=== PATIENT | male | born 1960 | race Caucasian/White ===

== ENCOUNTER 2022-08-13 12:50 | Outpatient (OUT) | payer BC, OTHER, SELFPAY ==
[2022-08-13 14:44] LABS: Prostate Specific Antigen Dx <0.13 ng/mL (<=4.00)
== END 2022-08-13 12:51 ==
DX: C61 Malignant neoplasm of prostate (principal)
CPT/HCPCS: 36415; 84153

== ENCOUNTER 2022-10-22 11:13 | Outpatient (OUT) | payer BC, OTHER, SELFPAY ==
[2022-10-22 11:38] LABS: Basophils Absolute Auto 0.1 10^3/uL (0.0-0.1); Basophils Percent Auto 1.2 % (0.2-2.0); Eosinophils Absolute Auto 0.4 10^3/uL (0.0-0.7); Eosinophils Percent Auto 4.4 % (0.9-7.0); Hematocrit 53.2 % (42.0-54.0); Hemoglobin 18.9 g/dL (14.0-18.0); Immature Granulocytes Abs Auto 0.04 10^3/uL (0.00-0.03); Immature Granulocytes Pct Auto 0.4 % (0.0-0.5); Lymphocytes Absolute Auto 2.3 10^3/uL (1.2-3.8); Lymphocytes Percent Auto 24.4 % (20.5-60.0); Mean Corpuscular HGB Conc 35.5 g/dL (29.9-35.2); Mean Corpuscular Hemoglobin 35.5 pg (25.9-34.0); Mean Corpuscular Volume 99.8 fL (80.0-94.0); Mean Platelet Volume 10.6 fL (9.5-13.5); Monocytes Percent Auto 10.9 % (1.7-12.0); Neutrophils Absolute Auto 5.5 10^3/uL (1.4-6.5); Neutrophils Percent Auto 58.7 % (43.0-75.0); Platelet Count 202 10^3/uL (150-450); Red Blood Count 5.33 10^6/uL (4.70-6.10); White Blood Count 9.4 10^3/uL (4.0-11.0)
[2022-10-22 11:55] LABS: BUN Creatinine Ratio 9.3; Calcium 9.4 mg/dL (8.5-10.1); Chloride 101 mmol/L (98-107); Estimated GFR (African America >60 (>=60); Estimated GFR (Non-African Ame >60 (>=60); Glucose 107 mg/dL (74-106); Sodium 136 mmol/L (136-145)
== END 2022-10-22 11:14 | disposition home or self-care (01) ==
DX: R94.31 Abnormal electrocardiogram [ECG] [EKG] (principal); I10 Essential (primary) hypertension
CPT/HCPCS: 36415; 80048; 85025

== ENCOUNTER 2022-11-12 10:12 | Outpatient (OUT) | payer BC, SELFPAY ==
[2022-11-12 11:53] LABS: Prostate Specific Antigen Dx 0.14 ng/mL (<=4.00)
== END 2022-11-12 10:13 | disposition home or self-care (01) ==
PROVIDERS: PCP Family Medicine
DX: Z85.46 Personal history of malignant neoplasm of prostate (principal)
CPT/HCPCS: 36415; 84153

== ENCOUNTER 2023-01-07 09:08 | Outpatient (OUT) | payer BC, SELFPAY ==
[2023-01-07 09:36] LABS: Glucose Fasting 121 mg/dL (74-106)
== END 2023-01-07 09:09 | disposition home or self-care (01) ==
LOC: LAB 09:10
PROVIDERS: PCP Family Medicine; Visit Provider Internal Medicine Cardiovascular Disease
DX: R73.9 Hyperglycemia, unspecified (principal); I10 Essential (primary) hypertension
CPT/HCPCS: 36415; 82947

== ENCOUNTER 2023-01-14 10:03 | Outpatient (OUT) | payer BC, SELFPAY ==
[2023-01-14 11:01] LABS: Prostate Specific Antigen Dx 0.33 ng/mL (<=4.00)
== END 2023-01-14 10:04 | disposition home or self-care (01) ==
LOC: LAB 10:03
PROVIDERS: PCP Family Medicine; Visit Provider Family Medicine
DX: R97.21 Rising PSA following treatment for malignant neoplasm of prostate (principal); Z85.46 Personal history of malignant neoplasm of prostate
CPT/HCPCS: 36415; 84153

== ENCOUNTER 2023-02-11 11:02 | Outpatient (OUT) | payer BC, SELFPAY ==
[2023-02-11 12:37] LABS: Anion Gap 10.1; BUN Creatinine Ratio 13.2; Calcium 9.7 mg/dL (8.5-10.1); Carbon Dioxide 33.2 mmol/L (21.0-32.0); Chloride 97 mmol/L (98-107); Estimated GFR (African America >60 (>=60); Estimated GFR (Non-African Ame >60 (>=60); Glucose 91 mg/dL (74-106); Potassium 3.3 mmol/L (3.5-5.1); Sodium 137 mmol/L (136-145)
== END 2023-02-11 11:03 | disposition home or self-care (01) ==
LOC: LAB 11:02
PROVIDERS: PCP Family Medicine; Visit Provider Internal Medicine Cardiovascular Disease
DX: I10 Essential (primary) hypertension (principal)
CPT/HCPCS: 36415; 80048

== ENCOUNTER 2023-11-18 09:37 | Outpatient (OUT) | payer BC, SELFPAY ==
--- OUTSIDE RECORDS SUMMARY | 2023-11-18 09:41 | XMS_ITS | CCD ---
Author Organization [facility] Care Team Providers Care Quality Compliance Coordinator Name Role Phone WU ENRIQUE Primary Care Physician MD Rodrigue Harp Attending Provider MD Wu Enrique Primary Care Provider [phone] Rodrigue Harp Admitting Unavailable Rodrigue Harp Attending Unavailable Wu Enrique Primary Care Unavailable Unavailable Primary Care Provider UnavailWu Waters Unavailable Unavailable Unavailable WU ENRIQUE Primary Care Physician KATIUSKA ., DR HUSAIN Admitting Unavailable HARP ., DR HUSAIN Attending Unavailable ENRIQUE ., DR WU Springer Primary Care Unavailable HARP ., DR HUSAIN Consulting Unavailable B[place], DR LETICIA Carbone Consulting Unavailable ZIEBER, DR ALEJANDRO Iqbal Consulting Unavailable HARP ., DR HUSAIN Admitting Unavailable HARP ., DR HUSAIN Attending Unavailable HARP ., DR HUSAIN Consulting Unavailable ENRIQUE ., DR WU Springer Admitting Unavailable ENRIQUE ., DR WU Springer Attending Unavailable ENRIQUE ., DR WU Springer Consulting Unavailable ENGELER, DR GRACE Iyer Admitting Unavailable ENGELER, DR GRACE Iyer Attending Unavailable ENRIQUE ., DR WU Springer Primary Care Unavailable ENGELEFarida, DR GRACE Iyer Consulting Unavailable ELENITA, DR ALEJANDRO Iqbal Consulting Unavailable HARP ., DR HUSAIN Admitting Unavailable HARP ., DR HUSAIN Attending Unavailable ENRIQUE ., DR WU Springer Primary Care Unavailable HARP ., DR HUSAIN Consulting Unavailable ENRIQUE ., DR WU Springer Primary Care Unavailable HAY ., DR CORNEJO Admitting Unavailable HAY ., DR CORNEJO Attending Unavailable MARKER ., DR VILLALOBOS Consulting Unavailable HARP ., DR HUSAIN Admitting Unavailable HARP ., DR HUSAIN Attending Unavailable ENRIQUE ., DR WU Springer Primary Care Unavailable HARP ., DR HUSAIN Consulting Unavailable FABIOLA MALIK Consulting Unavailable FELDER, DR KALIA Khan Admitting Unavailable FELDER, DR KALIA Khan Attending Unavailable ENRIQUE ., DR WU Springer Primary Care Unavailable KATIUSKA ., DR HUSAIN Consulting Unavailable FELDER, DR KALIA Khan Consulting Unavailable WU ENRIQUE Primary Care Physician [phone] Wu Enrique MD Primary Care Provider FelderVenkat girardan Referring Unavailable Iva, Dr. Wu De La O Primary Care Unavailab le Felder, Motta Attending Unavailable Felder, Motta Attending Unavailable Felder, Motta Referring Unavailable Iva, Dr. Wu De La O Primary Care Unavailab le Felder, Kalia Attending Unavailable Felder, Motta Referring Unavailable Enrique, Dr. Wu De La O Primary Care Unavailab Loc Dumont MD Primary Care Provider Loc Castaneda. Attending Unavailable Loc Castaneda. Attending Unavailable Loc Castaneda MD Primary Care Provider ENGELER, G MORALES Referring Unavailable ROSS, LOC E Primary Care Unavailable ENGELER, G MORALES Referring Unavailable ROSS, LOC E Primary Care Unavailable ENGELER, G MORALES Referring Unavailable ROSS, LOC E Primary Care Unavailable CLARIBEL HAQUE Attending Unavailable ROSS, LOC E Primary Care Unavailable ENGELER, G MORALES Referring Unavailable ROSS, LOC E Primary Care Unavailable ENGELER, G MORALES Referring Unavailable ROSS, LOC E Primary Care Unavailable ENGELER, G MORALES Attending Unavailable ROSS, LOC E Primary Care Unavailable ENGELER, G MORALES Referring Unavailable ROSS, LOC E Primary Care Unavailable ROSS, LOC E Primary Care Unavailable ENGELER, G MORALES Referring Unavailable ENGELER, G MORALES Referring Unavailable ROSS, LOC E Primary Care Unavailable ENGELER, G MORALES Referring Unavailable ROSS, LOC E Primary Care Unavailable ENGELER, G MORALES Attending Unavailable ROSS, LOC E Primary Care Unavailable ENGELER, G MORALES Referring Unavailable ROSS, LOC E Primary Care Unavailable ENGELER, G MORALES Referring Unavailable ROSS, LOC E Primary Care Unavailable ENGELER, G MORALES Attending Unavailable ROSS, LOC E Primary Care Unavailable ENGELER, G MORALES Referring Unavailable ROSS, LOC E Primary Care Unavailable ENGELER, G MORALES Referring Unavailable ROSS, LOC E Primary Care Unavailable ENGELER, G MORALES Referring Unavailable ROSS, LOC E Primary Care Unavailable ENGELER, G MORALES Referring Unavailable ROSS, LOC E Primary Care Unavailable ENGELER, G MORALES Attending Unavailable ROSS, LOC E Primary Care Unavailable ENGELER, G MORALES Referring Unavailable ROSS, LOC E Primary Care Unavailable ENGELER, G MORALES Referring Unavailable ROSS, LOC E Primary Care Unavailable ENGELER, G MORALES Attending Unavailable ROSS, LOC E Primary Care Unavailable ENGELER, G MORALES Referring Unavailable ROSS, LOC E Primary Care Unavailable ENGELER, G MORALES Referring Unavailable ROSS, LOC E Primary Care Unavailable ENGELER, G MORALES Attending Unavailable ROSS, LOC E Primary Care Unavailable ENGELER, G MORALES Attending Unavailable ENGELER, G MORALES Referring Unavailable ROSS, LOC E Primary Care Unavailable ENGELER, G MORALES Attending Unavailable ROSS, LOC E Primary Care Unavailable ENGELER, G MORALES Attending Unavailable ROSS, LOC E Primary Care Unavailable ENGELER, G MORALES Attending Unavailable ENGELER, G MORALES Referring Unavailable ROSS, LOC E Primary Care Unavailable KISHOREPRESTON BERNSTEIN Attending Unavailable ROSS, LOC E Primary Care Unavailable PRESTON NOVAK Attending Unavailable ENGELER, G MORALES Referring Unavailable ROSS, LOC E Primary Care Unavailable ENGELER, G MORALES Referring Unavailable ROSS, LOC E Primary Care Unavailable ENGELER, G MORALES Referring Unavailable ROSS, LOC E Primary Care Unavailable ENGELER, G MORALES Referring Unavailable ROSS, LOC E Primary Care Unavailable CLARIBEL HAQUE Attending Unavailable WU ENRIQUE Primary Care Unavailable CLARIBEL HAQUE Attending Unavailable WU ENRIQUE Primary Care Unavailable TERRYELER, G MORALES Attending Unavailable WU ENRIQUE Primary Care Unavailable ENGELER, G MORALES Referring Unavailable WU ENRIQUE Primary Care Unavailable ENGELER, G MORALES Referring Unavailable ROSS, LOC E Primary Care Unavailable ENGELER, G MORALES Referring Unavailable ROSS, LOC E Primary Care Unavailable ENGELER, G MORALES Referring Unavailable ROSS, LOC E Primary Care Unavailable ENGELER, G MORALES Referring Unavailable ROSS, LOC E Primary Care Unavailable ENGELEFarida, G MORALES Attending Unavailable ROSS, LOC E Primary Care Unavailable ENGELER, G MORALES Referring Unavailable ROSS, LOC E Primary Care Unavailable ENGELER, G MORALES Referring Unavailable ROSS, LOC E Primary Care Unavailable ROSS, LOC E Primary Care Unavailable ENGELER, G MORALES Referring Unavailable ROSS, LOC E Primary Care Unavailable ENGELER, G MORALES Referring Unavailable ROSS, LOC E Primary Care Unavailable ENGELER, G MORALES Referring Unavailable ROSS, LOC E Primary Care Unavailable ROSS, LOC E Primary Care Unavailable ENGELER, G MORALES Referring Unavailable ROSS, LOC E Primary Care Unavailable ROSS, LOC E Primary Care Unavailable ENGELER, G MORALES Attending Unavailable ROSS, LOC E Primary Care Unavailable ENGELER, G MORALES Attending Unavailable ROSS, LOC E Primary Care Unavailable ENGELER, G MORALES Referring Unavailable ROSS, LOC E Primary Care Unavailable KALIA FELDER Attending Unavailable LOC CASTANEDA KATIE Primary Care Unavailable KALIA FELDER Referring Unavailable LOC CASTANEDA KATIE Primary Care Unavailable KALIA FELDER Attending Unavailable KALIA FELDER Referring Unavailable LOC CASTANEDA KATIE Primary Care Unavailable Allergies Allergy Classification Reported Allergen(s) Allergy Type Date of Onset Reaction(s) Facility (7 sources) Angiotensin-converting enzyme inhibitor agent; Translations: [LINDA inhibitors] Drug allergy 04-19-19 Cough (finding) [facility] (20 sources) hydroCHLOROthiazide / Losartan; Translations: [hydrochlorothiazide-l osartan] Drug Allergy 04-19-19 Angioedema (disorder), Swelling [facility] (11 sources) Lisinopril; Translations: [lisinopril] Drug Allergy 01-21-20 Weal (disorder) [facility] (1 source) Unable to Assess Drug allergy (disorder) 03-21-19 [facility] Rep[facility] (20 sources) Angiotensin-converting enzyme inhibitor agent Drug Allergy 04-19-19 Cough, Hives [facility] (5 sources) Angiotensin Converting Enzyme (Linda) Inhibitors; Translations: [LINDA Inhibitors] Allergy to drug (finding) Rash [facility] [facility] DO Work Phone: (1 source) Amino Acids Drug Allergy [facility] Repository (1 source) Losartan Drug Allergy [facility] (1 source) hydroCHLOROthiazide / Losartan; Translations: [LOSARTAN-HYDROCHLOROT HIAZIDE] Drug Allergy 04-19-19 [facility] Repository Medications Current Medications Medication Drug Class(es) Dates Sig (Normalized) Sig (Original) apixaban 2.5 mg oral tablet (2 sources) Factor Xa Inhibitor Start: 06-30-2022 End: 07-30-2022 take 1 tablet by mouth twice daily apixaban (ELIQUIS) 2.5 mg tab(s) Take 1 tablet by mouth twice daily. 60 tablet 0 06/30/2022 07/30/2022 Active Comment on above: Take 1 tablet by logan twice daily. carvedilol 12.5 mg oral tablet (20 sources) alpha-Adrenergic Anali, beta-Adrenergic Anali Start: 05-09-2022 carvedilol (COREG) 12.5 mg tablet q 12 HR. 0 05/09/2022 Active Start: 05-09-2022 take 1 tablet by logan twice daily Carvedilol 12.5 MG Oral Tablet TAKE 1 TABLET TWICE DAILY. Quantity: 180 Refills: 3 Ordered: 09-May-2022 Kalia Felder MD Start : 09-May-2022 Active new start, stop metoprolol Comment on above: q 12 HR. cloNIDine hydrochloride 0.1 mg oral tablet (20 sources) Central alpha-2 Adrenergic Agonist Start: 03-02-2022 cloNIDine HCl (CATAPRES) 0.1 mg tablet Take by mouth. 0 03/02/2022 Active Start: 02-28-2022 take 1 tablet by logan th three times daily cloNIDine HCl (CATAPRES) 0.1 mg tablet Take 0.1 mg by mouth three times daily. 0 03/02/2022 Active Comment on above: Take by mouth. Take 0.1 mg by mouth three times daily. hydrALAZINE hydrochloride 25 mg oral tablet (16 sources) Arteriolar Vasodilator Start: End: take 1 tablet by mouth twice daily hydrALAZINE (APRESOLINE) 25 mg tablet Take 25 mg by mouth two times a day. 0 01/23/2023 01/23/2024 Active Comment on above: Take 25 mg by mouth two times a day. indapamide 2.5 mg oral tablet (16 sources) Thiazide-like Diuretic Start: 023 take 1 tablet by mouth once daily in the morning indapamide (LOZOL) 2.5 mg tablet Take 2.5 mg by mouth every morning. 0 01/23/2023 Active Comment on above: Take 2.5 mg by mouth every morning. tadalafil 5 mg oral tablet (20 sources) Phosphodiesterase 5 Inhibitor Start: 024 End: 025 take 1 tablet by mouth once daily Tadalafil (CIALIS) 5 mg tablet Indications: Erectile dysfunction following radical prostatectomy Take 1 tablet by mouth daily. 90 tablet 3 07/07/2023 07/06/2024 Active Start: 07-07-2022 End: 06-18-2023 take 1 tablet by mouth once daily Tadalafil (CIALIS) 5 mg tablet Take 1 tablet by mouth daily. 90 tablet 3 06/19/2023 Active Start: 06-10-2022 End: 06-10-2022 Tadalafil (CIALIS) 20 mg tab (s) Take 1 tablet by mouth as needed. 1-2 hours before sexual intercourse. 10 tablet 11 06/10/2022 Active Comment on above: Take 1 tablet by logan th as needed. 1-2 hours before sexual intercourse. Take 1 tablet by logan th daily. Completed/Discontinued Medications Medication Drug Class(es) Dates Sig (Normalized) Sig (Original) acetaminophen 500 mg oral tablet (2 sources) Start: 06-30-2022 take 2 tablets by mouth every six hours as needed acetaminophen (TYLENOL EXTRA STRENGTH) 500 mg tablet Take 2 tablets by mouth every 6 hours as needed for pain. 60 tablet 0 06/30/2022 Active Comment on above: Take 2 tablets by mo uth every 6 hours as needed for pain. amLODIPine 10 mg oral tablet (20 sources) Dihydropyridine Calcium Channel Anali Start: 05-09-2022 take 1 tablet by mouth once daily amLODIPine Besylate 10 MG Oral Tablet TAKE 1 TABLET DAILY. Quantity: 90 Refills: 3 Ordered: 09-May-2022 Kalia Felder MD Start : 09-May-2022 Active new mg Start: 04-22-2022 take 1 mg by mouth once daily Norvasc 5 mg Tab mg tab(s), Oral, Daily Start Date: 04/22/22 Status: Ordered Start: 04-22-2022 amLODIPine (NO RVASC) 10 mg tablet Take by mouth q 24 HR. 0 04/22/2022 Active Comment on above: Take by mouth q 24 H R. docusate sodium 100 mg oral capsule (2 sources) Start: 2022 take 1 capsule by mouth twice daily docusate sodium (COLACE) 100 mg capsule Take 1 capsule by mouth twice daily. 20 capsule 0 06/30/2022 Active Comment on above: Take 1 capsule by [facility] twice daily. hydroCHLOROthiazide 12.5 mg oral capsule (20 sources) Thiazide Diuretic Start: 2022 End: 2022 hydroCHLOROthiazide 12.5 mg capsule q 24 HR. 0 05/09/2022 01/26/2023 Discontinued (Discontinued by another Health Care Provider) Start: 05-09-2022 take 1 capsule by [facility] once daily hydroCHLOROthiazide 12.5 MG Oral Capsule TAKE 1 CAPSULE ONCE DAILY. Quantity: 90 Refills: 3 Ordered: 09-May-2022 Kalia Felder MD Start : 09-May-2022 Active Comment on above: q 24 HR. LORazepam 1 mg oral tablet (20 sources) Benzodiazepine Start: 04-20-2022 End: 02-21-2023 LORazepam (ATIVAN) 1 mg tablet Take by mouth q 24 HR. 0 04/20/2022 02/21/2023 Discontinued (Course of therapy completed) Start: 04-20-2022 take 1 tablet by [facility] once daily LORazepam 1 MG Oral Tablet TAKE 1 TABLET DAILY DIRECTED. Quantity: 0 Refills: 0 Ordered: 21-Apr-2022 DO Start : 20-Apr-2022 Active Comment on above: Take by mouth q 24 H R. 24 hr metoprolol succinate 100 mg extended release oral tablet (15 sources) beta-Adrenergic Anali Start: 2 End: 3 metoprolol succinate ER (TOPROL XL) 100 mg Take by mouth. 0 03/02/2022 06/24/2022 Discontinued Comment on above: Take by mouth. oxybutynin chloride 5 mg oral tablet (2 sources) Cholinergic Muscarinic Antagonist Start: take 1 tablet by mouth every eight hours as needed oxybutynin (DITROPAN) 5 mg tablet Take 1 tablet by mouth three times daily as needed. 20 tablet 0 06/30/2022 Active Comment on above: Take 1 tablet by logan th three times daily as needed. Problems Active Problems Problem Classification Problem Date Documented Da te Episodic/Chronic Anxiety disorders (1 source) Other specified anxiety disorders; Translations: [OTHER SPECIFIED ANXIETY DISORDERS] Onset: 04-22-2022 Chronic Cancer of prostate (20 sources) Malignant neoplasm of prostate; Translations: [Malignant tumor of prostate] Onset: 04-13-2022 Chronic Diabetes mellitus without complication (1 source) Hyperglycemia; Translations: [Other abnormal glucose] Episodic Disorders of lipid metabolism (20 sources) Hypercholesterolemi a; Translations: [Pure hypercholesterolemi a, unspecified] Onset: 06-24-2022 03-02-2022 Chronic Essential hypertension (20 sources) Hypertensive disorder; Translations: [Benign essential hypertension] Onset: 04-20-2022 03-02-2022 Chronic Genitourinary symptoms and ill-defined conditions (3 sources) Male urinary stress incontinence; Translations: [Stress incontinence (female) (male)] Onset: 01-26-2023 11-23-2022 Chronic Hyperplasia of prostate (20 sources) Benign prostatic hypertrophy with outflow obstruction; Translations: [Benign prostatic hyperplasia with lower urinary tract symptoms] Onset: 03-02-2022 Chronic Other diseases of kidney and ureters (1 source) Urinary tract obstruction; Translations: [Other obstructive and reflux uropathy] Onset: 03-02-2022 Episodic Other male genital disorders (3 sources) Erectile dysfunction following radical prostatectomy; Translations: [Erectile dysfunction following radical prostatectomy] 11-23-2022 Chronic Other male genital disorders (1 source) Erectile dysfunction following radical prostatectomy; Translations: [Erectile dysfunction following radical prostatectomy] Onset: 01-26-2023 Chronic Other nutritional; endocrine; and metabolic disorders (4 sources) Obesity; Translations: [Obesity, unspecified] Chronic Other nutritional; endocrine; and metabolic disorders (20 sources) Obese class I; Translations: [Obesity, unspecified] Onset: 06-29-2022 06-29-2022 Chronic Other nutritional; endocrine; and metabolic disorders (1 source) Overweight in adulthood with body mass index of 25 or more but less than 30; Translations: [Overweight] Episodic Other nutritional; endocrine; and metabolic disorders (2 sources) Body mass index (BMI) 28.0-28.9, adult; Translations: [Body mass index (BMI) 28.0-28.9, adult] Onset: 10-04-2023 Episodic Residual codes; unclassified (20 sources) Sleep apnea; Translations: [Unspecified sleep apnea] Onset: 06-24-2022 06-24-2022 Chronic Residual codes; unclassified (1 source) Obstructive sleep apnea syndrome; Translations: [Obstructive sleep apnea (adult) (pediatric)] Chronic Residual codes; unclassified (2 sources) Sleep apnea, unspecified; Translations: [Sleep apnea, unspecified] Onset: 01-20-2023 Chronic Substance-related disorders (8 sources) Smoker; Translations: [Tobacco use disorder] Onset: 04-22-2022 Chronic Comment on above: 1/2 ppd; Thyroid disorders (6 sources) Thyroid nodule; Translations: [Nontoxic single thyroid nodule] Onset: 05-26-2022 Chronic Past or Other Problems Problem Classification Problem Date Documented Da te Episodic/Chronic Cancer of prostate (7 sources) History of malignant neoplasm of prostate; Translations: [Personal history of malignant neoplasm of prostate] Onset: 01-26-2023 11-23-2022 Episodic Genitourinary symptoms and ill-defined conditions (20 sources) Nocturia; Translations: [Nocturia] Onset: 03-02-2022 Episodic Other aftercare (1 source) Encounter for follow-up examination after completed treatment for malignant neoplasm; Translations: [Encounter for follow-up surveillance of prostate cancer] Onset: 01-26-2023 Episodic Other screening for suspected conditions (not mental disorders or infectious disease) (20 sources) Raised prostate specific antigen; Translations: [Elevated prostate specific antigen [PSA]] Onset: 02-02-2022 Episodic Results Test Name Value Interpretation Reference Range [facility] CNOV Office Visit (RADTSA ) -- RUPERTO BHATTI ([id number]) 1960 M Date Time Provider Department 09/21/23 1:30 PM Stephanie CASTRO During your visit today, we recorded the following information about you: Temperature Pulse Respiration Blood pressure 97.4 degrees 65/minute 18/minute 154/85 Weight 86.7 kg Alise Acosta RN 09/21/2023 1:22 PM Signed AUA 3 JOSEPH Dodson G Phillip, MD 09/21/2023 1:22 PM Signed Radiation Oncology - Follow Up Note PATIENT NAME: Ruperto Bhatti PATIENT DIAGNOSIS: Prostate adenocarcinoma, initial PSA 25.79, biopsy Dejah score 3 + 3 = 6 (grade group 1), clinical stage T1c,N0M0 s/p TRUS Random biopsy. Patient underwent robotic prostatectomy on 06/29/2022 Pathologic stage pT3aNx, [place] 7 (4+3) with detectable and rising PSA, PSA 01/14/2023 0.33 RADIATION SUMMARY: DATES OF TREATMENT: 04-05-2023 to 05-25-2023 AREA TREATED: Pelvis/Prostate Bed DELIVERED DOSE: Area: Pelvis with daily CBCT Imaging 4600cGy in 23 fractions, 3 VMAT Rapid [place] L[place]pez, 10X Area: Prostate Bed Boost with daily CBCT Imaging 2400cGy in 12 fractions, 2 VMAT Rapid [place], 10X TOTAL: 7000cGy in 35 fractions INTERVAL HISTORY: Doing well. No new problems or concerns. Bladder function stable. Occasional stress related incontinence. Wears a pad but rarely needs this. PSA HISTORY: PSA (ng/mL) Date Value 09/13/2023 0.18 06/15/2023 0.32 03/21/2023 0.54 ALLERGIES Allergen Reactions Linda Inhibitors Cough, Hives Losartan-Hydrochlor* Swelling Tadalafil (CIALIS) 5 mg tablet Take 1 tablet by mouth daily. indapamide (LOZOL) 2.5 mg tablet Take 2.5 mg by mouth every morning. hydrALAZINE (APRESOLINE) 25 mg tablet Take 25 mg by mouth two times a day. Tadalafil (CIALIS) 20 mg tab(s) Take 1 tablet by mouth as needed. 1-2 hours before sexual intercourse. amLODIPine (NORVASC) 10 mg tablet Take by mouth q 24 HR. carvedilol (COREG) 12.5 mg tablet q 12 HR. cloNIDine HCl (CATAPRES) 0.1 mg tablet Take 0.1 mg by mouth three times daily. REVIEW OF SYSTEMS: D/N = 4-6/1-2 Hematuria: none Dysuria: none Incontinence: none Urgency: none Catheter use: none Medications to aid urination: n - Total AUA Score: 3 Bowel movement frequency: 1/day Bowel movement quality: normal Blood per rectum: none Last colonoscopy: na Androgen deprivation: Never. PHYSICAL EXAM: There were no vitals taken for this visit. KPS: 100 General Appearance: Alert and oriented. No acute distress. Rectal exam is deferred. ASSESSMENT/PLAN:Prostate adenocarcinoma, initial PSA 25.79, biopsy Dejah score 3 + 3 = 6 (grade group 1), clinical stage T1c,N0M0 s/p TRUS Random biopsy. Patient underwent robotic prostatectomy on 06/29/2022 Pathologic stage pT3aNx, [place] 7 (4+3) with detectable and rising PSA, PSA 03/21/2023 0.54, status post prostate bed salvage radiation. Doing well. No posttreatment problems. PSA continues to decrease. Plan to recheck in 3 to 4 months. Signed by: Stephanie Castro MD cc: Loc Castaneda [address] [place] [address] No referring provider defined for this encounter. Allergies As of Date: 09/21/2023 Noted Allergy Reaction LINDA INHIBITORS 04/19/2022 3 - Cough 4 - Hives LOSARTAN-HYDROCHLOROTHIAZI DE 04/19/2022 7 - Swelling Date Reviewed: 09/21/2023 Reviewed by: Alise Acosta RN - Fully Assessed Reason for Visit: Prostate Cancer [590] Primary Visit Diagnosis:Malignant neoplasm of prostate (HCC) [C61] Order(s):PROSTATE-SPECIFIC ANTIGEN DIAGNOSTIC [SQPSA] Order #: [id number] FUTURE Prescriptions as of 09/21/2023 - Tadalafil (CIALIS) 5 mg tablet Take 1 tablet by mouth daily. - indapamide (LOZOL) 2.5 mg tablet Take 2.5 mg by mouth every morning. - hydrALAZINE (APRESOLINE) 25 mg tablet Take 25 mg by mouth two times a day. - Tadalafil (CIALIS) 20 mg tab(s) Take 1 tablet by mouth as needed. 1-2 hours before sexual intercourse. - amLODIPine (NORVASC) 10 mg tablet Take by mouth q 24 HR. - carvedilol (COREG) 12.5 mg tablet q 12 HR. - cloNIDine HCl (CATAPRES) 0.1 mg tablet Take 0.1 mg by mouth three times daily. Problem List As Of Date 09/21/2023 Noted Resolved Malignant neoplasm of prostate (HCC) [C61] 06/10/2022 HTN (hypertension) [I10] 06/24/2022 Hypercholesteremia [E78.00] 06/24/2022 Benign prostatic hyperplasia with urinary obstr*03/02/2022 Sleep apnea [G47.30] 06/24/2022 Nocturia [R35.1] 03/02/2022 Obesity, Class I, BMI 30-34.9 [E66.9] 06/29/2022 Visit Notes: >> Alise Acosta RN Faby Sep 21, 2023 1:08 PM Status: Signed AUA 3 Alise Acosta RN Disposition: Return in about 3 months (around 12/22/2023). Follow-up and Disposition History for Encounter Date Provider Department Center 09/21/2023 [id number] CASTRO Anjali Encounter Statu (more content not included)... [facility] (UROGIL[facility] -- RUPERTO BHATTI ([id number]) 1960 M Date Time Provider Department 09/21/23 CLARIBEL HAQUE During your visit today, we recorded the following information about you: Claribel Haque APRN.FOURCHETTE SEWER 09/21/2023 5:23 PM Addendum Returned call and spoke to Ruperto Bhatti's Shona at this time Patient is taking daily Tadalafil (5 mg) with no erectile improvement- inquiring if he could take larger dose. We discussed PRN dosing- he favors to stop daily dosing. Instructed he can take 20 mg of Tadalafil PRN (instructed not to exceed 20 mg in 36 hours). Claribel Haque APRN.FOURCHETTE SEWER Allergies As of Date: 09/21/2023 Noted Allergy Reaction LINDA INHIBITORS 04/19/2022 3 - Cough 4 - Hives LOSARTAN-HYDROCHLOROTHIAZI DE 04/19/2022 7 - Swelling Date Reviewed: 09/21/2023 Reviewed by: Alise Acosta RN - Fully Assessed Reason for Visit: Returning Patient's Call [[id number]] Prescriptions as of 09/21/2023 - Tadalafil (CIALIS) 5 mg tablet Take 1 tablet by mouth daily. - indapamide (LOZOL) 2.5 mg tablet Take 2.5 mg by mouth every morning. - hydrALAZINE (APRESOLINE) 25 mg tablet Take 25 mg by mouth two times a day. - Tadalafil (CIALIS) 20 mg tab(s) Take 1 tablet by mouth as needed. 1-2 hours before sexual intercourse. - amLODIPine (NORVASC) 10 mg tablet Take by mouth q 24 HR. - carvedilol (COREG) 12.5 mg tablet q 12 HR. - cloNIDine HCl (CATAPRES) 0.1 mg tablet Take 0.1 mg by mouth three times daily. Problem List As Of Date 09/21/2023 Noted Resolved Malignant neoplasm of prostate (HCC) [C61] 06/10/2022 HTN (hypertension) [I10] 06/24/2022 Hypercholesteremia [E78.00] 06/24/2022 Benign prostatic hyperplasia with urinary obstr*03/02/2022 Sleep apnea [G47.30] 06/24/2022 Nocturia [R35.1] 03/02/2022 Obesity, Class I, BMI 30-34.9 [E66.9] 06/29/2022 Encounter Status:Closed by CLARIBEL HAQUE on 09/21/23 Normal [facility] PSA SerPl-mCncon 09-13-2023 Prostate specific Ag [Mass/Vol] 0.18 ng/mL Normal <2.60 [facility] Comment on above: Order Comment: Speci men Type: BLOOD SPECIMENOrdering Facility: [facility] Address: [address] [place] [address] Result Comment: Tota l PSA test methodology used is the Electrochemiluminescence Immunoassay by [employer]. Total PSA values by differing methodologies cannot be interchanged. Performed By: #### 2 857-1 ####[facility] [id number] [facility] [id number] [place] [address] [place] Consultation Noteon 07-03-19 24 Consultation Note [id number]#1.00TIFF Jackson Kerr [facility] CNOVon 06-22-2023 CNOV Office Visit (RADTSA ) -- RUPERTO BHATTI ([id number]) 1960 M Date Time Provider Department 06/22/23 2:00 PM Stephanie CASTRO During your visit today, we recorded the following information about you: Temperature Pulse Respiration Blood pressure 97.5 degrees 72/minute 16/minute 138/83 Weight 86.3 kg Stephanie Castro MD 06/29/2023 9:35 AM Signed Radiation Oncology - Follow Up Note PATIENT NAME: Ruperto Bhatti PATIENT DIAGNOSIS: Prostate adenocarcinoma, initial PSA 25.79, biopsy Dejah score 3 + 3 = 6 (grade group 1), clinical stage T1c,N0M0 s/p TRUS Random biopsy. Patient underwent robotic prostatectomy on 06/29/2022 Pathologic stage pT3aNx, Dejah 7 (4+3) with detectable and rising PSA, PSA 01/14/2023 0.33 RADIATION SUMMARY: DATES OF TREATMENT: 04-05-2023 to 05-25-2023 AREA TREATED: Pelvis/Prostate Bed DELIVERED DOSE: Area: Pelvis with daily CBCT Imaging 4600cGy in 23 fractions, 3 VMAT Rapid Arc López, 10X Area: Prostate Bed Boost with daily CBCT Imaging 2400cGy in 12 fractions, 2 VMAT Rapid Arc López, 10X TOTAL: 7000cGy in 35 fractions INTERVAL HISTORY: The patient presents for routine follow-up after completion of radiation in May. Overall doing well no new problems or concerns. PSA HISTORY: PSA (ng/mL) Date Value 06/15/2023 0.32 03/21/2023 0.54 ALLERGIES Allergen Reactions Linda Inhibitors Cough, Hives Losartan-Hydrochlor* Swelling Tadalafil (CIALIS) 5 mg tablet Take 1 tablet by mouth daily. indapamide (LOZOL) 2.5 mg tablet Take 2.5 mg by mouth every morning. hydrALAZINE (APRESOLINE) 25 mg tablet Take 25 mg by mouth two times a day. Tadalafil (CIALIS) 20 mg tab(s) Take 1 tablet by mouth as needed. 1-2 hours before sexual intercourse. amLODIPine (NORVASC) 10 mg tablet Take by mouth q 24 HR. carvedilol (COREG) 12.5 mg tablet q 12 HR. cloNIDine HCl (CATAPRES) 0.1 mg tablet Take 0.1 mg by mouth three times daily. REVIEW OF SYSTEMS: D/N = 4-6/1-2 Hematuria: none Dysuria: none Incontinence: none Urgency: none Catheter use: none Medications to aid urination: n - Total AUA Score: 6 Bowel movement frequency: 1/day Bowel movement quality: normal Blood per rectum: none Last colonoscopy: na Androgen deprivation: Never. PHYSICAL EXAM: BP 138/83 Pulse 72 Temp 36.4 ?C (97.5 ?F) Resp 16 Wt 86.3 kg (190 lb 4.1 oz) SpO2 96% BMI 28.93 kg/m? KPS: 100 General Appearance: Alert and oriented. No acute distress. Rectal exam is deferred. ASSESSMENT/PLAN:Prostate adenocarcinoma, initial PSA 25.79, biopsy [place] score 3 + 3 = 6 (grade group 1), clinical stage T1c,N0M0 s/p TRUS Random biopsy. Patient underwent robotic prostatectomy on 06/29/2022 Pathologic stage pT3aNx, Dejah 7 (4+3) with detectable and rising PSA, PSA 03/21/2023 0.54, status post prostate bed salvage radiation. Doing well. No posttreatment problems. PSA is responding appropriately. Plan to recheck in 3 to 4 months. Signed by: Stephanie Castro MD cc: [address] [place] [address] No referring provider defined for this encounter. Alise Acosta RN 06/29/2023 9:35 AM Signed AUA 6 Alise Acosta RN Allergies As of Date: 06/22/2023 Noted Allergy Reaction LINDA INHIBITORS 04/19/2022 3 - Cough 4 - Hives LOSARTAN-HYDROCHLOROTHIAZI DE 04/19/2022 7 - Swelling Date Reviewed: 06/22/2023 Reviewed by: Alise Acosta RN - Fully Assessed Reason for Visit: Prostate Cancer [590] Primary Visit Diagnosis:Malignant neoplasm of prostate (HCC) [C61] Order(s):PROSTATE-SPECIFIC ANTIGEN DIAGNOSTIC [SQPSA] Order #: [id number] FUTURE Prescriptions as of 06/29/2023 - Tadalafil (CIALIS) 5 mg tablet Take 1 tablet by mouth daily. - indapamide (LOZOL) 2.5 mg tablet Take 2.5 mg by mouth every morning. - hydrALAZINE (APRESOLINE) 25 mg tablet Take 25 mg by mouth two times a day. - Tadalafil (CIALIS) 20 mg tab(s) Take 1 tablet by mouth as needed. 1-2 hours before sexual intercourse. - amLODIPine (NORVASC) 10 mg tablet Take by mouth q 24 HR. - carvedilol (COREG) 12.5 mg tablet q 12 HR. - cloNIDine HCl (CATAPRES) 0.1 mg tablet Take 0.1 mg by mouth three times daily. Problem List As Of Date 06/22/2023 Noted Resolved Malignant neoplasm of prostate (HCC) [C61] 06/10/2022 HTN (hypertension) [I10] 06/24/2022 Hypercholesteremia [E78.00] 06/24/2022 Benign prostatic hyperplasia with urinary obstr*03/02/2022 Sleep apnea [G47.30] 06/24/2022 Nocturia [R35.1] 03/02/2022 Obesity, Class I, BMI 30-34.9 [E66.9] 06/29/2022 Visit Notes: >> Alise Acosta RN [facility] Jun 22, 2023 2:06 PM Status: Signed AUA 6 Alise Acosta RN Disposition: Return in about 3 months (around 09/21/2023). Follow-up and Disposition History for Encounter Date Provider Department Center 06/22/2023 [id number] CASTRO (more content not included)... Normal [facility] PSA SerPl-mCncon 06-15-2023 Prostate specific Ag [Mass/Vol] 0.32 ng/mL Normal <2.60 [facility] Comment on above: Order Comment: Speci men Type: BLOOD SPECIMENOrdering Facility: [facility] Address: [address] [place] [address] Result Comment: Alishaa moris PSA test methodology used is the Electrochemiluminescence Immunoassay by [employer]. Total PSA values by differing methodologies cannot be interchanged. Performed By: #### 2 857-1 ####[facility] [id number] [place] [address] [place] Consultation Noteon 06-06-19 24 Consultation Note [id number]#1.00TIFF Normal [facility] CNOVon 05-22-2023 CNOV Office Visit (RADTSA ) -- RUPERTO BHATTI ([id number]) 1960 M Date Time Provider Department 05/22/23 4:15 PM Stephanie CASTRO During your visit today, we recorded the following information about you: Temperature Pulse Respiration Blood pressure 97.4 degrees 70/minute 16/minute 153/81 Weight 88 kg Stephanie Castro MD 05/30/2023 7:06 AM Signed Radiation Oncology - On Treatment Review (OTR) Note PATIENT NAME: Ruperto Bhatti PATIENT DIAGNOSIS: Prostate adenocarcinoma, initial PSA 25.79, biopsy Dejah score 3 + 3 = 6 (grade group 1), clinical stage T1c,N0M0 s/p TRUS Random biopsy. Patient underwent robotic prostatectomy on 06/29/2022 Pathologic stage pT3aNx, [place] 7 (4+3) with detectable and rising PSA, PSA 01/14/2023 0.33 COURSE: salvage Current dose: 6600 cGy in 33 fx Planned dose: 7000 cGy in 35 fx SUBJECTIVE: Doing well. PHYSICAL EXAM: 05/22/23 1557 BP: 153/81 Pulse: 70 Resp: 16 Temp: 36.3 ?C (97.4 ?F) SpO2: 98% Weight: 88 kg (194 lb 0.1 oz) KPS: 100 General Appearance: Alert and oriented. No acute distress. IMAGING/LAB RESULTS: Hemoglobin (g/dL) Date Value 04/13/2023 16.8 Hematocrit (%) Date Value 04/13/2023 47.7 WBC (k/uL) Date Value 04/13/2023 7.73 Platelet Count (k/uL) Date Value 04/13/2023 182 TOXICITY ASSESSMENT (CTC v4.0): Fatigue:grade 0 - No symptoms Radiation Dermatitis: grade 0 - No symptoms Diarrhea:grade 1 Proctitis: grade 0 - No symptoms Urinary frequency: grade 1 Dysuria: grade 0 - No symptoms Urinary incontinence: grade 0 (No symptoms) Urinary retention: grade 0 - No symptoms Treatment chart checked: Yes Patient treatment site reviewed and verified:Yes Port films reviewed and current:Yes Medications started: None ASSESSMENT/PLAN: Clinically stable. Toxicity within expected parameters. Continue radiation treatment as planned. Completes this week, follow up care discussed. Stephanie Castro MD Allergies As of Date: 05/22/2023 Noted Allergy Reaction LINDA INHIBITORS 04/19/2022 3 - Cough 4 - Hives LOSARTAN-HYDROCHLOROTHIAZI DE 04/19/2022 7 - Swelling Date Reviewed: 05/22/2023 Reviewed by: Rosita Reyna LPN - Fully Assessed Reason for Visit: Radiotherapy On-treatment Visit [1722] Primary Visit Diagnosis:Thyroid nodule [E04.1] Other Visit Diagnosis:Malignant neoplasm of prostate (HCC) [C61] Order(s):PSA/PROSTSPECAG DIAG [SQPSA] Order #: [id number] FUTURE Prescriptions as of 05/30/2023 - indapamide (LOZOL) 2.5 mg tablet Take 2.5 mg by mouth every morning. - hydrALAZINE (APRESOLINE) 25 mg tablet Take 25 mg by mouth two times a day. - Tadalafil (CIALIS) 5 mg tablet Take 1 tablet by mouth daily. - Tadalafil (CIALIS) 20 mg tab(s) Take 1 tablet by mouth as needed. 1-2 hours before sexual intercourse. - amLODIPine (NORVASC) 10 mg tablet Take by mouth q 24 HR. - carvedilol (COREG) 12.5 mg tablet q 12 HR. - cloNIDine HCl (CATAPRES) 0.1 mg tablet Take 0.1 mg by mouth three times daily. Problem List As Of Date 05/22/2023 Noted Resolved Malignant neoplasm of prostate (HCC) [C61] 06/10/2022 HTN (hypertension) [I10] 06/24/2022 Hypercholesteremia [E78.00] 06/24/2022 Benign prostatic hyperplasia with urinary obstr*03/02/2022 Sleep apnea [G47.30] 06/24/2022 Nocturia [R35.1] 03/02/2022 Obesity, Class I, BMI 30-34.9 [E66.9] 06/29/2022 Encounter Status:Closed by Stephanie CASTRO on 05/30/23 [facility] CNOVgenoveva 05-15-2023 CNOV Office Visit (RADTSA ) -- RUPERTO BHATTI ([id number]) 1960 M Date Time Provider Department 3/4/24 4:15 PM Stephanie CASTRO During your visit today, we recorded the following information about you: Temperature Pulse Respiration Blood pressure 98.7 degrees 78/minute 16/minute 173/78 Weight 86 kg Stephanie Castro MD 05/16/2023 9:44 AM Signed Radiation Oncology - On Treatment Review (OTR) Note PATIENT NAME: Ruperto Bhatti PATIENT DIAGNOSIS: Prostate adenocarcinoma, initial PSA 25.79, biopsy Dejah score 3 + 3 = 6 (grade group 1), clinical stage T1c,N0M0 s/p TRUS Random biopsy. Patient underwent robotic prostatectomy on 06/29/2022 Pathologic stage pT3aNx, [place] 7 (4+3) with detectable and rising PSA, PSA 01/14/2023 0.33 COURSE: salvage Current dose: 5600 cGy in 28 fx Planned dose: 7000 cGy in 35 fx SUBJECTIVE: Doing well. PHYSICAL EXAM: 05/15/23 1551 BP: 173/78 Pulse: 78 Resp: 16 Temp: 37.1 ?C (98.7 ?F) SpO2: 98% Weight: 86 kg (189 lb 9.5 oz) KPS: 100 General Appearance: Alert and oriented. No acute distress. IMAGING/LAB RESULTS: Hemoglobin (g/dL) Date Value 04/13/2023 16.8 Hematocrit (%) Date Value 04/13/2023 47.7 WBC (k/uL) Date Value 04/13/2023 7.73 Platelet Count (k/uL) Date Value 04/13/2023 182 TOXICITY ASSESSMENT (CTC v4.0): Fatigue:grade 0 - No symptoms Radiation Dermatitis: grade 0 - No symptoms Diarrhea:grade 1 Proctitis: grade 0 - No symptoms Urinary frequency: grade 1 Dysuria: grade 0 - No symptoms Urinary incontinence: grade 0 (No symptoms) Urinary retention: grade 0 - No symptoms Treatment chart checked: Yes Patient treatment site reviewed and verified:Yes Port films reviewed and current:Yes Medications started: None ASSESSMENT/PLAN: Clinically stable. Toxicity within expected parameters. Continue radiation treatment as planned. Boost planning complete, will start tomorrow. Stephanie Castro MD Allergies As of Date: 05/15/2023 Noted Allergy Reaction LINDA INHIBITORS 04/19/2022 3 - Cough 4 - Hives LOSARTAN-HYDROCHLOROTHIAZI DE 04/19/2022 7 - Swelling Date Reviewed: 05/15/2023 Reviewed by: Rosita Reyna LPN - Fully Assessed Reason for Visit: Radiotherapy On-treatment Visit [1722] Primary Visit Diagnosis:Malignant neoplasm of prostate (HCC) [C61] Prescriptions as of 05/16/2023 - indapamide (LOZOL) 2.5 mg tablet Take 2.5 mg by mouth every morning. - hydrALAZINE (APRESOLINE) 25 mg tablet Take 25 mg by mouth two times a day. - Tadalafil (CIALIS) 5 mg tablet Take 1 tablet by mouth daily. - Tadalafil (CIALIS) 20 mg tab(s) Take 1 tablet by mouth as needed. 1-2 hours before sexual intercourse. - amLODIPine (NORVASC) 10 mg tablet Take by mouth q 24 HR. - carvedilol (COREG) 12.5 mg tablet q 12 HR. - cloNIDine HCl (CATAPRES) 0.1 mg tablet Take 0.1 mg by mouth three times daily. Problem List As Of Date 05/15/2023 Noted Resolved Malignant neoplasm of prostate (HCC) [C61] 06/10/2022 HTN (hypertension) [I10] 06/24/2022 Hypercholesteremia [E78.00] 06/24/2022 Benign prostatic hyperplasia with urinary obstr*03/02/2022 Sleep apnea [G47.30] 06/24/2022 Nocturia [R35.1] 03/02/2022 Obesity, Class I, BMI 30-34.9 [E66.9] 06/29/2022 Encounter Status:Closed by Stephanie CASTRO on 05/16/23 [facility] CNOVgenoveva 05-08-2023 CNOV Office Visit (RADTSA ) -- RUPERTO BHATTI ([id number]) 1960 M Date Time Provider Department 2/26/24 2:45 PM Stephanie CASTRO During your visit today, we recorded the following information about you: Temperature Pulse Respiration Blood pressure 97.2 degrees 72/minute 18/minute 168/83 Weight 86.4 kg Stephanie Castro MD 05/08/2023 3:29 PM Signed Radiation Oncology - On Treatment Review (OTR) Note PATIENT NAME: Ruperto Bhatti PATIENT DIAGNOSIS: Prostate adenocarcinoma, initial PSA 25.79, biopsy Dejah score 3 + 3 = 6 (grade group 1), clinical stage T1c,N0M0 s/p TRUS Random biopsy. Patient underwent robotic prostatectomy on 06/29/2022 Pathologic stage pT3aNx, Dejah 7 (4+3) with detectable and rising PSA, PSA 01/14/2023 0.33 COURSE: salvage Current dose: 4600 cGy in 23 fx Planned dose: 7000 cGy in 35 fx SUBJECTIVE: Doing well. PHYSICAL EXAM: 05/08/23 1505 BP: 168/83 Pulse: 72 Resp: 18 Temp: 36.2 ?C (97.2 ?F) SpO2: 97% Weight: 86.4 kg (190 lb 7.6 oz) KPS: 100 General Appearance: Alert and oriented. No acute distress. IMAGING/LAB RESULTS: Hemoglobin (g/dL) Date Value 04/13/2023 16.8 Hematocrit (%) Date Value 04/13/2023 47.7 WBC (k/uL) Date Value 04/13/2023 7.73 Platelet Count (k/uL) Date Value 04/13/2023 182 TOXICITY ASSESSMENT (CTC v4.0): Fatigue:grade 0 - No symptoms Radiation Dermatitis: grade 0 - No symptoms Diarrhea:grade 1 Proctitis: grade 0 - No symptoms Urinary frequency: grade 1 Dysuria: grade 0 - No symptoms Urinary incontinence: grade 0 (No symptoms) Urinary retention: grade 0 - No symptoms Treatment chart checked: Yes Patient treatment site reviewed and verified:Yes Port films reviewed and current:Yes Medications started: None ASSESSMENT/PLAN: Clinically stable. Toxicity within expected parameters. Continue radiation treatment as planned. Boost planning complete, will start tomorrow. Stephanie Castro MD Allergies As of Date: 05/08/2023 Noted Allergy Reaction LINDA INHIBITORS 04/19/2022 3 - Cough 4 - Hives LOSARTAN-HYDROCHLOROTHIAZI DE 04/19/2022 7 - Swelling Date Reviewed: 05/08/2023 Reviewed by: Alise Acosta, JOSEPH - Fully Assessed Reason for Visit: Radiotherapy On-treatment Visit [1722] Primary Visit Diagnosis:Malignant neoplasm of prostate (HCC) [C61] Prescriptions as of 05/08/2023 - indapamide (LOZOL) 2.5 mg tablet Take 2.5 mg by mouth every morning. - hydrALAZINE (APRESOLINE) 25 mg tablet Take 25 mg by mouth two times a day. - Tadalafil (CIALIS) 5 mg tablet Take 1 tablet by mouth daily. - Tadalafil (CIALIS) 20 mg tab(s) Take 1 tablet by mouth as needed. 1-2 hours before sexual intercourse. - amLODIPine (NORVASC) 10 mg tablet Take by mouth q 24 HR. - carvedilol (COREG) 12.5 mg tablet q 12 HR. - cloNIDine HCl (CATAPRES) 0.1 mg tablet Take 0.1 mg by mouth three times daily. Problem List As Of Date 05/08/2023 Noted Resolved Malignant neoplasm of prostate (HCC) [C61] 06/10/2022 HTN (hypertension) [I10] 06/24/2022 Hypercholesteremia [E78.00] 06/24/2022 Benign prostatic hyperplasia with urinary obstr*03/02/2022 Sleep apnea [G47.30] 06/24/2022 Nocturia [R35.1] 03/02/2022 Obesity, Class I, BMI 30-34.9 [E66.9] 06/29/2022 Encounter Status:Closed by Stephanie CASTRO on 05/08/23 [facility] Ricardo 05-01-2023 CNOV Office Visit (RADTSA ) -- RUPERTO BHATTI ([id number]) 1960 M Date Time Provider Department 05/01/23 4:15 PM Stephanie CASTRO During your visit today, we recorded the following information about you: Temperature Pulse Respiration Blood pressure 98.5 degrees 80/minute 16/minute 160/73 Weight 86 kg Stephanie Castro MD 05/01/2023 4:05 PM Signed Radiation Oncology - On Treatment Review (OTR) Note PATIENT NAME: Ruperto Bhatti PATIENT DIAGNOSIS: Prostate adenocarcinoma, initial PSA 25.79, biopsy [place] score 3 + 3 = 6 (grade group 1), clinical stage T1c,N0M0 s/p TRUS Random biopsy. Patient underwent robotic prostatectomy on 06/29/2022 Pathologic stage pT3aNx, Dejah 7 (4+3) with detectable and rising PSA, PSA 01/14/2023 0.33 COURSE: salvage Current dose: 3600 cGy in 18 fx Planned dose: 7000 cGy in 35 fx SUBJECTIVE: Doing well. PHYSICAL EXAM: 05/01/23 1553 BP: 160/73 Pulse: 80 Resp: 16 Temp: 36.9 ?C (98.5 ?F) SpO2: 99% Weight: 86 kg (189 lb 9.5 oz) KPS: 100 General Appearance: Alert and oriented. No acute distress. IMAGING/LAB RESULTS: Hemoglobin (g/dL) Date Value 04/13/2023 16.8 Hematocrit (%) Date Value 04/13/2023 47.7 WBC (k/uL) Date Value 04/13/2023 7.73 Platelet Count (k/uL) Date Value 04/13/2023 182 TOXICITY ASSESSMENT (CTC v4.0): Fatigue:grade 0 - No symptoms Radiation Dermatitis: grade 0 - No symptoms Diarrhea:grade 1 Proctitis: grade 0 - No symptoms Urinary frequency: grade 1 Dysuria: grade 0 - No symptoms Urinary incontinence: grade 0 (No symptoms) Urinary retention: grade 0 - No symptoms Treatment chart checked: Yes Patient treatment site reviewed and verified:Yes Port films reviewed and current:Yes Medications started: None ASSESSMENT/PLAN: Clinically stable. Toxicity within expected parameters. Continue radiation treatment as planned. Stephanie Castro MD Allergies As of Date: 05/01/2023 Noted Allergy Reaction LINDA INHIBITORS 04/19/2022 3 - Cough 4 - Hives LOSARTAN-HYDROCHLOROTHIAZI DE 04/19/2022 7 - Swelling Date Reviewed: 05/01/2023 Reviewed by: Rosita Reyna LPN - Fully Assessed Reason for Visit: Radiotherapy On-treatment Visit [1722] Primary Visit Diagnosis:Malignant neoplasm of prostate (HCC) [C61] Prescriptions as of 05/01/2023 - indapamide (LOZOL) 2.5 mg tablet Take 2.5 mg by mouth every morning. - hydrALAZINE (APRESOLINE) 25 mg tablet Take 25 mg by mouth two times a day. - Tadalafil (CIALIS) 5 mg tablet Take 1 tablet by mouth daily. - Tadalafil (CIALIS) 20 mg tab(s) Take 1 tablet by mouth as needed. 1-2 hours before sexual intercourse. - amLODIPine (NORVASC) 10 mg tablet Take by mouth q 24 HR. - carvedilol (COREG) 12.5 mg tablet q 12 HR. - cloNIDine HCl (CATAPRES) 0.1 mg tablet Take 0.1 mg by mouth three times daily. Problem List As Of Date 05/01/2023 Noted Resolved Malignant neoplasm of prostate (HCC) [C61] 06/10/2022 HTN (hypertension) [I10] 06/24/2022 Hypercholesteremia [E78.00] 06/24/2022 Benign prostatic hyperplasia with urinary obstr*03/02/2022 Sleep apnea [G47.30] 06/24/2022 Nocturia [R35.1] 03/02/2022 Obesity, Class I, BMI 30-34.9 [E66.9] 06/29/2022 Encounter Status:Closed by Stephanie CASTRO on 05/01/23 [facility] Ricardo 04-24-2023 CNOV Office Visit (RADTSA ) -- RUPERTO BHATTI ([id number]) 1960 M Date Time Provider Department 04/24/23 4:15 PM ENGStephanie CHOI During your visit today, we recorded the following information about you: Temperature Pulse Respiration Blood pressure 97.8 degrees 75/minute 16/minute 143/71 Weight 87.5 kg Stephanie Castro MD 04/24/2023 4:07 PM Signed Radiation Oncology - On Treatment Review (OTR) Note PATIENT NAME: Ruperto Bhatti PATIENT DIAGNOSIS: Prostate adenocarcinoma, initial PSA 25.79, biopsy [place] score 3 + 3 = 6 (grade group 1), clinical stage T1c,N0M0 s/p TRUS Random biopsy. Patient underwent robotic prostatectomy on 06/29/2022 Pathologic stage pT3aNx, Dejah 7 (4+3) with detectable and rising PSA, PSA 01/14/2023 0.33 COURSE: salvage Current dose: 2800 cGy in 14 fx Planned dose: 7000 cGy in 35 fx SUBJECTIVE: Doing well mild stool changes no other issues. PHYSICAL EXAM: 04/24/23 1601 BP: 143/71 Pulse: 75 Resp: 16 Temp: 36.6 ?C (97.8 ?F) SpO2: 99% Weight: 87.5 kg (192 lb 14.4 oz) KPS: 100 General Appearance: Alert and oriented. No acute distress. IMAGING/LAB RESULTS: Hemoglobin (g/dL) Date Value 04/13/2023 16.8 Hematocrit (%) Date Value 04/13/2023 47.7 WBC (k/uL) Date Value 04/13/2023 7.73 Platelet Count (k/uL) Date Value 04/13/2023 182 TOXICITY ASSESSMENT (CTC v4.0): Fatigue:grade 0 - No symptoms Radiation Dermatitis: grade 0 - No symptoms Diarrhea:grade 0 - No symptoms Proctitis: grade 0 - No symptoms Urinary frequency: grade 0 - No symptoms Dysuria: grade 0 - No symptoms Urinary incontinence: grade 0 (No symptoms) Urinary retention: grade 0 - No symptoms Treatment chart checked: Yes Patient treatment site reviewed and verified:Yes Port films reviewed and current:Yes Medications started: None ASSESSMENT/PLAN: Clinically stable. Toxicity within expected parameters. Continue radiation treatment as planned. Stephanie Castro MD Allergies As of Date: 04/24/2023 Noted Allergy Reaction LINDA INHIBITORS 04/19/2022 3 - Cough 4 - Hives LOSARTAN-HYDROCHLOROTHIAZI DE 04/19/2022 7 - Swelling Date Reviewed: 04/24/2023 Reviewed by: Rosita Reyna LPN - Fully Assessed Reason for Visit: Radiotherapy On-treatment Visit [1722] Primary Visit Diagnosis:Malignant neoplasm of prostate (HCC) [C61] Prescriptions as of 04/24/2023 - indapamide (LOZOL) 2.5 mg tablet Take 2.5 mg by mouth every morning. - hydrALAZINE (APRESOLINE) 25 mg tablet Take 25 mg by mouth two times a day. - Tadalafil (CIALIS) 5 mg tablet Take 1 tablet by mouth daily. - Tadalafil (CIALIS) 20 mg tab(s) Take 1 tablet by mouth as needed. 1-2 hours before sexual intercourse. - amLODIPine (NORVASC) 10 mg tablet Take by mouth q 24 HR. - carvedilol (COREG) 12.5 mg tablet q 12 HR. - cloNIDine HCl (CATAPRES) 0.1 mg tablet Take 0.1 mg by mouth three times daily. Problem List As Of Date 04/24/2023 Noted Resolved Malignant neoplasm of prostate (HCC) [C61] 06/10/2022 HTN (hypertension) [I10] 06/24/2022 Hypercholesteremia [E78.00] 06/24/2022 Benign prostatic hyperplasia with urinary obstr*03/02/2022 Sleep apnea [G47.30] 06/24/2022 Nocturia [R35.1] 03/02/2022 Obesity, Class I, BMI 30-34.9 [E66.9] 06/29/2022 Encounter Status:Closed by Stephanie CASTRO on 04/24/23 [facility] CNOVon 04-17-2023 CNOV Office Visit (RADTSA ) -- RUPERTO BHATTI ([id number]) 1960 M Date Time Provider Department 04/17/23 4:15 PM Stephanie CASTRO During your visit today, we recorded the following information about you: Temperature Pulse Respiration Blood pressure 97.4 degrees 76/minute 18/minute 157/85 Weight 86.4 kg Stephanie Castro MD 04/24/2023 3:14 PM Signed Radiation Oncology - On Treatment Review (OTR) Note PATIENT NAME: Ruperto Bhatti PATIENT DIAGNOSIS: Prostate adenocarcinoma, initial PSA 25.79, biopsy Dejah score 3 + 3 = 6 (grade group 1), clinical stage T1c,N0M0 s/p TRUS Random biopsy. Patient underwent robotic prostatectomy on 06/29/2022 Pathologic stage pT3aNx, Dejah 7 (4+3) with detectable and rising PSA, PSA 01/14/2023 0.33 COURSE: salvage Current dose: 1800 cGy in 9 fx Planned dose: 7000 cGy in 35 fx SUBJECTIVE: Doing well PHYSICAL EXAM: 04/17/23 1552 BP: 157/85 Pulse: 76 Resp: 18 Temp: 36.3 ?C (97.4 ?F) SpO2: 97% Weight: 86.4 kg (190 lb 7.6 oz) KPS: 100 General Appearance: Alert and oriented. No acute distress. IMAGING/LAB RESULTS: None TOXICITY ASSESSMENT (CTC v4.0): Fatigue:grade 0 - No symptoms Radiation Dermatitis: grade 0 - No symptoms Diarrhea:grade 0 - No symptoms Proctitis: grade 0 - No symptoms Urinary frequency: grade 0 - No symptoms Dysuria: grade 0 - No symptoms Urinary incontinence: grade 0 (No symptoms) Urinary retention: grade 0 - No symptoms Treatment chart checked: Yes Patient treatment site reviewed and verified:Yes Port films reviewed and current:Yes Medications started: None ASSESSMENT/PLAN: Clinically stable. Toxicity within expected parameters. Continue radiation treatment as planned. Stephanie Castro MD Allergies As of Date: 04/17/2023 Noted Allergy Reaction LINDA INHIBITORS 04/19/2022 3 - Cough 4 - Hives LOSARTAN-HYDROCHLOROTHIAZI DE 04/19/2022 7 - Swelling Date Reviewed: 04/17/2023 Reviewed by: Alise Acosta RN - Fully Assessed Reason for Visit: Radiotherapy On-treatment Visit [1722] Primary Visit Diagnosis:Malignant neoplasm of prostate (HCC) [C61] Prescriptions as of 04/24/2023 - indapamide (LOZOL) 2.5 mg tablet Take 2.5 mg by mouth every morning. - hydrALAZINE (APRESOLINE) 25 mg tablet Take 25 mg by mouth two times a day. - Tadalafil (CIALIS) 5 mg tablet Take 1 tablet by mouth daily. - Tadalafil (CIALIS) 20 mg tab(s) Take 1 tablet by mouth as needed. 1-2 hours before sexual intercourse. - amLODIPine (NORVASC) 10 mg tablet Take by mouth q 24 HR. - carvedilol (COREG) 12.5 mg tablet q 12 HR. - cloNIDine HCl (CATAPRES) 0.1 mg tablet Take 0.1 mg by mouth three times daily. Problem List As Of Date 04/17/2023 Noted Resolved Malignant neoplasm of prostate (HCC) [C61] 06/10/2022 HTN (hypertension) [I10] 06/24/2022 Hypercholesteremia [E78.00] 06/24/2022 Benign prostatic hyperplasia with urinary obstr*03/02/2022 Sleep apnea [G47.30] 06/24/2022 Nocturia [R35.1] 03/02/2022 Obesity, Class I, BMI 30-34.9 [E66.9] 06/29/2022 Encounter Status:Closed by Stephanie CASTRO on 04/24/23 Normal [facility] CBC W Auto Differential pane l (Bld)on 04-13-2023 Basophils (Bld) [#/Vol] 0.08 10*3/uL <0.11 k/uL [facility] Basophils/100 WBC (Bld) 1.0 % [facility] Differential cell count method Nom (Bld) Auto [facility] Eosinophils (Bld) [#/Vol] 0.28 10*3/uL <0.46 k/uL [facility] Eosinophils/100 WBC (Bld) 3.6 % [facility] Erythrocyte distribution width (RBC) [Ratio] 12.8 % 11.5 - 15.0 % [facility] Hematocrit (Bld) [Volume fraction] 47.7 % 39.0 - 51.0 % [facility] Hemoglobin (Bld) [Mass/Vol] 16.8 g/dL 13.0 - 17.0 g/dL [facility] Immature granulocytes (Bld) [#/Vol] 0.06 10*3/uL <0.10 k/uL [facility] Immature granulocytes/100 WBC (Bld) 0.8 % [facility] Lymphocytes (Bld) [#/Vol] 1.29 10*3/uL 1.00 - 4.00 k/uL [facility] Lymphocytes/100 WBC (Bld) 16.7 % [facility] MCH (RBC) [Entitic mass] 35.4 pg High 26.0 - 34.0 pg [facility] MCHC (RBC) [Mass/Vol] 35.2 g/dL 30.5 - 36.0 g/dL [facility] MCV (RBC) [Entitic vol] 100.6 fL High 80.0 - 100.0 fL [facility] Monocytes (Bld) [#/Vol] 0.89 10*3/uL High <0.87 k/uL [facility] Monocytes/100 WBC (Bld) 11.5 % [facility] Neutrophils (Bld) [#/Vol] 5.13 10*3/uL 1.45 - 7.50 k/uL [facility] Neutrophils/100 WBC (Bld) 66.4 % [facility] Nucleated RBC (Bld) [#/Vol] <0.01 k/uL [facility] Nucleated RBC/100 WBC (Bld) [Ratio] 0.0 /100 WBC [facility] Platelet mean volume (Bld) [Entitic vol] 10.5 fL 9.0 - 12.7 fL [facility] Platelets (Bld) [#/Vol] 182 10*3/uL 150 - 400 k/uL [facility] RBC (Bld) [#/Vol] 4.74 10*6/uL 4.20 - 6.0 0 m/uL [facility] WBC (Bld) [#/Vol] 7.73 10*3/uL 3.70 - 11.00 k/uL [facility] Basophils (Bld) [#/Vol] 0.08 10*3/uL Normal <0.11 [facility] Comment on above: Order Comment: Speci men Type: BLOOD SPECIMENOrdering Facility: [facility] Address: [address] [place], [place] [address] Performed By: #### 5 7021-8 ####[facility] LABCLIA [id number] [place] [address] Basophils/100 WBC (Bld) 1.0 % Normal [facility] Comment on above: Order Comment: Speci men Type: BLOOD SPECIMENOrdering Facility: [facility] Address: [address] [place] [address] Performed By: #### 5 7021-8 ####[facility] LABCLIA [id number] [place] [address] Differential cell count method Nom (Bld) Auto Normal [facility] Comment on above: Order Comment: Speci men Type: BLOOD SPECIMENOrdering Facility: [facility] Address: [address] [place] [address] Performed By: #### 5 7021-8 ####[facility] LABCLIA [id number] [place] [address] Eosinophils (Bld) [#/Vol] 0.28 10*3/uL Normal <0.46 [facility] Comment on above: Order Comment: Speci men Type: BLOOD SPECIMENOrdering Facility: [facility] Address: [address] [place] [address] Performed By: #### 5 7021-8 ####[facility] LABCLIA [id number] [place] [address] Eosinophils/100 WBC (Bld) 3.6 % Normal [facility] Comment on above: Order Comment: Speci men Type: BLOOD SPECIMENOrdering Facility: [facility] Address: [address] [place] [address] Performed By: #### 5 7021-8 ####[facility] LABCLIA [id number] [place] [address] Erythrocyte distribution width (RBC) [Ratio] 12.8 % Normal 11.5-15.0 [facility] Comment on above: Order Comment: Speci men Type: BLOOD SPECIMENOrdering Facility: [facility] Address: [address] [place], [place] [address] Performed By: #### 5 7021-8 ####[facility] LABCLIA [id number] [place] [address] Hematocrit (Bld) [Volume fraction] 47.7 % Normal 39.0-51.0 [facility] Comment on above: Order Comment: Speci men Type: BLOOD SPECIMENOrdering Facility: [facility] Address: [address] [place] [address] Performed By: #### 5 7021-8 ####[facility] LABCLIA [id number] [place] [address] Hemoglobin (Bld) [Mass/Vol] 16.8 g/dL Normal 13.0-17.0 [facility] Comment on above: Order Comment: Speci men Type: BLOOD SPECIMENOrdering Facility: [facility] Address: [address] [place] [address] Performed By: #### 5 7021-8 ####[facility] LABCLIA [id number] [place] [address] Immature granulocytes (Bld) [#/Vol] 0.06 10*3/uL Normal <0.10 [facility] Comment on above: Order Comment: Speci men Type: BLOOD SPECIMENOrdering Facility: [facility] Address: [address] [place] [address] Performed By: #### 5 7021-8 ####[facility] LABCLIA [id number] [place] [address] Immature granulocytes/100 WBC (Bld) 0.8 % Normal [facility] Comment on above: Order Comment: Speci men Type: BLOOD SPECIMENOrdering Facility: [facility] Address: [address] [place] [address] Performed By: #### 5 7021-8 ####[facility] LABCLIA [id number] [place] [address] Lymphocytes (Bld) [#/Vol] 1.29 10*3/uL Normal 1.00-4.00 [facility] Comment on above: Order Comment: Speci men Type: BLOOD SPECIMENOrdering Facility: [facility] Address: [address] [place] [address] Performed By: #### 5 7021-8 ####[facility] LABCLIA [id number] [place] [address] Lymphocytes/100 WBC (Bld) 16.7 % Normal [facility] Comment on above: Order Comment: Speci men Type: BLOOD SPECIMENOrdering Facility: [facility] Address: [address] [place] [address] Performed By: #### 5 7021-8 ####[facility] LABCLIA [id number] [place] [address] MCH (RBC) [Entitic mass] 35.4 pg High 26.0-34.0 [facility] Comment on above: Order Comment: Speci men Type: BLOOD SPECIMENOrdering Facility: [facility] Address: [address] [place] [address] Performed By: #### 5 7021-8 ####[facility] LABCLIA [id number] [place] [address] MCHC (RBC) [Mass/Vol] 35.2 g/dL Normal 30.5-36.0 [facility] Comment on above: Order Comment: Speci men Type: BLOOD SPECIMENOrdering Facility: [facility] Address: [address] [place] [address] Performed By: #### 5 7021-8 ####[facility] LABCLIA [id number] [place] [address] MCV (RBC) [Entitic vol] 100.6 fL High 80.0-100.0 [facility] Comment on above: Order Comment: Speci men Type: BLOOD SPECIMENOrdering Facility: [facility] Address: [address] [place] [address] Performed By: #### 5 7021-8 ####[facility] LABCLIA [id number] [place] [address] Monocytes (Bld) [#/Vol] 0.89 10*3/uL High <0.87 [facility] Comment on above: Order Comment: Speci men Type: BLOOD SPECIMENOrdering Facility: [facility] Address: [address] [place] [address] Performed By: #### 5 7021-8 ####[facility] LABCLIA [id number] [place] [address] Monocytes/100 WBC (Bld) 11.5 % Normal [facility] Comment on above: Order Comment: Speci men Type: BLOOD SPECIMENOrdering Facility: [facility] Address: [address] [place] [address] Performed By: #### 5 7021-8 ####[facility] LABCLIA [id number] [place] [address] Neutrophils (Bld) [#/Vol] 5.13 10*3/uL Normal 1.45-7.50 [facility] Comment on above: Order Comment: Speci men Type: BLOOD SPECIMENOrdering Facility: [facility] Address: [address] [place] [address] Performed By: #### 5 7021-8 ####[facility] LABCLIA [id number] [place] [address] Neutrophils/100 WBC (Bld) 66.4 % Normal [facility] Comment on above: Order Comment: Speci men Type: BLOOD SPECIMENOrdering Facility: [facility] Address: [address] [place] [address] Performed By: #### 5 7021-8 ####[facility] LABCLIA [id number] [place] [address] Nucleated RBC (Bld) [#/Vol] 10*3/uL Normal <0.01 [facility] Comment on above: Order Comment: Speci men Type: BLOOD SPECIMENOrdering Facility: [facility] Address: [address] [place] [address] Performed By: #### 5 7021-8 ####[facility] LABCLIA [id number] [place] [address] Nucleated RBC/100 WBC (Bld) [Ratio] 0.0 /100 WBC Normal [facility] Comment on above: Order Comment: Speci men Type: BLOOD SPECIMENOrdering Facility: [facility] Address: [address] [place] [address] Performed By: #### 5 7021-8 ####[facility] LABCLIA [id number] [place] [address] Platelet mean volume (Bld) [Entitic vol] 10.5 fL Normal 9.0-12.7 [facility] Comment on above: Order Comment: Speci men Type: BLOOD SPECIMENOrdering Facility: [facility] Address: [address] [place] [address] Performed By: #### 5 7021-8 ####[facility] LABCLIA [id number] [place] [address] Platelets (Bld) [#/Vol] 182 10*3/uL Normal 150-400 [facility] Comment on above: Order Comment: Speci men Type: BLOOD SPECIMENOrdering Facility: [facility] Address: [address] [place] [address] Performed By: #### 5 7021-8 ####[facility] LABCLIA [id number] [place] [address] RBC (Bld) [#/Vol] 4.74 10*6/uL Normal 4.20-6.00 [facility] Comment on above: Order Comment: Speci men Type: BLOOD SPECIMENOrdering Facility: [facility] Address: [address] [place] [address] Performed By: #### 5 7021-8 ####[facility] LABCLIA [id number] [place] [address] WBC (Bld) [#/Vol] 7.73 10*3/uL Normal 3.70-11.00 [facility] Comment on above: Order Comment: Speci men Type: BLOOD SPECIMENOrdering Facility: [facility] Address: [address] [place] [address] Performed By: #### 5 7021-8 ####[facility] LABCLIA [id number] [place] [address] CNOVon 04-13-2023 CNOV Office Visit (RADTSA ) -- RUPERTO BHATTI ([id number]) 1960 M Date Time Provider Department 04/13/23 4:00 PM LAB/PORT RADT ANJALI RADTSA During your visit today, we recorded the following information about you: Alise Acosta RN 04/13/2023 3:48 PM Signed Ruperto Bhatti presents in office today for: Lab Draw only . Ordering Provider: Morales Castro M.D. Test (s) ordered: CBC Method for obtaining blood: Phlebotomy was performed, accessing right antecubital vein. Needle removed intact. Dressing secured. Patient denies discomfort, dizziness, light-headedness or weakness and left the department without assist. Alise Acosta RN Allergies As of Date: 04/13/2023 Noted Allergy Reaction LINDA INHIBITORS 04/19/2022 3 - Cough 4 - Hives LOSARTAN-HYDROCHLOROTHIAZI DE 04/19/2022 7 - Swelling Date Reviewed: 04/10/2023 Reviewed by: Rosita Reyna LPN - Fully Assessed Reason for Visit: Phlebotomy [1172] Visit Diagnosis:Malignant neoplasm of prostate (HCC) [C61] Order(s):CBC + DIFF [SQCBCDIF] Order #: [id number]. #:[id number] Prescriptions as of 04/13/2023 - indapamide (LOZOL) 2.5 mg tablet Take 2.5 mg by mouth every morning. - hydrALAZINE (APRESOLINE) 25 mg tablet Take 25 mg by mouth two times a day. - Tadalafil (CIALIS) 5 mg tablet Take 1 tablet by mouth daily. - Tadalafil (CIALIS) 20 mg tab(s) Take 1 tablet by mouth as needed. 1-2 hours before sexual intercourse. - amLODIPine (NORVASC) 10 mg tablet Take by mouth q 24 HR. - carvedilol (COREG) 12.5 mg tablet q 12 HR. - cloNIDine HCl (CATAPRES) 0.1 mg tablet Take 0.1 mg by mouth three times daily. Problem List As Of Date 04/13/2023 Noted Resolved Malignant neoplasm of prostate (HCC) [C61] 06/10/2022 HTN (hypertension) [I10] 06/24/2022 Hypercholesteremia [E78.00] 06/24/2022 Benign prostatic hyperplasia with urinary obstr*03/02/2022 Sleep apnea [G47.30] 06/24/2022 Nocturia [R35.1] 03/02/2022 Obesity, Class I, BMI 30-34.9 [E66.9] 06/29/2022 Visit Notes: >> Alise Acosta RN [facility] Apr 13, 2023 3:47 PM Status: Signed Ruperto Bhatti presents in office today for: Lab Draw only . Ordering Provider: Morales Castro M.D. Test (s) ordered: CBC Method for obtaining blood: Phlebotomy was performed, accessing right antecubital vein. Needle removed intact. Dressing secured. Patient denies discomfort, dizziness, light-headedness or weakness and left the department without assist. Alise Acosta RN Encounter Status:Closed by ALISE ACOSTA on 04/13/23 [facility] Office Visit (RADTSA ) -- RUPERTO BHATTI ([id number]) 1960 M Date Time Provider Department 04/10/23 4:15 PM Stephanie CASTRO During your visit today, we recorded the following information about you: Temperature Pulse Respiration Blood pressure 98 degrees 79/minute 16/minute 166/67 Weight 85.6 kg Stephanie Castro MD 04/17/2023 9:04 AM Signed Radiation Oncology - On Treatment Review (OTR) Note PATIENT NAME: Ruperto Bhatti PATIENT DIAGNOSIS: Prostate adenocarcinoma, initial PSA 25.79, biopsy Dejah score 3 + 3 = 6 (grade group 1), clinical stage T1c,N0M0 s/p TRUS Random biopsy. Patient underwent robotic prostatectomy on 06/29/2022 Pathologic stage pT3aNx, Dejah 7 (4+3) with detectable and rising PSA, PSA 01/14/2023 0.33 COURSE: salvage Current dose: 800 cGy in 4 fx Planned dose: 7000 cGy in 35 fx SUBJECTIVE: Doing well PHYSICAL EXAM: 04/10/23 1624 BP: 166/67 Pulse: 79 Resp: 16 Temp: 36.7 ?C (98 ?F) SpO2: 96% Weight: 85.6 kg (188 lb 11.4 oz) KPS: 100 General Appearance: Alert and oriented. No acute distress. IMAGING/LAB RESULTS: None TOXICITY ASSESSMENT (CTC v4.0): Fatigue:grade 0 - No symptoms Radiation Dermatitis: grade 0 - No symptoms Diarrhea:grade 0 - No symptoms Proctitis: grade 0 - No symptoms Urinary frequency: grade 0 - No symptoms Dysuria: grade 0 - No symptoms Urinary incontinence: grade 0 (No symptoms) Urinary retention: grade 0 - No symptoms Treatment chart checked: Yes Patient treatment site reviewed and verified:Yes Port films reviewed and current:Yes Medications started: None ASSESSMENT/PLAN: Clinically stable. Toxicity within expected parameters. Continue radiation treatment as planned. Stephanie Castro MD Allergies As of Date: 04/10/2023 Noted Allergy Reaction LINDA INHIBITORS 04/19/2022 3 - Cough 4 - Hives LOSARTAN-HYDROCHLOROTHIAZI DE 04/19/2022 7 - Swelling Date Reviewed: 04/10/2023 Reviewed by: Rosita Reyna LPN - Fully Assessed Reason for Visit: Radiotherapy On-treatment Visit [1722] Primary Visit Diagnosis:Malignant neoplasm of prostate (HCC) [C61] Prescriptions as of 04/17/2023 - indapamide (LOZOL) 2.5 mg tablet Take 2.5 mg by mouth every morning. - hydrALAZINE (APRESOLINE) 25 mg tablet Take 25 mg by mouth two times a day. - Tadalafil (CIALIS) 5 mg tablet Take 1 tablet by mouth daily. - Tadalafil (CIALIS) 20 mg tab(s) Take 1 tablet by mouth as needed. 1-2 hours before sexual intercourse. - amLODIPine (NORVASC) 10 mg tablet Take by mouth q 24 HR. - carvedilol (COREG) 12.5 mg tablet q 12 HR. - cloNIDine HCl (CATAPRES) 0.1 mg tablet Take 0.1 mg by mouth three times daily. Problem List As Of Date 04/10/2023 Noted Resolved Malignant neoplasm of prostate (HCC) [C61] 06/10/2022 HTN (hypertension) [I10] 06/24/2022 Hypercholesteremia [E78.00] 06/24/2022 Benign prostatic hyperplasia with urinary obstr*03/02/2022 Sleep apnea [G47.30] 06/24/2022 Nocturia [R35.1] 03/02/2022 Obesity, Class I, BMI 30-34.9 [E66.9] 06/29/2022 Encounter Status:Closed by Stephanie CASTRO on 04/17/23 [facility] 04-04-2023 [facility] Telephone (JOE) -- RUPERTO BHATTI ([id number]) 1960 M Date Time Provider Department 04/04/23 Stephanie CASTRO During your visit today, we recorded the following information about you: Rosita Reyna LPN 04/04/2023 2:40 PM Signed CBC order pending your approval. Rosita Reyna RN Allergies As of Date: 04/04/2023 Noted Allergy Reaction LINDA INHIBITORS 04/19/2022 3 - Cough 4 - Hives LOSARTAN-HYDROCHLOROTHIAZI DE 04/19/2022 7 - Swelling Date Reviewed: 03/21/2023 Reviewed by: Rosita Reyna LPN - Fully Assessed Reason for Visit: Orders [681] Primary Visit Diagnosis:Malignant neoplasm of prostate (HCC) [C61] Order(s):CBC + DIFF [SQCBCDIF] Order #: [id number] STANDING Prescriptions as of 04/10/2023 - indapamide (LOZOL) 2.5 mg tablet Take 2.5 mg by mouth every morning. - hydrALAZINE (APRESOLINE) 25 mg tablet Take 25 mg by mouth two times a day. - Tadalafil (CIALIS) 5 mg tablet Take 1 tablet by mouth daily. - Tadalafil (CIALIS) 20 mg tab(s) Take 1 tablet by mouth as needed. 1-2 hours before sexual intercourse. - amLODIPine (NORVASC) 10 mg tablet Take by mouth q 24 HR. - carvedilol (COREG) 12.5 mg tablet q 12 HR. - cloNIDine HCl (CATAPRES) 0.1 mg tablet Take 0.1 mg by mouth three times daily. Problem List As Of Date 04/04/2023 Noted Resolved Malignant neoplasm of prostate (HCC) [C61] 06/10/2022 HTN (hypertension) [I10] 06/24/2022 Hypercholesteremia [E78.00] 06/24/2022 Benign prostatic hyperplasia with urinary obstr*03/02/2022 Sleep apnea [G47.30] 06/24/2022 Nocturia [R35.1] 03/02/2022 Obesity, Class I, BMI 30-34.9 [E66.9] 06/29/2022 Encounter Status:Closed by Stephanie CASTRO on 04/10/23 [facility] CNOVon 03-29-2023 CNOV Office Visit (RADTSA ) -- RUPERTO BHATTI ([id number]) 1960 M Date Time Provider Department 03/29/23 3:00 PM Stephanie CASTRO During your visit today, we recorded the following information about you: Stephanie Castro MD 03/31/2023 8:36 AM Signed Radiation Oncology - Prostate Cancer Follow-up PATIENT NAME: Ruperto Bhatti PATIENT DIAGNOSIS: Prostate adenocarcinoma, initial PSA 25.79, biopsy Dejah score 3 + 3 = 6 (grade group 1), clinical stage T1c,N0M0 s/p TRUS Random biopsy. Patient underwent robotic prostatectomy on 06/29/2022 Pathologic stage pT3aNx, Dejah 7 (4+3) with detectable and rising PSA, PSA 01/14/2023 0.33 HPI: Patient in today for simulation. RADIOLOGY: PSMA PET 03/17/2023: HEAD/NECK: * No PSMA-expressing neoplastic process. CHEST: * No PSMA-expressing neoplastic process. ABDOMENS/PELVIS: * No PSMA-expressing neoplastic process. MUSCULOSKELETAL: * No PSMA-expressing neoplastic process. PSMA PET 05/18/2022 (preop): Head and neck: * No PSMA-expressing lesions suspicious for metastases. * 3.0 x 2.6 cm right thyroid lobe nodule. Recommend correlation with thyroid ultrasound, if not recently performed. Chest: * No PSMA-expressing lesions suspicious for metastases. Abdomen and Pelvis: * Multifocal prostate gland PSMA uptake, most prominently left mid gland, as described. * No evidence of abdominopelvic metastases. Bones and soft tissues: * No PSMA-expressing lesions suspicious for metastases. LABORATORY: PSA history: 03/02/2022 25.79 08/13/2022 <0.13 11/12/2022 0.14 01/14/2023 0.33 PSA (ng/mL) Date Value 03/21/2023 0.54 Radical robotic prostatectomy on 06/29/2022. Pathology as noted below. FINAL DIAGNOSIS A. Prostate, radical prostatectomy: - Prostatic adenocarcinoma, [place] score 7 (4+3), Grade Group 3 with invasion into right bladder neck. - Margins of excision are free of neoplasm. - Cribriform pattern 4 is present. A. Seminal vesicles, right and left, excision: - Negative for neoplasm. SHAY/zahira 07/04/2022 Synoptic Report PROSTATE GLAND: Radical Prostatectomy 8th Edition - Protocol posted: 01/20/2021 PROSTATE GLAND: RESECTION - All Specimens SPECIMEN Procedure Radical prostatectomy Prostate Size Prostate Weight (Grams) 41.4 g Prostate Greatest Dimension (Centimeters) 4.4 cm Additional Prostate Dimension (Centimeters) 4.3 cm 3.8 cm TUMOR Histologic Type Acinar adenocarcinoma Histologic Grade Grade Grade group 3 ([place] Score 4 + 3 = 7) Minor Tertiary Pattern 5 (less than 5%) Not applicable Percentage of Pattern 4 61 - 70% Intraductal Carcinoma (IDC) Not identified Cribriform Glands Present Treatment Effect Not identified TUMOR QUANTITATION Estimated Percentage of Prostate Involved by Tumor 21 - 30% Extraprostatic Extension (EPE) Present, nonfocal Location of Extraprostatic Extension Right bladder neck Urinary Bladder Neck Invasion Present Seminal Vesicle Invasion Not identified Lymphovascular Invasion Not Identified MARGINS Margin Status All margins negative for invasive carcinoma REGIONAL LYMPH NODES Regional Lymph Node Status Not applicable (no regional lymph nodes submitted or found) PATHOLOGIC STAGE CLASSIFICATION (pTNM, AJCC 8th Edition) Reporting of pT, pN, and (when applicable) pM categories is based on information available to the pathologist at the time the report is issued. As per the AJCC (Chapter 1, 8th Ed.) it is the managing physician?s responsibility to establish the final pathologic stage based upon all pertinent information, including but potentially not limited to this pathology report. Primary Tumor (pT) pT3a pN Category pN not assigned (no nodes submitted or found) Comment(s) loan representative block A14 Initial postoperative PSA undetectable, <0.13 ng/mL (08/13/2022). However PSA was noted to be detectable on 11/12/2022, 0.14 ng/mL. Most recent PSA 01/14/2023 showing further increase to a value of 0.33 ng/mL. Patient has been doing very well. He denies any significant incontinence and wears a pad only for just in case. Able to the left without significant stress urinary incontinence. No other issues. Treatment for Prostate Cancer: None Genomic Testing: None The patient reports the following pertinent history: Urinary frequency (D/N): 4-6/0-1 Dysuria: No Incontinence: Rare incontinence does wear a pad just for protection Hematuria: No Bowel Movement Frequency: 1/day Bowel Movement Quality: Normal Blood per Rectum: No Last Colonoscopy: na Erectile function, partial with Tadalafil Androgen Deprivation: none Prior Radiation Therapy, Collagen Vascular Disease, or Inflammatory Bowel Disease: No Currently on Anticoagulation: No History of Hip Replacement: No History of Prior TURP: No (more content not included)... Normal [facility] Consultation Noteon 03-29-19 24 Consultation Note [id number]#[id number] Normal [facility] CNOVon 03-21-2023 CNOV Office Visit (RADTSA ) -- RUPERTO BHATTI ([id number]) 1960 M Date Time Provider Department 03/21/23 3:15 PM Stephanie CASTRO During your visit today, we recorded the following information about you: Temperature Pulse Respiration Blood pressure 97.7 degrees 79/minute 16/minute 138/87 Weight 87.4 kg Stephanie Castro MD 03/27/2023 9:24 AM Signed Radiation Oncology - Prostate Cancer Follow-up/new problem note PATIENT NAME: Ruperto Bhatti PATIENT DIAGNOSIS: Prostate adenocarcinoma, initial PSA 25.79, biopsy Dejah score 3 + 3 = 6 (grade group 1), clinical stage T1c,N0M0 s/p TRUS Random biopsy. Patient underwent robotic prostatectomy on 06/29/2022 Pathologic stage pT3aNx, Hatboro 7 (4+3) with detectable and rising PSA, PSA 01/14/2023 0.33 HPI: Patient in today for follow-up after further workup including PSMA PET. RADIOLOGY: PSMA PET 03/17/2023: HEAD/NECK: * No PSMA-expressing neoplastic process. CHEST: * No PSMA-expressing neoplastic process. ABDOMENS/PELVIS: * No PSMA-expressing neoplastic process. MUSCULOSKELETAL: * No PSMA-expressing neoplastic process. PSMA PET 05/18/2022 (preop): Head and neck: * No PSMA-expressing lesions suspicious for metastases. * 3.0 x 2.6 cm right thyroid lobe nodule. Recommend correlation with thyroid ultrasound, if not recently performed. Chest: * No PSMA-expressing lesions suspicious for metastases. Abdomen and Pelvis: * Multifocal prostate gland PSMA uptake, most prominently left mid gland, as described. * No evidence of abdominopelvic metastases. Bones and soft tissues: * No PSMA-expressing lesions suspicious for metastases. LABORATORY: PSA history: 03/02/2022 25.79 08/13/2022 <0.13 11/12/2022 0.14 01/14/2023 0.33 PSA (ng/mL) Date Value 03/21/2023 0.54 Radical robotic prostatectomy on 06/29/2022. Pathology as noted below. FINAL DIAGNOSIS A. Prostate, radical prostatectomy: - Prostatic adenocarcinoma, Hatboro score 7 (4+3), Grade Group 3 with invasion into right bladder neck. - Margins of excision are free of neoplasm. - Cribriform pattern 4 is present. A. Seminal vesicles, right and left, excision: - Negative for neoplasm. SHAY/zahira 07/04/2022 Synoptic Report PROSTATE GLAND: Radical Prostatectomy 8th Edition - Protocol posted: 01/20/2021 PROSTATE GLAND: RESECTION - All Specimens SPECIMEN Procedure Radical prostatectomy Prostate Size Prostate Weight (Grams) 41.4 g Prostate Greatest Dimension (Centimeters) 4.4 cm Additional Prostate Dimension (Centimeters) 4.3 cm 3.8 cm TUMOR Histologic Type Acinar adenocarcinoma Histologic Grade Grade Grade group 3 (Dejah Score 4 + 3 = 7) Minor Tertiary Pattern 5 (less than 5%) Not applicable Percentage of Pattern 4 61 - 70% Intraductal Carcinoma (IDC) Not identified Cribriform Glands Present Treatment Effect Not identified TUMOR QUANTITATION Estimated Percentage of Prostate Involved by Tumor 21 - 30% Extraprostatic Extension (EPE) Present, nonfocal Location of Extraprostatic Extension Right bladder neck Urinary Bladder Neck Invasion Present Seminal Vesicle Invasion Not identified Lymphovascular Invasion Not Identified MARGINS Margin Status All margins negative for invasive carcinoma REGIONAL LYMPH NODES Regional Lymph Node Status Not applicable (no regional lymph nodes submitted or found) PATHOLOGIC STAGE CLASSIFICATION (pTNM, AJCC 8th Edition) Reporting of pT, pN, and (when applicable) pM categories is based on information available to the pathologist at the time the report is issued. As per the AJCC (Chapter 1, 8th Ed.) it is the managing physician?s responsibility to establish the final pathologic stage based upon all pertinent information, including but potentially not limited to this pathology report. Primary Tumor (pT) pT3a pN Category pN not assigned (no nodes submitted or found) Comment(s) loan representative block A14 Initial postoperative PSA undetectable, <0.13 ng/mL (08/13/2022). However PSA was noted to be detectable on 11/12/2022, 0.14 ng/mL. Most recent PSA 01/14/2023 showing further increase to a value of 0.33 ng/mL. Patient has been doing very well. He denies any significant incontinence and wears a pad only for just in case. Able to the left without significant stress urinary incontinence. No other issues. Treatment for Prostate Cancer: None Genomic Testing: None The patient reports the following pertinent history: Urinary frequency (D/N): 4-6/0-1 Dysuria: No Incontinence: Rare incontinence does wear a pad just for protection Hematuria: No Bowel Movement Frequency: 1/day Bowel Movement Quality: Normal Blood per Rectum: No Last Colonoscopy: na Erectile function, partial with Tadalafil Androgen Deprivation: none Prior Radiation Therapy (more content not included)... Normal [facility] Jose G 03-21-2023 TEETEEN Telephone (FERNANDOA) -- RUPERTO BHATTI ([id number]) 1960 M Date Time Provider Department 03/21/23 Stephanie CASTRO During your visit today, we recorded the following information about you: Rosita Reyna LPN 03/21/2023 4:16 PM Signed Pharmacist: Will you please place Lupron 45mg orders and send to Dr. Castro? Duyen will schedule the appointment when she is here on 03/22/23. Thanks Sabra Allergies As of Date: 03/21/2023 Noted Allergy Reaction LINDA INHIBITORS 04/19/2022 3 - Cough 4 - Hives LOSARTAN-HYDROCHLOROTHIAZI DE 04/19/2022 7 - Swelling Date Reviewed: 03/21/2023 Reviewed by: Rosita Reyna LPN - Fully Assessed Reason for Visit: Orders [681] Prescriptions as of 03/22/2023 - indapamide (LOZOL) 2.5 mg tablet Take 2.5 mg by mouth every morning. - hydrALAZINE (APRESOLINE) 25 mg tablet Take 25 mg by mouth two times a day. - Tadalafil (CIALIS) 5 mg tablet Take 1 tablet by mouth daily. - Tadalafil (CIALIS) 20 mg tab(s) Take 1 tablet by mouth as needed. 1-2 hours before sexual intercourse. - amLODIPine (NORVASC) 10 mg tablet Take by mouth q 24 HR. - carvedilol (COREG) 12.5 mg tablet q 12 HR. - cloNIDine HCl (CATAPRES) 0.1 mg tablet Take 0.1 mg by mouth three times daily. Problem List As Of Date 03/21/2023 Noted Resolved Malignant neoplasm of prostate (HCC) [C61] 06/10/2022 HTN (hypertension) [I10] 06/24/2022 Hypercholesteremia [E78.00] 06/24/2022 Benign prostatic hyperplasia with urinary obstr*03/02/2022 Sleep apnea [G47.30] 06/24/2022 Nocturia [R35.1] 03/02/2022 Obesity, Class I, BMI 30-34.9 [E66.9] 06/29/2022 Encounter Status:Closed by ROSITA REYNA on 03/22/23 Normal [facility] PSA SerPl-mCncon 03-21-2023 Prostate specific Ag [Mass/Vol] 0.54 ng/mL Normal <2.60 [facility] Comment on above: Order Comment: Speci men Type: BLOOD SPECIMENOrdering Facility: [facility] Address: [address] [place] [address] Result Comment: Tota l PSA test methodology used is the Electrochemiluminescence Immunoassay by [employer]. Total PSA values by differing methodologies cannot be interchanged. Performed By: #### 2 857-1 ####[facility] [id number] FRANCHESCAMeghan [place] [address] [place] NM PET/CT PROSTATE WBon NM PET/CT PROSTATE WB * * *Final Report* * * DATE OF EXAM: Mar 17 2023 2:58PM NRN 0093 - NM PET/CT PROSTATE WB / PROCEDURE REASON: Malignant neoplasm of prostate (HCC) * * * * Physician Interpretation * * * * RESULT: EXAM: BODY PSMA PET-CT HISTORY: Prostate cancer. INDICATION: Subsequent treatment strategy. TECHNIQUE: Radiotracer was administered IV followed about 60 minutes later by PET imaging from skull vertex to proximal thighs. Free breathing, low dose CT of the same body region was acquired without IV contrast for attenuation correction and anatomic localization. * CT Dose-Length Product (DLP): 249 mGy*cm * CT Dose Reduction Employed: Yes * Dose: 10.8 mCi * Radiotracer: F-18 PSMA COMPARISON: F-18 PSMA PET/CT of 05/18/2022 CORRELATION: No relevant imaging available RESULTS: REFERENCES: SUVmax reference values: * Background salivary gland activity: 9.4 * Background liver activity: 4.3 French Tutor (topogram) images: No additional findings. Please note the following: * Standardized uptake values (SUV) are normalized to patient body weight and indicate the highest activity concentration (SUVmax) at a given site of pathology but can vary due to multiple variables and are not absolute. * Physiologic uptake is common in salivary glands, lacrimal glands, neural ganglia, liver, spleen, GI tract, and urinary tract. Certain organ systems can have more intense physiologic activity, which could confound or obscure some pathology. * PET-CT is often not sensitive for pulmonary nodules less than 8 mm. * Unenhanced imaging is limited for the evaluation of some pathology and the acquired CT was not designed to produce, and cannot replace, diagnostic CT scan quality. HEAD AND NECK: Head: No abnormal uptake. Neck (spaces): No abnormal uptake. Lymph Nodes: No abnormal uptake. Thyroid: Unchanged large right thyroid lobe. CHEST: Lungs and Airways: No abnormal uptake. Pleura and Pericardium: No abnormal uptake. Mediastinum and Cardiovascular: No abnormal uptake. Lymph Nodes: No abnormal uptake. ABDOMEN AND PELVIS: Hepatobiliary: No abnormal uptake. Spleen: No abnormal uptake. Pancreas: No abnormal uptake. Adrenals: No abnormal uptake. Urinary Tract: No abnormal uptake. GI Tract and Peritoneum: No abnormal uptake. Retroperitoneum and Vasculature: No abnormal uptake. Lymph Nodes: * Abdomen (including common iliac): No abnormal uptake. * Pelvic (below common iliac): No abnormal uptake. Pelvis and Prostate: No abnormal uptake. Prostatectomy Abdominal Wall: No abnormal uptake. MUSCULOSKELETAL: Bones: No abnormal uptake. Soft tissues: No abnormal uptake. IMPRESSION: HEAD/NECK: * No PSMA-expressing neoplastic process. CHEST: * No PSMA-expressing neoplastic process. ABDOMENS/PELVIS: * No PSMA-expressing neoplastic process. MUSCULOSKELETAL: * No PSMA-expressing neoplastic process. Transcribe Date/Time: Mar 17 2023 5:57P Dictated by: JC CERNA MD This examination was interpreted and the report reviewed and electronically signed by: JC CERNA MD on Mar 17 2023 6:01PM EST Thank you for allowing us to participate in the care of your patient. Should there be any questions regarding this interpretation, please call [phone]. If you are unable to reach us at the number above, please feel free to contact [facility]Radiology at [phone]. [id number] Normal [facility] Consultation Noteon 03-01-20 Consultation Note [id number]#1.00TIFF Normal [facility] Jose G 02-28-2023 CNPN Telephone (PETSAN) -- RUPERTO BHATTI ([id number]) 1960 Date Time Provider Department 12/19/23 KANDY CASTELLANOS During your visit today, we recorded the following information about you: Allergies As of Date: 02/28/2023 Noted Allergy Reaction LINDA INHIBITORS 04/19/2022 3 - Cough 4 - Hives LOSARTAN-HYDROCHLOROTHIAZI DE 04/19/2022 7 - Swelling Date Reviewed: 02/21/2023 Reviewed by: Alise Acosta RN - Fully Assessed Reason for Visit: Appointment [186] Prescriptions as of 02/28/2023 - indapamide (LOZOL) 2.5 mg tablet Take 2.5 mg by mouth every morning. - hydrALAZINE (APRESOLINE) 25 mg tablet Take 25 mg by mouth two times a day. - Tadalafil (CIALIS) 5 mg tablet Take 1 tablet by mouth daily. - Tadalafil (CIALIS) 20 mg tab(s) Take 1 tablet by mouth as needed. 1-2 hours before sexual intercourse. - amLODIPine (NORVASC) 10 mg tablet Take by mouth q 24 HR. - carvedilol (COREG) 12.5 mg tablet q 12 HR. - cloNIDine HCl (CATAPRES) 0.1 mg tablet Take 0.1 mg by mouth three times daily. Problem List As Of Date 02/28/2023 Noted Resolved Malignant neoplasm of prostate (HCC) [C61] 06/10/2022 HTN (hypertension) [I10] 06/24/2022 Hypercholesteremia [E78.00] 06/24/2022 Benign prostatic hyperplasia with urinary obstr*03/02/2022 Sleep apnea [G47.30] 06/24/2022 Nocturia [R35.1] 03/02/2022 Obesity, Class I, BMI 30-34.9 [E66.9] 06/29/2022 Encounter Status:Closed by KANDY CASTELLANOS on 02/28/23 [facility] Ricardo 02-21-2023 CNOV Office Visit (RADTSA ) -- RUPERTO BHATTI ([id number]) 1960 M Date Time Provider Department 02/21/23 3:00 PM Stephanie CASTRO During your visit today, we recorded the following information about you: Temperature Pulse Respiration Blood pressure 96.7 degrees 82/minute 18/minute 185/74 Weight 86.6 kg Stephanie Castro MD 02/21/2023 3:54 PM Signed Radiation Oncology - Prostate Cancer Follow-up/new problem note PATIENT NAME: Ruperto Bhatti PATIENT DIAGNOSIS: Prostate adenocarcinoma, initial PSA 25.79, biopsy Hatboro score 3 + 3 = 6 (grade group 1), clinical stage T1c,N0M0 s/p TRUS Random biopsy. Patient underwent robotic prostatectomy on 06/29/2022 Pathologic stage pT3aNx, Dejah 7 (4+3) with detectable and rising PSA, PSA 01/14/2023 0.33 HPI: Patient known to me from previous consultation. He is here after having undergone radical robotic prostatectomy now with a rising PSA. Patient underwent radical robotic prostatectomy on 06/29/2022. Pathology as noted below. FINAL DIAGNOSIS A. Prostate, radical prostatectomy: - Prostatic adenocarcinoma, Hatboro score 7 (4+3), Grade Group 3 with invasion into right bladder neck. - Margins of excision are free of neoplasm. - Cribriform pattern 4 is present. A. Seminal vesicles, right and left, excision: - Negative for neoplasm. SHAY/zahira 07/04/2022 Synoptic Report PROSTATE GLAND: Radical Prostatectomy 8th Edition - Protocol posted: 01/20/2021 PROSTATE GLAND: RESECTION - All Specimens SPECIMEN Procedure Radical prostatectomy Prostate Size Prostate Weight (Grams) 41.4 g Prostate Greatest Dimension (Centimeters) 4.4 cm Additional Prostate Dimension (Centimeters) 4.3 cm 3.8 cm TUMOR Histologic Type Acinar adenocarcinoma Histologic Grade Grade Grade group 3 (Hatboro Score 4 + 3 = 7) Minor Tertiary Pattern 5 (less than 5%) Not applicable Percentage of Pattern 4 61 - 70% Intraductal Carcinoma (IDC) Not identified Cribriform Glands Present Treatment Effect Not identified TUMOR QUANTITATION Estimated Percentage of Prostate Involved by Tumor 21 - 30% Extraprostatic Extension (EPE) Present, nonfocal Location of Extraprostatic Extension Right bladder neck Urinary Bladder Neck Invasion Present Seminal Vesicle Invasion Not identified Lymphovascular Invasion Not Identified MARGINS Margin Status All margins negative for invasive carcinoma REGIONAL LYMPH NODES Regional Lymph Node Status Not applicable (no regional lymph nodes submitted or found) PATHOLOGIC STAGE CLASSIFICATION (pTNM, AJCC 8th Edition) Reporting of pT, pN, and (when applicable) pM categories is based on information available to the pathologist at the time the report is issued. As per the AJCC (Chapter 1, 8th Ed.) it is the managing physician?s responsibility to establish the final pathologic stage based upon all pertinent information, including but potentially not limited to this pathology report. Primary Tumor (pT) pT3a pN Category pN not assigned (no nodes submitted or found) Comment(s) loan representative block A14 Initial postoperative PSA undetectable, <0.13 ng/mL (08/13/2022). However PSA was noted to be detectable on 11/12/2022, 0.14 ng/mL. Most recent PSA 01/14/2023 showing further increase to a value of 0.33 ng/mL. Patient has been doing very well. He denies any significant incontinence and wears a pad only for just in case. Able to the left without significant stress urinary incontinence. No other issues. Treatment for Prostate Cancer: None Genomic Testing: None The patient reports the following pertinent history: Urinary frequency (D/N): 4-6/0-1 Dysuria: No Incontinence: Rare incontinence does wear a pad just for protection Hematuria: No - Total AUA Score: 5 Bowel Movement Frequency: 1/day Bowel Movement Quality: Normal Blood per Rectum: No Last Colonoscopy: na Erectile function, partial with Tadalafil Androgen Deprivation: none Prior Radiation Therapy, Collagen Vascular Disease, or Inflammatory Bowel Disease: No Currently on Anticoagulation: No History of Hip Replacement: No History of Prior TURP: No ALLERGIES Allergen Reactions Linda Inhibitors Cough, Hives Losartan-Hydrochlor* Swelling indapamide (LOZOL) 2.5 mg tablet Take 2.5 mg by mouth every morning. hydrALAZINE (APRESOLINE) 25 mg tablet Take 25 mg by mouth two times a day. Tadalafil (CIALIS) 5 mg tablet Take 1 tablet by mouth daily. Tadalafil (CIALIS) 20 mg tab(s) Take 1 tablet by mouth as needed. 1-2 hours before sexual intercourse. amLODIPine (NORVASC) 10 mg tablet Take by mouth q 24 HR. carvedilol (COREG) 12.5 mg tablet q 12 HR. cloNIDine HCl (CATAPRES) 0.1 mg tablet Take 0.1 mg by mouth three times daily. PAST MEDICAL HISTORY Diagnosis Date HTN (hypertension) PAST SURGIC (more content not included)... Normal [facility] Jose G 02-21-2023 CNPN Telephone (NCCAP) -- RUPERTO BHATTI ([id number]) 1960 M Date Time Provider Department 02/21/23 [facility] During your visit today, we recorded the following information about you: Duyen Brasher 02/21/2023 3:21 PM Signed This form is used for MAIN CAMPUS APPOINTMENTS ONLY. Is this request for a [facility] [place] PET scan appointment? Yes: Explosive Ordnance Technician: Duyen Quiroga Requesting Person Dr Castro: Area Code + Phone/Pager: [phone] Who do we call to schedule this appointment? Other Contact: [facility] please route to toan castellanos [facility] Requesting Staff Dr castro Area Code + Phone/Pager: [phone] PET Orders (A delay in scheduling will result if the orders are not present at time of review): Internal ADDITIONAL ACTION MAY BE REQUIRED IF PATIENTS OON INSURANCE OR SELF PAY COVERAGE HAS NOT BEEN CLEARED FOR REQUESTED APPOINTMENT. Scheduling: JENNIFER: As soon as insurance will allow What account will this PET appointment be linked to? P/F Type of PET: Oncology: Are there additional diagnostic CT scans required to be done at time of PET scan? No Is the request for a PET MR ? No What account will diagnostic testing appointment be linked to? P/F Will the patient need anesthesia? NO Send requests to P COORD REVIEW Alise Moralez 02/22/2023 10:58 AM Signed Authorization number: [id number] Authorization date range: PSMA Primary Insurance: [employer] PPO OOS Diagnosis: Malignant neoplasm of prostate (HCC) [C61] DX Imaging: PET Scan: 05/18/2022 PET Pathology: Patient underwent radical robotic prostatectomy on 06/29/2022. Pathology as noted below. FINAL DIAGNOSIS A. Prostate, radical prostatectomy: - Prostatic adenocarcinoma, Hatboro score 7 (4+3), Grade Group 3 with invasion into right bladder neck. - Margins of excision are free of neoplasm. - Cribriform pattern 4 is present. A. Seminal vesicles, right and left, excision: - Negative for neoplasm. Prostate adenocarcinoma, initial PSA 25.79, biopsy Hatboro score 3 + 3 = 6 (grade group 1), clinical stage T1c,N0M0 s/p TRUS Random biopsy. Patient underwent robotic prostatectomy on 06/29/2022 Pathologic stage pT3aNx, Dejah 7 (4+3) with detectable and rising PSA, PSA 01/14/2023 0.33 Labs: PSA 01/14/2023 PSA 0.33 11/12/2022 PSA 0.14 08/13/2022 PSA 0.13 Clinical Notes Reviewed: 02/22/2023 Rad Onc Date of last: underwent robotic prostatectomy on 06/29/2022 Additional Information: Prostate cancer, recurrence suspected, restaging Radiologist Reviewed: N/A Initial/Subsequent: Subsequent Treatment Strategy: 0093 PET Protocol: PSMA Diagnostic Imaging Requested: No Is this a Pretreatment and/or an initial Pet scan: No - Schedule as requested Comments for Hospital Housekeeper: JENNIFER soon as insurance will allow ROUTE TO SCHEDULERS POOL P PET DEPENDENCY DIRECTOR MC or P NM SPECIAL STUDIES Alise Moralez 02/28/2023 9:15 AM Addendum Auth#::[id number] Date Range: 02-22-23 to 04-22-23 11991/PSMA- piflufolastat (Pylarifshelli) F-18 Stephanie Fuentes MD Aly[facility] Contact Number: Intake: online Case/Ref#:[id number] Notes: 02/22/2023 Submit Clinicals online via Bernardo/Alysha pending review 02/27/2023 Pending review 02/28/2023 Authorized via Bernardo/Alysha ok to send to scheduling Allergies As of Date: 02/21/2023 Noted Allergy Reaction LINDA INHIBITORS 04/19/2022 3 - Cough 4 - Hives LOSARTAN-HYDROCHLOROTHIAZI DE 04/19/2022 7 - Swelling Date Reviewed: 02/21/2023 Reviewed by: Alise Acosta, RN - Fully Assessed Reason for Visit: Nm Pet Request [0308] Prescriptions as of 02/28/2023 - indapamide (LOZOL) 2.5 mg tablet Take 2.5 mg by mouth every morning. - hydrALAZINE (APRESOLINE) 25 mg tablet Take 25 mg by mouth two times a day. - Tadalafil (CIALIS) 5 mg tablet Take 1 tablet by mouth daily. - Tadalafil (CIALIS) 20 mg tab(s) Take 1 tablet by mouth as needed. 1-2 hours before sexual intercourse. - amLODIPine (NORVASC) 10 mg tablet Take by mouth q 24 HR. - carvedilol (COREG) 12.5 mg tablet q 12 HR. - cloNIDine HCl (CATAPRES) 0.1 mg tablet Take 0.1 mg by mouth three times daily. Problem List As Of Date 02/21/2023 Noted Resolved Malignant neoplasm of prostate (HCC) [C61] 06/10/2022 HTN (hypertension) [I10] 06/24/2022 Hypercholesteremia [E78.00] 06/24/2022 Benign prostatic hyperplasia with urinary obstr*03/02/2022 Sleep apnea [G47.30] 06/24/2022 Nocturia [R35.1] 03/02/2022 Obesity, Class I, BMI 30-34.9 [E66.9] 06/29/2022 Encounter Status:Closed by ALISE GALLEGOS on 02/27/23 Normal [facility] Lab Reportson 01-17-2023 Lab Reports [id number]#1.00TIFF Normal [facility] Patient Correspondenceon Patient Correspondence [id number]#[id number] Normal [facility] Ambulatory Visit Summaryon 0 10-31-2022 Ambulatory Visit Summary RUPERTO BHATTI :1960 Visit Date:10/31/2022 Ambulatory Visit Instructions Your Diagnosis Hypercholesteremia Class 1 obesity due to excess calories in adult HTN (hypertension) Smoker in home BMI 30.0-30.9,adult Your Care Team Attending Physician - Loc Castaneda MD Primary Care Physician - WU ENRIQUE MD This Is Your Medications List amlodipine (amLODIPine 10 mg Tab) carvedilol (carvedilol 12.5 mg Tab) clonidine (cloNIDine 0.1 mg tab) hydrochlorothiazide (hydrochlorothiazide 12.5 mg Cap) lorazepam (LORazepam 1 mg Tab) Procedures Performed Transrectal needle biopsy of prostate (03/30/2022). Discharge Vitals Temperature (Oral) 36.6 ?C Heart Rate (Peripheral) 80 Respiratory Rate 14 Blood Pressure 130/78 Height 170 cm Height 67 in Weight 87.9 kg Weight 193.38 lb BMI 30.42 What to do next Scheduled Follow-Up Appointments Monday 5:40 PM EST With: Christ DIETRICH, Loc Pham Where: [facility] Family Medicine Office/Clini c Noteon 10-31-2022 Family Medicine Office/Clinic Note Chief Complaint establish care HPI Staff Ruperto is a 62 year old male presents to establish care Establish Care: History: HTN, hypercholesterolemia, prostate cancer Last provider: Iva Any recent labs: due Health Maintenance UTD: Colonoscopy: none, refused PSA: being followed by urology, he is cancer free covid: UTD Acute: Current issues/complaints: History of Present Illness - Here to establish care. - NO issues - Taking med regularly - Sees Cardiology Review of Systems PHQ Score Initial Depression Screen Score: 0 Physical Exam Vitals & Measurements T: 36.6 ?C(Oral) HR: 80(Peripheral) RR: 14 BP: 130/78 SpO2: 98% HT: 67 in HT: 170 cm WT: 87.9 kg WT: 193.38 lb BMI: 30.42 General: alert, no acute distress ENMT: oral mucosa moist, Cardiovascular: regular rate and rhythm, normal peripheral perfusion Respiratory: Lungs CTA, respirations non labored Extremities: no deformity, no trauma Neurological: oriented x 4, LOC appropriate for age, CN II-XII intact, motor strength equal & normal bilaterally, speech normal Abdomen: Soft, Nontender, Non-distended, + BS Assessment/Plan 1. Hypercholesteremia (E78.00: Pure hypercholesterolemia, unspecified) - Not on cholesterol meds. - Will check labs at next visit 2. HTN (hypertension) (I10: Essential (primary) hypertension) - At goal. - Follow up in 6 months 3. Class 1 obesity due to excess calories in adult (E66.09: Other obesity due to excess calories) - BMI education given. 4. BMI 30.0-30.9,adult (Z68.30: Body mass index [BMI] 30.0-30.9, adult) Follow-up No qualifying data available Problem List/Past Medical History Ongoing BPH with obstruction/lower urinary tract symptoms BPH with urinary obstruction Elevated PSA HTN (hypertension) Hypercholesteremia Prostate cancer Historical No qualifying data Procedure/Surgical History Transrectal needle biopsy of prostate (03/30/2022). Medications amLODIPine 10 mg Tab, Oral, Daily carvedilol 12.5 mg Tab, 12.5 mg= 1 tab(s), Oral, BID cloNIDine 0.1 mg tab, 0.1 mg= 1 tab(s), Oral, TID hydrochlorothiazide 12.5 mg Cap, 12.5 mg= 1 cap(s), Oral, Daily LORazepam 1 mg Tab, Oral, Once a day (at bedtime) Allergies LINDA inhibitors (Cough) Hyzaar (Angioneurotic edema) lisinopril (Hives) Social History Tobacco 10 or more cigarettes (1/2 pack or more)/day in last 30 days Tobacco Use:. Never Smokeless Tobacco Use:. Cigarettes, Yes, 10/31/2022 Family History Family history is unknown Immunizations Vaccine Date Status SARS-CoV-2 (COVID-19) [id number] 01/31/2022 Recorded SARSCoV2 mRNA(yscergouv-cqdb-qlbccf ) vac 07/25/2021 Recorded SARS-CoV-2 (COVID-19) mRNA BNT-162b2 vax 02/14/2021 Recorded SARS-CoV-2 (COVID-19) mRNA BNT-162b2 vax 06/23/2020 Recorded SARS-CoV-2 (COVID-19) mRNA BNT-162b2 vax 06/01/2020 Recorded Normal [facility] Comment on above: Result Comment: Elec tronically Signed By: Loc Castaneda MD\Date and Time Signed: 10/31/22 18:53 EDT Office Visit (Cardiology)on 09-06-2022 Follow-up visit Diagnoses/Problems Assessed Benign essential hypertension (401.1) (I10) Abnormal EKG (794.31) (R94.31) Sleep apnea (780.57) (G47.30) Overweight with body mass index (BMI) of 29 to 29.9 in adult (278.02,V85.25) (E66.3,Z68.29) Current smoker (305.1) (F17.200) 1/2 ppd Orders Abnormal EKG, Benign essential hypertension Basic Metabolic Panel; Status:Active - Retrospective Authorization; Requested for:[id number]; Complete Blood Count; Status:Active - Retrospective Authorization; Requested for:[id number]; Benign essential hypertension Renew: cloNIDine HCl - 0.1 MG Oral Tablet; TAKE 1 TABLET 3 TIMES DAILY Benign essential hypertension, Elevated blood sugar level Glucose, Fasting; Status:Active - Retrospective Authorization; Requested for:06Sep2022; Overweight with body mass index (BMI) of 29 to 29.9 in adult Healthy Weight Tips; Status:Complete - Retrospective Authorization; Done: 06Sep2022 Some eating tips that can help you lose weight.; Status:Complete - Retrospective Authorization; Done: 06Sep2022 SocHx: Current smoker You need to stop smoking. Though it is not easy, more than half of all adult smokers have quit. We encourage you to write down all the reasons you should quit smoking and set a quit date for yourself. Ask us how we can help. You may also call 1-360-XOEB-NOW for free resources and assistance.; Status:Complete - Retrospective Authorization; Done: 06Sep2022 Tobacco Use Screening; Status:Complete; Done: 06Sep2022 Patient Instructions Please bring all medicines, vitamins, and herbal supplements with you when you come to the office. Prescriptions will not be filled unless you are compliant with your follow up appointments or have a follow up appointment scheduled as per instruction of your physician. Refills should be requested at the time of your visit. Follow up in 6 months Same meds. Chief Complaint RUPERTO BHATTI is being seen for a 3 month follow-up of. Patient is in the office with his for follow-up for the problems noted below. He has had no events since he was last seen in the office. His pressure is in the upper normal range on his present medical therapy. He is compliant with diet and exercise and is trying to lose weight. He continues to smoke along with his . I did discuss the issue of tobacco cessation with both the patient and his . He has on his EKG incomplete right bundle branch block which is inconsequential and reassurances were provided to him and his . His lab data from this past spring were reviewed with him. He has elevated blood sugar but this was not a fasting blood test. We will check his fasting blood sugar next time he gets blood work in 6 months. Assessment/recommendations : 1?hypertension that is currently in the upper normal range. We will continue present medical therapy with no changes and continue to monitor. He follows low-salt diet and has been try to stay physically active. 2?prostate cancer status postsurgical resection recently by Dr. Harp, in remission 3?tobacco abuse, he was encouraged to quit smoking, his also smokes and she was also advised to quit smoking 4?sleep apnea untreated. He was educated on the importance of management of sleep apnea and brought his attention that untreated sleep apnea can make hypertension difficult to treat. Surgical History Problems History of Adrenalectomy Denied: History of Complete colonoscopy History of Prostate surgery Current Meds Medication NameInstruction amLODIPine Besylate 10 MG Oral TabletTAKE 1 TABLET DAILY. Carvedilol 12.5 MG Oral TabletTAKE 1 TABLET TWICE DAILY. cloNIDine HCl - 0.1 MG Oral TabletTAKE 1 TABLET 3 TIMES DAILY. hydroCHLOROthiazide 12.5 MG Oral CapsuleTAKE 1 CAPSULE ONCE DAILY. LORazepam 1 MG Oral TabletTAKE 1 TABLET DAILY DIRECTED. Tadalafil 20 MG Oral Tablettake 1 tablet by mouth if needed 1 TO 2 HOURS BEFORE SEXUAL INTERCOURSE Tadalafil 5 MG Oral TabletTAKE 1 TABLET BY MOUTH DAILY Allergies Medication LINDA Inhibitors Allergy; Rash; Recorded By: Mary Ann Day; 05/09/2022 2:46:58 PM lisinopril Adverse Reaction; Cough; Recorded By: Mary Ann Day; 05/09/2022 2:46:58 PM Social History Problems Current smoker (305.1) (F17.200) 1/2 ppd Daily caffeine consumption No illicit drug use Social alcohol use (V49.89) (Z78.9) Review of Systems Constitutional: not feeling tired. Cardiovascular: no intermittent leg claudication and as noted in HPI. Respiratory: no cough and no shortness of breath. Gastrointestinal: no change in bowel habits and no blood in stools. Integumentary: no skin rashes. Neurological: no seizures and no frequent falls. All other systems have been reviewed and are negative for complaint. Vitals Vital Signs Recorded: 06Sep2022 09:00AMRecorded: 06Sep2022 08:47AM [id number], RUE, Sitting [id number], RUE, Sitting Heart Rate74, R Radial Height5 ft 8 in Fwsaty870 lb BMI Azhnrtnfwp90.19 kg/m2 BS (more content not included)... Normal [facility] Tobacco Screening.on 023 Adult depression screening assessment No [facility] [address] DO Work Phone: Fall risk assessment a) No falls within the last year [facility] 250 DO Work Phone: Tobacco use status [facility] a) Yes [facility] 250 DO Work Phone: Tobacco Screening. Yes [facility] 250 DO Work Phone: URINALYSIS, REFLEX MICROSCOP ICon 06-24-2022 Bilirubin Ql (U) Negative Negative [facility] Clarity (Unsp spec) Cloudy Abnormal Clear [facility] Color (U) Light Yellow Yellow [facility] Glucose Test strip (U) [Mass/Vol] Negative Trace, Negative [facility] Hemoglobin Ql (U) Negative Negative, Trace [facility] Ketones Ql (U) Negative Trace, [facility] Leukocyte ester[facility] Test strip Ql (U) Negative Negative, 25 Dat/uL [facility] Nitrite Ql (U) Negative Negative [facility] pH (U) 6.5 [pH] 5.0 - 8.0 [facility] Protein (U) [Mass/Vol] Negative Trace, Negative [facility] Specific gravity (U) [Rel density] 1.020 1.005 - 1.030 [facility] Urobilinogen Ql (U) Negative Negative [facility] URINALYSIS, REFLEX MICROSCOP ICon 06-10-2022 Bilirubin Ql (U) Negative Negative [facility] Clarity (Unsp spec) Clear Clear [facility] Color (U) Light Yellow Yellow [facility] Glucose Test strip (U) [Mass/Vol] Negative Trace, Negative [facility] Hemoglobin Ql (U) Negative Negative, Trace [facility] Ketones Ql (U) Negative Negative, Trace [facility] Leukocyte esterase Test strip Ql (U) Negative Negative, 25 Dat/uL [facility] Nitrite Ql (U) Negative Negative [facility] pH (U) 7.0 [pH] 5.0 - 8.0 [facility] Protein (U) [Mass/Vol] Negative Trace, Negative [facility] Specific gravity (U) [Rel density] 1.011 1.005 - 1.030 [facility] Urobilinogen Ql (U) Negative Negative [facility] US THYROIDon 05-26-2022 US THYROID EXAMINATION: US THYR OID HISTORY: Thyroid nodule COMPARISON: No relevant comparison available. FINDINGS: RIGHT LOBE: Contains a 5.0 x 3.4 x 3.1 cm mixed cystic and solid TR 2 nodule within mid body. Homogeneous echotexture of the thyroid tissue. Lobe size: 6.2 x 3.0 x 4.1 cm LEFT LOBE: Normal size and echotexture. Lobe size: 4.4 x 1.9 x 1.3 cm ISTHMUS: Slightly thickened, but homogeneous echotexture. Thickness: 4 mm IMPRESSION: 1. Large, but benign-appearing nodule within right lobe (TR 2). TI-RADS 2: Benign nodules. Noticeably benign pattern (0% risk of malignancy) Electronically authenticated by: ALEJANDRO KWONG Date: 2022-05-26 16:55 Normal [facility] Office Visit (Cardiology)on 05-24-2022 Follow-up visit Diagnoses/Problems Assessed Benign essential hypertension (401.1) (I10) Patient Instructions Patient to continue current medications keep follow up as scheduled Chief Complaint RUPERTO BHATTI is being seen for hypertension. The patient is in the office for follow-up for hypertension management after recent adjustment of medications. With all the changes I made his pressure is finally under control and patient is extremely pleased with the outcome. Fortunately did not have any side effect of medications. Emphasized the need for tobacco cessation and further weight loss. In consideration for sleep study. Lab data from recent testing were reviewed and his kidney function and potassium are normal. This was shared with the patient Current Meds Medication NameInstruction amLODIPine Besylate 10 MG Oral TabletTAKE 1 TABLET DAILY. Carvedilol 12.5 MG Oral TabletTAKE 1 TABLET TWICE DAILY. cloNIDine HCl - 0.1 MG Oral TabletTAKE 1 TABLET 3 TIMES DAILY. hydroCHLOROthiazide 12.5 MG Oral CapsuleTAKE 1 CAPSULE ONCE DAILY. LORazepam 1 MG Oral TabletTAKE 1 TABLET DAILY DIRECTED. Patient did not bring medication list or bottles. Updated verbally with patient Allergies Medication LINDA Inhibitors Allergy; Rash; Recorded By: Mary Ann Day; 05/09/2022 2:46:58 PM lisinopril Adverse Reaction; Cough; Recorded By: Mary Ann Day; 05/09/2022 2:46:58 PM Vitals Vital Signs Recorded: 24May2022 09:33AMRecorded: 24May2022 09:30AM [id number], LUE, [id number], RUE, Sitting Htygkegaw36, LUE, [id number], RUE, Sitting Heart Rate76, R Radial Height5 ft 8 in Hqqbaw646 lb BMI Bdafiyufyg42.8 kg/m2 BSA Calculated2.03 Signatures Electronically signed by : Kalia Felder MD; May 24 2022 10:12AM EST (Author) [facility] HEAD WO CONon 05-17-2022 CT HEAD WO CON EXAMINATION: CT HEAD WO CON HISTORY: Measurement finding outside reference range abnormal bone scan. Nonspecific foci of uptake within the calvarium within the facial bones and posterior calvarium. COMPARISON: Nuclear medicine bone scan 04/27/2022. TECHNIQUE: CT examination of the head without IV contrast. Dose reduction techniques were achieved by using automated exposure control and/or adjustment of mA and/or kV according to patient size and/or use of iterative reconstruction technique. FINDINGS: The ventricles and basilar cisterns are within normal limits. No acute intra-axial or extra axial hemorrhage. No midline shift, mass effect or edema. The visualized paranasal sinuses are clear. The mastoid air cells are clear. The external and middle ear cavities are unremarkable. Area of bony sclerosis with central lucency involving the left superior orbit axial image 10 measures 9 x 4 mm with narrow zone of transition involving the intramedullary space without cortical destruction or associated soft tissue abnormality or periosteal reaction. Adjacent area of bony sclerosis with central lucency is noted about the left frontal bone just above the orbits just to left the midline axial image 12 measures 4 mm with narrow zone of transition. Findings may account for the abnormality on the bone scan. No lytic or blastic lesions noted involving the remainder of the calvarium. No areas of abnormality to explain the findings on the left side of the posterior calvarium noted on the bone scan. IMPRESSION: No acute hemorrhage. Areas of bony sclerosis involving the left superior orbital bone and left frontal bone as described with narrow zone of transition and nonaggressive appearance likely relates to bone islands as opposed to osteoblastic metastasis. Clinical correlation and follow-up recommended. No corresponding lytic or blastic lesions within the remainder of the calvarium to suggest bony metastasis. Electronically authenticated by: FABIOLA MALIK Date: 2022-05-17 09:53 Normal [facility] PROF CHEM 8 (BAS METB)on Anion gap [Moles/Vol] 13.5 mmol/L Normal [facility] Comment on above: Performed By: #### P SAD #### [facility] [address] [address] [address] Sunshine Johnson Calcium [Mass/Vol] 9.7 mg/dL Normal 8.5-10.1 [facility] Comment on above: Performed By: #### P SAD #### [facility] [address] [address] [address] Sunshine Johnson Chloride [Moles/Vol] 102 mmol/L Normal 98-107 [facility] Comment on above: Performed By: #### P SAD #### [facility] [address] [address] [address] Sunshine Johnson CO2 [Moles/Vol] 27.6 mmol/L Normal 21.0-32.0 [facility] Comment on above: Performed By: #### P SAD #### [facility] [address] [address] [address] Sunshine Johnson Creatinine [Mass/Vol] 0.81 mg/dL Normal 0.70-1.30 [facility] Comment on above: Performed By: #### P SAD #### [facility] [address] [address] [address] Sunshine Johnson EGFR-AF ROMANIAN >60 Normal >=60 [facility] Comment on above: Performed By: #### P SAD #### [facility] [address] [address] [address] Sunshine Johnson EGFR-NON AF ROMANIAN >60 Normal >=60 [facility] Comment on above: Performed By: #### P SAD #### [facility] [address] [address] [address] Sunshine Johnson Glucose [Mass/Vol] 112 mg/dL Critically high 74-106 [facility] Comment on above: Performed By: #### P SAD #### [facility] [address] [address] [address] Sunshine Johnson Potassium [Moles/Vol] 4.1 mmol/L Normal 3.5-5.1 [facility] Comment on above: Performed By: #### P SAD #### [facility] [address] [address] [address] Sunshine Johnson Sodium [Moles/Vol] 139 mmol/L Normal 136-[address] [facility] Comment on above: Performed By: #### P SAD #### [facility] [address] [address] [address] Sunshine Johnson Urea nitrogen [Mass/Vol] 11.0 mg/dL Normal 7.0-18.0 [facility] Comment on above: Performed By: #### P SAD #### [facility] [address] [address] [address] Sunshine Johnson Urea nitrogen/Creatinine [Mass ratio] 13.6 mg/mg Normal [facility] Comment on above: Performed By: #### P SAD #### [facility] [address] [place] [address] Dr. Sunshine Johnson Office Visit (Cardiology)on 05-09-2022 Follow-up visit Diagnoses/Problems Assessed Benign essential hypertension (401.1) (I10) Class 1 obesity with body mass index (BMI) of 30.0 to 30.9 in adult (278.00,V85.30) (E66.9,Z68.30) Current smoker (305.1) (F17.200) 1/2 ppd Abnormal EKG (794.31) (R94.31) Prostate cancer (185) (C61) Sleep apnea (780.57) (G47.30) Orders Abnormal EKG, Benign essential hypertension Echocardiogram; Status:Hold For - Scheduling,Retrospective Authorization; Requested for:[id number]; Benign essential hypertension Start: amLODIPine Besylate 10 MG Oral Tablet (Norvasc); TAKE 1 TABLET DAILY Basic Metabolic Panel; Status:Active - Retrospective Authorization; Requested for:23May2022; Start: Carvedilol 12.5 MG Oral Tablet (Coreg); TAKE 1 TABLET TWICE DAILY IO EKG Electrocardiogram- 12 Lead; Status:Complete; Done: [id number] Start: hydroCHLOROthiazide 12.5 MG Oral Capsule; TAKE 1 CAPSULE ONCE DAILY Class 1 obesity with body mass index (BMI) of 30.0 to 30.9 in adult Healthy Weight Tips; Status:Complete - Retrospective Authorization; Done: [id number] Some eating tips that can help you lose weight.; Status:Complete - Retrospective Authorization; Done: [id number] SocHx: Current smoker You need to stop smoking. Though it is not easy, more than half of all adult smokers have quit. We encourage you to write down all the reasons you should quit smoking and set a quit date for yourself. Ask us how we can help. You may also call 5-950-MBGJNOW for free resources and assistance.; Status:Complete - Retrospective Authorization; Done: [id number] Tobacco Use Screening; Status:Complete; Done: [id number] Unlinked Stop: amLODIPine Besylate 5 MG Oral Tablet Stop: Metoprolol Tartrate 100 MG Oral Tablet Patient Instructions Please bring all medicines, vitamins, and herbal supplements with you when you come to the office. Prescriptions will not be filled unless you are compliant with your follow up appointments or have a follow up appointment scheduled as per instruction of your physician. Refills should be requested at the time of your visit. Norvasc from 5 mg to 10 mg daily Stop Metoprolol Start Coreg Start HCTZ 12.5 mg Blood Pressure Follow Up In 2 weeks. chem 6 Echo Follow up in 3 months The provider reviewed the following test(s) and result(s) with the patient: ECG Chief Complaint RUPERTO BHATTI is being seen for a consultation for hypertension. 62-year-old white male who is being referred to me by Dr. Harp for management of hypertension that is hard to control. The patient was diagnosed recently with prostate cancer which seems to be localized to the prostate. Long-term therapy has not yet been decided in terms of radiation, surgery or other measures. This issue has placed the patient under significant stress and as a result he became significantly hypertensive. His acknowledges history of severe hypertension in the past for which she was taking medication but apparently he did not continue taking the medicine. He is not symptomatic with hypertension but the reading is quite remarkable. He has no headaches or vision problems and no dizziness and no chest pain or dyspnea. He has had no previous cardiac history and no previous cardiac investigations. He has sleep apnea and has not been treated for that. He does have obesity and his job is not physically demanding. He has no alcohol abuse and no tobacco abuse and no family history of early CAD. EKG reveals sinus rhythm with left axis deviation and mild QRS widening. His cardiopulmonary examination and vascular examinations were unremarkable. All other review of system are unremarkable Assessment/recommendations : 1?hypertension that is uncontrolled. The patient was educated about hypertension therapy and was directed to the DASH diet in the meantime since he is allergic to LINDA inhibitors and ARB's for angioedema or options of therapy were discussed with the patient. He will be switched from metoprolol to carvedilol for vasodilating effect and also increase amlodipine up to 10 mg daily. We will add hydrochlorothiazide 12.5 mg daily. We will still have other options to entertain such as hydralazine. He seem to have tolerated clonidine fairly well. An echocardiogram is ordered to assess his cardiac status. Follow-up BP check will be done in few weeks. He was advised to continue to monitor his blood pressure reading at home. 2?prostate cancer being assessed and managed by Dr. Harp 3?tobacco abuse, he was encouraged to quit smoking 4?sleep apnea untreated. He was educated on the importance of management of sleep apnea and brought his attention that untreated sleep apnea can make hypertension difficult to treat. 5?abnormal EKG with left axis deviation and QRS widening. Echocardiogram is scheduled Current Meds Medication NameInstruction amLODIPine Besylate 5 MG Oral TabletTAKE 1 TABLET BY MOUTH EVERY DAY cloNIDine HCl - 0.1 MG Oral TabletTAKE 1 TABLET 3 TIMES DAILY. LORazepam 1 MG Oral TabletTAKE 1 T (more content not included)... Normal [facility] Tobacco Screening.on 023 Adult depression screening assessment No [facility] [place] [address] DO Work Phone: Fall risk assessment c) Not medically indicated [facility] [place] [address] DO Work Phone: Tobacco use status [facility] a) Yes [facility] [employer] [address] DO Work Phone: Tobacco Screening. Yes [facility] 250 DO Work Phone: CT ABD/PELV W CONon 04-27-19 CT ABD/PELV W CON EXAMINATION: CT ABD/ PELV W CON, 04/27/2022 8:49 AM EST HISTORY: Primary malignant neoplasm of prostate COMPARISON: None. TECHNIQUE: CT scan of the abdomen and pelvis was performed with IV contrast. CT dose reduction technique was used, including Automated Exposure Control. FINDINGS: LUNG BASES: No visible pulmonary or pleural disease. LIVER: Diffuse hypoattenuation consistent with hepatic steatosis BILIARY: Wall thickening measuring up to 4 mm with no pericholecystic fluid or cholelithiasis PANCREAS: No lesion, fluid collection, ductal dilatation, or atrophy. SPLEEN: No enlargement or focal lesion. ADRENALS: Likely remote right adrenalectomy. Normal left adrenal KIDNEYS: Left cortical hypodensities too small to characterize BOWEL/MESENTERY: Large amount of stool in the rectum which measures 7 cm transversely. Mild colonic diverticulosis without evidence of acute diverticulitis. AORTA/VASCULAR: No aortic aneurysm. Moderate diffuse atherosclerosis RETROPERITONEUM: No mass or adenopathy. LYMPH NODES: No adenopathy. URINARY BLADDER: No visible focal wall thickening, lesion, or calculus. PELVIC ORGANS: Mildly enlarged heterogeneous prostate with calcifications. The prostate measures 5.6 cm transversely ABDOMINAL WALL: No mass or hernia. BONES: Moderate diffuse degenerative changes. Bilateral L5 pars interarticularis fractures with 7 mm anterolisthesis of L5 in relation to S1 OTHER: Negative. IMPRESSION: No definite evidence of metastatic disease Enlarged heterogeneous prostate gland Bilateral L5 pars interarticularis fractures with 7 mm anterolisthesis of L5 on S1 Electronically authenticated by: LETICIA DIMAS Date: 2022-04-27 11:13 Normal [facility] BONE [place] BODYon 023 IN BONE [facility] BODY EXAMINATION: IN BONE [facility] BODY HISTORY: Primary malignant neoplasm of prostate COMPARISON: No relevant comparison available. TECHNIQUE: After obtaining the patient's consent, 25.5 mCi Technetium 99m MDP was injected intravenously. Images were obtained approximately two hours later. FINDINGS: ABNORMALITIES: Several small foci of radiotracer uptake involving the facial bones and posterior calvarium. OTHER: Scattered focal areas of mild radiotracer uptake consistent with degenerative joint disease changes. IMPRESSION: 1. Nonspecific foci of uptake within the calvarium. Consider CT head without contrast for evaluation of skull. 2. Multiple scattered foci compatible with degenerative joint disease. Electronically authenticated by: ALEJANDRO KWONG Date: 2022-04-27 13:01 Normal [facility] CBC AUTO DIFFon 04-20-2022 BASO # 0.1 103/ul Normal 0.0-0.1 [facility] Comment on above: Performed By: #### P SAD #### [facility] [address] [place] [address] Dr. Sunshine Johnson Basophils/100 WBC (Bld) 1.0 % Normal 0.2-2.0 [facility] Comment on above: Performed By: #### P SAD #### [facility] [address] [place] [address] Dr. Sunshine Johnson EO # 0.2 103/ul Normal 0.0-0.7 [facility] Comment on above: Performed By: #### P SAD #### [facility] [address] [place] [address] Dr. Sunshine Johnson Eosinophils/100 WBC (Bld) 2.2 % Normal 0.9-7.0 [facility] Comment on above: Performed By: #### P SAD #### [facility] [address] [place] [address] Dr. Sunshine Johnson Erythrocyte distribution width (RBC) [Ratio] 11.9 % Normal 11.0-15.0 [facility] Comment on above: Performed By: #### P SAD #### [facility] [address] [address] [address] Sunshine Johnson Hematocrit (Bld) [Volume fraction] 51.0 % Normal 42.0-54.0 [facility] Comment on above: Performed By: #### P SAD #### [facility] [address] [address] [address] Sunshine Johnson Hemoglobin (Bld) [Mass/Vol] 17.7 g/dL Normal 14.0-18.0 [facility] Comment on above: Performed By: #### P SAD #### [facility] [address] [place] [address] Dr. Sunshine Johnson IG # 0.05 10e3/ul Critically high 0.00-0.03 [facility] Comment on above: Performed By: #### P SAD #### [facility] [address] [place] [address] Dr. Sunshine Johnson IG % 0.5 % Normal 0.0-0.5 [facility] Comment on above: Performed By: #### P SAD #### [facility] [address] [place] [address] Dr. Sunshine Johnson LYMPH # 2.5 103/ul Normal 1.2-3.8 [facility] Comment on above: Performed By: #### P SAD #### [facility] [address] [place] [address] Dr. Sunshine Johnson Lymphocytes/100 WBC (Bld) 25.5 % Normal 20.5-60.0 [facility] Comment on above: Performed By: #### P SAD #### [facility] [address] [place] [address] Dr. Sunshine Johnson MANUAL DIFF REQ NO Normal [facility] Comment on above: Performed By: #### P SAD #### [facility] [address] [place] [address] Dr. Sunshine Johnson MCH (RBC) [Entitic mass] 35.5 pg Critically high 25.9-34.0 [facility] Comment on above: Performed By: #### P SAD #### [facility] [address] [place] [address] Dr. Sunshine Johnson MCHC (RBC) [Mass/Vol] 34.7 g/dL Normal 29.9-35.2 [facility] Comment on above: Performed By: #### P SAD #### [facility] [address] [address] [address] Sunshine Johnson MCV (RBC) [Entitic vol] 102.4 fL Critically high 80.0-94.0 [facility] Comment on above: Performed By: #### P SAD #### [facility] [address] [address] [address] Sunshine Johnson MONO # 1.3 103/ul Critically high 0.3-0.8 [facility] Comment on above: Performed By: #### P SAD #### [facility] [address] [place] [address] Dr. Sunshine Johnson Monocytes/100 WBC (Bld) 12.8 % Critically high 1.7-12.0 [facility] Comment on above: Performed By: #### P SAD #### [facility] [address] [place] [address] Dr. Sunshine Johnson NEUT # 5.6 103/ul Normal 1.4-6.5 [facility] Comment on above: Performed By: #### P SAD #### [facility] [address] [place] [address] Dr. Sunshine Johnson Neutrophils/100 WBC (Bld) 58.0 % Normal 43.0-75.0 [facility] Comment on above: Performed By: #### P SAD #### [facility] [address] [place] [address] Dr. Sunshine Johnson Platelet mean volume (Bld) [Entitic vol] 11.3 fL Normal 9.5-13.5 [facility] Comment on above: Performed By: #### P SAD #### [facility] [address] [place] [address] Dr. Sunshine Johnson PLT 155 103/ul Normal 150-450 [facility] Comment on above: Performed By: #### P SAD #### [facility] [address] [place] [address] Dr. Sunshine Johnson RBC 4.98 106/ul Normal 4.70-6.10 [facility] Comment on above: Performed By: #### P SAD #### [facility] [address] [place] [address] Dr. Sunshine Johnson WBC 9.7 103/ul Normal 4.0-11.0 [facility] Comment on above: Performed By: #### P SAD #### [facility] [address] [place] [address] Dr. Sunshine Johnson PROF 14(COMP METB)on 023 Albumin [Mass/Vol] 3.7 g/dL Normal 3.4-5.[address] [facility] Comment on above: Performed By: #### C MP #### [facility] [address] [place] [address] Dr. Sunshine Johnson Albumin/Globulin [Mass ratio] 1.1 {ratio} Normal [facility] Comment on above: Performed By: #### C MP #### [facility] [address] [place] [address] Dr. Sunshine Johnson ALP [Catalytic activity/Vol] 65 U/L Normal 46-116 [facility] Comment on above: Performed By: #### C MP #### [facility] [address] [place] [address] Dr. Sunshine Johnson ALT [Catalytic activity/Vol] 39 U/L Normal 16-63 [facility] Comment on above: Performed By: #### C MP #### [facility] [address] [place] [address] Dr. Sunshine Johnson Anion gap [Moles/Vol] 12.3 mmol/L Normal [facility] Comment on above: Performed By: #### C MP #### [facility] [address] [place] [address] Dr. Sunshine Johnson AST [Catalytic activity/Vol] 23 U/L Normal 15-37 [facility] Comment on above: Performed By: #### C MP #### [facility] [address] [place] [address] Dr. Sunshine Johnson Bilirubin [Mass/Vol] 0.6 mg/dL Normal 0.2-1.0 [facility] Comment on above: Performed By: #### C MP #### [facility] [address] [place] [address] Dr. Sunshine Johnson Calcium [Mass/Vol] 9.0 mg/dL Normal 8.5-10.[address] [facility] Comment on above: Performed By: #### C MP #### [facility] [address] [place] [address] Dr. Sunshine Johnson Chloride [Moles/Vol] 102 mmol/L Normal 98-107 [facility] Comment on above: Performed By: #### C MP #### [facility] [address] [place] [address] Dr. Sunshine Johnson CO2 [Moles/Vol] 27.7 mmol/L Normal 21.0-32.0 [facility] Comment on above: Performed By: #### C MP #### [facility] [address] [place] [address] Dr. Sunshine Johnson Creatinine [Mass/Vol] 0.72 mg/dL Normal 0.70-1.30 [facility] Comment on above: Performed By: #### C MP #### [facility] [address] [place] [address] Dr. Sunshine Johnson EGFR-AF ROMANIAN >60 Normal >=60 [facility] Comment on above: Performed By: #### C MP #### [facility] [address] [place] [address] Dr. Sunshine Johnson EGFR-NON AF ROMANIAN >60 Normal >=60 [facility] Comment on above: Performed By: #### C MP #### [facility] [address] [place] [address] Dr. Sunshine Johnson Globulin (S) [Mass/Vol] 3.4 g/dL Normal [facility] Comment on above: Performed By: #### C MP #### [facility] [address] [place] [address] Dr. Sunshine Johnson Glucose [Mass/Vol] 88 mg/dL Normal 74-106 [facility] Comment on above: Performed By: #### C MP #### [facility] [address] [address] [address] Sunshine Johnson Potassium [Moles/Vol] 4.0 mmol/L Normal 3.5-5.1 [facility] Comment on above: Performed By: #### C MP #### [facility] [address] [address] [address] Sunshine Johnson Protein [Mass/Vol] 7.1 g/dL Normal 6.4-8.2 [facility] Comment on above: Performed By: #### C MP #### [facility] [address] [address] [address] Sunshine Johnson Sodium [Moles/Vol] 138 mmol/L Normal 136-[address] [facility] Comment on above: Performed By: #### C MP #### [facility] [address] [address] [address] Sunshine Johnson Urea nitrogen [Mass/Vol] 9.0 mg/dL Normal 7.0-18.0 [facility] Comment on above: Performed By: #### C MP #### [facility] [address] [address] [address] Sunshine Johnson Urea nitrogen/Creatinine [Mass ratio] 12.5 mg/mg Normal [facility] Comment on above: Performed By: #### C MP #### [facility] [address] [address] [address] Sunshine Johnson MR prostate wo/w conon 03-22 MR prostate wo/w con [facility] [place] [address] MRI Report Signed Patient: Ruperto Bhatti MR#: [id number] 06 : 1960 Acct:[id number] Age/Sex: 62 / M ADM Date: 03/21/22 Loc: MR Room: Type: [facility] Attending Dr: Rodrigue Harp MD Copies to: Rodrigue Harp MD Ordering Provider: Rodrigue Harp MD Date of Service: 03/21/22 MR/MR prostate wo/w con: ELEVATED PSA EXAMINATION: MR prostate wo/w con HISTORY: Elevated PSA COMPARISON: NONE TECHNIQUE: Multiparametric imaging of the prostate gland was performed with IV contrast. FINDINGS: Prostate Dimensions: 5.2 x 3.9 x 4.3 cm Prostate Volume: 46 mL Peripheral Zone: Heterogenous inT2 signal suggestive of prior prostatitis. No suspicious T2 or ADC map abnormality is identified to suggest prostate malignancy. Central/Transitional Zone: BPH changes. Seminal Vesicles: Unremarkable Neurovascular bundles: Unremarkable. Lymphadenopathy: No evidence of lymphadenopathy. Bladder: No focal lesion. Bowel: Diverticulosis Peritoneal Cavity: No free fluid. Bones: No suspicious bony lesion. MR/MR prostate wo/w con IMPRESSION: No MRI evidence of prostate malignancy. BPH changes. Impression dictated by: Laurent Geiger Jr., D.O.03/22/2022 9:47 AM Dictation Location: [place] [address] Transcribed By: [facility] 03/22/22946 Dictated By: Laurent Geiger Jr, DO 03/22/22942 Signed By: 03/22/22946 Normal [facility] Creatinine (Bld) [Mass/Vol]O rdered By: Rodrigue Harp on 03-21-2022 Creatinine [Mass/Vol] 1.0 mg/dL 0.6-1.3 [facility] Comment on above: ER/ESD physician is notified/shown all ISTAT results.Critical values may be confirmed by laboratory testing ifdeemed necessary by ER attending doctor. ISTAT XRay CREon 03-21-2022 Creatinine [Mass/Vol] 1.0 mg/dL Normal 0.6-1.3 [facility] Comment on above: Result Comment: ER/E SD physician is notified/shown all ISTAT results. Critical values may be confirmed by laboratory testing if deemed necessary by ER attending doctor. Performed By: #### I SCRE #### [address] Point of Care testing , ISTAT GFR ( > 60 Normal [facility] Comment on above: Result Comment: GFR estimated reference range: According to KDOQI guidelines, <60 ml/min/1.73m2 is sufficient to diagnose a patient with chronic kidney disease. PERFORMED BY: [address] [place] [address] PATHOLOGIST [employer] CAMERON WEBB M.D. Performed By: #### I SCRE #### [facility] [address] Point of Care testing , ISTAT GFR (Non- Am > 60 Normal [facility] Comment on above: Performed By: #### I SCRE #### [facility] [address] Point of Care testing , No Panel InformationOrdered By: Rodrigue Harp on 03-21-2022 POC Estimated GFR > 60 [facility] Comment on above: GFR estimated refere nce range: According to KDOQI guidelines, <60 ml/min/1.73m2 is sufficient to diagnose a patient with chronic kidney disease. POC Estimated GFR Non- Amer > 60 [facility] CBC AUTO DIFFon 01-31-2022 BASO # 0.1 103/ul Normal 0.0-0.1 [facility] Comment on above: Performed By: #### C BC #### [facility] [address] [place] [address] Dr. Sunshine Johnson Basophils/100 WBC (Bld) 1.0 % Normal 0.2-2.0 [facility] Comment on above: Performed By: #### C BC #### [facility] [address] [place] [address] Dr. Sunshine Johnson EO # 0.2 103/ul Normal 0.0-0.7 [facility] Comment on above: Performed By: #### C BC #### [facility] [address] [address] [address] Sunshine Johnson Eosinophils/100 WBC (Bld) 2.3 % Normal 0.9-7.0 [facility] Comment on above: Performed By: #### C BC #### [facility] [address] [place] [address] Dr. Sunshine Johnson Erythrocyte distribution width (RBC) [Ratio] 12.0 % Normal 11.0-15.0 [facility] Comment on above: Performed By: #### C BC #### [facility] [address] [place] [address] Dr. Sunshine Johnson Hematocrit (Bld) [Volume fraction] 51.1 % Normal 42.0-54.0 [facility] Comment on above: Performed By: #### C BC #### [facility] [address] [place] [address] Dr. Sunshine Johnson Hemoglobin (Bld) [Mass/Vol] 17.7 g/dL Normal 14.0-18.0 [facility] Comment on above: Performed By: #### C BC #### [facility] [address] [place] [address] Dr. Sunshine Johnson IG # 0.04 10e3/ul Critically high 0.00-0.03 [facility] Comment on above: Performed By: #### C BC #### [facility] [address] [place] [address] Dr. Sunshine Johnson IG % 0.4 % Normal 0.0-0.5 [facility] Comment on above: Performed By: #### C BC #### [facility] [address] [place] [address] Dr. Sunshine Johnson LYMPH # 2.6 103/ul Normal 1.2-3.8 [facility] Comment on above: Performed By: #### C BC #### [facility] [address] [place] [address] Dr. Sunshine Johnson Lymphocytes/100 WBC (Bld) 25.5 % Normal 20.5-60.0 [facility] Comment on above: Performed By: #### C BC #### [facility] [address] [place] [address] Dr. Sunshine Johnson MANUAL DIFF REQ NO Normal [facility] Comment on above: Performed By: #### C BC #### [facility] [address] [place] [address] Dr. Sunshine Johnson MCH (RBC) [Entitic mass] 35.8 pg Critically high 25.9-34.0 [facility] Comment on above: Performed By: #### C BC #### [facility] [address] [place] [address] Dr. Sunshine Johnson MCHC (RBC) [Mass/Vol] 34.6 g/dL Normal 29.9-35.2 [facility] Comment on above: Performed By: #### C BC #### [facility] [address] [place] [address] Dr. Sunshine Johnson MCV (RBC) [Entitic vol] 103.4 fL Critically high 80.0-94.0 [facility] Comment on above: Performed By: #### C BC #### [facility] [address] [place] [address] Dr. Sunshine Johnson MONO # 1.1 103/ul Critically high 0.3-0.8 [facility] Comment on above: Performed By: #### C BC #### [facility] [address] [place] [address] Dr. Sunshine Johnson Monocytes/100 WBC (Bld) 11.2 % Normal 1.7-12.0 [facility] Comment on above: Performed By: #### C BC #### [facility] [address] [place] [address] Dr. Sunshine Johnson NEUT # 6.1 103/ul Normal 1.4-6.5 [facility] Comment on above: Performed By: #### C BC #### [facility] [address] [place] [address] Dr. Sunshine Johnson Neutrophils/100 WBC (Bld) 59.6 % Normal 43.0-75.0 [facility] Comment on above: Performed By: #### C BC #### [facility] [address] [place] [address] Dr. Sunshine Johnson Platelet mean volume (Bld) [Entitic vol] 11.0 fL Normal 9.5-13.5 [facility] Comment on above: Performed By: #### C BC #### [facility] [address] [place] [address] Dr. Sunshine Johnson PLT 163 103/ul Normal 150-450 [facility] Comment on above: Performed By: #### C BC #### [facility] [address] [place] [address] Dr. Sunshine Johnson RBC 4.94 106/ul Normal 4.70-6.10 [facility] Comment on above: Performed By: #### C BC #### [facility] [address] [address] [address] Sunshine Johnson WBC 10.2 103/ul Normal 4.0-11.0 [facility] Comment on above: Performed By: #### C BC #### [facility] [address] [address] [address] Sunshine Johnson LIPID PROFILEon 01-31-2022 CHOL-HDL RATIO NORM SEE BELOW Normal [facility] Comment on above: Result Comment: 3.3 - 4.4 LOW RISK 4.4 - 7.1 AVERAGE RISK 7.1 - 11.0 MODERATE RISK >11.0 HIGH RISK Performed By: #### L IPID, CMP #### [facility] [address] [address] [address] Sunshine Johnson Cholesterol [Mass/Vol] 209 mg/dL Critically high <=200 [facility] Comment on above: Performed By: #### L IPID, CMP #### [facility] [address] [address] [address] Sunshine Johnson Cholesterol in HDL [Mass/Vol] 43 mg/dL Normal 40-60 [facility] Comment on above: Performed By: #### L IPID, CMP #### [facility] [address] [address] [address] Sunshine Johnson Cholesterol in LDL [Mass/Vol] 93.8 mg/dL Normal [facility] Comment on above: Performed By: #### L IPID, CMP #### [facility] [address] [address] [address] Sunshine Johnson Cholesterol.total/Ch olesterol in HDL [Mass ratio] 4.9 {ratio} Normal [facility] Comment on above: Performed By: #### L IPID, CMP #### [facility] [address] [address] [address] Sunshine Johnson HDL NORMAL > or = 60 mg/dl - LO W CARDIOVASCULAR RISK <40 mg/dl - HIGH CARDIOVASCULAR RISK Normal [facility] Comment on above: Performed By: #### L IPID, CMP #### [facility] [address] [place] [address] Dr. Sunshine Johnson LDL CALC NORMAL SEE BELOW Normal [facility] Comment on above: Result Comment: <100 mg/dl OPTIMAL 100 - 129 mg/dl NEAR OR ABOVE OPTIMAL 130 - 159 mg/dl BORDERLINE HIGH 160 - 189 mg/dl HIGH >190 mg/dl VERY HIGH Performed By: #### L IPID, CMP #### [facility] [address] [place] [address] Dr. Sunshine Johnson Triglyceride [Mass/Vol] 361 mg/dL Critically high <=150 [facility] Comment on above: Performed By: #### L IPID, CMP #### [facility] [address] [place] [address] Dr. Sunshine Johnson VLDL CALC 72.2 mg/dL Normal [facility] Comment on above: Performed By: #### L IPID, CMP #### [facility] [address] [place] [address] Dr. Sunshine Johnson PROF 14(COMP METB)on 01-31- 022 Albumin [Mass/Vol] 3.8 g/dL Normal 3.4-5.[address] [facility] Comment on above: Performed By: #### L IPID, CMP #### [facility] [address] [place] [address] Dr. Sunshine Johnson Albumin/Globulin [Mass ratio] 1.0 {ratio} Normal [facility] Comment on above: Performed By: #### L IPID, CMP #### [facility] [address] [place] [address] Dr. Sunshine Johnson ALP [Catalytic activity/Vol] 66 U/L Normal 46-116 [facility] Comment on above: Performed By: #### L IPID, CMP #### [facility] [address] [place] [address] Dr. Sunshine Johnson ALT [Catalytic activity/Vol] 34 U/L Normal 16-63 [facility] Comment on above: Performed By: #### L IPID, CMP #### [facility] [address] [place] [address] Dr. Sunshine Johnson Anion gap [Moles/Vol] 10.2 mmol/L Normal [facility] Comment on above: Performed By: #### L IPID, CMP #### [facility] [address] [place] [address] Dr. Sunshine Johnson AST [Catalytic activity/Vol] 15 U/L Normal 15-37 [facility] Comment on above: Performed By: #### L IPID, CMP #### [facility] [address] [place] [address] Dr. Sunshine Johnson Bilirubin [Mass/Vol] 0.5 mg/dL Normal 0.2-1.0 [facility] Comment on above: Performed By: #### L IPID, CMP #### [facility] [address] [place] [address] Dr. Sunshine Johnson Calcium [Mass/Vol] 8.8 mg/dL Normal 8.5-10.[address] [facility] Comment on above: Performed By: #### L IPID, CMP #### [facility] [address] [place] [address] Dr. Sunshine Johnson Chloride [Moles/Vol] 102 mmol/L Normal 98-107 [facility] Comment on above: Performed By: #### L IPID, CMP #### [facility] [address] [place] [address] Dr. Sunshine Johnson CO2 [Moles/Vol] 29.9 mmol/L Normal 21.0-32.0 [facility] Comment on above: Performed By: #### L IPID, CMP #### [facility] [address] [place] [address] Dr. Sunshine Johnson Creatinine [Mass/Vol] 0.81 mg/dL Normal 0.70-1.30 [facility] Comment on above: Performed By: #### L IPID, CMP #### [facility] [address] [place] [address] Dr. Sunshine Johnson EGFR-AF ROMANIAN >60 Normal >=60 [facility] Comment on above: Performed By: #### L IPID, CMP #### [facility] [address] [place] [address] Dr. Sunshine Johnson EGFR-NON AF ROMANIAN >60 Normal >=60 [facility] Comment on above: Performed By: #### L IPID, CMP #### [facility] [address] [place] [address] Dr. Sunshine Johnson Globulin (S) [Mass/Vol] 3.7 g/dL Normal [facility] Comment on above: Performed By: #### L IPID, CMP #### [facility] [address] [place] [address] Dr. Sunshine Johnson Glucose [Mass/Vol] 100 mg/dL Normal 74-106 [facility] Comment on above: Performed By: #### L IPID, CMP #### [facility] [address] [place] [address] Dr. Sunshine Johnson Potassium [Moles/Vol] 4.1 mmol/L Normal 3.5-5.1 [facility] Comment on above: Performed By: #### L IPID, CMP #### [facility] [address] [place] [address] Dr. Sunshine Johnson Protein [Mass/Vol] 7.5 g/dL Normal 6.4-8.2 [facility] Comment on above: Performed By: #### L IPID, CMP #### [facility] [address] [place] [address] Dr. Sunshine Johnson Sodium [Moles/Vol] 138 mmol/L Normal 136-145 [facility] Comment on above: Performed By: #### L IPID, CMP #### [facility] [address] [place] [address] Dr. Sunshine Johnson Urea nitrogen [Mass/Vol] 8.0 mg/dL Normal 7.0-18.0 [facility] Comment on above: Performed By: #### L IPID, CMP #### [facility] [address] [place] [address] Dr. Sunshine Johnson Urea nitrogen/Creatinine [Mass ratio] 9.9 mg/mg Normal [facility] Comment on above: Performed By: #### L IPID, CMP #### [facility] [address] [place] [address] Dr. Sunshine Johnson Vital Signs Date Time Vital Sign Value Performing Clinician Facility 09-21-2023 13:06-0400 Body mass index (BMI) [Ratio] 29.06 kg/m2 KALA Castro MD Work Phone: [facility] 09-21-2023 13:06-0400 Body temperature 97.39 [degF] KALA Castro MD Work Phone: [facility] 09-21-2023 13:06-0400 Body weight 86.7 kg KALA Castro MD Work Phone: [facility] 09-21-2023 13:06-0400 Diastolic blood pressure 85 mm[Hg] KALA Castro MD Work Phone: [facility] 09-21-2023 13:06-0400 Heart rate 65 /min KALA Castro MD Work Phone: [facility] 09-21-2023 13:06-0400 Respiratory rate 18 /min KALA Castro MD Work Phone: [facility] 09-21-2023 13:06-0400 SaO2% (BldA) [Mass fraction] 97 % KALA Castro MD Work Phone: [facility] 09-21-2023 13:06-0400 Systolic blood pressure 154 mm[Hg] KALA Castro MD Work Phone: [facility] 06-22-2023 14:05-0400 Body temperature 97.5 [degF] KALA Castro MD Work Phone: [facility] 06-22-2023 14:05-0400 Body weight 86.3 kg KALA Castro MD Work Phone: [facility] 06-22-2023 14:05-0400 Diastolic blood pressure 83 mm[Hg] KALA Castro MD Work Phone: [facility] 06-22-2023 14:05-0400 Heart rate 72 /min KALA Castro MD Work Phone: [facility] 06-22-2023 14:05-0400 Respiratory rate 16 /min KALA Castro MD Work Phone: [facility] 06-22-2023 14:05-0400 SaO2% (BldA) [Mass fraction] 96 % KALA Castro MD Work Phone: [facility] 06-22-2023 14:05-0400 Systolic blood pressure 138 mm[Hg] KALA Castro MD Work Phone: [facility] 05-22-2023 15:57-0400 Body temperature 97.39 [degF] KALA Castro MD Work Phone: [facility] 05-22-2023 15:57-0400 Body weight 88 kg KALA Castro MD Work Phone: [facility] 05-22-2023 15:57-0400 Diastolic blood pressure 81 mm[Hg] KALA Castro MD Work Phone: [facility] 05-22-2023 15:57-0400 Heart rate 70 /min KALA Castro MD Work Phone: [facility] 05-22-2023 15:57-0400 Respiratory rate 16 /min KALA Castro MD Work Phone: [facility] 05-22-2023 15:57-0400 SaO2% (BldA) [Mass fraction] 98 % KALA Castro MD Work Phone: [facility] 05-22-2023 15:57-0400 Systolic blood pressure 153 mm[Hg] KALA Castro MD Work Phone: [facility] 05-15-2023 15:51-0500 Body temperature 98.71 [degF] KALA Castro MD Work Phone: [facility] 05-15-2023 15:51-0500 Body weight 86 kg KALA Castro MD Work Phone: [facility] 05-15-2023 15:51-0500 Diastolic blood pressure 78 mm[Hg] KALA Castro MD Work Phone: [facility] 05-15-2023 15:51-0500 Heart rate 78 /min KALA Castro MD Work Phone: [facility] 05-15-2023 15:51-0500 Respiratory rate 16 /min KALA Castro MD Work Phone: [facility] 05-15-2023 15:51-0500 SaO2% (BldA) [Mass fraction] 98 % KALA Castro MD Work Phone: [facility] 05-15-2023 15:51-0500 Systolic blood pressure 173 mm[Hg] KALA Castro MD Work Phone: [facility] 05-01-2023 15:53-0500 Body temperature 98.49 [degF] KALA Castro MD Work Phone: [facility] 05-01-2023 15:53-0500 Body weight 86 kg KALA aCstro MD Work Phone: [facility] 05-01-2023 15:53-0500 Diastolic blood pressure 73 mm[Hg] KALA Castro MD Work Phone: [facility] 05-01-2023 15:53-0500 Heart rate 80 /min KALA Castro MD Work Phone: [facility] 05-01-2023 15:53-0500 Respiratory rate 16 /min KALA Castro MD Work Phone: [facility] 05-01-2023 15:53-0500 SaO2% (BldA) [Mass fraction] 99 % KALA Castro MD Work Phone: [facility] 05-01-2023 15:53-0500 Systolic blood pressure 160 mm[Hg] KALA Castro MD Work Phone: [facility] 04-24-2023 16:01-0500 Body temperature 97.81 [degF] KALA Castro MD Work Phone: [facility] 04-24-2023 16:01-0500 Body weight 87.5 kg KALA Castro MD Work Phone: [facility] 04-24-2023 16:01-0500 Diastolic blood pressure 71 mm[Hg] KALA Castro MD Work Phone: [facility] 04-24-2023 16:01-0500 Heart rate 75 /min KALA Castro MD Work Phone: [facility] 04-24-2023 16:01-0500 Respiratory rate 16 /min KALA Castro MD Work Phone: [facility] 04-24-2023 16:01-0500 SaO2% (BldA) [Mass fraction] 99 % KALA Castro MD Work Phone: [facility] 04-24-2023 16:01-0500 Systolic blood pressure 143 mm[Hg] KALA Castro MD Work Phone: [facility] 04-17-2023 15:52-0500 Body temperature 97.39 [degF] KALA Castro MD Work Phone: [facility] 04-17-2023 15:52-0500 Body weight 86.4 kg KAAL Castro MD Work Phone: [facility] 04-17-2023 15:52-0500 Diastolic blood pressure 85 mm[Hg] KALA Castro MD Work Phone: [facility] 04-17-2023 15:52-0500 Heart rate 76 /min KALA Castro MD Work Phone: [facility] 04-17-2023 15:52-0500 Respiratory rate 18 /min AKLA Castro MD Work Phone: [facility] 04-17-2023 15:52-0500 SaO2% (BldA) [Mass fraction] 97 % KALA Castro MD Work Phone: [facility] 04-17-2023 15:52-0500 Systolic blood pressure 157 mm[Hg] KALA Castro MD Work Phone: [facility] 04-10-2023 16:24-0500 Body temperature 98.01 [degF] KALA Castro MD Work Phone: [facility] 04-10-2023 16:24-0500 Body weight 85.6 kg KALA Castro MD Work Phone: [facility] 04-10-2023 16:24-0500 Diastolic blood pressure 67 mm[Hg] KALA Castro MD Work Phone: [facility] 04-10-2023 16:24-0500 Heart rate 79 /min KALA Castro MD Work Phone: [facility] 04-10-2023 16:24-0500 Respiratory rate 16 /min KALA Catsro MD Work Phone: [facility] 04-10-2023 16:24-0500 SaO2% (BldA) [Mass fraction] 96 % KALA Castro MD Work Phone: [facility] 04-10-2023 16:24-0500 Systolic blood pressure 166 mm[Hg] KALA Castro MD Work Phone: [facility] 02-21-2023 14:49-0500 Body temperature 96.69 [degF] KALA Castro MD Work Phone: [facility] 02-21-2023 14:49-0500 Body weight 86.64 kg KALA Castro MD Work Phone: [facility] 02-21-2023 14:49-0500 Diastolic blood pressure 74 mm[Hg] KALA Castro MD Work Phone: [facility] 02-21-2023 14:49-0500 Heart rate 82 /min KALA Castro MD Work Phone: [facility] 02-21-2023 14:49-0500 Respiratory rate 18 /min KALA Castro MD Work Phone: [facility] 02-21-2023 14:49-0500 SaO2% (BldA) [Mass fraction] 99 % NA Cristiana DIETRICH Work Phone: [facility] 02-21-2023 14:49-0500 Systolic blood pressure 185 mm[Hg] KALA Castro MD Work Phone: [facility] 09-06-2022 09:00-0400 Systolic blood pressure 136 mm[Hg] Wu Hoytight Work Phone: [facility]Frunitxglm-Houq [facility] [address] DO Work Phone: 09-06-2022 08:47-0400 Body height 172.72 cm Wu Hoytight Work Phone: FH-Uuzpizsaez-Qxsx [facility] [address] DO Work Phone: 09-06-2022 08:47-0400 Body mass index (BMI) [Ratio] 29.19 kg/m2 Wu Hoy[employer] Work Phone: DP-Atkgvpiqud-Hrxa [facility] [address] DO Work Phone: 09-06-2022 08:47-0400 Body surface area Derived from formula 2.01 m2 Wu Hoy[employer] Work Phone: CJ-Yrbrcjphdl-Vebk [facility] 250 DO Work Phone: 09-06-2022 08:47-0400 Body weight 87.09 kg Wu Hoy[employer] Work Phone: IT-Fsrbrzkwnu-Xsku [facility] 250 DO Work Phone: 09-06-2022 08:47-0400 Diastolic blood pressure 82 mm[Hg] Wu Hoytight Work Phone: IZ-Ocanqhfwmr-Ytey [facility] 250 DO Work Phone: 09-06-2022 08:47-0400 Heart rate 74 /min Wu Enrique Work Phone: JW-Xdctkfkejp-Bwct [facility] 250 DO Work Phone: 09-06-2022 08:47-0400 Systolic blood pressure 140 mm[Hg] Wu Enrique Work Phone: WL-Efnuwwospx-Difj [facility] 250 DO Work Phone: 06-24-2022 12:40-0400 Body height 172.7 cm Pacc 7 Work Phone: [facility] 06-24-2022 12:40-0400 Body temperature 98.1 [degF] Pacc 7 Work Phone: [facility] 06-24-2022 12:40-0400 Body weight 89.81 kg Pacc 7 Work Phone: [facility] 06-24-2022 12:40-0400 Diastolic blood pressure 90 mm[Hg] Pacc 7 Work Phone: [facility] 06-24-2022 12:40-0400 Heart rate 78 /min Pacc 7 Work Phone: [facility] 06-24-2022 12:40-0400 SaO2% (BldA) [Mass fraction] 97 % Pacc 7 Work Phone: [facility] 06-24-2022 12:40-0400 Systolic blood pressure 158 mm[Hg] Pacc 7 Work Phone: [facility] 06-10-2022 08:47-0400 Body height 172.7 cm Rodolfo Walker MD Work Phone: [facility] 06-10-2022 08:47-0400 Body weight 89.36 kg Rodolfo Walker MD Work Phone: [facility] 06-10-2022 08:47-0400 Diastolic blood pressure 96 mm[Hg] Rodolfo Walker MD Work Phone: [facility] 06-10-2022 08:47-0400 Heart rate 75 /min Rodolfo Walker MD Work Phone: [facility] 06-10-2022 08:47-0400 Systolic blood pressure 178 mm[Hg] Rodolfo Walker MD Work Phone: [facility] 06-06-2022 09:18-0400 Blood Pressure Location Rodrigue HARP [facility] 06-06-2022 09:18-0400 Diastolic blood pressure 78 mm[Hg] Rodrigue HARP [facility] 06-06-2022 09:18-0400 Heart rate 72 /min Rodrigue HARP [facility] 06-06-2022 09:18-0400 Respiratory rate 16 /min Rodrigue HARP [facility] 06-06-2022 09:18-0400 Systolic blood pressure 138 mm[Hg] Rodrigue HARP [facility] 05-24-2022 14:21-0400 Body temperature 97 [degF] NA Cristiana DIETRICH Work Phone: [facility] 05-24-2022 14:21-0400 Body weight 88.72 kg NA Cristiana DIETRICH Work Phone: [facility] 05-24-2022 14:21-0400 Diastolic blood pressure 95 mm[Hg] KALA Castro MD Work Phone: [facility] 05-24-2022 14:21-0400 Heart rate 74 /min KALA Castro MD Work Phone: [facility] 05-24-2022 14:21-0400 Respiratory rate 16 /min KALA Castro MD Work Phone: [facility] 05-24-2022 14:21-0400 SaO2% (BldA) [Mass fraction] 99 % KALA Castro MD Work Phone: [facility] 05-24-2022 14:21-0400 Systolic blood pressure 170 mm[Hg] KALA Castro MD Work Phone: [facility] 05-24-2022 09:33-0400 Diastolic blood pressure 88 mm[Hg] Wu Enrique Work Phone: [facility] DO Work Phone: 05-24-2022 09:33-0400 Systolic blood pressure 134 mm[Hg] Wu Enrique Work Phone: [facility] DO Work Phone: 05-24-2022 09:30-0400 Body height 172.72 cm Wu Enrique Work Phone: [facility] DO Work Phone: 05-24-2022 09:30-0400 Body mass index (BMI) [Ratio] 29.8 kg/m2 Wu Enrique Work Phone: [facility] DO Work Phone: 05-24-2022 09:30-0400 Body surface area Derived from formula 2.03 m2 Wu Enrique Work Phone: [facility] DO Work Phone: 05-24-2022 09:30-0400 Body weight 88.91 kg Wu Enrique Work Phone: [facility] DO Work Phone: 05-24-2022 09:30-0400 Diastolic blood pressure 86 mm[Hg] Wu Enrique Work Phone: [facility] DO Work Phone: 05-24-2022 09:30-0400 Heart rate 76 /min Wu Enrique Work Phone: [facility] DO Work Phone: 05-24-2022 09:30-0400 Systolic blood pressure 136 mm[Hg] Wu Enrique Work Phone: [facility] DO Work Phone: 05-13-2022 09:37-0500 Blood Pressure Location Rodrigue HARP [facility] 05-13-2022 09:37-0500 Diastolic blood pressure 76 mm[Hg] Rodrigue HARP [facility] 05-13-2022 09:37-0500 Heart rate 80 /min Rodrigue HARP [facility] 05-13-2022 09:37-0500 Respiratory rate 16 /min Rodrigue HARP [facility] 05-13-2022 09:37-0500 Systolic blood pressure 124 mm[Hg] Rodrigue HARP [facility] 05-09-2022 14:51-0500 Diastolic blood pressure 90 mm[Hg] Wu Enrique Work Phone: [facility] DO Work Phone: 05-09-2022 14:51-0500 Systolic blood pressure 190 mm[Hg] Wu Enrique Work Phone: [facility] DO Work Phone: 05-09-2022 14:50-0500 Body height 172.72 cm Wu Enrique Work Phone: [facility] DO Work Phone: 05-09-2022 14:50-0500 Body mass index (BMI) [Ratio] 30.87 kg/m2 Wu Enrique Work Phone: [facility] DO Work Phone: 05-09-2022 14:50-0500 Body surface area Derived from formula 2.06 m2 Wu Enrique Work Phone: [facility] DO Work Phone: 05-09-2022 14:50-0500 Body weight 92.08 kg Wu Enrique Work Phone: [facility] DO Work Phone: 05-09-2022 14:50-0500 Diastolic blood pressure 98 mm[Hg] Wu Enrique Work Phone: [facility] DO Work Phone: 05-09-2022 14:50-0500 Heart rate 79 /min Wu Enrique Work Phone: [facility] DO Work Phone: 05-09-2022 14:50-0500 Systolic blood pressure 200 mm[Hg] Wu Enrique Work Phone: [facility] DO Work Phone: 04-19-2022 11:13-0500 Body height 174 cm KALA Castro MD Work Phone: [facility] 04-19-2022 11:13-0500 Body temperature 96.69 [degF] KALA Castro MD Work Phone: [facility] 04-19-2022 11:13-0500 Body weight 92.08 kg KALA Castro MD Work Phone: [facility] 04-19-2022 11:13-0500 Diastolic blood pressure 122 mm[Hg] KALA Castro MD Work Phone: [facility] 04-19-2022 11:13-0500 Heart rate 74 /min KALA Castro MD Work Phone: [facility] 04-19-2022 11:13-0500 Respiratory rate 18 /min KALA Castro MD Work Phone: [facility] 04-19-2022 11:13-0500 SaO2% (BldA) [Mass fraction] 99 % KALA Castro MD Work Phone: [facility] 04-19-2022 11:13-0500 Systolic blood pressure 214 mm[Hg] KALA Castro MD Work Phone: [facility] 04-13-2022 14:10-0500 Blood Pressure Location Rodrigue HARP [facility] 04-13-2022 14:10-0500 Diastolic blood pressure 90 mm[Hg] Rodrigue HARP [facility] 04-13-2022 14:10-0500 Heart rate 82 /min Rodrigue HARP [facility] 04-13-2022 14:10-0500 Systolic blood pressure 155 mm[Hg] Rodrigue HARP [facility] 03-02-2022 10:45-0500 Blood Pressure Location Rodrigue HARP [facility] 03-02-2022 10:45-0500 Diastolic blood pressure 82 mm[Hg] Rodrigue HARP [facility] 03-02-2022 10:45-0500 Heart rate 71 /min Rodrigue HARP [facility] 03-02-2022 10:45-0500 Systolic blood pressure 139 mm[Hg] Rodrigue HARP [facility] Encounters Encounter Date Encounter Type Care Provider Facility Start: 10-04-2023 End: 10-04-2023 ambulatory [facility] Ambulatory Start: 09-21-2023 Telephone encounter Claribel fields APRN.CNP Work Phone: Urology Comment on above: Returning Patient's Call Start: 09-21-2023 End: 09-21-2023 Patient encounter procedure Stephanie Castro MD Work Phone: Radiation Oncology Comment on above: Malignant neoplasm o f prostate (HCC) (Primary Dx) Start: 09-21-2023 End: 09-21-2023 ambulatory Stephanie CASTRO Facility:[facility] Start: 09-13-2023 End: 09-13-2023 ambulatory LOC CASTANEDA Facility:[facility] Start: 06-22-2023 End: 06-22-2023 ambulatory Stephanie CASRTO Facility:[facility] Start: 06-22-2023 End: 06-22-2023 Patient encounter procedure Stephanie Castro MD Work Phone: Radiation Oncology Comment on above: Malignant neoplasm o f prostate (HCC) (Primary Dx) Start: 06-18-2023 Refill Claribel aaron APRN.CNP Work Phone: Urology Comment on above: Refill Request Start: 06-15-2023 End: 06-15-2023 ambulatory LOC CASTANEDA Facility:[facility] Start: 05-25-2023 End: 05-25-2023 ambulatory Stephanie CASTRO Facility:[facility] Start: 05-25-2023 Patient encounter procedure Stephanie Castro MD Work Phone: [facility] Start: 05-25-2023 Radiation Oncology Note Stephanie Castro MD Work Phone: Radiation Oncology Comment on above: Completion Note Start: 05-23-2023 End: 05-23-2023 ambulatory Stephanie CASTRO Facility:[facility] Start: 05-22-2023 End: 05-22-2023 Patient encounter procedure Stephanie Castro MD Work Phone: Radiation Oncology Comment on above: Thyroid nodule (Prim gunjan Dx); Malignant neoplasm of prostate (HCC) Start: 05-22-2023 End: 05-22-2023 ambulatory Stephanie CASTRO Facility:[facility] Start: 05-19-2023 End: 05-19-2023 ambulatory Stephanie CASTRO Facility:[facility] Start: 05-18-2023 End: 05-18-2023 ambulatory Stephanie CASTRO Facility:[facility] Start: 05-17-2023 End: 05-17-2023 ambulatory Stephanie STEWARTJIMBO Facility:[facility] Start: 05-16-2023 End: 05-16-2023 ambulatory Stephanie STEWARTJIMBO Facility:[facility] Start: 05-15-2023 End: 05-15-2023 Patient encounter procedure Stephanie Castro MD Work Phone: Radiation Oncology Comment on above: Malignant neoplasm o f prostate (HCC) (Primary Dx) Start: 05-15-2023 End: 05-15-2023 ambulatory Stephanie STEWARTJIMBO Facility:[facility] Start: 05-12-2023 End: 05-12-2023 ambulatory Stephanie MORALES TERRYJIMBO Facility:[facility] Start: 05-11-2023 End: 05-11-2023 ambulatory Stephanie MORALES TERRYJIMBO Facility:[facility] Start: 05-10-2023 End: 05-10-2023 ambulatory Stephanie MORALES CASTRO Facility:[facility] Start: 05-09-2023 End: 05-09-2023 ambulatory Stephanie STEWARTJIMBO Facility:[facility] Start: 05-08-2023 End: 05-08-2023 ambulatory Stephanie MORALES TERRYJIMBO Facility:[facility] Start: 05-05-2023 End: 05-05-2023 ambulatory Stephanie STEWARTJIMBO Facility:[facility] Start: 05-04-2023 End: 05-04-2023 ambulatory Stephanie MORALES TERRYJIMBO Facility:[facility] Start: 05-03-2023 End: 05-03-2023 Telemedicine consultation with patient Claribel Haque APRN.CNP Work Phone: [facility] Start: 05-03-2023 End: 05-03-2023 ambulatory Claribel Haque APRN.CNP Work Phone: Urology Comment on above: History of prostate cancer (Primary Dx); History of radiation therapy; Rising PSA following treatment for malignant neoplasm of prostate; Erectile dysfunction following radical prostatectomy Start: 05-02-2023 End: 05-02-2023 ambulatory Stephanie CASTRO Facility:[facility] Start: 05-01-2023 End: 05-01-2023 Patient encounter procedure Stephanie Castro MD Work Phone: Radiation Oncology Comment on above: Malignant neoplasm o f prostate (HCC) (Primary Dx) Start: 05-01-2023 End: 05-01-2023 ambulatory Stephanie CASTRO Facility:[facility] Start: 04-28-2023 End: 04-28-2023 ambulatory Stephanie CASTRO Facility:[facility] Start: 04-27-2023 End: 04-27-2023 ambulatory LOC CASTANEDA Facility:[facility] Start: 04-26-2023 End: 04-26-2023 ambulatory Stephanie CASTRO Facility:[facility] Start: 04-24-2023 End: 04-24-2023 Patient encounter procedure Stephanie Castro MD Work Phone: Radiation Oncology Comment on above: Malignant neoplasm o f prostate (HCC) (Primary Dx) Start: 04-24-2023 End: 04-24-2023 ambulatory Stephanie CASTRO Facility:[facility] Start: 04-21-2023 End: 04-21-2023 ambulatory Stephanie CASTRO Facility:[facility] Start: 04-20-2023 End: 04-20-2023 ambulatory Stephanie CASTRO Facility:[facility] Start: 04-19-2023 End: 04-19-2023 ambulatory Stephanie CASTRO Facility:[facility] Start: 04-18-2023 End: 04-18-2023 ambulatory Stephanie CASTRO Facility:[facility] Start: 04-17-2023 End: 04-17-2023 Patient encounter procedure Stephanie Castro MD Work Phone: Radiation Oncology Comment on above: Malignant neoplasm o f prostate (HCC) (Primary Dx) Start: 04-17-2023 End: 04-17-2023 ambulatory Stephanie CASTRO Facility:[facility] Start: 04-14-2023 End: 04-14-2023 ambulatory Stephanie CASTRO Facility:[facility] Start: 04-13-2023 End: 04-14-2023 ambulatory LOC CASTANEDA Facility:[facility] Start: 04-13-2023 End: 04-13-2023 Patient encounter procedure Lab/[place] Work Phone: Radiation Oncology Comment on above: Malignant neoplasm o f prostate (HCC) Start: 04-12-2023 End: 04-12-2023 ambulatory Stephanie CASTRO Facility:[facility] Start: 04-11-2023 End: 04-11-2023 ambulatory Stephanie CASTRO Facility:[facility] Start: 04-10-2023 End: 04-10-2023 Patient encounter procedure Stephanie Castro MD Work Phone: Radiation Oncology Comment on above: Malignant neoplasm o f prostate (HCC) (Primary Dx) Start: 04-10-2023 End: 04-10-2023 ambulatory Stephanie CASTRO Facility:[facility] Start: 04-07-2023 End: 04-07-2023 ambulatory Stephanie CASTRO Facility:[facility] Start: 04-06-2023 End: 04-06-2023 ambulatory Stephanie CASTRO Facility:[facility] Start: 04-05-2023 End: 04-05-2023 ambulatory PRESTON NOVAK Facility:[facility] Start: 03-29-2023 End: 03-29-2023 ambulatory Stephanie CASTRO Facility:[facility] Start: 03-21-2023 End: 03-22-2023 ambulatory Stephanie CASTRO Facility:[facility] Start: 03-17-2023 End: 03-17-2023 ambulatory Stephanie CASTRO Facility:[facility] Start: 03-01-2023 End: 03-01-2023 ambulatory [facility] Ambulatory Start: 02-21-2023 End: 02-21-2023 ambulatory Stephanie CASTRO Facility:[facility] Start: 02-21-2023 End: 02-21-2023 Patient encounter procedure Stephanie Castro MD Work Phone: Radiation Oncology Comment on above: Malignant neoplasm o f prostate (HCC) (Primary Dx) Start: 02-21-2023 Telephone encounter Stephanie Castro MD Work Phone: [facility] Comment on above: Nm Pet Request Start: 02-13-2023 End: 02-14-2023 ambulatory Loc Castaneda Facility:[facility] Ernie Start: 01-26-2023 End: 01-26-2023 ambulatory CLARIBEL HAQUE Facility:[facility] Start: 01-26-2023 End: 01-26-2023 Follow-up encounter Claribel Haque JASIEL.FOURCHETTE SEWER Work Phone: Urology Comment on above: Encounter for follow -up surveillance of prostate cancer (Primary Dx); History of prostate cancer; YELENA (stress urinary incontinence), male; Erectile dysfunction following radical prostatectomy Start: 01-26-2023 End: 01-26-2023 Telemedicine consultation with patient Claribel Haque APRN.FOURCHETTE SEWER Work Phone: [facility] Start: 01-23-2023 End: 01-23-2023 ambulatory [facility] Ambulatory Start: 11-23-2022 End: 11-23-2022 ambulatory CLARIBEL HAQUE Facility:[facility] Start: 11-23-2022 End: 11-23-2022 Follow-up encounter Claribel Haque JASIEL.FOURCHETTE SEWER Work Phone: Urology Comment on above: Encounter for follow -up surveillance of prostate cancer (Primary Dx); History of prostate cancer; Rising PSA following treatment for malignant neoplasm of prostate; YELENA (stress urinary incontinence), male; Erectile dysfunction following radical prostatectomy Start: 11-23-2022 End: 11-23-2022 Telemedicine consultation with patient Claribel Haque APRN.FOURCHETTE SEWER Work Phone: [facility] Start: 10-31-2022 End: 11-01-2022 ambulatory Loc Castaneda Facility:[facility] Ernie Start: 09-23-2022 Telephone encounter Glenys Stroud [facility] & Comment on above: Returning Patient's Call Start: 09-06-2022 Office outpatient vi sit 25 minutes Wu Enrique Work Phone: [facility] [place] 250 DO Work Phone: Start: 09-06-2022 ambulatory Kalia Felder Facility : Start: 07-13-2022 Telephone encounter Claribel fields MANAGER TRACK.FOURCHETTE SEWER Work Phone: Urology Comment on above: Returning Patient's Call Start: 07-07-2022 End: 07-07-2022 ambulatory Claribel Haque MANAGER TRACK.FOURCHETTE SEWER Work Phone: Urology Comment on above: Malignant neoplasm o f prostate (HCC) (Primary Dx) Start: 07-07-2022 End: 07-07-2022 Telemedicine consultation with patient Claribel Haque APRN.FOURCHETTE SEWER Work Phone: [facility] Start: 06-24-2022 End: 06-24-2022 Patient encounter procedure Yee Carmen MANAGER TRACK.FOURCHETTE SEWER Work Phone: Urology Comment on above: Pre-op exam (Primary Dx) Start: 06-24-2022 End: 06-24-2022 Preprocedural examination done Yee Morales APRN.FOURCHETTE SEWER Work Phone: Urology Start: 06-24-2022 End: 06-24-2022 [facility] Pac Main 7 Work Phone: Pre Anesthesia Comment on above: Hypercholesteremia ( Primary Dx); Hypertension, unspecified type; Obstructive sleep apnea syndrome; Benign prostatic hyperplasia with urinary obstruction Screening for genito urinary condition (Primary Dx) Start: 06-24-2022 End: 06-24-2022 Admission to [facility] Pacc Main 7 Work Phone: [facility] Start: 06-10-2022 ambulatory Glenys Esparza RN [facility] & Start: 06-10-2022 End: 06-10-2022 Patient encounter procedure Rodolfo Walker MD Work Phone: Urology Comment on above: Malignant neoplasm o f prostate (HCC) Start: 06-08-2022 Orders Only Rodolfo Walker MD Work Phone: Urology Comment on above: RECEIVED PATHOLOGY S LIDES Start: 06-06-2022 End: 06-06-2022 Patient encounter procedure Rodrigue HARP [facility] Start: 05-26-2022 End: 05-27-[address] GRACE CASTRO Facility:[facility] Start: 05-24-2022 End: 05-24-2022 Patient encounter procedure Stephanie Castro MD Work Phone: Radiation Oncology Comment on above: Malignant neoplasm o f prostate (HCC) (Primary Dx); Thyroid nodule Start: 05-24-2022 NURSEVST, Provider: VANDANA LEES MANGLE OPERATOR GARMENTS 1,[id number], Status: Pen, Time: 9:30 AM Wu Enrique Work Phone: [facility] Work Phone: Start: 05-24-2022 Office outpatient vi sit 10 minutes Wu Enrique Work Phone: [facility] [employer] 250 DO Work Phone: Start: 05-24-2022 ambulatory Kalia Felder Facility : Start: 05-16-2022 End: 05-17-[address] RODRIGUE HARP . Facility:[facility] Start: 05-14-2022 End: 05-15-[address] KALIA FELDER Facility:[facility] Start: 05-13-2022 End: 05-13-2022 Patient encounter procedure Rodrigue HARP [facility] Start: 05-12-2022 Patient encounter procedure Ccf Prov ider [facility] Department Start: 05-09-2022 Office outpatient vi sit 25 minutes Wu Enrique Work Phone: [facility] 250 DO Work Phone: Start: 05-09-2022 ambulatory Kalia Felder Facility : Start: 05-09-2022 Telephone encounter Stephanie Castro MD Work Phone: Cancer [facility] Comment on above: Orders Start: 04-27-2022 End: 04-28-[address] RODRIGUE HARP . Facility:[facility] Start: 04-20-2022 End: 04-21-[address] WU ENRIQUE . Facility:[facility] Start: 04-19-2022 Telephone encounter Stephanie Morales Castro MD Work Phone: [facility] Comment on above: Nm Pet Request Start: 04-19-2022 End: 04-19-2022 Patient encounter procedure Stephanie Castro MD Work Phone: Radiation Oncology Comment on above: Malignant neoplasm o f prostate (HCC) (Primary Dx) Start: 04-13-2022 End: 04-13-2022 Patient encounter procedure Rodrigue HARP [facility] [employer] Start: 03-21-2022 End: 03-21-2022 ambulatory Rodrigue Harp Facility:[facility] Start: 03-21-2022 End: 03-21-2022 ambulatory MD Wu Enrique Work Phone: [facility] Work Phone: Start: 03-21-2022 End: 03-21-2022 Patient encounter procedure MD Wu Enrique Work Phone: [facility] [place] Work Phone: Start: 03-02-2022 End: 03-03-[address] RODRIGUE HARP . Facility:[facility] Start: 03-02-2022 End: 03-02-2022 Patient encounter procedure Rodrigue HARP [facility] [employer] Start: 02-02-2022 Encounter for genera l adult medical examination without abnormal findings DR WU ENRIQUE . [facility] Start: 01-31-2022 End: 02-01-[address] WU ENRIQUE . Facility:[facility] Start: 01-31-2022 End: 02-01-2022 Encounter for general adult medical examination without abnormal findings DR WU ENRIQUE . Facility:[facility] Procedures Date Procedure Procedure Detail Performing Clinician Start: 04-13-2023 Blood count complete auto&auto difrntl wbc G Morales Castro MD Work Phone: Start: 03-01-2023 FOLLOW UP IN CARDIOLOGY KALIA FELDER Start: 06-24-2022 Urnls dip stick/tabl et rgnt auto w/o microscopy Bulk Order Provider Start: 06-10-2022 Urnls dip stick/tabl et rgnt auto w/o microscopy Bulk Order Provider Start: 05-14-[address] MIRLANDE HARP . Comment on above: Performed By: #### P SAD #### [facility] [address] [place] [address] Dr. Sunshine Johnson Start: 03-30-2022 Transrectal needle biopsy of prostate Rodrigue KATIUSKA Start: 03-02-[address] MIRLANDE HARP . Comment on above: Performed By: #### P SAD #### [facility] [address] [place] [address] Dr. Sunshine Johnson Start: 01-31-[address] MIRLANDE HARP . Comment on above: Performed By: #### P SAD #### [facility] [address] [place] [address] Dr. Sunshine Johnson Adrenalectomy Wu Enrique Work Phone: History of radiation therapy History of radiation therapy Claribel Haque APRN.FOURCHETTE SEWER Work Phone: Procedure on prostate Wu Enrique Work Phone: NEGATED: Highlighted row has not occurred! Total colonoscopy Wu Enrique Work Phone: Plan of Treatment Date Care Activity Detail Author Start: 09-12-2028 Prostate specific antigen measurement Prostate Cancer Screening Discussion [facility] Start: 06-14-2028 Prostate specific antigen measurement Prostate Cancer Screening Discussion [facility] Start: 03-21-2028 Prostate specific antigen measurement Prostate Cancer Screening Discussion [facility] Start: 05-15-2027 PROSTATE CANCER SCREENING DISCUSSION PROSTATE CANCER SCREENING DISCUSSION [facility] Start: 05-15-2027 Prostate specific antigen measurement Prostate Cancer Screening Discussion [facility] Start: 03-02-2027 PROSTATE CANCER SCREENING DISCUSSION PROSTATE CANCER SCREENING DISCUSSION [facility] Start: 06-30-2025 DIABETES SCREEN DIABETES SCREEN [facility] Start: 06-30-2025 Diabetes Screening Diabetes Screenin g [facility] Start: 06-24-2025 DIABETES SCREEN DIABETES SCREEN [facility] Start: 12-22-2023 End: 03-22-2024 Prostate specific Ag [Mass/volume] in Serum or Plasma PROSTATE-SPECIFIC ANTIGEN DIAGNOSTIC Lab Routine Malignant neoplasm of prostate (HCC) Expected: 12/22/2023 (Approximate), Expires: 03/22/2024 [facility] Work Phone: Comment on above: Expected: 12/22/2023 (Approximate), Expires: 03/22/2024 Start: 12-21-2023 End: 12-21-2023 Patient encounter procedure 12/21/2023 1:15 PM EDT Office Visit Radiation Oncology [address] [place] [address] [place] [address] Stephanie Castro MD [address] [place] [address] [place] [address] Followup Radiation Oncology Comment on above: Followup Start: 12-14-2023 End: 12-14-2023 Patient encounter procedure 12/14/2023 1:15 PM EDT Office Visit [facility] [address] [place] [address] lab followup [facility] Comment on above: lab followup Start: 11-12-2023 Influenza vaccination Influenza Vacc ine (#1) [facility] Start: 09-21-2023 End: 12-21-2023 Prostate specific Ag [Mass/volume] in Serum or Plasma PROSTATE-SPECIFIC ANTIGEN DIAGNOSTIC Lab Routine Malignant neoplasm of prostate (HCC) Expected: 09/21/2023 (Approximate), Expires: 12/21/2023 [facility] Work Phone: Comment on above: Expected: 09/21/2023 (Approximate), Expires: 12/21/2023 Start: 06-12-2023 End: 09-11-2023 Prostate specific Ag [Mass/volume] in Serum or Plasma PSA/PROSTSPECAG DIAG Lab Routine Malignant neoplasm of prostate (HCC) Expected: 06/12/2023, Expires: 09/11/2023 [facility] Work Phone: Comment on above: Expected: 06/12/2023 , Expires: 09/11/2023 Start: 03-13-2023 Behavioral Health Screening Behavioral Health Screening [facility] Start: 03-13-2023 Depression Assessment Depression Ass essment [facility] Start: 02-23-2023 FUV, Provider: Kalia Felder, Status: Pen, Time: 9:10 AM FUV, Provider: Kalia Felder, Status: Pen, Time: 9:10 AM [facility] [place] 250 DO Work Phone: Start: 01-20-2023 End: 03-22-2023 Prostate specific Ag [Mass/volume] in Serum or Plasma PSA/PROSTSPECAG DIAG Lab Routine History of prostate cancer Rising PSA following treatment for malignant neoplasm of prostate Expected: 01/20/2023 (Approximate), Expires: 03/22/2023 [facility] Work Phone: Comment on above: Expected: 01/20/2023 (Approximate), Expires: 03/22/2023 Start: 11-11-[address] [facility] Start: 09-06-2022 FUV, Provider: Kalia Felder, Status: Pen, Time: 8:50 AM FUV, Provider: Kalia Felder, Status: Pen, Time: 8:50 AM -[facility] 250 DO Work Phone: Start: 08-18-2022 End: 10-18-2022 Prostate specific Ag [Mass/volume] in Serum or Plasma PSA/PROSTSPECAG DIAG Lab Routine Malignant neoplasm of prostate (HCC) Expected: 08/18/2022 (Approximate), Expires: 10/18/2022 [facility] Work Phone: Comment on above: Expected: 08/18/2022 (Approximate), Expires: 10/18/2022 Start: 06-28-2022 End: 08-28-2022 aPTT in Platelet poor plasma by Coagulation assay ACTIVATED PTT Lab Routine Malignant neoplasm of prostate (HCC) Expected: 06/28/2022, Expires: 08/28/2022 [facility] Work Phone: Comment on above: Expected: 06/28/2022 , Expires: 08/28/2022 Start: 06-28-2022 End: 08-28-2022 CBC panel - Blood by Automated count CBC Lab Routine Malignant neoplasm of prostate (HCC) Expected: 06/28/2022, Expires: 08/28/2022 [facility] Work Phone: Comment on above: Expected: 06/28/2022 , Expires: 08/28/2022 Start: 06-28-2022 End: 08-28-2022 Comprehensive metabolic 2000 panel - Serum or Plasma COMP METABOLIC PANEL Lab Routine Malignant neoplasm of prostate (HCC) Expected: 06/28/2022, Expires: 08/28/2022 [facility] Work Phone: Comment on above: Expected: 06/28/2022 , Expires: 08/28/2022 Start: 06-28-2022 End: 08-28-2022 PT panel - Platelet poor plasma by Coagulation assay PROTHROMBIN TIME/PT Lab Routine Malignant neoplasm of prostate (HCC) Expected: 06/28/2022, Expires: 08/28/2022 [facility] Work Phone: Comment on above: Expected: 06/28/2022 , Expires: 08/28/2022 Start: 06-21-2022 ECHO, Provider: RHONDA HUNT HHVI ULTRASOUND ,[id number], Status: Pen, Time: 7:45 AM ECHO, Provider: ANJALI HHVI ULTRASOUND ,[id number], Status: Pen, Time: 7:45 AM -[facility]ali 250 DO Work Phone: Start: 06-10-2022 End: 08-10-2022 CONFIRM BLOOD TYPE CONFIRM BLOOD TYPE Blood Bank Routine Malignant neoplasm of prostate (HCC) Expected: 06/10/2022 (Approximate), Expires: 08/10/2022 [facility] Work Phone: Comment on above: Expected: 06/10/2022 (Approximate), Expires: 08/10/2022 Start: 06-10-2022 End: 08-10-2022 TYPE AND SCREEN,30 DAY TYPE AND SCREEN,30 DAY Blood Bank Routine Malignant neoplasm of prostate (HCC) Expected: 06/10/2022 (Approximate), Expires: 08/10/2022 [facility] Work Phone: Comment on above: Expected: 06/10/2022 (Approximate), Expires: 08/10/2022 Start: 05-23-2022 NURSEVST, Provider: VANDANA LEES MANGLE OPERATOR GARMENTS 1,[id number], Status: Pen, Time: 8:30 AM NURSEVST, Provider: VANDANA LEES MANGLE OPERATOR GARMENTS 1,[id number], Status: Pen, Time: 8:30 AM [facility] 250 DO Work Phone: Start: 03-21-2022 MR Prostate WO and W contrast IV [facility] Start: 03-21-2022 MR prostate wo/w con MR prostate wo/ w con [facility] Start: 2022 RSV Vaccine (1 - 1-d ose 60+ series) RSV Vaccine (1 - 1-dose 60+ series) [facility] Start: 03-13-2022 DEPRESSION ASSESSMENT DEPRESSION ASS ESSMENT [facility] Start: 11-11-2021 Influenza vaccination INFLUENZA (#1) [facility] Start: 2012 SHINGRIX VACCINE (1 of 2) SHINGRIX VACCINE (1 of 2) [facility] Start: 2007 COLOGUARD (FIT-DNA) COLOGUARD (FIT-D NA) [facility] Start: 2007 Colonoscopy COLONOSCOPY [facility] Start: 2007 COLORECTAL CANCER SCREENING COLORECTAL CANCER SCREENING [facility] Start: [address] COLONOGRAPHY [facility] Start: 2007 DIABETES SCREEN DIABETES SCREEN [facility] Start: 2007 FECAL OCCULT BLOOD FECAL OCCULT BLOO D [facility] Start: 2007 Screening for malign ant neoplasm of colon [facility] Start: 2007 SIGMOIDOSCOPY SIGMOIDOSCOPY [facility] Start: 1997 Lipid 1996 panel - S jody or Plasma Lipid Screening [facility] Start: 1997 Lipid panel Lipid Screening [facility] Start: 1997 LIPID SCREEN LIPID SCREEN [facility] Start: 1981 Shingrix Vaccine (1 of 2) Shingrix Vaccine (1 of 2) [facility] Start: 1981 Urine microalbumin profile [facility] Start: [address] BAILIFF MIKE DISEASE VISIT ANNUAL PCP TEAM CHRONIC DISEASE VISIT [facility] Start: 1980 BP CONTROLLED (<130/80) BP CONTROLLE D (<130/80) [facility] Start: 1980 HEPATITIS C SCREENING HEPATITIS C [facility] Start: 1980 Hepatitis C screening Hepatitis C [facility] Start: 1980 HIV SCREENING HIV SCREENING [facility] Start: 1980 HIV screening HIV Screening [facility] Start: 1968 PNEUMOCOCCAL (1 - PCV) PNEUMOCOCCAL (1 - PCV) [facility] Start: 1968 Pneumococcal vaccination [facility] Bacteria identified in Urine by Culture URINE CULTURE Microbiology Routine Screening for genitourinary condition 06/24/2022 3:47 PM EDT [facility] Work Phone: End: 06-11-2023 ECG COMPLETE ECG COMPLETE ECG Routine Malignant neoplasm of prostate (HCC) 1 Occurrences starting 06/10/2022 until 06/11/2023 [facility] Work Phone: Comment on above: 1 Occurrences starti ng 06/10/2022 until 06/11/2023 End: 05-19-2023 NM PET/CT PROSTATE WHOLE BODY IMAGING NM PET/CT PROSTATE WHOLE BODY IMAGING Radiology Routine Malignant neoplasm of prostate (HCC) 1 Occurrences starting 04/19/2022 until 05/19/2023 [facility] Work Phone: Comment on above: 1 Occurrences starti ng 04/19/2022 until 05/19/2023 End: 03-22-2024 NM PET/CT PROSTATE WHOLE BODY IMAGING NM PET/CT PROSTATE WHOLE BODY IMAGING Radiology Routine Malignant neoplasm of prostate (HCC) 1 Occurrences starting 02/21/2023 until 03/22/2024 [facility] Work Phone: Comment on above: 1 Occurrences starti ng 02/21/2023 until 03/22/2024 OUTSIDE SURG PATH SL MIGUEL REVIEW OUTSIDE SURG PATH SLIDE REVIEW Lab Routine Ordered: 06/08/2022 [facility] Work Phone: Comment on above: Ordered: 06/08/2022 End: 06-23-2023 Us soft tissue head & neck real time imge docm US THYROID/PARATHYROID Radiology Routine Thyroid nodule 1 Occurrences starting 05/24/2022 until 06/23/2023 [facility] Work Phone: Comment on above: 1 Occurrences starti ng 05/24/2022 until 06/23/2023 [facility] Immunizations Immunization Date Immunization Notes Care Provider Debby [facility] 01-08-2023 COVID-19 vaccine, ag e 12+ yr, 2022- season ([employer]) KALA Castro MD Work Phone: [facility] 01-08-2023 influenza virus vacc ine, unspecified formulation KALA Castro MD Work Phone: [facility] 01-31-2022 SARS-CoV-2 (COVID-19 ) [id number] Rodrigue HARP [facility] 07-25-2021 Comirnaty 30 MCG/0.3 ML Intramuscular Suspension Wu Gian Enrique Work Phone: [facility] Work Phone: 07-25-2021 SARS-CoV-2 mRNA (bmpycpkkvia-mrnk-zeeoes e) vaccine Rodrigue HARP [facility] 02-14-2021 SARS-CoV-2 (COVID-19 ) mRNA BNT-162b2 vax Rodrigue HARP [facility] 06-23-2020 SARS-CoV-2 (COVID-19 ) mRNA BNT-162b2 nancie HARP [facility] 06-01-2020 SARS-CoV-2 (COVID-19 ) mRNA BNT-162b2 nancie HAPR [facility] Payers Date Payer Category Payer Medicaid [id number] 2022 Self-pay 2020 Unknown [id number] 1962 Unknown [id number] 2.16.84 [id number] 1962 Unknown [id number] 2.16.84 0.1.486457.3.579.2.593 1962 Unknown [id number] 2.16.84 0.1.279723.3.579.2.593 1962 Unknown [id number] 2.16.84 0.1.853876.3.579.2.593 1962 Unknown [id number] 2.16.84 0.1.552105.3.579.2.593 1962 Unknown [id number] 2.16.84 0.1.298425.3.579.2.593 1962 Unknown [id number] 2.16.84 0.1.872352.3.579.2.593 1962 Unknown [id number] 2.16.84 0.1.550058.3.579.2.593 1962 Unknown [id number] 2.16. [id number] 1962 Unknown [id number] 2.16. [id number] 1962 Unknown [id number] 2.16. [id number] 1962 Unknown [id number] 2.16.8 40.1.160387.3.579.2.727 1962 Unknown [id number] 2.16.8 40.1.587647.3.579.2.727 1962 Unknown [id number] 2.16.8 40.1.201011.3.579.2.1244 1962 Unknown [id number] 2.16.8 40.1.198910.3.579.2.1244 1962 Unknown [id number] 2.16.8 [id number] 1959 Medicaid [id number] 1959 Unknown [id number] 1959 Unknown [id number] Unknown [id number] 2.16.8 [id number] Social History Date Type Detail Facility Start: 03-02-2022 End: 06-06-2022 Tobacco smoking status Heavy tobacco smoker (finding) [facility] Tobacco smoking status Never [facility] Start: 08-18-2022 End: 09-21-2023 Sex Assigned At Male [facility] Start: 1960 Sex Assigned At Male [facility] Start: 03-13-2019 End: 06-10-2022 Tobacco smoking status NHIS Smokes tobacco daily [facility] Start: 03-13-2019 History of tobacco use Cigarette Smo ker [facility] Start: 04-19-2022 End: 08-18-2022 Cigarettes smoked current (pack per day) - Reported 1 [facility] Comment on above: 1/2 ppd; Start: 04-19-2022 End: 06-10-2022 Tobacco use and exposure Smokeless tobacco non-user [facility] Start: 04-19-2022 End: 05-22-2023 Alcohol intake Current drinker of alcohol (finding) [facility] Start: 1960 Sex Assigned At Not on file C [facility] Start: 06-24-2022 Alcohol Comment 2 drinks a day per pt 06/24/2022 [facility] NEGATED: Highlighted rowStart: NINF History of tobacco use Passive smoker [facility] Functional Status Date Assessment Result Facility 06-06-2022 Functional Status N/A [facility] 05-13-2022 Functional Status N/A [facility] 04-13-2022 Functional Status N/A [facility] 03-02-2022 Functional Status N/A [facility] Clinical Notes 03-02-2022 to 09-21-2023 Telephone Encounter - Claribel Haque APRN.CNP - 09/21/2023 5:20 PM EDTTelephone Encounter - Claribel Haque APRN.CNP - 09/21/2023 5:20 PM Stephanie Rivera MD - 09/21/2023 1:30 PM EDT Note Date & Type Note Facility 09-21-2023 Telephone encounter Note Returned call and spoke to Ruperto Bhatti's Shona at this time Patient is taking daily Tadalafil (5 mg) with no erectile improvement- inquiring if he could take larger dose. We discussed PRN dosing- he favors to stop daily dosing. Instructed he can take 20 mg of Tadalafil PRN (instructed not to exceed 20 mg in 36 hours). Claribel Haque APRN.CNP [facility] Work Phone: 09-21-2023 Miscellaneous Notes Returned call and spoke to Ruperto Bhatti's Shona at this time Patient is taking daily Tadalafil (5 mg) with no erectile improvement- inquiring if he could take larger dose. We discussed PRN dosing- he favors to stop daily dosing. Instructed he can take 20 mg of Tadalafil PRN (instructed not to exceed 20 mg in 36 hours). Claribel Haque APRN.TEETEE documented in this encounter [facility] 09-21-2023 History of Present illness Narrative Radiation Oncology - Follow Up Note PATIENT NAME: Ruperto Bhatti PATIENT DIAGNOSIS: Prostate adenocarcinoma, initial PSA 25.79, biopsy [place] score 3 + 3 = 6 (grade group 1), clinical stage T1c,N0M0 s/p TRUS Random biopsy. Patient underwent robotic prostatectomy on 06/29/2022 Pathologic stage pT3aNx, [place] 7 (4+3) with detectable and rising PSA, PSA 01/14/2023 0.33 RADIATION SUMMARY: DATES OF TREATMENT: 04-05-2023 to 05-25-2023 AREA TREATED: Pelvis/Prostate Bed DELIVERED DOSE: Area: Pelvis with daily CBCT Imaging 4600cGy in 23 fractions, 3 VMAT Rapid Arc L[place]pez, 10X Area: Prostate Bed Boost with daily CBCT Imaging 2400cGy in 12 fractions, 2 VMAT Rapid Arc L[place]pez, 10X TOTAL: 7000cGy in 35 fractions INTERVAL HISTORY: Doing well. No new problems or concerns. Bladder function stable. Occasional stress related incontinence. Wears a pad but rarely needs this. PSA HISTORY: PSA (ng/mL) Date Value 09/13/2023 0.18 06/15/2023 0.32 03/21/2023 0.54 ALLERGIES Allergen Reactions Linda Inhibitors Cough, Hives Losartan-Hydrochlor* Swelling Tadalafil (CIALIS) 5 mg tablet Take 1 tablet by mouth daily. indapamide (LOZOL) 2.5 mg tablet Take 2.5 mg by mouth every morning. hydrALAZINE (APRESOLINE) 25 mg tablet Take 25 mg by mouth two times a day. Tadalafil (CIALIS) 20 mg tab(s) Take 1 tablet by mouth as needed. 1-2 hours before sexual intercourse. amLODIPine (NORVASC) 10 mg tablet Take by mouth q 24 HR. carvedilol (COREG) 12.5 mg tablet q 12 HR. cloNIDine HCl (CATAPRES) 0.1 mg tablet Take 0.1 mg by mouth three times daily. REVIEW OF SYSTEMS: D/N = 4-6/1-2 Hematuria: none Dysuria: none Incontinence: none Urgency: none Catheter use: none Medications to aid urination: n - Total AUA Score: 3 Bowel movement frequency: 1/day Bowel movement quality: normal Blood per rectum: none Last colonoscopy: na Androgen deprivation: Never. PHYSICAL EXAM: There were no vitals taken for this visit. KPS: 100 General Appearance: Alert and oriented. No acute distress. Rectal exam is deferred. ASSESSMENT/PLAN:Prostate adenocarcinoma, initial PSA 25.79, biopsy Dejah score 3 + 3 = 6 (grade group 1), clinical stage T1c,N0M0 s/p TRUS Random biopsy. Patient underwent robotic prostatectomy on 06/29/2022 Pathologic stage pT3aNx, [place] 7 (4+3) with detectable and rising PSA, PSA 03/21/2023 0.54, status post prostate bed salvage radiation. Doing well. No posttreatment problems. PSA continues to decrease. Plan to recheck in 3 to 4 months. Signed by: Stephanie Castro MD cc: Loc Castaneda [address] [place] [address] No referring provider defined for this encounter. documented in this encounter [facility] 09-21-2023 Note HNO ID: [id number] Author: Stephanie CASTRO MD Service: ? Author Type: Physician Type: Progress Notes Filed: 09/21/2023 13:22 Note Text: Radiation Oncology - Follow Up Note PATIENT NAME: Ruperto Bhatti PATIENT DIAGNOSIS: Prostate adenocarcinoma, initial PSA 25.79, biopsy Dejah score 3 + 3 = 6 (grade group 1), clinical stage T1c,N0M0 s/p TRUS Random biopsy. Patient underwent robotic prostatectomy on 06/29/2022 Pathologic stage pT3aNx, [place] 7 (4+3) with detectable and rising PSA, PSA 01/14/2023 0.33 RADIATION SUMMARY: DATES OF TREATMENT: 04-05-2023 to 05-25-2023 AREA TREATED: Pelvis/Prostate Bed DELIVERED DOSE: Area: Pelvis with daily CBCT Imaging 4600cGy in 23 fractions, 3 VMAT Rapid Arc L[place]pez, 10X Area: Prostate Bed Boost with daily CBCT Imaging 2400cGy in 12 fractions, 2 VMAT Rapid [place]pez, 10X TOTAL: 7000cGy in 35 fractions INTERVAL HISTORY: Doing well. No new problems or concerns. Bladder function stable. Occasional stress related incontinence. Wears a pad but rarely needs this. PSA HISTORY: PSA (ng/mL) Date Value 09/13/2023 0.18 06/15/2023 0.32 03/21/2023 0.54 ALLERGIES Allergen Reactions Linda Inhibitors Cough, Hives Losartan-Hydrochlor* Swelling Tadalafil (CIALIS) 5 mg tablet Take 1 tablet by mouth daily. indapamide (LOZOL) 2.5 mg tablet Take 2.5 mg by mouth every morning. hydrALAZINE (APRESOLINE) 25 mg tablet Take 25 mg by mouth two times a day. Tadalafil (CIALIS) 20 mg tab(s) Take 1 tablet by mouth as needed. 1-2 hours before sexual intercourse. amLODIPine (NORVASC) 10 mg tablet Take by mouth q 24 HR. carvedilol (COREG) 12.5 mg tablet q 12 HR. cloNIDine HCl (CATAPRES) 0.1 mg tablet Take 0.1 mg by mouth three times daily. REVIEW OF SYSTEMS: D/N = 4-6/1-2 Hematuria: none Dysuria: none Incontinence: none Urgency: none Catheter use: none Medications to aid urination: n - Total AUA Score: 3 Bowel movement frequency: 1/day Bowel movement quality: normal Blood per rectum: none Last colonoscopy: na Androgen deprivation: Never. PHYSICAL EXAM: There were no vitals taken for this visit. KPS: 100 General Appearance: Alert and oriented. No acute distress. Rectal exam is deferred. ASSESSMENT/PLAN:Prostate adenocarcinoma, initial PSA 25.79, biopsy Dejah score 3 + 3 = 6 (grade group 1), clinical stage T1c,N0M0 s/p TRUS Random biopsy. Patient underwent robotic prostatectomy on 06/29/2022 Pathologic stage pT3aNx, [place] 7 (4+3) with detectable and rising PSA, PSA 03/21/2023 0.54, status post prostate bed salvage radiation. Doing well. No posttreatment problems. PSA continues to decrease. Plan to recheck in 3 to 4 months. Signed by: Stephanie Castro MD cc: Loc Castaneda [address] [place] [address] No referring provider defined for this encounter. [facility] 09-21-2023 Nurse Note AUA 3 Alise Acosta RN [facility] 09-21-2023 Nurse Note AUA 3 Alise Acosta RN documented in this encounter [facility] 06-22-2023 Nurse Note AUA 6 Alise Acosta RN documented in this encounter [facility] 06-22-2023 History of Present illness Narrative Radiation Oncology - Follow Up Note PATIENT NAME: Ruperto Bhatti PATIENT DIAGNOSIS: Prostate adenocarcinoma, initial PSA 25.79, biopsy Dejah score 3 + 3 = 6 (grade group 1), clinical stage T1c,N0M0 s/p TRUS Random biopsy. Patient underwent robotic prostatectomy on 06/29/2022 Pathologic stage pT3aNx, Dejah 7 (4+3) with detectable and rising PSA, PSA 01/14/2023 0.33 RADIATION SUMMARY: DATES OF TREATMENT: 04-05-2023 to 05-25-2023 AREA TREATED: Pelvis/Prostate Bed DELIVERED DOSE: Area: Pelvis with daily CBCT Imaging 4600cGy in 23 fractions, 3 VMAT Rapid Arc L[place]pez, 10X Area: Prostate Bed Boost with daily CBCT Imaging 2400cGy in 12 fractions, 2 VMAT Rapid Arc L[place]pez, 10X TOTAL: 7000cGy in 35 fractions INTERVAL HISTORY: The patient presents for routine follow-up after completion of radiation in May. Overall doing well no new problems or concerns. PSA HISTORY: PSA (ng/mL) Date Value 06/15/2023 0.32 03/21/2023 0.54 ALLERGIES Allergen Reactions Linda Inhibitors Cough, Hives Losartan-Hydrochlor* Swelling Tadalafil (CIALIS) 5 mg tablet Take 1 tablet by mouth daily. indapamide (LOZOL) 2.5 mg tablet Take 2.5 mg by mouth every morning. hydrALAZINE (APRESOLINE) 25 mg tablet Take 25 mg by mouth two times a day. Tadalafil (CIALIS) 20 mg tab(s) Take 1 tablet by mouth as needed. 1-2 hours before sexual intercourse. amLODIPine (NORVASC) 10 mg tablet Take by mouth q 24 HR. carvedilol (COREG) 12.5 mg tablet q 12 HR. cloNIDine HCl (CATAPRES) 0.1 mg tablet Take 0.1 mg by mouth three times daily. REVIEW OF SYSTEMS: D/N = 4-6/1-2 Hematuria: none Dysuria: none Incontinence: none Urgency: none Catheter use: none Medications to aid urination: n - Total AUA Score: 6 Bowel movement frequency: 1/day Bowel movement quality: normal Blood per rectum: none Last colonoscopy: na Androgen deprivation: Never. PHYSICAL EXAM: BP 138/83 Pulse 72 Temp 36.4 C (97.5 F) Resp 16 Wt 86.3 kg (190 lb 4.1 oz) SpO2 96% BMI 28.93 kg/m KPS: 100 General Appearance: Alert and oriented. No acute distress. Rectal exam is deferred. ASSESSMENT/PLAN:Prostate adenocarcinoma, initial PSA 25.79, biopsy Dejah score 3 + 3 = 6 (grade group 1), clinical stage T1c,N0M0 s/p TRUS Random biopsy. Patient underwent robotic prostatectomy on 06/29/2022 Pathologic stage pT3aNx, Dejah 7 (4+3) with detectable and rising PSA, PSA 03/21/2023 0.54, status post prostate bed salvage radiation. Doing well. No posttreatment problems. PSA is responding appropriately. Plan to recheck in 3 to 4 months. Signed by: Stephanie Castro MD cc: Loc Castaneda [facility] [place] [address] [place] [address] No referring provider defined for this encounter. documented in this encounter [facility] 06-22-2023 Note HNO ID: [id number] Author: Stephanie CASTRO MD Service: ? Author Type: Physician Type: Progress Notes Filed: 06/29/2023 09:35 Note Text: Radiation Oncology - Follow Up Note PATIENT NAME: Ruperto Bhatti PATIENT DIAGNOSIS: Prostate adenocarcinoma, initial PSA 25.79, biopsy [place] score 3 + 3 = 6 (grade group 1), clinical stage T1c,N0M0 s/p TRUS Random biopsy. Patient underwent robotic prostatectomy on 06/29/2022 Pathologic stage pT3aNx, Dejah 7 (4+3) with detectable and rising PSA, PSA 01/14/2023 0.33 RADIATION SUMMARY: DATES OF TREATMENT: 04-05-2023 to 05-25-2023 AREA TREATED: Pelvis/Prostate Bed DELIVERED DOSE: Area: Pelvis with daily CBCT Imaging 4600cGy in 23 fractions, 3 VMAT Rapid Arc L[place]pez, 10X Area: Prostate Bed Boost with daily CBCT Imaging 2400cGy in 12 fractions, 2 VMAT Rapid Arc [place]pez, 10X TOTAL: 7000cGy in 35 fractions INTERVAL HISTORY: The patient presents for routine follow-up after completion of radiation in May. Overall doing well no new problems or concerns. PSA HISTORY: PSA (ng/mL) Date Value 06/15/2023 0.32 03/21/2023 0.54 ALLERGIES Allergen Reactions Linda Inhibitors Cough, Hives Losartan-Hydrochlor* Swelling Tadalafil (CIALIS) 5 mg tablet Take 1 tablet by mouth daily. indapamide (LOZOL) 2.5 mg tablet Take 2.5 mg by mouth every morning. hydrALAZINE (APRESOLINE) 25 mg tablet Take 25 mg by mouth two times a day. Tadalafil (CIALIS) 20 mg tab(s) Take 1 tablet by mouth as needed. 1-2 hours before sexual intercourse. amLODIPine (NORVASC) 10 mg tablet Take by mouth q 24 HR. carvedilol (COREG) 12.5 mg tablet q 12 HR. cloNIDine HCl (CATAPRES) 0.1 mg tablet Take 0.1 mg by mouth three times daily. REVIEW OF SYSTEMS: D/N = 4-6/1-2 Hematuria: none Dysuria: none Incontinence: none Urgency: none Catheter use: none Medications to aid urination: n - Total AUA Score: 6 Bowel movement frequency: 1/day Bowel movement quality: normal Blood per rectum: none Last colonoscopy: na Androgen deprivation: Never. PHYSICAL EXAM: BP 138/83 Pulse 72 Temp 36.4 ?C (97.5 ?F) Resp 16 Wt 86.3 kg (190 lb 4.1 oz) SpO2 96% BMI 28.93 kg/m? KPS: 100 General Appearance: Alert and oriented. No acute distress. Rectal exam is deferred. ASSESSMENT/PLAN:Prostate adenocarcinoma, initial PSA 25.79, biopsy Dejah score 3 + 3 = 6 (grade group 1), clinical stage T1c,N0M0 s/p TRUS Random biopsy. Patient underwent robotic prostatectomy on 06/29/2022 Pathologic stage pT3aNx, [place] 7 (4+3) with detectable and rising PSA, PSA 03/21/2023 0.54, status post prostate bed salvage radiation. Doing well. No posttreatment problems. PSA is responding appropriately. Plan to recheck in 3 to 4 months. Signed by: Stephanie Castro MD cc: Loc Castaneda [address] [place] [address] No referring provider defined for this encounter. [facility] 06-18-2023 Miscellaneous Notes Requested Prescriptions Pending Prescriptions Disp Refills Tadalafil (CIALIS) 5 mg tablet 90 tablet 3 Sig: Take 1 tablet by mouth daily. documented in this encounter [facility] 05-25-2023 History of Present illness Narrative [facility] Radiation Oncology Department RADIATION ONCOLOGY - COMPLETION NOTE PATIENT: MARC BHATTIB: 1960 DATES OF TREATMENT: 04-05-2023 to 05-25-2023 DIAGNOSIS: Prostate adenocarcinoma, initial PSA 25.79, biopsy [place] score 3 + 3 = 6 (grade group 1), clinical stage T1c,N0M0 s/p TRUS Random biopsy. Patient underwent robotic prostatectomy on 06/29/2022 Pathologic stage pT3aNx, [place] 7 (4+3) with detectable and rising PSA, PSA 01/14/2023 0.33 AREA TREATED: Pelvis/Prostate Bed DELIVERED DOSE: Area: Pelvis with daily CBCT Imaging 4600cGy in 23 fractions, 3 VMAT Rapid Arc L[place]pez, 10X Area: Prostate Bed Boost with daily CBCT Imaging 2400cGy in 12 fractions, 2 VMAT Rapid Arc L[place]pez, 10X TOTAL: 7000cGy in 35 fractions ELAPSED TIME: 50 days. CLINICAL SUMMARY: The patient tolerated radiation with mild radiation related dermatitis and fatigue as expected. No other issues. The patient was able to complete treatment as intended without break interruption or modification of prescription plan. The disease response will be assesses in clinic. The patient will be seen again in 2 weeks for postradiation follow-up. Staff Physician Morales Castro M.D. / KG 44:47 PM Electronically Signed cc: Dr. Loc Haque APRN. FOURCHETTE SEWER documented in this encounter [facility] 05-25-2023 Note HNO ID: [id number] Author: Stephanie CASTRO MD Service: ? Author Type: Physician Type: Progress Notes Filed: 05/31/2023 16:47 Note Text: [facility] Radiation Oncology Department RADIATION ONCOLOGY - COMPLETION NOTE PATIENT: KEESHA BHATTI: 1960 DATES OF TREATMENT: 04-05-2023 to 05-25-2023 DIAGNOSIS: Prostate adenocarcinoma, initial PSA 25.79, biopsy Dejah score 3 + 3 = 6 (grade group 1), clinical stage T1c,N0M0 s/p TRUS Random biopsy. Patient underwent robotic prostatectomy on 06/29/2022 Pathologic stage pT3aNx, [place] 7 (4+3) with detectable and rising PSA, PSA 01/14/2023 0.33 AREA TREATED: Pelvis/Prostate Bed DELIVERED DOSE: Area: Pelvis with daily CBCT Imaging 4600cGy in 23 fractions, 3 VMAT Rapid Arc L[place]pez, 10X Area: Prostate Bed Boost with daily CBCT Imaging 2400cGy in 12 fractions, 2 VMAT Rapid Arc L[place]pez, 10X TOTAL: 7000cGy in 35 fractions ELAPSED TIME: 50 days. CLINICAL SUMMARY: The patient tolerated radiation with mild radiation related dermatitis and fatigue as expected. No other issues. The patient was able to complete treatment as intended without break interruption or modification of prescription plan. The disease response will be assesses in clinic. The patient will be seen again in 2 weeks for postradiation follow-up. Staff Physician Morales Castro M.D. / SIMI 44:47 PM Electronically Signed cc: Dr. Loc Haque MANAGER TRACK. [facility] 05-22-2023 Note HNO ID: [id number] Author: Stephanie CASTRO MD Service: ? Author Type: Physician Type: Progress Notes Filed: 05/30/2023 07:06 Note Text: Radiation Oncology - On Treatment Review (OTR) Note PATIENT NAME: Ruperto Bhatti PATIENT DIAGNOSIS: Prostate adenocarcinoma, initial PSA 25.79, biopsy Dejah score 3 + 3 = 6 (grade group 1), clinical stage T1c,N0M0 s/p TRUS Random biopsy. Patient underwent robotic prostatectomy on 06/29/2022 Pathologic stage pT3aNx, Dejah 7 (4+3) with detectable and rising PSA, PSA 01/14/2023 0.33 COURSE: salvage Current dose: 6600 cGy in 33 fx Planned dose: 7000 cGy in 35 fx SUBJECTIVE: Doing well. PHYSICAL EXAM: 05/22/23 1557 BP: 153/81 Pulse: 70 Resp: 16 Temp: 36.3 ?C (97.4 ?F) SpO2: 98% Weight: 88 kg (194 lb 0.1 oz) KPS: 100 General Appearance: Alert and oriented. No acute distress. IMAGING/LAB RESULTS: Hemoglobin (g/dL) Date Value 04/13/2023 16.8 Hematocrit (%) Date Value 04/13/2023 47.7 WBC (k/uL) Date Value 04/13/2023 7.73 Platelet Count (k/uL) Date Value 04/13/2023 182 TOXICITY ASSESSMENT (CTC v4.0): Fatigue:grade 0 - No symptoms Radiation Dermatitis: grade 0 - No symptoms Diarrhea:grade 1 Proctitis: grade 0 - No symptoms Urinary frequency: grade 1 Dysuria: grade 0 - No symptoms Urinary incontinence: grade 0 (No symptoms) Urinary retention: grade 0 - No symptoms Treatment chart checked: Yes Patient treatment site reviewed and verified:Yes Port films reviewed and current:Yes Medications started: None ASSESSMENT/PLAN: Clinically stable. Toxicity within expected parameters. Continue radiation treatment as planned. Completes this week, follow up care discussed. Stephanie Castro MD [facility] 05-22-2023 History of Present illness Narrative Radiation Oncology - On Treatment Review (OTR) Note PATIENT NAME: Ruperto Bhatti PATIENT DIAGNOSIS: Prostate adenocarcinoma, initial PSA 25.79, biopsy [place] score 3 + 3 = 6 (grade group 1), clinical stage T1c,N0M0 s/p TRUS Random biopsy. Patient underwent robotic prostatectomy on 06/29/2022 Pathologic stage pT3aNx, Dejah 7 (4+3) with detectable and rising PSA, PSA 01/14/2023 0.33 COURSE: salvage Current dose: 6600 cGy in 33 fx Planned dose: 7000 cGy in 35 fx SUBJECTIVE: Doing well. PHYSICAL EXAM: 05/22/23 1557 BP: 153/81 Pulse: 70 Resp: 16 Temp: 36.3 C (97.4 F) SpO2: 98% Weight: 88 kg (194 lb 0.1 oz) KPS: 100 General Appearance: Alert and oriented. No acute distress. IMAGING/LAB RESULTS: Hemoglobin (g/dL) Date Value 04/13/2023 16.8 Hematocrit (%) Date Value 04/13/2023 47.7 WBC (k/uL) Date Value 04/13/2023 7.73 Platelet Count (k/uL) Date Value 04/13/2023 182 TOXICITY ASSESSMENT (CTC v4.0): Fatigue:grade 0 - No symptoms Radiation Dermatitis: grade 0 - No symptoms Diarrhea:grade 1 Proctitis: grade 0 - No symptoms Urinary frequency: grade 1 Dysuria: grade 0 - No symptoms Urinary incontinence: grade 0 (No symptoms) Urinary retention: grade 0 - No symptoms Treatment chart checked: Yes Patient treatment site reviewed and verified:Yes Port films reviewed and current:Yes Medications started: None ASSESSMENT/PLAN: Clinically stable. Toxicity within expected parameters. Continue radiation treatment as planned. Completes this week, follow up care discussed. Stephanie Castro MD documented in this encounter [facility] 05-15-2023 Note HNO ID: [id number] Author: Stephanie CASTRO MD Service: ? Author Type: Physician Type: Progress Notes Filed: 05/16/2023 09:44 Note Text: Radiation Oncology - On Treatment Review (OTR) Note PATIENT NAME: Ruperto Bhatti PATIENT DIAGNOSIS: Prostate adenocarcinoma, initial PSA 25.79, biopsy Dejah score 3 + 3 = 6 (grade group 1), clinical stage T1c,N0M0 s/p TRUS Random biopsy. Patient underwent robotic prostatectomy on 06/29/2022 Pathologic stage pT3aNx, Dejah 7 (4+3) with detectable and rising PSA, PSA 01/14/2023 0.33 COURSE: salvage Current dose: 5600 cGy in 28 fx Planned dose: 7000 cGy in 35 fx SUBJECTIVE: Doing well. PHYSICAL EXAM: 05/15/23 1551 BP: 173/78 Pulse: 78 Resp: 16 Temp: 37.1 ?C (98.7 ?F) SpO2: 98% Weight: 86 kg (189 lb 9.5 oz) KPS: 100 General Appearance: Alert and oriented. No acute distress. IMAGING/LAB RESULTS: Hemoglobin (g/dL) Date Value 04/13/2023 16.8 Hematocrit (%) Date Value 04/13/2023 47.7 WBC (k/uL) Date Value 04/13/2023 7.73 Platelet Count (k/uL) Date Value 04/13/2023 182 TOXICITY ASSESSMENT (CTC v4.0): Fatigue:grade 0 - No symptoms Radiation Dermatitis: grade 0 - No symptoms Diarrhea:grade 1 Proctitis: grade 0 - No symptoms Urinary frequency: grade 1 Dysuria: grade 0 - No symptoms Urinary incontinence: grade 0 (No symptoms) Urinary retention: grade 0 - No symptoms Treatment chart checked: Yes Patient treatment site reviewed and verified:Yes Port films reviewed and current:Yes Medications started: None ASSESSMENT/PLAN: Clinically stable. Toxicity within expected parameters. Continue radiation treatment as planned. Boost planning complete, will start tomorrow. Stephanie Castro MD [facility] 05-15-2023 History of Present illness Narrative Radiation Oncology - On Treatment Review (OTR) Note PATIENT NAME: Ruperto Bhatti PATIENT DIAGNOSIS: Prostate adenocarcinoma, initial PSA 25.79, biopsy Dejah score 3 + 3 = 6 (grade group 1), clinical stage T1c,N0M0 s/p TRUS Random biopsy. Patient underwent robotic prostatectomy on 06/29/2022 Pathologic stage pT3aNx, [place] 7 (4+3) with detectable and rising PSA, PSA 01/14/2023 0.33 COURSE: salvage Current dose: 5600 cGy in 28 fx Planned dose: 7000 cGy in 35 fx SUBJECTIVE: Doing well. PHYSICAL EXAM: 05/15/23 1551 BP: 173/78 Pulse: 78 Resp: 16 Temp: 37.1 C (98.7 F) SpO2: 98% Weight: 86 kg (189 lb 9.5 oz) KPS: 100 General Appearance: Alert and oriented. No acute distress. IMAGING/LAB RESULTS: Hemoglobin (g/dL) Date Value 04/13/2023 16.8 Hematocrit (%) Date Value 04/13/2023 47.7 WBC (k/uL) Date Value 04/13/2023 7.73 Platelet Count (k/uL) Date Value 04/13/2023 182 TOXICITY ASSESSMENT (CTC v4.0): Fatigue:grade 0 - No symptoms Radiation Dermatitis: grade 0 - No symptoms Diarrhea:grade 1 Proctitis: grade 0 - No symptoms Urinary frequency: grade 1 Dysuria: grade 0 - No symptoms Urinary incontinence: grade 0 (No symptoms) Urinary retention: grade 0 - No symptoms Treatment chart checked: Yes Patient treatment site reviewed and verified:Yes Port films reviewed and current:Yes Medications started: None ASSESSMENT/PLAN: Clinically stable. Toxicity within expected parameters. Continue radiation treatment as planned. Boost planning complete, will start tomorrow. Stephanie Castro MD documented in this encounter [facility] 05-08-2023 Note HNO ID: [id number] Author: Stephanie CASTRO MD Service: ? Author Type: Physician Type: Progress Notes Filed: 05/08/2023 15:29 Note Text: Radiation Oncology - On Treatment Review (OTR) Note PATIENT NAME: Ruperto Bhatti PATIENT DIAGNOSIS: Prostate adenocarcinoma, initial PSA 25.79, biopsy [place] score 3 + 3 = 6 (grade group 1), clinical stage T1c,N0M0 s/p TRUS Random biopsy. Patient underwent robotic prostatectomy on 06/29/2022 Pathologic stage pT3aNx, [place] 7 (4+3) with detectable and rising PSA, PSA 01/14/2023 0.33 COURSE: salvage Current dose: 4600 cGy in 23 fx Planned dose: 7000 cGy in 35 fx SUBJECTIVE: Doing well. PHYSICAL EXAM: 05/08/23 1505 BP: 168/83 Pulse: 72 Resp: 18 Temp: 36.2 ?C (97.2 ?F) SpO2: 97% Weight: 86.4 kg (190 lb 7.6 oz) KPS: 100 General Appearance: Alert and oriented. No acute distress. IMAGING/LAB RESULTS: Hemoglobin (g/dL) Date Value 04/13/2023 16.8 Hematocrit (%) Date Value 04/13/2023 47.7 WBC (k/uL) Date Value 04/13/2023 7.73 Platelet Count (k/uL) Date Value 04/13/2023 182 TOXICITY ASSESSMENT (CTC v4.0): Fatigue:grade 0 - No symptoms Radiation Dermatitis: grade 0 - No symptoms Diarrhea:grade 1 Proctitis: grade 0 - No symptoms Urinary frequency: grade 1 Dysuria: grade 0 - No symptoms Urinary incontinence: grade 0 (No symptoms) Urinary retention: grade 0 - No symptoms Treatment chart checked: Yes Patient treatment site reviewed and verified:Yes Port films reviewed and current:Yes Medications started: None ASSESSMENT/PLAN: Clinically stable. Toxicity within expected parameters. Continue radiation treatment as planned. Boost planning complete, will start tomorrow. Stephanie Castro MD [facility] 05-03-2023 History of Present illness Narrative VIRTUAL VISIT PROGRESS NOTE This is a virtual visit using [employer] Video Visit. It required patient-provider interaction for the medical decision making as documented below. I have communicated my name and active licensure. The patient's identity and physical location were verified at the time of this visit. Either the patient or their legal loan representative has been informed of the risks and benefits of -- and alternatives to -- treatment through a remote evaluation and consents to proceed with the evaluation remotely. Persons Present: patient and patient's spouse/significant other Chief Complaint/Reason: follow up Clinic note from 01/26/2023 copied and updated. HPI: Ruperto Bhatti is a 63 year old male with hx of GG1 prostate cancer on biopsy and PSA >30 who presents for follow up evaluation. He is s/p RALP on 06/29/[address] Walker. FINAL DIAGNOSIS A. Prostate, radical prostatectomy: - Prostatic adenocarcinoma, [place] score 7 (4+3), Grade Group 3 with invasion into right bladder neck. - Margins of excision are free of neoplasm. - Cribriform pattern 4 is present. A. Seminal vesicles, right and left, excision: - Negative for neoplasm. Last seen via virtual visit 01/26/23. Reported improving urine control using 1 thin pad/day. Discussed on demand Tadalafil dosing. Referred to Rad/Onc for detectable PSA. Following with Dr. Castro. Undergoing salvage RT- began 04/05/23. Interval Hx: Overall, doing well. Denies any side effects or adverse effects from RT. Good energy levels. Reports continued improvement in urine control with virtually no leakage- using 1 thin pad/day. States he can probably go without this as its dry, but wears for protection. Not as consistently doing Kegel exercises. Continues to take daily Tadalafil. Admits to ED- no improvement with on demand dose. Data Reviewed: Most recent labs Labs: PSA (ng/mL) Date Value 03/21/2023 0.54 PSA trends: 0.14 ng/mL (11/12/2022) <0.13 ng/mL (08/13/2022) 32.23 ng/mL (05/14/2022) 25.79 ng/mL (03/02/2022) 25.21 ng/mL (01/31/2022) HISTORY REVIEWED (electronic chart updated): PAST MEDICAL HISTORY Diagnosis Date HTN (hypertension) PAST SURGICAL HISTORY Procedure Laterality Date ADRENALECTOMY No family history on file. Social History Tobacco Use Smoking status: Every Day Packs/day: 1 Types: Cigarettes Start date: 2019 Passive exposure: Never Smokeless tobacco: Never Substance Use Topics Alcohol use: Yes Alcohol/week: 6.0 standard drinks of alcohol Types: 6 Cans of beer per week Comment: 2 drinks a day per pt 06/24/2022 Drug use: Never Current Outpatient Medications Medication Sig indapamide (LOZOL) 2.5 mg tablet Take 2.5 mg by mouth every morning. hydrALAZINE (APRESOLINE) 25 mg tablet Take 25 mg by mouth two times a day. Tadalafil (CIALIS) 5 mg tablet Take 1 tablet by mouth daily. Tadalafil (CIALIS) 20 mg tab(s) Take 1 tablet by mouth as needed. 1-2 hours before sexual intercourse. amLODIPine (NORVASC) 10 mg tablet Take by mouth q 24 HR. carvedilol (COREG) 12.5 mg tablet q 12 HR. cloNIDine HCl (CATAPRES) 0.1 mg tablet Take 0.1 mg by mouth three times daily. No current facility-administered medications for this visit. ALLERGIES Allergen Reactions Linda Inhibitors Cough, Hives Losartan-Hydrochlor* Swelling REVIEW OF SYSTEMS: GENERAL: activity level is normal : see HPI PHYSICAL EXAMINATION: VIDEO EXAM: (if completed, performed via video enabled technology) GENERAL: alert and appropriate, in no distress, well-hydrated, well nourished, and happy, smiling, interactive RESPIRATORY: breathing non-labored CHEST: equal chest rise with normal respiratory effort ASSESSMENT: (Z85.46) History of prostate cancer (primary encounter diagnosis) (Z92.3) History of radiation therapy (R97.21) Rising PSA following treatment for malignant neoplasm of prostate (N52.31) Erectile dysfunction following radical prostatectomy 63 year old male s/p RALP on 06/29/[address] Walker with rising PSA Undergoing salvage RT- following with Dr. Castro Denies any bothersome LUTS or significant urine leakage Admits to ED- at present, wishes to continue daily Tadalafil. He will f/u PRN after RT completion if interested in further management PLAN: -Follow up with Dr. Walker's team PRN -Continue to follow with Dr. Castro for prostate cancer management There are no Patient Instructions on file for this visit. I spent a total of 10 minutes on the date of the service which included preparing to see the patient, [id number] patient care, completing clinical documentation, and counseling and educating the patient/family/caregiver It was necessary to convert the virtual visit to a telephone encounter due to technical difficulties. Claribel Haque APRN.TEETEE documented in this encounter [facility] 05-03-2023 Note HNO ID: [id number] Author: CLARIBEL HAQUE APRN.CNP Service: ? Author Type: Nurse Practitioner Type: Progress Notes Filed: 05/03/2023 17:13 Note Text: VIRTUAL VISIT PROGRESS NOTE This is a virtual visit using [employer] Video Visit. It required patient-provider interaction for the medical decision making as documented below. I have communicated my name and active licensure. The patient's identity and physical location were verified at the time of this visit. Either the patient or their legal loan representative has been informed of the risks and benefits of -- and alternatives to -- treatment through a remote evaluation and consents to proceed with the evaluation remotely. Persons Present: patient and patient's spouse/significant other Chief Complaint/Reason: follow up Clinic note from 01/26/2023 copied and updated. HPI: Ruperto Bhatti is a 63 year old male with hx of GG1 prostate cancer on biopsy and PSA >30 who presents for follow up evaluation. He is s/p RALP on 06/29/[address] Walker. FINAL DIAGNOSIS A. Prostate, radical prostatectomy: - Prostatic adenocarcinoma, Dejah score 7 (4+3), Grade Group 3 with invasion into right bladder neck. - Margins of excision are free of neoplasm. - Cribriform pattern 4 is present. A. Seminal vesicles, right and left, excision: - Negative for neoplasm. Last seen via virtual visit 01/26/23. Reported improving urine control using 1 thin pad/day. Discussed on demand Tadalafil dosing. Referred to Rad/Onc for detectable PSA. Following with Dr. Castro. Undergoing salvage RT- began 04/05/23. Interval Hx: Overall, doing well. Denies any side effects or adverse effects from RT. Good energy levels. Reports continued improvement in urine control with virtually no leakage- using 1 thin pad/day. States he can probably go without this as its dry, but wears for protection. Not as consistently doing Kegel exercises. Continues to take daily Tadalafil. Admits to ED- no improvement with on demand dose. Data Reviewed: Most recent labs Labs: PSA (ng/mL) Date Value 03/21/2023 0.54 PSA trends: 0.14 ng/mL (11/12/2022) <0.13 ng/mL (08/13/2022) 32.23 ng/mL (05/14/2022) 25.79 ng/mL (03/02/2022) 25.21 ng/mL (01/31/2022) HISTORY REVIEWED (electronic chart updated): PAST MEDICAL HISTORY Diagnosis Date HTN (hypertension) PAST SURGICAL HISTORY Procedure Laterality Date ADRENALECTOMY No family history on file. Social History Tobacco Use Smoking status: Every Day Packs/day: 1 Types: Cigarettes Start date: 2019 Passive exposure: Never Smokeless tobacco: Never Substance Use Topics Alcohol use: Yes Alcohol/week: 6.0 standard drinks of alcohol Types: 6 Cans of beer per week Comment: 2 drinks a day per pt 06/24/2022 Drug use: Never Current Outpatient Medications Medication Sig indapamide (LOZOL) 2.5 mg tablet Take 2.5 mg by mouth every morning. hydrALAZINE (APRESOLINE) 25 mg tablet Take 25 mg by mouth two times a day. Tadalafil (CIALIS) 5 mg tablet Take 1 tablet by mouth daily. Tadalafil (CIALIS) 20 mg tab(s) Take 1 tablet by mouth as needed. 1-2 hours before sexual intercourse. amLODIPine (NORVASC) 10 mg tablet Take by mouth q 24 HR. carvedilol (COREG) 12.5 mg tablet q 12 HR. cloNIDine HCl (CATAPRES) 0.1 mg tablet Take 0.1 mg by mouth three times daily. No current facility-administered medications for this visit. ALLERGIES Allergen Reactions Linda Inhibitors Cough, Hives Losartan-Hydrochlor* Swelling REVIEW OF SYSTEMS: GENERAL: activity level is normal : see HPI PHYSICAL EXAMINATION: VIDEO EXAM: (if completed, performed via video enabled technology) GENERAL: alert and appropriate, in no distress, well-hydrated, well nourished, and happy, smiling, interactive RESPIRATORY: breathing non-labored CHEST: equal chest rise with normal respiratory effort ASSESSMENT: (Z85.46) History of prostate cancer (primary encounter diagnosis) (Z92.3) History of radiation therapy (R97.21) Rising PSA following treatment for malignant neoplasm of prostate (N52.31) Erectile dysfunction following radical prostatectomy 63 year old male s/p RALP on 06/29/[address] Walker with rising PSA Undergoing salvage RT- following with Dr. Castro Denies any bothersome LUTS or significant urine leakage Admits to ED- at present, wishes to continue daily Tadalafil. He will f/u PRN after RT completion if interested in further management PLAN: -Follow up with Dr. Walker's team PRN -Continue to follow with Dr. Castro for prostate cancer management There are no Patient Instructions on file for this visit. I spent a total of 10 minutes on the date of the service which included preparing to see the patient, [id number] patient care, completing clinical documentation, and counseling and educating the patient/family/caregiver It was necessary to convert the virtual visit to a telephone encounter due to technical d (more content not included)... [facility] 05-01-2023 History of Present illness Narrative Radiation Oncology - On Treatment Review (OTR) Note PATIENT NAME: Ruperto Bhatti PATIENT DIAGNOSIS: Prostate adenocarcinoma, initial PSA 25.79, biopsy Dejah score 3 + 3 = 6 (grade group 1), clinical stage T1c,N0M0 s/p TRUS Random biopsy. Patient underwent robotic prostatectomy on 06/29/2022 Pathologic stage pT3aNx, [place] 7 (4+3) with detectable and rising PSA, PSA 01/14/2023 0.33 COURSE: salvage Current dose: 3600 cGy in 18 fx Planned dose: 7000 cGy in 35 fx SUBJECTIVE: Doing well. PHYSICAL EXAM: 05/01/23 1553 BP: 160/73 Pulse: 80 Resp: 16 Temp: 36.9 C (98.5 F) SpO2: 99% Weight: 86 kg (189 lb 9.5 oz) KPS: 100 General Appearance: Alert and oriented. No acute distress. IMAGING/LAB RESULTS: Hemoglobin (g/dL) Date Value 04/13/2023 16.8 Hematocrit (%) Date Value 04/13/2023 47.7 WBC (k/uL) Date Value 04/13/2023 7.73 Platelet Count (k/uL) Date Value 04/13/2023 182 TOXICITY ASSESSMENT (CTC v4.0): Fatigue:grade 0 - No symptoms Radiation Dermatitis: grade 0 - No symptoms Diarrhea:grade 1 Proctitis: grade 0 - No symptoms Urinary frequency: grade 1 Dysuria: grade 0 - No symptoms Urinary incontinence: grade 0 (No symptoms) Urinary retention: grade 0 - No symptoms Treatment chart checked: Yes Patient treatment site reviewed and verified:Yes Port films reviewed and current:Yes Medications started: None ASSESSMENT/PLAN: Clinically stable. Toxicity within expected parameters. Continue radiation treatment as planned. Stephanie Castro MD documented in this encounter [facility] 05-01-2023 Note HNO ID: [id number] Author: Stephanie CASTRO MD Service: ? Author Type: Physician Type: Progress Notes Filed: 05/01/2023 16:05 Note Text: Radiation Oncology - On Treatment Review (OTR) Note PATIENT NAME: Ruperto Bhatti PATIENT DIAGNOSIS: Prostate adenocarcinoma, initial PSA 25.79, biopsy Dejah score 3 + 3 = 6 (grade group 1), clinical stage T1c,N0M0 s/p TRUS Random biopsy. Patient underwent robotic prostatectomy on 06/29/2022 Pathologic stage pT3aNx, [place] 7 (4+3) with detectable and rising PSA, PSA 01/14/2023 0.33 COURSE: salvage Current dose: 3600 cGy in 18 fx Planned dose: 7000 cGy in 35 fx SUBJECTIVE: Doing well. PHYSICAL EXAM: 05/01/23 1553 BP: 160/73 Pulse: 80 Resp: 16 Temp: 36.9 ?C (98.5 ?F) SpO2: 99% Weight: 86 kg (189 lb 9.5 oz) KPS: 100 General Appearance: Alert and oriented. No acute distress. IMAGING/LAB RESULTS: Hemoglobin (g/dL) Date Value 04/13/2023 16.8 Hematocrit (%) Date Value 04/13/2023 47.7 WBC (k/uL) Date Value 04/13/2023 7.73 Platelet Count (k/uL) Date Value 04/13/2023 182 TOXICITY ASSESSMENT (CTC v4.0): Fatigue:grade 0 - No symptoms Radiation Dermatitis: grade 0 - No symptoms Diarrhea:grade 1 Proctitis: grade 0 - No symptoms Urinary frequency: grade 1 Dysuria: grade 0 - No symptoms Urinary incontinence: grade 0 (No symptoms) Urinary retention: grade 0 - No symptoms Treatment chart checked: Yes Patient treatment site reviewed and verified:Yes Port films reviewed and current:Yes Medications started: None ASSESSMENT/PLAN: Clinically stable. Toxicity within expected parameters. Continue radiation treatment as planned. Stephanie Castro MD [facility] 04-24-2023 Note HNO ID: [id number] Author: Stephanie CASTRO MD Service: ? Author Type: Physician Type: Progress Notes Filed: 04/24/2023 16:07 Note Text: Radiation Oncology - On Treatment Review (OTR) Note PATIENT NAME: Ruperto Bhatti PATIENT DIAGNOSIS: Prostate adenocarcinoma, initial PSA 25.79, biopsy Dejah score 3 + 3 = 6 (grade group 1), clinical stage T1c,N0M0 s/p TRUS Random biopsy. Patient underwent robotic prostatectomy on 06/29/2022 Pathologic stage pT3aNx, Dejah 7 (4+3) with detectable and rising PSA, PSA 01/14/2023 0.33 COURSE: salvage Current dose: 2800 cGy in 14 fx Planned dose: 7000 cGy in 35 fx SUBJECTIVE: Doing well mild stool changes no other issues. PHYSICAL EXAM: 04/24/23 1601 BP: 143/71 Pulse: 75 Resp: 16 Temp: 36.6 ?C (97.8 ?F) SpO2: 99% Weight: 87.5 kg (192 lb 14.4 oz) KPS: 100 General Appearance: Alert and oriented. No acute distress. IMAGING/LAB RESULTS: Hemoglobin (g/dL) Date Value 04/13/2023 16.8 Hematocrit (%) Date Value 04/13/2023 47.7 WBC (k/uL) Date Value 04/13/2023 7.73 Platelet Count (k/uL) Date Value 04/13/2023 182 TOXICITY ASSESSMENT (CTC v4.0): Fatigue:grade 0 - No symptoms Radiation Dermatitis: grade 0 - No symptoms Diarrhea:grade 0 - No symptoms Proctitis: grade 0 - No symptoms Urinary frequency: grade 0 - No symptoms Dysuria: grade 0 - No symptoms Urinary incontinence: grade 0 (No symptoms) Urinary retention: grade 0 - No symptoms Treatment chart checked: Yes Patient treatment site reviewed and verified:Yes Port films reviewed and current:Yes Medications started: None ASSESSMENT/PLAN: Clinically stable. Toxicity within expected parameters. Continue radiation treatment as planned. Stephanie Castro MD [facility] 04-24-2023 History of Present illness Narrative Radiation Oncology - On Treatment Review (OTR) Note PATIENT NAME: Ruperto Bhatti PATIENT DIAGNOSIS: Prostate adenocarcinoma, initial PSA 25.79, biopsy Dejah score 3 + 3 = 6 (grade group 1), clinical stage T1c,N0M0 s/p TRUS Random biopsy. Patient underwent robotic prostatectomy on 06/29/2022 Pathologic stage pT3aNx, [place] 7 (4+3) with detectable and rising PSA, PSA 01/14/2023 0.33 COURSE: salvage Current dose: 2800 cGy in 14 fx Planned dose: 7000 cGy in 35 fx SUBJECTIVE: Doing well mild stool changes no other issues. PHYSICAL EXAM: 04/24/23 1601 BP: 143/71 Pulse: 75 Resp: 16 Temp: 36.6 C (97.8 F) SpO2: 99% Weight: 87.5 kg (192 lb 14.4 oz) KPS: 100 General Appearance: Alert and oriented. No acute distress. IMAGING/LAB RESULTS: Hemoglobin (g/dL) Date Value 04/13/2023 16.8 Hematocrit (%) Date Value 04/13/2023 47.7 WBC (k/uL) Date Value 04/13/2023 7.73 Platelet Count (k/uL) Date Value 04/13/2023 182 TOXICITY ASSESSMENT (CTC v4.0): Fatigue:grade 0 - No symptoms Radiation Dermatitis: grade 0 - No symptoms Diarrhea:grade 0 - No symptoms Proctitis: grade 0 - No symptoms Urinary frequency: grade 0 - No symptoms Dysuria: grade 0 - No symptoms Urinary incontinence: grade 0 (No symptoms) Urinary retention: grade 0 - No symptoms Treatment chart checked: Yes Patient treatment site reviewed and verified:Yes Port films reviewed and current:Yes Medications started: None ASSESSMENT/PLAN: Clinically stable. Toxicity within expected parameters. Continue radiation treatment as planned. Stephanie Castro MD documented in this encounter [facility] 04-17-2023 Note HNO ID: [id number] Author: Stephanie CASTRO MD Service: ? Author Type: Physician Type: Progress Notes Filed: 04/24/2023 15:14 Note Text: Radiation Oncology - On Treatment Review (OTR) Note PATIENT NAME: Ruperto Bhatti PATIENT DIAGNOSIS: Prostate adenocarcinoma, initial PSA 25.79, biopsy Dejah score 3 + 3 = 6 (grade group 1), clinical stage T1c,N0M0 s/p TRUS Random biopsy. Patient underwent robotic prostatectomy on 06/29/2022 Pathologic stage pT3aNx, Dejah 7 (4+3) with detectable and rising PSA, PSA 01/14/2023 0.33 COURSE: salvage Current dose: 1800 cGy in 9 fx Planned dose: 7000 cGy in 35 fx SUBJECTIVE: Doing well PHYSICAL EXAM: 04/17/23 1552 BP: 157/85 Pulse: 76 Resp: 18 Temp: 36.3 ?C (97.4 ?F) SpO2: 97% Weight: 86.4 kg (190 lb 7.6 oz) KPS: 100 General Appearance: Alert and oriented. No acute distress. IMAGING/LAB RESULTS: None TOXICITY ASSESSMENT (CTC v4.0): Fatigue:grade 0 - No symptoms Radiation Dermatitis: grade 0 - No symptoms Diarrhea:grade 0 - No symptoms Proctitis: grade 0 - No symptoms Urinary frequency: grade 0 - No symptoms Dysuria: grade 0 - No symptoms Urinary incontinence: grade 0 (No symptoms) Urinary retention: grade 0 - No symptoms Treatment chart checked: Yes Patient treatment site reviewed and verified:Yes Port films reviewed and current:Yes Medications started: None ASSESSMENT/PLAN: Clinically stable. Toxicity within expected parameters. Continue radiation treatment as planned. Stephanie Castro MD [facility] 04-17-2023 History of Present illness Narrative Radiation Oncology - On Treatment Review (OTR) Note PATIENT NAME: Ruperto Bhatti PATIENT DIAGNOSIS: Prostate adenocarcinoma, initial PSA 25.79, biopsy Dejah score 3 + 3 = 6 (grade group 1), clinical stage T1c,N0M0 s/p TRUS Random biopsy. Patient underwent robotic prostatectomy on 06/29/2022 Pathologic stage pT3aNx, [place] 7 (4+3) with detectable and rising PSA, PSA 01/14/2023 0.33 COURSE: salvage Current dose: 1800 cGy in 9 fx Planned dose: 7000 cGy in 35 fx SUBJECTIVE: Doing well PHYSICAL EXAM: 04/17/23 1552 BP: 157/85 Pulse: 76 Resp: 18 Temp: 36.3 C (97.4 F) SpO2: 97% Weight: 86.4 kg (190 lb 7.6 oz) KPS: 100 General Appearance: Alert and oriented. No acute distress. IMAGING/LAB RESULTS: None TOXICITY ASSESSMENT (CTC v4.0): Fatigue:grade 0 - No symptoms Radiation Dermatitis: grade 0 - No symptoms Diarrhea:grade 0 - No symptoms Proctitis: grade 0 - No symptoms Urinary frequency: grade 0 - No symptoms Dysuria: grade 0 - No symptoms Urinary incontinence: grade 0 (No symptoms) Urinary retention: grade 0 - No symptoms Treatment chart checked: Yes Patient treatment site reviewed and verified:Yes Port films reviewed and current:Yes Medications started: None ASSESSMENT/PLAN: Clinically stable. Toxicity within expected parameters. Continue radiation treatment as planned. Stephanie Castro MD documented in this encounter [facility] 04-13-2023 Nurse Note Ruperto Bhatti presents in office today for: Lab Draw only . Ordering Provider: Morales Castro M.D. Test (s) ordered: CBC Method for obtaining blood: Phlebotomy was performed, accessing right antecubital vein. Needle removed intact. Dressing secured. Patient denies discomfort, dizziness, light-headedness or weakness and left the department without assist. Alise Acosta RN documented in this encounter [facility] 04-10-2023 Note HNO ID: [id number] Author: Stephanie CASTRO MD Service: ? Author Type: Physician Type: Progress Notes Filed: 04/17/2023 09:04 Note Text: Radiation Oncology - On Treatment Review (OTR) Note PATIENT NAME: Ruperto Bhatti PATIENT DIAGNOSIS: Prostate adenocarcinoma, initial PSA 25.79, biopsy [place] score 3 + 3 = 6 (grade group 1), clinical stage T1c,N0M0 s/p TRUS Random biopsy. Patient underwent robotic prostatectomy on 06/29/2022 Pathologic stage pT3aNx, Dejah 7 (4+3) with detectable and rising PSA, PSA 01/14/2023 0.33 COURSE: salvage Current dose: 800 cGy in 4 fx Planned dose: 7000 cGy in 35 fx SUBJECTIVE: Doing well PHYSICAL EXAM: 04/10/23 1624 BP: 166/67 Pulse: 79 Resp: 16 Temp: 36.7 ?C (98 ?F) SpO2: 96% Weight: 85.6 kg (188 lb 11.4 oz) KPS: 100 General Appearance: Alert and oriented. No acute distress. IMAGING/LAB RESULTS: None TOXICITY ASSESSMENT (CTC v4.0): Fatigue:grade 0 - No symptoms Radiation Dermatitis: grade 0 - No symptoms Diarrhea:grade 0 - No symptoms Proctitis: grade 0 - No symptoms Urinary frequency: grade 0 - No symptoms Dysuria: grade 0 - No symptoms Urinary incontinence: grade 0 (No symptoms) Urinary retention: grade 0 - No symptoms Treatment chart checked: Yes Patient treatment site reviewed and verified:Yes Port films reviewed and current:Yes Medications started: None ASSESSMENT/PLAN: Clinically stable. Toxicity within expected parameters. Continue radiation treatment as planned. Stephanie Castro MD [facility] 04-10-2023 History of Present illness Narrative Radiation Oncology - On Treatment Review (OTR) Note PATIENT NAME: Ruperto Bhatti PATIENT DIAGNOSIS: Prostate adenocarcinoma, initial PSA 25.79, biopsy Dejah score 3 + 3 = 6 (grade group 1), clinical stage T1c,N0M0 s/p TRUS Random biopsy. Patient underwent robotic prostatectomy on 06/29/2022 Pathologic stage pT3aNx, [place] 7 (4+3) with detectable and rising PSA, PSA 01/14/2023 0.33 COURSE: salvage Current dose: 800 cGy in 4 fx Planned dose: 7000 cGy in 35 fx SUBJECTIVE: Doing well PHYSICAL EXAM: 04/10/23 1624 BP: 166/67 Pulse: 79 Resp: 16 Temp: 36.7 C (98 F) SpO2: 96% Weight: 85.6 kg (188 lb 11.4 oz) KPS: 100 General Appearance: Alert and oriented. No acute distress. IMAGING/LAB RESULTS: None TOXICITY ASSESSMENT (CTC v4.0): Fatigue:grade 0 - No symptoms Radiation Dermatitis: grade 0 - No symptoms Diarrhea:grade 0 - No symptoms Proctitis: grade 0 - No symptoms Urinary frequency: grade 0 - No symptoms Dysuria: grade 0 - No symptoms Urinary incontinence: grade 0 (No symptoms) Urinary retention: grade 0 - No symptoms Treatment chart checked: Yes Patient treatment site reviewed and verified:Yes Port films reviewed and current:Yes Medications started: None ASSESSMENT/PLAN: Clinically stable. Toxicity within expected parameters. Continue radiation treatment as planned. Stephanie Castro MD documented in this encounter [facility] 03-31-2023 Note HNO ID: [id number] Author: Stephanie CASTRO MD Service: ? Author Type: Physician Type: Progress Notes Filed: 03/31/2023 08:36 Note Text: Radiation Oncology - Prostate Cancer Follow-up PATIENT NAME: Ruperto Bhatti PATIENT DIAGNOSIS: Prostate adenocarcinoma, initial PSA 25.79, biopsy [place] score 3 + 3 = 6 (grade group 1), clinical stage T1c,N0M0 s/p TRUS Random biopsy. Patient underwent robotic prostatectomy on 06/29/2022 Pathologic stage pT3aNx, [place] 7 (4+3) with detectable and rising PSA, PSA 01/14/2023 0.33 HPI: Patient in today for simulation. RADIOLOGY: PSMA PET 03/17/2023: HEAD/NECK: * No PSMA-expressing neoplastic process. CHEST: * No PSMA-expressing neoplastic process. ABDOMENS/PELVIS: * No PSMA-expressing neoplastic process. MUSCULOSKELETAL: * No PSMA-expressing neoplastic process. PSMA PET 05/18/2022 (preop): Head and neck: * No PSMA-expressing lesions suspicious for metastases. * 3.0 x 2.6 cm right thyroid lobe nodule. Recommend correlation with thyroid ultrasound, if not recently performed. Chest: * No PSMA-expressing lesions suspicious for metastases. Abdomen and Pelvis: * Multifocal prostate gland PSMA uptake, most prominently left mid gland, as described. * No evidence of abdominopelvic metastases. Bones and soft tissues: * No PSMA-expressing lesions suspicious for metastases. LABORATORY: PSA history: 03/02/2022 25.79 08/13/2022 <0.13 11/12/2022 0.14 01/14/2023 0.33 PSA (ng/mL) Date Value 03/21/2023 0.54 Radical robotic prostatectomy on 06/29/2022. Pathology as noted below. FINAL DIAGNOSIS A. Prostate, radical prostatectomy: - Prostatic adenocarcinoma, Dejah score 7 (4+3), Grade Group 3 with invasion into right bladder neck. - Margins of excision are free of neoplasm. - Cribriform pattern 4 is present. A. Seminal vesicles, right and left, excision: - Negative for neoplasm. SHAY/zahira 07/04/2022 Synoptic Report PROSTATE GLAND: Radical Prostatectomy 8th Edition - Protocol posted: 01/20/2021 PROSTATE GLAND: RESECTION - All Specimens SPECIMEN Procedure Radical prostatectomy Prostate Size Prostate Weight (Grams) 41.4 g Prostate Greatest Dimension (Centimeters) 4.4 cm Additional Prostate Dimension (Centimeters) 4.3 cm 3.8 cm TUMOR Histologic Type Acinar adenocarcinoma Histologic Grade Grade Grade group 3 (Dejah Score 4 + 3 = 7) Minor Tertiary Pattern 5 (less than 5%) Not applicable Percentage of Pattern 4 61 - 70% Intraductal Carcinoma (IDC) Not identified Cribriform Glands Present Treatment Effect Not identified TUMOR QUANTITATION Estimated Percentage of Prostate Involved by Tumor 21 - 30% Extraprostatic Extension (EPE) Present, nonfocal Location of Extraprostatic Extension Right bladder neck Urinary Bladder Neck Invasion Present Seminal Vesicle Invasion Not identified Lymphovascular Invasion Not Identified MARGINS Margin Status All margins negative for invasive carcinoma REGIONAL LYMPH NODES Regional Lymph Node Status Not applicable (no regional lymph nodes submitted or found) PATHOLOGIC STAGE CLASSIFICATION (pTNM, AJCC 8th Edition) Reporting of pT, pN, and (when applicable) pM categories is based on information available to the pathologist at the time the report is issued. As per the AJCC (Chapter 1, 8th Ed.) it is the managing physician?s responsibility to establish the final pathologic stage based upon all pertinent information, including but potentially not limited to this pathology report. Primary Tumor (pT) pT3a pN Category pN not assigned (no nodes submitted or found) Comment(s) loan representative block A14 Initial postoperative PSA undetectable, <0.13 ng/mL (08/13/2022). However PSA was noted to be detectable on 11/12/2022, 0.14 ng/mL. Most recent PSA 01/14/2023 showing further increase to a value of 0.33 ng/mL. Patient has been doing very well. He denies any significant incontinence and wears a pad only for just in case. Able to the left without significant stress urinary incontinence. No other issues. Treatment for Prostate Cancer: None Genomic Testing: None The patient reports the following pertinent history: Urinary frequency (D/N): 4-6/0-1 Dysuria: No Incontinence: Rare incontinence does wear a pad just for protection Hematuria: No Bowel Movement Frequency: 1/day Bowel Movement Quality: Normal Blood per Rectum: No Last Colonoscopy: na Erectile function, partial with Tadalafil Androgen Deprivation: none Prior Radiation Therapy, Collagen Vascular Disease, or Inflammatory Bowel Disease: No Currently on Anticoagulation: No History of Hip Replacement: No History of Prior TURP: No ALLERGIES Allergen Reactions Linda Inhibitors Cough, Hives Losartan-Hydrochlor* Swelling indapamide (LOZOL) 2.5 mg tablet Take 2.5 mg by mouth every morning. hydrALAZINE (APRESOLINE) 25 mg tabl (more content not included)... [facility] 03-29-2023 Note HNO ID: [id number] Author: Stephanie CASTRO MD Service: ? Author Type: Physician Type: Progress Notes Filed: 03/29/2023 15:54 Note Text: RUPERTO BHATTI [id number] 03/29/2023 [facility] Radiation Oncology Department SIMULATION NOTE DATE OF SIMULATION: 03/29/2023 THERAPIST: Sheila Luna MACHINE: Siemens NeuroVigilgraph mCT DIAGNOSIS: Malignant neoplasm of [id number] AREA: Prostate CONTRAST: None Consent in Epic: Yes PATIENT POSITION: Supine. FIXATION DEVICE: In order to achieve accurate and reproducible treatments, the patient is immobilized with orfit AIO A time-out was conducted and recorded by the therapist. CT scan was completed for target localization and planning. Field arrangement will be determined after plan has been completed. The patient is scheduled for a verification simulation on the treatment machine to ensure proper set-up and field arrangement is correct prior to the first treatment of primary and boost lópez if applicable. Patient education will be completed per nursing. Electronically Signed Morales Castro M.D. / CDT 43:54 PM [facility] 03-29-2023 Note HNO ID: [id number] Author: PRESTON NOVAK MD Service: ? Author Type: Physician Type: Progress Notes Filed: 04/07/2023 08:10 Note Text: RUPERTO BHATTI [id number] 03/29/2023 [facility] Department of Radiation Oncology Treatment Planning Note For reasons stated in the consult note, Ruperto Bhatti is a candidate for radiation therapy. Based on review and interpretation of the relevant diagnostic studies together with the exam findings, Ruperto Bhatti was simulated on 03/29/2023 at which time the target volume and/or requisite lópez were delineated, as indicated in the simulation note, to be treated according to the prescription. The treatment target and organs at risk were contoured on the simulation scan using the fused MRI /. Special consideration to these and other structures was given in light of the potential for increased toxicities. After reviewing multiple treatment plans with dosimetry, the best plan was approved to deliver the prescribed course of radiation to the target area using inverse planning to allow for the best isodose distribution, treating to the 97.2% isodose line with 10MV and 3 lópez. Custom MLC asym jaws for IMRT were the treatment devices used to shape/modify the beams. Limiting dose to normal tissue was confirmed upon review of the calculated dose volume histogram. IMRT planning was used because it best met the dose/volume constraints for the organs at risk for this patient, better than what could be achieved using conventional or 3D planning. The specific dose requirements for the PTV, organs at risk and dose-volume histograms are contained in this treatment plan and/or elsewhere in the medical record. A completed summary of this plan dated 04/04/2023 incorporated herein by reference includes dose, beam arrangements, energy, blocking, isodose distribution, and/or ports and DVH. Electronically Signed Preston Novak M.D. 48:10 AM [facility] 03-21-2023 Note HNO ID: [id number] Author: Stephanie CASTRO MD Service: ? Author Type: Physician Type: Progress Notes Filed: 03/27/2023 09:24 Note Text: Radiation Oncology - Prostate Cancer Follow-up/new problem note PATIENT NAME: Ruperto Bhatti PATIENT DIAGNOSIS: Prostate adenocarcinoma, initial PSA 25.79, biopsy Dejah score 3 + 3 = 6 (grade group 1), clinical stage T1c,N0M0 s/p TRUS Random biopsy. Patient underwent robotic prostatectomy on 06/29/2022 Pathologic stage pT3aNx, [place] 7 (4+3) with detectable and rising PSA, PSA 01/14/2023 0.33 HPI: Patient in today for follow-up after further workup including PSMA PET. RADIOLOGY: PSMA PET 03/17/2023: HEAD/NECK: * No PSMA-expressing neoplastic process. CHEST: * No PSMA-expressing neoplastic process. ABDOMENS/PELVIS: * No PSMA-expressing neoplastic process. MUSCULOSKELETAL: * No PSMA-expressing neoplastic process. PSMA PET 05/18/2022 (preop): Head and neck: * No PSMA-expressing lesions suspicious for metastases. * 3.0 x 2.6 cm right thyroid lobe nodule. Recommend correlation with thyroid ultrasound, if not recently performed. Chest: * No PSMA-expressing lesions suspicious for metastases. Abdomen and Pelvis: * Multifocal prostate gland PSMA uptake, most prominently left mid gland, as described. * No evidence of abdominopelvic metastases. Bones and soft tissues: * No PSMA-expressing lesions suspicious for metastases. LABORATORY: PSA history: 03/02/2022 25.79 08/13/2022 <0.13 11/12/2022 0.14 01/14/2023 0.33 PSA (ng/mL) Date Value 03/21/2023 0.54 Radical robotic prostatectomy on 06/29/2022. Pathology as noted below. FINAL DIAGNOSIS A. Prostate, radical prostatectomy: - Prostatic adenocarcinoma, Dejah score 7 (4+3), Grade Group 3 with invasion into right bladder neck. - Margins of excision are free of neoplasm. - Cribriform pattern 4 is present. A. Seminal vesicles, right and left, excision: - Negative for neoplasm. SHAY/zahira 07/04/2022 Synoptic Report PROSTATE GLAND: Radical Prostatectomy 8th Edition - Protocol posted: 01/20/2021 PROSTATE GLAND: RESECTION - All Specimens SPECIMEN Procedure Radical prostatectomy Prostate Size Prostate Weight (Grams) 41.4 g Prostate Greatest Dimension (Centimeters) 4.4 cm Additional Prostate Dimension (Centimeters) 4.3 cm 3.8 cm TUMOR Histologic Type Acinar adenocarcinoma Histologic Grade Grade Grade group 3 ([place] Score 4 + 3 = 7) Minor Tertiary Pattern 5 (less than 5%) Not applicable Percentage of Pattern 4 61 - 70% Intraductal Carcinoma (IDC) Not identified Cribriform Glands Present Treatment Effect Not identified TUMOR QUANTITATION Estimated Percentage of Prostate Involved by Tumor 21 - 30% Extraprostatic Extension (EPE) Present, nonfocal Location of Extraprostatic Extension Right bladder neck Urinary Bladder Neck Invasion Present Seminal Vesicle Invasion Not identified Lymphovascular Invasion Not Identified MARGINS Margin Status All margins negative for invasive carcinoma REGIONAL LYMPH NODES Regional Lymph Node Status Not applicable (no regional lymph nodes submitted or found) PATHOLOGIC STAGE CLASSIFICATION (pTNM, AJCC 8th Edition) Reporting of pT, pN, and (when applicable) pM categories is based on information available to the pathologist at the time the report is issued. As per the AJCC (Chapter 1, 8th Ed.) it is the managing physician?s responsibility to establish the final pathologic stage based upon all pertinent information, including but potentially not limited to this pathology report. Primary Tumor (pT) pT3a pN Category pN not assigned (no nodes submitted or found) Comment(s) loan representative block A14 Initial postoperative PSA undetectable, <0.13 ng/mL (08/13/2022). However PSA was noted to be detectable on 11/12/2022, 0.14 ng/mL. Most recent PSA 01/14/2023 showing further increase to a value of 0.33 ng/mL. Patient has been doing very well. He denies any significant incontinence and wears a pad only for just in case. Able to the left without significant stress urinary incontinence. No other issues. Treatment for Prostate Cancer: None Genomic Testing: None The patient reports the following pertinent history: Urinary frequency (D/N): 4-6/0-1 Dysuria: No Incontinence: Rare incontinence does wear a pad just for protection Hematuria: No Bowel Movement Frequency: 1/day Bowel Movement Quality: Normal Blood per Rectum: No Last Colonoscopy: na Erectile function, partial with Tadalafil Androgen Deprivation: none Prior Radiation Therapy, Collagen Vascular Disease, or Inflammatory Bowel Disease: No Currently on Anticoagulation: No History of Hip Replacement: No History of Prior TURP: No ALLERGIES Allergen Reactions Linda Inhibitors Cough, Hives Losartan-Hydrochlor* Swelling indapamide (LOZOL) 2.5 mg tablet Take 2.5 mg by mo (more content not included)... [facility] 03-21-2023 Note Education (RADTSA) RUPERTO BHATTI ([id number]) 1960 M Date Time Provider Department 03/21/23 ROSITA REYNA Reason for Visit: Patient Education [91] Visit Notes: >> Rosita Reyna LPN Tue Mar 21, 2023 4:16 PM Status: Signed Radiation Therapy - Patient Education Note PATIENT NAME: Ruperto Bhatti PATIENT March 21, 2023 [facility] FACILITY/LOCATION: [facility] READINESS TO LEARN Cognitive Ability: Alert and oriented Motivation to learn: Interested Family Support: High - Very involved in pt care Instruction provide to: Patient and Spouse Patient learns best by: Multiple Methods Factors effecting learning: None Physical limitations effecting learning: None LEARNING RESPONSE Diagnosis: Pt simulated today for radiation therapy to pelvis. Education Topic/Teaching Points: Radiation therapy, Side effects, and OTV: Method of instruction: Written instruction - handouts Verbal instruction Patient /Family response: Patient and family verbalized understanding of radiation treatments, side effects, OTV, and transportation. Follow-up plan: Patient instructed to call with any further issues Recommend - Recommend continued instruction and follow up as directed Contact information given. Supplemental material: Informational handouts on Bladder function, Diarrhea, Fatigue, Pelvic handout, Skin changes, and patient education binder. Referral (recommendation): None, Pt denied need for social work, van service, and oracle fusion consultant. Was approved? No Signed by: Rosita Reyna LPN During your visit today, we recorded the following information about you: Allergies As of Date: 03/21/2023 Noted Allergy Reaction LINDA INHIBITORS 04/19/2022 3 - Cough 4 - Hives LOSARTAN-HYDROCHLOROTHIAZIDE 04/19/2022 7 - Swelling Date Reviewed: 03/21/2023 Reviewed by: Rosita Reyna LPN - Fully Assessed Prescriptions as of 03/21/2023 - indapamide (LOZOL) 2.5 mg tablet Take 2.5 mg by mouth every morning. - hydrALAZINE (APRESOLINE) 25 mg tablet Take 25 mg by mouth two times a day. - Tadalafil (CIALIS) 5 mg tablet Take 1 tablet by mouth daily. - Tadalafil (CIALIS) 20 mg tab(s) Take 1 tablet by mouth as needed. 1-2 hours before sexual intercourse. - amLODIPine (NORVASC) 10 mg tablet Take by mouth q 24 HR. - carvedilol (COREG) 12.5 mg tablet q 12 HR. - cloNIDine HCl (CATAPRES) 0.1 mg tablet Take 0.1 mg by mouth three times daily. Encounter Status:Closed by ROSITA REYNA on 03/21/23 [facility] 03-17-2023 Note HNO ID: [id number] Author: BERNARDO COLORADO RN Service: ? Author Type: Registered Nurse Type: Progress Notes Filed: 03/17/2023 13:22 Note Text: Radiology Service Progress Note DATE OF SERVICE: March 17, 2023 TIME: 1:22 PM PATIENT IDENTITY VERIFICATION COMPLETED USING TWO (2) STANDARD IDENTIFIERS: Name and Date of confirmed by patient verbally. FALL SCREENING: Has the patient had 2 falls in the last year or 1 fall with injury or currently using an Ambulatory Assistive Device (Walker, Cane, Wheelchair, Crutches, etc.)? No PATIENT GENDER DATA: Male EXAM: CT -CONTRAST INDUCED NEPHROPATHY RISK FACTORS: Not applicable CREATININE: Creatinine Date Value Ref Range Status 06/30/2022 0.71 (L) 0.73 - 1.22 mg/dL Final 06/29/2022 0.79 0.73 - 1.22 mg/dL Final 06/24/2022 0.78 0.73 - 1.22 mg/dL Final Estimated Glomerular Filtration Rate Date Value Ref Range Status 06/30/2022 105 >=60 mL/min/1.73m? Final Comment: Estimated Glomerular Filtration Rate (eGFR) is calculated using the 2020 CKD-EPI creatinine equation. This equation utilizes serum creatinine, sex, and age as parameters. The creatinine assay has traceable calibration to isotope dilution-mass spectrometry. Refer to KDIGO guidelines for clinical interpretation. In patients with unstable renal function, e.g. those with acute kidney injury, the eGFR may not accurately reflect actual GFR. P.O.C.T. RESULTS: N/A March 17, 2023 TREATMENT: N/A IV SITE: Ambulatory: A peripheral IV was started in the Left antecubital site with a Angio cath: 22 gauge. IV SITE APPEARANCE: Clean,Dry and Intact SIGNATURE: Bernardo Colorado RN PATIENT NAME: Ruperto Bhatti DATE: March 17, 2023 TIME: 1:22 PM [facility] 03-17-2023 Note HNO ID: [id number] Author: KANDY CASTELLANOS RT(R) Service: ? Author Type: Technologist Type: Progress Notes Filed: 03/17/2023 13:33 Note Text: RADIOLOGY SERVICE PROGRESS NOTE SERVICE DATE: 03/17/2023 SERVICE TIME: 1:33 PM PATIENT IDENTITY VERIFICATION COMPLETED USING TWO (2) STANDARD IDENTIFIERS: Name and Date of confirmed by patient verbally POST EXAM PIV STATUS: Discontinued PROCEDURE TYPE: NM INJECT: PET/CT BODY SCAN. 10.8 mCi F18 FDG. No other medications given.. ADMINISTRATION TIME: 1322 PATIENT DISCHARGED TO: Ambulatory patient, left NM department area. A Diagnostic radioactive procedure has taken place, with no further precautions necessary other than routine body substance precautions. More information regarding radiation safety can be found using this link: [email or web address] SIGNATURE: RT Lisa(R) PATIENT NAME: Ruperto Bhatti DATE: March 17, 2023 TIME: 1:33 PM PAGER/CONTACT #: [facility] 02-22-2023 Miscellaneous Notes Auth#: Date Range: 71235/PSMA- piflufolastat (Coni) Rl DIETRICH Stephanie Fuentes MD [facility] Contact Number: Intake: online Case/Ref#:[id number] Notes: 02/22/2023 Submit Clinicals online via [facility] pending review 02/27/2023 Pending review Authorization number: PSMA Authorization date range: PSMA Primary Insurance: [employer] PPO OOS Diagnosis: Malignant neoplasm of prostate (HCC) [C61] DX Imaging: PET Scan: 05/18/2022 PET Pathology: Patient underwent radical robotic prostatectomy on 06/29/2022. Pathology as noted below. FINAL DIAGNOSIS A. Prostate, radical prostatectomy: - Prostatic adenocarcinoma, [place] score 7 (4+3), Grade Group 3 with invasion into right bladder neck. - Margins of excision are free of neoplasm. - Cribriform pattern 4 is present. A. Seminal vesicles, right and left, excision: - Negative for neoplasm. Prostate adenocarcinoma, initial PSA 25.79, biopsy Dejah score 3 + 3 = 6 (grade group 1), clinical stage T1c,N0M0 s/p TRUS Random biopsy. Patient underwent robotic prostatectomy on 06/29/2022 Pathologic stage pT3aNx, [place] 7 (4+3) with detectable and rising PSA, PSA 01/14/2023 0.33 Labs: PSA 01/14/2023 PSA 0.33 11/12/2022 PSA 0.14 08/13/2022 PSA 0.13 Clinical Notes Reviewed: 02/22/2023 Rad Onc Date of last: underwent robotic prostatectomy on 06/29/2022 Additional Information: Prostate cancer, recurrence suspected, restaging Radiologist Reviewed: N/A Initial/Subsequent: Subsequent Treatment Strategy: [id number] PET Protocol: PSMA Diagnostic Imaging Requested: No Is this a Pretreatment and/or an initial Pet scan: No - Schedule as requested Comments for Hospital Housekeeper: JENNIFER soon as insurance will allow ROUTE TO SCHEDULERS POOL P PET DEPENDENCY DIRECTOR [facility] or P [place] SPECIAL STUDIES [facility] This form is used for MAIN CAMPUS APPOINTMENTS ONLY. Is this request for a [facility] [place] PET scan appointment? Yes: Explosive Ordnance Technician: Duyen Holland Sec Requesting Person Dr Castro: Area Code + Phone/Pager: [phone] Who do we call to schedule this appointment? Other Contact: PSMA please route to toan castellanos in [place] Requesting Staff Dr castro Area Code + Phone/Pager: [phone] PET Orders (A delay in scheduling will result if the orders are not present at time of review): Internal ADDITIONAL ACTION MAY BE REQUIRED IF PATIENTS OON INSURANCE OR SELF PAY COVERAGE HAS NOT BEEN CLEARED FOR REQUESTED APPOINTMENT. Scheduling: JENNIFER: As soon as insurance will allow What account will this PET appointment be linked to? P/F Type of PET: Oncology: Are there additional diagnostic CT scans required to be done at time of PET scan? No Is the request for a PET MR ? No What account will diagnostic testing appointment be linked to? P/F Will the patient need anesthesia? NO Send requests to P COORD REVIEW [facility] documented in this encounter [facility] 02-21-2023 Nurse Note AUA 5 Alise Acosta RN documented in this encounter [facility] 02-21-2023 Note HNO ID: [id number] Author: Stephanie Castro MD Service: ? Author Type: Physician Type: Progress Notes Filed: 02/21/2023 3:54 PM Note Text: Radiation Oncology - Prostate Cancer Follow-up/new problem note PATIENT NAME: Ruperto Bhatti PATIENT DIAGNOSIS: Prostate adenocarcinoma, initial PSA 25.79, biopsy Dejah score 3 + 3 = 6 (grade group 1), clinical stage T1c,N0M0 s/p TRUS Random biopsy. Patient underwent robotic prostatectomy on 06/29/2022 Pathologic stage pT3aNx, Dejah 7 (4+3) with detectable and rising PSA, PSA 01/14/2023 0.33 HPI: Patient known to me from previous consultation. He is here after having undergone radical robotic prostatectomy now with a rising PSA. Patient underwent radical robotic prostatectomy on 06/29/2022. Pathology as noted below. FINAL DIAGNOSIS A. Prostate, radical prostatectomy: - Prostatic adenocarcinoma, [place] score 7 (4+3), Grade Group 3 with invasion into right bladder neck. - Margins of excision are free of neoplasm. - Cribriform pattern 4 is present. A. Seminal vesicles, right and left, excision: - Negative for neoplasm. JLM/zahira 07/04/2022 Synoptic Report PROSTATE GLAND: Radical Prostatectomy 8th Edition - Protocol posted: 01/20/2021 PROSTATE GLAND: RESECTION - All Specimens SPECIMEN Procedure Radical prostatectomy Prostate Size Prostate Weight (Grams) 41.4 g Prostate Greatest Dimension (Centimeters) 4.4 cm Additional Prostate Dimension (Centimeters) 4.3 cm 3.8 cm TUMOR Histologic Type Acinar adenocarcinoma Histologic Grade Grade Grade group 3 (Dejah Score 4 + 3 = 7) Minor Tertiary Pattern 5 (less than 5%) Not applicable Percentage of Pattern 4 61 - 70% Intraductal Carcinoma (IDC) Not identified Cribriform Glands Present Treatment Effect Not identified TUMOR QUANTITATION Estimated Percentage of Prostate Involved by Tumor 21 - 30% Extraprostatic Extension (EPE) Present, nonfocal Location of Extraprostatic Extension Right bladder neck Urinary Bladder Neck Invasion Present Seminal Vesicle Invasion Not identified Lymphovascular Invasion Not Identified MARGINS Margin Status All margins negative for invasive carcinoma REGIONAL LYMPH NODES Regional Lymph Node Status Not applicable (no regional lymph nodes submitted or found) PATHOLOGIC STAGE CLASSIFICATION (pTNM, AJCC 8th Edition) Reporting of pT, pN, and (when applicable) pM categories is based on information available to the pathologist at the time the report is issued. As per the AJCC (Chapter 1, 8th Ed.) it is the managing physician?s responsibility to establish the final pathologic stage based upon all pertinent information, including but potentially not limited to this pathology report. Primary Tumor (pT) pT3a pN Category pN not assigned (no nodes submitted or found) Comment(s) loan representative block A14 Initial postoperative PSA undetectable, <0.13 ng/mL (08/13/2022). However PSA was noted to be detectable on 11/12/2022, 0.14 ng/mL. Most recent PSA 01/14/2023 showing further increase to a value of 0.33 ng/mL. Patient has been doing very well. He denies any significant incontinence and wears a pad only for just in case. Able to the left without significant stress urinary incontinence. No other issues. Treatment for Prostate Cancer: None Genomic Testing: None The patient reports the following pertinent history: Urinary frequency (D/N): 4-6/0-1 Dysuria: No Incontinence: Rare incontinence does wear a pad just for protection Hematuria: No - Total AUA Score: 5 Bowel Movement Frequency: 1/day Bowel Movement Quality: Normal Blood per Rectum: No Last Colonoscopy: na Erectile function, partial with Tadalafil Androgen Deprivation: none Prior Radiation Therapy, Collagen Vascular Disease, or Inflammatory Bowel Disease: No Currently on Anticoagulation: No History of Hip Replacement: No History of Prior TURP: No ALLERGIES Allergen Reactions Linda Inhibitors Cough, Hives Losartan-Hydrochlor* Swelling indapamide (LOZOL) 2.5 mg tablet Take 2.5 mg by mouth every morning. hydrALAZINE (APRESOLINE) 25 mg tablet Take 25 mg by mouth two times a day. Tadalafil (CIALIS) 5 mg tablet Take 1 tablet by mouth daily. Tadalafil (CIALIS) 20 mg tab(s) Take 1 tablet by mouth as needed. 1-2 hours before sexual intercourse. amLODIPine (NORVASC) 10 mg tablet Take by mouth q 24 HR. carvedilol (COREG) 12.5 mg tablet q 12 HR. cloNIDine HCl (CATAPRES) 0.1 mg tablet Take 0.1 mg by mouth three times daily. PAST MEDICAL HISTORY Diagnosis Date HTN (hypertension) PAST SURGICAL HISTORY Procedure Laterality Date ADRENALECTOMY No family history on file. Social History Tobacco Use Smoking status: Every Day Packs/day: 1 Types: Cigarettes Start date: 2019 Passive exposure: Never Smokeless tobacco: Never Substance Use Topics Alcohol use: Yes (more content not included)... [facility] 02-21-2023 History of Present illness Narrative Radiation Oncology - Prostate Cancer Follow-up/new problem note PATIENT NAME: Ruperto Bhatti PATIENT DIAGNOSIS: Prostate adenocarcinoma, initial PSA 25.79, biopsy Dejah score 3 + 3 = 6 (grade group 1), clinical stage T1c,N0M0 s/p TRUS Random biopsy. Patient underwent robotic prostatectomy on 06/29/2022 Pathologic stage pT3aNx, Dejah 7 (4+3) with detectable and rising PSA, PSA 01/14/2023 0.33 HPI: Patient known to me from previous consultation. He is here after having undergone radical robotic prostatectomy now with a rising PSA. Patient underwent radical robotic prostatectomy on 06/29/2022. Pathology as noted below. FINAL DIAGNOSIS A. Prostate, radical prostatectomy: - Prostatic adenocarcinoma, [place] score 7 (4+3), Grade Group 3 with invasion into right bladder neck. - Margins of excision are free of neoplasm. - Cribriform pattern 4 is present. A. Seminal vesicles, right and left, excision: - Negative for neoplasm. SHAY/zahira 07/04/2022 Synoptic Report PROSTATE GLAND: Radical Prostatectomy 8th Edition - Protocol posted: 01/20/2021 PROSTATE GLAND: RESECTION - All Specimens SPECIMEN Procedure Radical prostatectomy Prostate Size Prostate Weight (Grams) 41.4 g Prostate Greatest Dimension (Centimeters) 4.4 cm Additional Prostate Dimension (Centimeters) 4.3 cm 3.8 cm TUMOR Histologic Type Acinar adenocarcinoma Histologic Grade Grade Grade group 3 (Dejah Score 4 + 3 = 7) Minor Tertiary Pattern 5 (less than 5%) Not applicable Percentage of Pattern 4 61 - 70% Intraductal Carcinoma (IDC) Not identified Cribriform Glands Present Treatment Effect Not identified TUMOR QUANTITATION Estimated Percentage of Prostate Involved by Tumor 21 - 30% Extraprostatic Extension (EPE) Present, nonfocal Location of Extraprostatic Extension Right bladder neck Urinary Bladder Neck Invasion Present Seminal Vesicle Invasion Not identified Lymphovascular Invasion Not Identified MARGINS Margin Status All margins negative for invasive carcinoma REGIONAL LYMPH NODES Regional Lymph Node Status Not applicable (no regional lymph nodes submitted or found) PATHOLOGIC STAGE CLASSIFICATION (pTNM, AJCC 8th Edition) Reporting of pT, pN, and (when applicable) pM categories is based on information available to the pathologist at the time the report is issued. As per the AJCC (Chapter 1, 8th Ed.) it is the managing physician s responsibility to establish the final pathologic stage based upon all pertinent information, including but potentially not limited to this pathology report. Primary Tumor (pT) pT3a pN Category pN not assigned (no nodes submitted or found) Comment(s) loan representative block A14 Initial postoperative PSA undetectable, <0.13 ng/mL (08/13/2022). However PSA was noted to be detectable on 11/12/2022, 0.14 ng/mL. Most recent PSA 01/14/2023 showing further increase to a value of 0.33 ng/mL. Patient has been doing very well. He denies any significant incontinence and wears a pad only for just in case. Able to the left without significant stress urinary incontinence. No other issues. Treatment for Prostate Cancer: None Genomic Testing: None The patient reports the following pertinent history: Urinary frequency (D/N): 4-6/0-1 Dysuria: No Incontinence: Rare incontinence does wear a pad just for protection Hematuria: No - Total AUA Score: 5 Bowel Movement Frequency: 1/day Bowel Movement Quality: Normal Blood per Rectum: No Last Colonoscopy: na Erectile function, partial with Tadalafil Androgen Deprivation: none Prior Radiation Therapy, Collagen Vascular Disease, or Inflammatory Bowel Disease: No Currently on Anticoagulation: No History of Hip Replacement: No History of Prior TURP: No ALLERGIES Allergen Reactions Linda Inhibitors Cough, Hives Losartan-Hydrochlor* Swelling indapamide (LOZOL) 2.5 mg tablet Take 2.5 mg by mouth every morning. hydrALAZINE (APRESOLINE) 25 mg tablet Take 25 mg by mouth two times a day. Tadalafil (CIALIS) 5 mg tablet Take 1 tablet by mouth daily. Tadalafil (CIALIS) 20 mg tab(s) Take 1 tablet by mouth as needed. 1-2 hours before sexual intercourse. amLODIPine (NORVASC) 10 mg tablet Take by mouth q 24 HR. carvedilol (COREG) 12.5 mg tablet q 12 HR. cloNIDine HCl (CATAPRES) 0.1 mg tablet Take 0.1 mg by mouth three times daily. PAST MEDICAL HISTORY Diagnosis Date HTN (hypertension) PAST SURGICAL HISTORY Procedure Laterality Date ADRENALECTOMY No family history on file. Social History Tobacco Use Smoking status: Every Day Packs/day: 1 Types: Cigarettes Start date: 2019 Passive exposure: Never Smokeless tobacco: Never Substance Use Topics Alcohol use: Yes Alcohol/week: 6.0 standard drinks of alcohol Types: 6 Cans of beer per week Comment: 2 drinks a day per pt 06/24/2022 Drug use: Never REVIEW OF SYSTEMS: GENERAL: feeling well without fatigue, no recent change in weight NECK: denies swelling or pain in neck RESPIRATORY: no cough, no wheezing or shortness of breath CARDIOVASCULAR: no chest pain, no palpitations MUSCULOSKELETAL: denies any painful or swollen joints, no muscle aches NEURO: no numbness or paresthesias and no weakness of the extremities As noted in HPI PHYSICAL EXAM: VS: BP 185/74 Pulse 82 Temp (!) 35.9 C (96.7 F) Resp 18 Wt 86.6 kg (191 lb) SpO2 99% BMI 29.04 kg/m KARNOFSKY PERFORMANCE STATUS: 100 General Appearance: Alert and oriented. No acute distress. Neck: No mass or adenopathy Abdomen: No hepatosplenomegaly no masses, well-healed port incisions GENITOURINARY: Deferred exam RECTAL: Deferred exam RADIOLOGY/LABORATORY DATA: see HPI ASSESSMENT/PLAN: Prostate adenocarcinoma, initial PSA 25.79, biopsy Hatboro score 3 + 3 = 6 (grade group 1), clinical stage T1c,N0M0 s/p TRUS Random biopsy. Patient underwent robotic prostatectomy on 06/29/2022 Pathologic stage pT3aNx, Hat[place] 7 (4+3) with detectable and rising PSA, PSA 01/14/2023 0.33 Patient overall doing well after prostatectomy. Initial post prostatectomy PSA undetectable however PSA has become detectable in November and has risen to 0.33 most recently. Given this I am concerned that patient has area of recurrence. I do think he would benefit from salvage radiation. I would recommend imaging with PSMA PET. In terms of management options we discussed the role of radiation in this situation. Also discussed the role of ADT and pelvic regional lymph node treatment in addition to prostate bed. Plan to have patient back for further discussion after PSMA PET. Signed by: Stephanie Castro MD cc: Dr. Loc Haque APRN. FOURCHETTE SEWER documented in this encounter [facility] 01-26-2023 History of Present illness Narrative VIRTUAL VISIT PROGRESS NOTE This is a virtual visit using Audio Only Visit. It required patient-provider interaction for the medical decision making as documented below. I have communicated my name and active licensure. The patient's identity and physical location were verified at the time of this visit. Either the patient or their legal loan representative has been informed of the risks and benefits of -- and alternatives to -- treatment through a remote evaluation and consents to proceed with the evaluation remotely. Persons Present: patient and patient's spouse Shona Chief Complaint/Reason: follow up Clinic note from 11/23/2022 copied and updated. HPI: Ruperto Bhatti is a 62 year old male with hx of GG1 prostate cancer on biopsy and PSA >30 who presents for follow up evaluation. He is s/p RALP on 06/29/[address] Walker. FINAL DIAGNOSIS A. Prostate, radical prostatectomy: - Prostatic adenocarcinoma, Hatboro score 7 (4+3), Grade Group 3 with invasion into right bladder neck. - Margins of excision are free of neoplasm. - Cribriform pattern 4 is present. A. Seminal vesicles, right and left, excision: - Negative for neoplasm. Last seen via virtual visit 11/23/22. Reported improving YELENA using 1 pad/day and 1 brief/night. Discussed on demand Tadalafil dosing for ED. Plan to recheck PSA in 2 months. If rising, consider consult to Rad/Onc. PSA drawn on 01/14/23- no results available for review during visit. Patient unsure of results. Interval Hx: Overall, doing well. Recently had BP meds adjusted by his cco- otherwise, no interval changes in health. Reports improving urine control. Using 1 thin liner during the day- states he could probably go without this although prefers to wear for security at this time. Reports only rare, scant YELENA with sneezing. Able to achieve ~60% erection with daily Tadalafil (5 mg). Data Reviewed: Most recent labs Labs: PSA trends: 0.14 ng/mL (11/12/2022) <0.13 ng/mL (08/13/2022) 32.23 ng/mL (05/14/2022) 25.79 ng/mL (03/02/2022) 25.21 ng/mL (01/31/2022) Imaging: NM PET/CT PROSTATE WHOLE BODY IMAGING 05/18/2022 IMPRESSION: Head and neck: * No PSMA-expressing lesions suspicious for metastases. * 3.0 x 2.6 cm right thyroid lobe nodule. Recommend correlation with thyroid ultrasound, if not recently performed. Chest: * No PSMA-expressing lesions suspicious for metastases. Abdomen and Pelvis: * Multifocal prostate gland PSMA uptake, most prominently left mid gland, as described. * No evidence of abdominopelvic metastases. Bones and soft tissues: * No PSMA-expressing lesions suspicious for metastases. HISTORY REVIEWED (electronic chart updated): PAST MEDICAL HISTORY Diagnosis Date HTN (hypertension) PAST SURGICAL HISTORY Procedure Laterality Date ADRENALECTOMY No family history on file. Social History Tobacco Use Smoking status: Every Day Packs/day: 1 Types: Cigarettes Start date: 2019 Passive exposure: Never Smokeless tobacco: Never Substance Use Topics Alcohol use: Yes Alcohol/week: 6.0 standard drinks of alcohol Types: 6 Cans of beer per week Comment: 2 drinks a day per pt 06/24/2022 Drug use: Never Current Outpatient Medications Medication Sig Tadalafil (CIALIS) 5 mg tablet Take 1 tablet by mouth daily. Tadalafil (CIALIS) 20 mg tab(s) Take 1 tablet by mouth as needed. 1-2 hours before sexual intercourse. LORazepam (ATIVAN) 1 mg tablet Take by mouth q 24 HR. amLODIPine (NORVASC) 10 mg tablet Take by mouth q 24 HR. carvedilol (COREG) 12.5 mg tablet q 12 HR. hydroCHLOROthiazide 12.5 mg capsule q 24 HR. cloNIDine HCl (CATAPRES) 0.1 mg tablet Take 0.1 mg by mouth three times daily. No current facility-administered medications for this visit. ALLERGIES Allergen Reactions Linda Inhibitors Cough, Hives Losartan-Hydrochlor* Swelling REVIEW OF SYSTEMS: GENERAL: activity level is normal : see HPI PHYSICAL EXAMINATION: VIDEO EXAM: (if completed, performed via video enabled technology) No exam performed- telephone visit ASSESSMENT: (Z08, Z85.46) Encounter for follow-up surveillance of prostate cancer (primary encounter diagnosis) (Z85.46) History of prostate cancer (N39.3) YELENA (stress urinary incontinence), male (N52.31) Erectile dysfunction following radical prostatectomy 62 year old male s/p RALP on 06/29/[address] Walker. PSA previously 0.14- rechecked 01/14/23 although no results available for review. We discussed that if PSA detectable or increased, would most likely refer to Rad/Onc. Improving YELENA. ED improving- discussed on demand Tadalafil dosing. PLAN: -Follow up with outside PSA results (patient requests we call spouse Shona to discuss results / plan of care) -Encourage daily Kegel exercises -Continue daily Tadalafil (5 mg). Discussed on demand dosing where he can take 10-20 mg of Tadalafil 1-2 hours prior to intercourse PRN. Advised not to exceed 20 mg in 36 hours and to skip daily dose as indicated. -Further plan pending above- likely consult Rad/Onc if PSA detectable (would request to be seen at [place] location) There are no Patient Instructions on file for this visit. I spent a total of 30 minutes on the date of the service which included preparing to see the patient, [id number] patient care, completing clinical documentation, counseling and educating the patient/family/caregiver, and ordering medications, tests, or procedures It was necessary to convert the virtual visit to a telephone encounter due to technical difficulties. Claribel Haque APRN.CNP documented in this encounter [facility] 01-26-2023 Note HNO ID: [id number] Author: Claribel Haque APRN.CNP Service: ? Author Type: Nurse Practitioner Type: Progress Notes Filed: 01/27/2023 4:47 PM Note Text: VIRTUAL VISIT PROGRESS NOTE This is a virtual visit using Audio Only Visit. It required patient-provider interaction for the medical decision making as documented below. I have communicated my name and active licensure. The patient's identity and physical location were verified at the time of this visit. Either the patient or their legal loan representative has been informed of the risks and benefits of -- and alternatives to -- treatment through a remote evaluation and consents to proceed with the evaluation remotely. Persons Present: patient and patient's spouse Shona Chief Complaint/Reason: follow up Clinic note from 11/23/2022 copied and updated. HPI: Ruperto Bhatti is a 62 year old male with hx of GG1 prostate cancer on biopsy and PSA >30 who presents for follow up evaluation. He is s/p RALP on 06/29/[address] Walker. FINAL DIAGNOSIS A. Prostate, radical prostatectomy: - Prostatic adenocarcinoma, Hatboro score 7 (4+3), Grade Group 3 with invasion into right bladder neck. - Margins of excision are free of neoplasm. - Cribriform pattern 4 is present. A. Seminal vesicles, right and left, excision: - Negative for neoplasm. Last seen via virtual visit 11/23/22. Reported improving YELENA using 1 pad/day and 1 brief/night. Discussed on demand Tadalafil dosing for ED. Plan to recheck PSA in 2 months. If rising, consider consult to Rad/Onc. PSA drawn on 01/14/23- no results available for review during visit. Patient unsure of results. Interval Hx: Overall, doing well. Recently had BP meds adjusted by his cco- otherwise, no interval changes in health. Reports improving urine control. Using 1 thin liner during the day- states he could probably go without this although prefers to wear for security at this time. Reports only rare, scant YELENA with sneezing. Able to achieve ~60% erection with daily Tadalafil (5 mg). Data Reviewed: Most recent labs Labs: PSA trends: 0.14 ng/mL (11/12/2022) <0.13 ng/mL (08/13/2022) 32.23 ng/mL (05/14/2022) 25.79 ng/mL (03/02/2022) 25.21 ng/mL (01/31/2022) Imaging: NM PET/CT PROSTATE WHOLE BODY IMAGING 05/18/2022 IMPRESSION: Head and neck: * No PSMA-expressing lesions suspicious for metastases. * 3.0 x 2.6 cm right thyroid lobe nodule. Recommend correlation with thyroid ultrasound, if not recently performed. Chest: * No PSMA-expressing lesions suspicious for metastases. Abdomen and Pelvis: * Multifocal prostate gland PSMA uptake, most prominently left mid gland, as described. * No evidence of abdominopelvic metastases. Bones and soft tissues: * No PSMA-expressing lesions suspicious for metastases. HISTORY REVIEWED (electronic chart updated): PAST MEDICAL HISTORY Diagnosis Date HTN (hypertension) PAST SURGICAL HISTORY Procedure Laterality Date ADRENALECTOMY No family history on file. Social History Tobacco Use Smoking status: Every Day Packs/day: 1 Types: Cigarettes Start date: 2019 Passive exposure: Never Smokeless tobacco: Never Substance Use Topics Alcohol use: Yes Alcohol/week: 6.0 standard drinks of alcohol Types: 6 Cans of beer per week Comment: 2 drinks a day per pt 06/24/2022 Drug use: Never Current Outpatient Medications Medication Sig Tadalafil (CIALIS) 5 mg tablet Take 1 tablet by mouth daily. Tadalafil (CIALIS) 20 mg tab(s) Take 1 tablet by mouth as needed. 1-2 hours before sexual intercourse. LORazepam (ATIVAN) 1 mg tablet Take by mouth q 24 HR. amLODIPine (NORVASC) 10 mg tablet Take by mouth q 24 HR. carvedilol (COREG) 12.5 mg tablet q 12 HR. hydroCHLOROthiazide 12.5 mg capsule q 24 HR. cloNIDine HCl (CATAPRES) 0.1 mg tablet Take 0.1 mg by mouth three times daily. No current facility-administered medications for this visit. ALLERGIES Allergen Reactions Linda Inhibitors Cough, Hives Losartan-Hydrochlor* Swelling REVIEW OF SYSTEMS: GENERAL: activity level is normal : see HPI PHYSICAL EXAMINATION: VIDEO EXAM: (if completed, performed via video enabled technology) No exam performed- telephone visit ASSESSMENT: (Z08, Z85.46) Encounter for follow-up surveillance of prostate cancer (primary encounter diagnosis) (Z85.46) History of prostate cancer (N39.3) YELENA (stress urinary incontinence), male (N52.31) Erectile dysfunction following radical prostatectomy 62 year old male s/p RALP on 06/29/[address] Walker. PSA previously 0.14- rechecked 01/14/23 although no results available for review. We discussed that if PSA detectable or increased, would most likely refer to Rad/Onc. Improving YELENA. ED improving- discussed on demand Tadalafil dosing. PLAN: -Follow up with outside PSA results (patient requests we call spouse Shona to discuss results / plan of care) -Encourage daily Keg (more content not included)... [facility] 11-23-2022 History of Present illness Narrative VIRTUAL VISIT PROGRESS NOTE This is a virtual visit using [employer] video visit. It required patient-provider interaction for the medical decision making as documented below. I have communicated my name and active licensure. The patient's identity and physical location were verified at the time of this visit. Either the patient or their legal loan representative has been informed of the risks and benefits of -- and alternatives to -- treatment through a remote evaluation and consents to proceed with the evaluation remotely. Persons Present: patient and patient's spouse/significant other Chief Complaint/Reason: follow up Clinic note from 08/18/2022 copied and updated. HPI: Ruperto Bhatti is a 62 year old male with hx of GG1 prostate cancer on biopsy and PSA >30 who presents for follow up evaluation. He is s/p RALP on 06/29/[address] Walker. FINAL DIAGNOSIS A. Prostate, radical prostatectomy: - Prostatic adenocarcinoma, Dejah score 7 (4+3), Grade Group 3 with invasion into right bladder neck. - Margins of excision are free of neoplasm. - Cribriform pattern 4 is present. A. Seminal vesicles, right and left, excision: - Negative for neoplasm. Last seen via virtual visit 08/18/22. Reported using ~2 briefs/day for YELENA. Discussed on demand Tadalafil dosing for ED. Plan to f/u in 3 months with PSA. PSA 0.14 ng/mL (11/12/22). Interval Hx: Overall, doing well. Prior rash surrounding abdominal incision has improved. He reports improving urine control and YELENA. Using 1 thin pad/day for safety and 1 brief/night. No gross hematuria. Having some intermittent nighttime leakage- but notes he was drinking fluids up until bed. Continues to take Tadalafil without adverse effects- requesting refill. Admits to ED- no response to daily dose. Has tried on demand dose once. Data Reviewed: Most recent labs Labs: PSA trends: 0.14 ng/mL (11/12/2022) <0.13 ng/mL (08/13/2022) 32.23 ng/mL (05/14/2022) 25.79 ng/mL (03/02/2022) 25.21 ng/mL (01/31/2022) Imaging: NM PET/CT PROSTATE WHOLE BODY IMAGING 05/18/2022 IMPRESSION: Head and neck: * No PSMA-expressing lesions suspicious for metastases. * 3.0 x 2.6 cm right thyroid lobe nodule. Recommend correlation with thyroid ultrasound, if not recently performed. Chest: * No PSMA-expressing lesions suspicious for metastases. Abdomen and Pelvis: * Multifocal prostate gland PSMA uptake, most prominently left mid gland, as described. * No evidence of abdominopelvic metastases. Bones and soft tissues: * No PSMA-expressing lesions suspicious for metastases. HISTORY REVIEWED (electronic chart updated): PAST MEDICAL HISTORY Diagnosis Date HTN (hypertension) PAST SURGICAL HISTORY Procedure Laterality Date ADRENALECTOMY No family history on file. Social History Tobacco Use Smoking status: Every Day Packs/day: 1 Types: Cigarettes Start date: 2019 Passive exposure: Never Smokeless tobacco: Never Substance Use Topics Alcohol use: Yes Alcohol/week: 6.0 standard drinks of alcohol Types: 6 Cans of beer per week Comment: 2 drinks a day per pt 06/24/2022 Drug use: Never Current Outpatient Medications Medication Sig Tadalafil (CIALIS) 5 mg tablet Take 1 tablet by mouth daily. Tadalafil (CIALIS) 20 mg tab(s) Take 1 tablet by mouth as needed. 1-2 hours before sexual intercourse. LORazepam (ATIVAN) 1 mg tablet Take by mouth q 24 HR. amLODIPine (NORVASC) 10 mg tablet Take by mouth q 24 HR. carvedilol (COREG) 12.5 mg tablet q 12 HR. hydroCHLOROthiazide 12.5 mg capsule q 24 HR. cloNIDine HCl (CATAPRES) 0.1 mg tablet Take 0.1 mg by mouth three times daily. No current facility-administered medications for this visit. ALLERGIES Allergen Reactions Linda Inhibitors Cough, Hives Losartan-Hydrochlor* Swelling REVIEW OF SYSTEMS: GENERAL: feeling well without fatigue GI: normal appetite, no abdominal pain : see HPI PHYSICAL EXAMINATION: VIDEO EXAM: (if completed, performed via video enabled technology) GENERAL: alert and appropriate, in no distress, well-hydrated, well nourished, and happy, smiling, interactive RESPIRATORY: breathing non-labored CHEST: equal chest rise with normal respiratory effort ASSESSMENT: (Z08, Z85.46) Encounter for follow-up surveillance of prostate cancer (primary encounter diagnosis) (Z85.46) History of prostate cancer (R97.21) Rising PSA following treatment for malignant neoplasm of prostate (N39.3) YELENA (stress urinary incontinence), male (N52.31) Erectile dysfunction following radical prostatectomy 62 year old male s/p RALP on 06/29/[address] Walker. We discussed most recent PSA results- discussed implications of rising PSA post-prostatectomy and definition of BCR of prostate cancer. Improving YELENA. Admits to ED- hx of ED prior to surgery. Offered to discussed further management options, although patient elects to continue with current Tadalafil Rx as prescribed. PLAN: -Encourage daily Kegel exercises. Discussed lifestyle modifications to help minimize night time leakage including restricting fluids at bedtime and minimizing bladder irritants in the evening -Refill Tadalafil Rx. Discussed on demand dosing where he can take 10-20 mg of Tadalafil 1-2 hours prior to intercourse PRN. Advised not to exceed 20 mg in 36 hours and to skip daily dose as indicated. -Follow up virtual visit in 2 months with PSA checked locally prior to visit- lab order mailed to patient per request. If PSA rising, consider consult to Rad/Onc Discussed with Dr. Walker. There are no Patient Instructions on file for this visit. I spent a total of 30 minutes on the date of the service which included preparing to see the patient, [id number] patient care, completing clinical documentation, counseling and educating the patient/family/caregiver, ordering medications, tests, or procedures, and communicating results to the patient/family/caregiver It was necessary to convert the virtual visit to a telephone encounter due to technical difficulties. Claribel Haque APRN.CNP documented in this encounter [facility] 11-23-2022 Note HNO ID: [id number] Author: Claribel Haque APRN.CNP Service: ? Author Type: Nurse Practitioner Type: Progress Notes Filed: 11/23/2022 9:46 PM Note Text: VIRTUAL VISIT PROGRESS NOTE This is a virtual visit using [employer] video visit. It required patient-provider interaction for the medical decision making as documented below. I have communicated my name and active licensure. The patient's identity and physical location were verified at the time of this visit. Either the patient or their legal loan representative has been informed of the risks and benefits of -- and alternatives to -- treatment through a remote evaluation and consents to proceed with the evaluation remotely. Persons Present: patient and patient's spouse/significant other Chief Complaint/Reason: follow up Clinic note from 08/18/2022 copied and updated. HPI: Ruperto Bhatti is a 62 year old male with hx of GG1 prostate cancer on biopsy and PSA >30 who presents for follow up evaluation. He is s/p RALP on 06/29/[address] Walker. FINAL DIAGNOSIS A. Prostate, radical prostatectomy: - Prostatic adenocarcinoma, Dejah score 7 (4+3), Grade Group 3 with invasion into right bladder neck. - Margins of excision are free of neoplasm. - Cribriform pattern 4 is present. A. Seminal vesicles, right and left, excision: - Negative for neoplasm. Last seen via virtual visit 08/18/22. Reported using ~2 briefs/day for YELENA. Discussed on demand Tadalafil dosing for ED. Plan to f/u in 3 months with PSA. PSA 0.14 ng/mL (11/12/22). Interval Hx: Overall, doing well. Prior rash surrounding abdominal incision has improved. He reports improving urine control and YELENA. Using 1 thin pad/day for safety and 1 brief/night. No gross hematuria. Having some intermittent nighttime leakage- but notes he was drinking fluids up until bed. Continues to take Tadalafil without adverse effects- requesting refill. Admits to ED- no response to daily dose. Has tried on demand dose once. Data Reviewed: Most recent labs Labs: PSA trends: 0.14 ng/mL (11/12/2022) <0.13 ng/mL (08/13/2022) 32.23 ng/mL (05/14/2022) 25.79 ng/mL (03/02/2022) 25.21 ng/mL (01/31/2022) Imaging: NM PET/CT PROSTATE WHOLE BODY IMAGING 05/18/2022 IMPRESSION: Head and neck: * No PSMA-expressing lesions suspicious for metastases. * 3.0 x 2.6 cm right thyroid lobe nodule. Recommend correlation with thyroid ultrasound, if not recently performed. Chest: * No PSMA-expressing lesions suspicious for metastases. Abdomen and Pelvis: * Multifocal prostate gland PSMA uptake, most prominently left mid gland, as described. * No evidence of abdominopelvic metastases. Bones and soft tissues: * No PSMA-expressing lesions suspicious for metastases. HISTORY REVIEWED (electronic chart updated): PAST MEDICAL HISTORY Diagnosis Date HTN (hypertension) PAST SURGICAL HISTORY Procedure Laterality Date ADRENALECTOMY No family history on file. Social History Tobacco Use Smoking status: Every Day Packs/day: 1 Types: Cigarettes Start date: 2019 Passive exposure: Never Smokeless tobacco: Never Substance Use Topics Alcohol use: Yes Alcohol/week: 6.0 standard drinks of alcohol Types: 6 Cans of beer per week Comment: 2 drinks a day per pt 06/24/2022 Drug use: Never Current Outpatient Medications Medication Sig Tadalafil (CIALIS) 5 mg tablet Take 1 tablet by mouth daily. Tadalafil (CIALIS) 20 mg tab(s) Take 1 tablet by mouth as needed. 1-2 hours before sexual intercourse. LORazepam (ATIVAN) 1 mg tablet Take by mouth q 24 HR. amLODIPine (NORVASC) 10 mg tablet Take by mouth q 24 HR. carvedilol (COREG) 12.5 mg tablet q 12 HR. hydroCHLOROthiazide 12.5 mg capsule q 24 HR. cloNIDine HCl (CATAPRES) 0.1 mg tablet Take 0.1 mg by mouth three times daily. No current facility-administered medications for this visit. ALLERGIES Allergen Reactions Linda Inhibitors Cough, Hives Losartan-Hydrochlor* Swelling REVIEW OF SYSTEMS: GENERAL: feeling well without fatigue GI: normal appetite, no abdominal pain : see HPI PHYSICAL EXAMINATION: VIDEO EXAM: (if completed, performed via video enabled technology) GENERAL: alert and appropriate, in no distress, well-hydrated, well nourished, and happy, smiling, interactive RESPIRATORY: breathing non-labored CHEST: equal chest rise with normal respiratory effort ASSESSMENT: (Z08, Z85.46) Encounter for follow-up surveillance of prostate cancer (primary encounter diagnosis) (Z85.46) History of prostate cancer (R97.21) Rising PSA following treatment for malignant neoplasm of prostate (N39.3) YELENA (stress urinary incontinence), male (N52.31) Erectile dysfunction following radical prostatectomy 62 year old male s/p RALP on 06/29/[address] Walker. We discussed most recent PSA results- discussed implications of rising PSA post-prostatectomy and definition of BCR of prostate cancer. Improving YELENA. A (more content not included)... [facility] 09-23-2022 Miscellaneous Notes Spoke to Mr. Bhatti. States he is having persistent rash on his legs. It is very itchy, few small bumps on legs and forearms. He will send a photo via confidential [facility] email over the weekend. Advised to try benadry or zyrtec for itching. He also wished to try hydrocortisone cream which he will purchase locally. Also advised to see a fisher trawl net. Patient verbalized understanding. All questions answered. Glenys Esparza RN, BSN Triage Nurse Department of Urology [facility] documented in this encounter [facility] 07-13-2022 Miscellaneous Notes Returned Ruperto Bhatti's Shona's call. She had some questions regarding final surgical pathology from 06/29/2022 which we discussed (okay to discuss health care information with spouse per patient). We also discussed finding of 3.0 x 2.6 cm right thyroid lobe nodule on PET scan from 05/18/2022- recommend that this be follow up with PCP with thyroid ultrasound. She verbalized understanding of information. Claribel Haque APRN.CNP documented in this encounter [facility] 07-07-2022 History of Present illness Narrative VIRTUAL VISIT PROGRESS NOTE This is a virtual visit using Audio only. It required patient-provider interaction for the medical decision making as documented below. I have communicated my name and active licensure. The patient's identity and physical location were verified at the time of this visit. Either the patient or their legal loan representative has been informed of the risks and benefits of -- and alternatives to -- treatment through a remote evaluation and consents to proceed with the evaluation remotely. Persons Present: patient and patient's spouse Chief Complaint/Reason: post-op HPI: Ruperto Bhatti is a 62 year old male with hx of GG1 prostate cancer on biopsy and PSA >30 who presents for post-op evaluation. He is s/p RALP on 06/29/[address] Walker. FINAL DIAGNOSIS A. Prostate, radical prostatectomy: - Prostatic adenocarcinoma, [place] score 7 (4+3), Grade Group 3 with invasion into right bladder neck. - Margins of excision are free of neoplasm. - Cribriform pattern 4 is present. A. Seminal vesicles, right and left, excision: - Negative for neoplasm. Hospital course uncomplicated and he was discharged home on 06/30/2022 with instructions to remove catheter at home on 07/06/2022. Interval Hx: Overall, doing well since hospital discharge. Denies fevers or chills. Tolerating adequate PO intake. Denies constipation. He removed [place] catheter at home yesterday without issue. Urinating without difficulty. He admits to anticipated urinary leakage. Denies pain. Incisions healing without evidence of infection. No calf pain or swelling. Data Reviewed: Most recent labs Most recent surgical pathology Labs: PSA trends: 32.23 ng/mL (05/14/2022) 25.79 ng/mL (03/02/2022) 25.21 ng/mL (01/31/2022) HISTORY REVIEWED (electronic chart updated): PAST MEDICAL HISTORY Diagnosis Date HTN (hypertension) PAST SURGICAL HISTORY Procedure Laterality Date ADRENALECTOMY No family history on file. Social History Tobacco Use Smoking status: Every Day Packs/day: 1.00 Types: Cigarettes Start date: 2019 Passive exposure: Never Smokeless tobacco: Never Substance Use Topics Alcohol use: Yes Alcohol/week: 6.0 standard drinks Types: 6 Cans of beer per week Comment: 2 drinks a day per pt 06/24/2022 Drug use: Never Current Outpatient Medications Medication Sig acetaminophen (TYLENOL EXTRA STRENGTH) 500 mg tablet Take 2 tablets by mouth every 6 hours as needed for pain. docusate sodium (COLACE) 100 mg capsule Take 1 capsule by mouth twice daily. oxybutynin (DITROPAN) 5 mg tablet Take 1 tablet by mouth three times daily as needed. apixaban (ELIQUIS) 2.5 mg tab(s) Take 1 tablet by mouth twice daily. Tadalafil (CIALIS) 20 mg tab(s) Take 1 tablet by mouth as needed. 1-2 hours before sexual intercourse. LORazepam (ATIVAN) 1 mg tablet Take by mouth q 24 HR. amLODIPine (NORVASC) 10 mg tablet Take by mouth q 24 HR. carvedilol (COREG) 12.5 mg tablet q 12 HR. hydroCHLOROthiazide 12.5 mg capsule q 24 HR. cloNIDine HCl (CATAPRES) 0.1 mg tablet Take 0.1 mg by mouth three times daily. No current facility-administered medications for this visit. ALLERGIES Allergen Reactions Linda Inhibitors Cough, Hives Losartan-Hydrochlor* Swelling REVIEW OF SYSTEMS: GENERAL: no fever RESPIRATORY: no wheezing or shortness of breath CARDIOVASCULAR: no chest pain GI: tolerating PO well and no abdominal pain : no difficulty urinating PHYSICAL EXAMINATION: VIDEO EXAM: (if completed, performed via video enabled technology) No exam performed- visit completed via telephone ASSESSMENT: (C61) Malignant neoplasm of prostate (HCC) (primary encounter diagnosis) 62 year old male s/p RALP on 06/29/[address] Walker. We discussed surgical pathology results in detail and rationale for continued PSA monitoring. Reviewed Kegel exercises and post-op physical restrictions. Overall, doing well with no acute post-op concerns. PLAN: -Encourage daily Kegel exercises (6 sets of 10 per day)- written instructions mailed to patient -Rx for daily Tadalafil (5 mg) for penile rehab sent to preferred pharmacy. Confirmed he is not taking Nitrates. Side effects and administration instructions reviewed. Instructed not to take in combination with prior 20 mg Tadalafil dose -Follow up virtual visit in 6 weeks with PSA checked locally prior to visit. Lab order mailed to patient and he will have results faxed to [facility]. F/u sooner PRN. There are no Patient Instructions on file for this visit. I spent a total of 30 minutes on the date of the service which included preparing to see the patient, [id number] patient care, completing clinical documentation, and ordering medications, tests, or procedures It was necessary to convert the virtual visit to a telephone encounter due to technical difficulties. Claribel Haque APRN.TEETEE documented in this encounter [facility] 06-24-2022 History of Present illness Narrative [facility] PRE-OP NOTE Ruperto Bhatti is a 62 year old male. Patient and left [facility] before completing pre op teaching appointment. This visit was conducted over the phone with Ruperto and his . Pre-op Date: June 24, 2022 Date of Procedure: 06/29/2022 Does the patient have an active COVID-19 test in Epic? N/a Procedure/Surgery: ROBOTIC LAPAROSCOPIC RETROPUBIC RADICAL PROSTATECTOMY W/ NERVE SPARING Diagnosis: Prostate Cancer Primary Surgeon: MD Walker Robert There were no vitals taken for this visit. Pain Assessment: Are you currently having pain? No 0 on a scale of 0 to 10 Surgical Guide Book Status: Patient reviewed book. Dialysis Guide Book Status: N/A Allergies Reviewed: Yes Medications Reviewed: Yes Is patient currently on oral steroids?: No Has the patient had a UTI in the past month?: No. Does the patient have any artificial joints (last 2 years), metal parts, pacemakers or cardiac/ureteral stents in place?: No Does the patient have diabetes?: No Is the patient routinely taking anticoagulants?: No. Can the patient have an IV put in either arm?: Yes Urine Dip Complete?: Yes URINE CULTURE COMPLETE?: No, ORDERED AND PATIENT INSTRUCTED TO GO TO LAB TO DROP OFF SAMPLE TODAY Ostomy/Stoma Nurse appointment made/completed: N/A IMPACT/Medical Clearance: Cleared per IMPACT - Yes [facility] Clinic: Cleared per PACE - N/A All testing on cureform has been scheduled: Yes Consent Signed: NOT SIGNED. TELEPHONE ENCOUNTER DOS Orders Placed and Signed: Yes by Dr. Moreno Pre-op H&P Done by Impact: Yes. PATIENT INSTRUCTIONS FOR SURGERY 1.) DO NOT HAVE ANYTHING TO EAT AFTER MIDNIGHT THE DAY BEFORE SURGERY except for certain morning medications as instructed by the doctor. Candy, mints, gum, and smoking are NOT permitted. You may drink clear liquids (Sprite, water, yordy sandy) up to two hours before your arrival time on the day of surgery. 2.) Medications to be taken on the morning of surgery with a few sips of water: per SETH 3.) Please bring all your prescribed inhalers (if you have any you normally take) to the hospital. 4.) Arrival time: Call for arrival. 5.) Prep given: No 6.) Lovenox instructions given: N/A 7.) Patient reminded that surgery time provided day before surgery is tentative based on potential changes with transplants. Recommendations: This patient is optimally prepared for surgery pending LABS. Yee Morales APRN.CNP documented in this encounter [facility] 06-24-2022 History and physical note HISTORY AND PHYSICAL EXAMINATION Attending Note I evaluated the patient and personally participated in the villa components. I agree with the resident's findings and plan as documented and have discussed the case and management of the patient's care with the resident. Signature: Elinor Christensen MD, PhD Date: 06/24/2022 Time: 1:19 PM SERVICE DATE: June 24, 2022 SERVICE TIME: 11:53 AM PRIMARY CARE PHYSICIAN: Wu Enrique MD REASON FOR VISIT: Ruperto Bhatti is a 62 year old male who is scheduled for ROBOTIC LAPAROSCOPIC RETROPUBIC RADICAL PROSTATECTOMY W/ NERVE SPARING at the request of Dr. Rodolfo Walker for consultation. My final recommendation will be communicated back to the requesting physician by way of shared medical record or letter. The patient has the following: ACTIVE PROBLEM LIST Malignant Neoplasm of Prostate (Hcc) Htn (Hypertension) Subjective CHIEF COMPLAINT: Pre-op exam HPI: Ruperto Bhatti is a 62 year old male who presents for pre-anesthesia consultation for upcoming procedure. Patient has a history of prostate adenocarcinoma. Denies any fever, chills, nausea, vomiting, chest pain, abdominal pain, SOB. Above procedure is recommended to manage symptoms. Patient is scheduled for surgery on 06/29/2022. PAST MEDICAL HISTORY Diagnosis Date HTN (hypertension) PAST SURGICAL HISTORY Procedure Laterality Date ADRENALECTOMY No family history on file. SOCIAL HISTORY: Social History Tobacco Use Smoking status: Every Day Packs/day: 1.00 Types: Cigarettes Start date: 2019 Passive exposure: Never Smokeless tobacco: Never Substance Use Topics Alcohol use: Yes Alcohol/week: 6.0 standard drinks Types: 6 Cans of beer per week Drug use: Never MEDICATIONS: Prior to Admission medications as of 06/10/22 0848 Medication Sig Last Dose Taking Tadalafil (CIALIS) 20 mg tab(s) Take 1 tablet by mouth as needed. 1-2 hours before sexual intercourse. LORazepam (ATIVAN) 1 mg tablet Take by mouth q 24 HR. amLODIPine (NORVASC) 10 mg tablet Take by mouth q 24 HR. carvedilol (COREG) 12.5 mg tablet q 12 HR. hydroCHLOROthiazide 12.5 mg capsule q 24 HR. cloNIDine HCl (CATAPRES) 0.1 mg tablet Take by mouth. metoprolol succinate ER (TOPROL XL) 100 mg Take by mouth. No medication comments found. CURRENT ALLERGIES: ALLERGIES Allergen Reactions Linda Inhibitors Cough, Hives Losartan-Hydrochlor* Swelling COVID VACCINATION STATUS: Fully vaccinated REVIEW OF SYSTEMS: PAIN ASSESSMENT: General: No weight loss, malaise or fevers. Neuro: No history of TIA's, stroke, GUEST SERVICES LEAD tumor, impaired sensorium, hemiplegia, paraplegia or quadraplegia. No neurological symptoms or problems. Respiratory: +RADHA not on CPAP, No history of current cough or dyspnea, or pneumonia in the past 6 weeks. Cardiovascular: +HTN, No history of angina, CHF, TN, cardiac surgery or stents. Denies rest pain, gangrene or revascularization/amputation for PVD. No history of cardiovascular symptoms or problems. GI: No history of GI symptoms or problems. No history of esophageal varices, recent ascites, or ETOH greater than 2 drinks per day. : +BPH Endocrine: No history of diabetes. Has not taken steroids within the past 30 days. No history of endocrinological symptoms or problems. Hematology: No history of bleeding or clotting disorder. Pt is not taking anti-coagulation or platelet medications. No history of hematological symptoms or problems. Oncology: +Prostate Cancer Psych: No history of psychiatric symptoms or problems. Musculoskeletal: Negative for joint pain or swelling, back pain or muscle pain. Skin: Negative for lesions, rash and itching. Objective PHYSICAL EXAM: VITALS: BP 158/90[Manual. Pt reports taking BP meds today[ Pulse 78 Temp (Src) 98.1 (Temporal) Ht 5' 8 (1.73m) Wt 198 lb (89.8kg) SpO2 97% BMI 30.11 kg/(m^2). General: Alert and oriented Skin: Normal color, no rash, no lesions. HEENT: EOM, pupils equal, round and reactive. Cardiovascular: Normal S1 & S2, no rubs, murmurs or gallops. No JVD. Lungs: Normal breath sounds, no wheezes or crackles. Abdomen: Positive bowel sounds Extremities: No deformity, no edema or tenderness, no joint swelling or clubbing. Neurological: Normal cognition and motor skills. Pulses: Radial pulses 2+ Diagnostic tests reviewed for today's visit: Lab Value Units Date High Low HB No results within date range. HCT No results within date range. WBC No results within date range. PLT No results within date range. NA No results within date range. K No results within date range. GLUC No results within date range. BUN No results within date range. CREAT No results within date range. PTSEC No results within date range. INR No results within date range. APTT No results within date range. ALT No results within date range. AST No results within date range. TBILI No results within date range. TSH No results within date range. Lab Value Units Date High Low HCGQT No results within date range. UHCG No results within date range. HCG, BODY* No results within date range. Lab Value Units Date High Low ABORHD No results within date range. ABSCREEN No results within date range. No results found for: HBA1C No results found for this or any previous visit (from the past 60 hour(s)). No results found for this or any previous visit (from the past 14306 hour(s)). Assessment/Plan HTN (hypertension) Stable on amlodipine 10, carvedilol 12.5, HCTZ 12.5, clonidine 0.1. Sleep apnea Not on CPAP. METS: Climb a flight of stairs or walk up a hill (5.50 METs) ASA Class: 3 ANESTHESIA FINDINGS: Intubation History: No history of difficult intubation Significant Anesthesia Considerations: None Airway Exam: General: Normal appearance Mallampati Score is CLASS III ULBT: Class I - Lower incisors can bite the upper lip above the syl line Neck: Normal appearance and function, Distance from hyoid to mentum during neck extension is at least 3 finger breaths Mouth: Normal tongue size Dentition: Intact Airway History: No abnormal airway history STOP BANG Score: RADHA does not use CPAP/BiPAP PLAN This patient is optimally prepared for surgery pending LABS and EKG. CONSULTS: Patient does not require consults for optimization at this time. Planned Anesthetic: Per anesthesia choice Instructions Given to Patient: Instructions located in the after visit summary. Patient given verbal and written preop instructions and voices comprehension and compliance. SIGNATURE: Kevin Acosta MD PATIENT NAME: Ruperto Bhatti DATE: June 24, 2022 TIME: 11:53 AM documented in this encounter [facility] 06-24-2022 Instructions Kevin Acosta MD - 06/24/2022 11:49 AM EDT PATIENT PREOPERATIVE INSTRUCTIONS Rodolfo Walker MD has scheduled you for your procedure at this surgery center: [facility] Scheduling Office: [phone] --[address] [place] [address]. Please read below carefully for your personalized instructions. Dietary Restrictions: - No solid food after midnight. - You may have 12 ounces of clear liquids (water, clear juices such as apple juice or gatorade, carbonated beverages, clear tea, black coffee, jello) until 2 hours before scheduled arrival at facility. Is Patient Diabetic:No Medications: Unless instructed differently below, stay on all of your medications until your surgery. *Do NOT take hydrochlorothiazide night before or morning of surgery. *Continue to take amlodipine, carvedilol, clonidine and metoprolol. If you take any medications for erectile dysfunction-Cialis (Tadalafil), Levitra, Staxyn (Vardenafil) Viagra (Sildenenafil please do not take these for 48 hours before surgery. If you start any new medications after today's visit, please contact the surgeon's office. Blood Thinning Medications: - Stop Vitamin E, ALL multi-vitamins, herbals and dietary supplements 7 days before surgery. Important Reminders: - Candy, mints, and tobacco products are NOT permitted the morning of surgery. - Hearing aids, dentures and glasses may be worn the morning of surgery. - NO jewelry, body piercings, makeup, hairpins or contacts are to be worn the day of surgery. If you develop symptoms such as a fever, cold, or flu, or have other changes to your health within TWO DAYS of scheduled surgery or the morning of surgery, please contact the surgery center above. Personal Belongings: -Please have photo ID and insurance cards. -If you do not have a copy of advance directives on file with us, please bring a copy with you on the day of surgery. - Leave ALL valuables and money at home or with family members. For Outpatient Procedures: - YOU MUST HAVE A RESPONSIBLE COLLECTION TEAM LEAD TAKE YOU HOME. A COMMISSIONING ENGINEER OR SALES CORRESPONDENCE CLERK CANNOT BE MADE A RESPONSIBLE COLLECTION TEAM LEAD. - We recommend that a responsible person stays with you overnight to take care of you. - You cannot stay in a hotel alone after outpatient surgery. You will not be permitted to have your surgery, if you do not have someone to take care of you. Arrival Time for Surgery: - To obtain your arrival time for surgery, call your physician's office the day before your surgery. - If your surgery is scheduled for Monday, call the Monday before. Your surgeon s smoked meat preparer will tell you what time to call the office. - If you have not reached the departmental smoked meat preparer by 5 P.M., call [phone] after 5 P.M. the day before your surgery. Please be aware that emergency situations arise, which may delay or change your surgical time. If this happens, we will notify you as soon as possible and regret any inconvenience. If you already have an Advance Directive, please fax a copy to [phone] or email to for it to be added to your chart. If you do not have an Advance Directive, you can find the appropriate form and more information at [email or web address]. We recommend that you complete the Advance Directive form found on the website and bring it with you the day of your surgery. It can be witnessed and scanned into your chart that day. Kevin Acosta MD documented in this encounter [facility] 06-10-2022 History of Present illness Narrative Chief Complaint: Prostate Cancer HPI: 62 year old male with newly diagnosed prostate cancer. Started PSA screening at age 62 which was markedly elevated. MRI prostate negative, 46cc gland PSMA PET negative IPSS 3, QoL 0 CARMELINA 1 Denies significant LUTS No vitamins or supplements. Doesn't ride a bike for exercise, no sex before PSA. PMH: HTN PSHx: Lap adrenalectomy 17 years ago 1-Duration: 2021 2-Location: prostate 3-Severity: see pathology 4-Quality: Not applicable 5-Context: Screening 6-Timing: constantly 7-Modifying factors: No treatment prior to referral 8-Associated signs & symptoms: no additional symptoms LABS PSA trends: 32.23 ng/mL (05/14/2022) 25.79 ng/mL (03/02/2022) 25.21 ng/mL (01/31/2022) IMAGING NM PET/CT PROSTTAE WHOLE BODY IMAGING 05/18/2022 IMPRESSION: Head and neck: * No PSMA-expressing lesions suspicious for metastases. * 3.0 x 2.6 cm right thyroid lobe nodule. Recommend correlation with thyroid ultrasound, if not recently performed. Chest: * No PSMA-expressing lesions suspicious for metastases. Abdomen and Pelvis: * Multifocal prostate gland PSMA uptake, most prominently left mid gland, as described. * No evidence of abdominopelvic metastases. Bones and soft tissues: * No PSMA-expressing lesions suspicious for metastases. REVIEW OF SYSTEMS GENERAL: Negative for fevers, chills, or night sweats. HEENT: Negative for sudden vision or hearing changes. RESPIRATORY: Negative for cough or shortness of breath. CARDIAC: Negative for chest pain, palpitations, murmurs, or syncopal episodes. GASTROINTESTINAL: Negative for diarrhea, constipation, abdominal pain and poor appetite. GENITOURINARY: See HPI. MUSCULOSKELETAL: Negative Bone Aches/pain NEUROLOGIC: Negative for dizziness, headache, weakness or numbness. HEMATOLOGIC: Negative for bleeding or easy bruising. SKIN: Negative for rashes or other skin changes. HISTORIES PAST MEDICAL HISTORY Diagnosis Date HTN (hypertension) No family history on file. SOCIAL HISTORY Social History Tobacco Use Smoking status: Every Day Packs/day: 1.00 Types: Cigarettes Start date: 2019 Passive exposure: Never Smokeless tobacco: Never Substance Use Topics Alcohol use: Yes Alcohol/week: 6.0 standard drinks Types: 6 Cans of beer per week Drug use: Never PHYSICAL EXAMINATION VITALS: BP 178/96 (BP Site: Left Arm, BP Position: Sitting, BP Cuff Size: Extra Large Adult) Pulse 75 Ht 172.7 cm (5' 8 ) Wt 89.4 kg (197 lb) BMI 29.95 kg/m GENERAL: alert, no distress, normal affect EYES: no icterus, no discharge, conjugate gaze CARDIOVASCULAR: regular rate, regular rhythm, good radial pulse RESPIRATORY: normal effort, regular rate, no audible wheeze ABDOMEN: mildly obese, soft, non-tender, non-distended GENITOURINARY: no flank tenderness EXTREMITIES: warm, no dependent edema, no malformations SKIN: no abnormal bruising, no rashes, no cyanosis NEUROLOGIC: normal gait, good manual dexterity, no paralysis INCISION/WOUND: Prior laparoscopy scars well healed Assessment 62 year old M with prostate cancer GG1, higher risk due to PSA of 30. MRI negative. Plan All options discussed, patient would like to proceed with radical prostatectomy robotic prostatectomy 06/29/22 with preop labs, EKG, PACC, and preop teaching. He will try Cialis prior to surgery, if it is effective then I would tend towards nerve sparing Rodolfo Walker MD documented in this encounter [facility] 06-08-2022 Miscellaneous Notes Received outside pathology slides and sent down to our pathology lab for a 2nd read. Alise Briggs documented in this encounter [facility] 06-06-2022 Hospital Discharge instructions Patient Education 06/06/2022 10:01:01 Laparoscopic Prostatectomy, Care After Laparoscopic Prostatectomy, Care After This sheet gives you information about how to care for yourself after your procedure. Your health care provider may also give you more specific instructions. If you have problems or questions, contact your health care provider. What can I expect after the procedure? After the procedure, it is common to have: Pain. Abdominal discomfort. Nausea. Follow these instructions at home: Medicines Take aape-qhf-qimgomq and prescription medicines only as told by your health care provider. If you were prescribed an antibiotic medicine, take it as told by your health care provider. Do not stop taking the antibiotic even if you start to feel better. Activity Increase your activity level slowly. Being active after your surgery is important because it reduces your risk of developing blood clots. Get out of bed as much as possible, but do not do activities that require a lot of energy. Walk around as tolerated. For the first 10 days after your procedure, avoid: ?Lifting. ?Straining. ?Running. ?Walking more than a couple of blocks. ?Driving or riding in a car for long periods of time. ?Sexual activity. Diet Avoid alcohol and drinks with caffeine for 2 weeks. Alcohol and caffeine irritate the bladder. Avoid spicy foods. These can irritate the bladder. To prevent or treat constipation while you are taking prescription pain medicine, your health care provider may recommend that you: ?Drink enough fluid to keep your urine clear or pale yellow. ?Take mfwn-ipd-utehdrf or prescription medicines. ?Eat foods that are high in fiber, such as fresh fruits and vegetables, whole grains, and beans. ?Limit foods that are high in fat and processed sugars, such as fried and sweet foods. Bowel and bladder care Follow your health care provider's instructions about caring for your [place] catheter. Urinate when you feel the need to. Do not hold in your urine for long periods of time. Do not strain to have a bowel movement. Straining increases the chances of bleeding. Incision care Follow instructions from your health care provider about how to take care of your incisions. Make sure you: ?Wash your hands with soap and water before you change your bandage (dressing). If soap and water are not available, use hand stave log ripsaw operator. ?Change your dressing as told by your health care provider. ?Leave stitches (sutures) or adhesive strips in place. These skin closures may need to stay in place for 2 weeks or longer. If adhesive strip edges start to loosen and curl up, you may trim the loose edges. Do not remove adhesive strips completely unless your health care provider tells you to do that. Check your incision area every day for signs of infection. Check for: ?Redness, swelling, or pain. ?Fluid or blood discharge. ?Warmth. ?Pus or a bad smell. General instructions Do coughing and deep breathing exercises as told by your health care provider. It may be helpful to take your pain medicines before doing these exercises. Do not use any products that contain nicotine or tobacco, such as cigarettes and e-cigarettes. If you need help quitting, ask your health care provider. Keep all follow-up visits as told by your health care provider. This is important. Contact a health care provider if: You have redness, swelling, or pain around an incision. You have more fluid or blood coming from an incision. An incision feels warm to the touch. You have pus or a bad smell coming from an incision. You have a fever. An incision breaks open before or after sutures or flaquita have been removed. Get help right away if: Your catheter stops draining urine. Your abdomen becomes swollen. You develop shortness of breath. You have a lot of bleeding from your incision. You have a high fever that does not go away. You develop pain in your chest, back, or abdomen. You develop pain or swelling in your legs. You suddenly gain weight. Summary After your procedure, it is common to have pain, abdominal discomfort, and nausea. Take stbd-okh-rctmxml and prescription medicines only as told by your health care provider. Finish all the prescribed antibiotic medicines, even if you start to feel better. Increase your activity level slowly to prevent blood clots. Follow your health care provider's instructions about how to take care of your incisions. Get help right away if you develop shortness of breath, or if you develop chest pain. This information is not intended to replace advice given to you by your health care provider. Make sure you discuss any questions you have with your health care provider. Document Released: 02/27/2006 Document Revised: 02/09/2018 Document Reviewed: 02/01/2017 [facility] Patient Education 2020 [employer]. 06/06/2022 10:01:00 Laparoscopic Prostatectomy Laparoscopic Prostatectomy Laparoscopic prostatectomy is a surgery to remove the entire prostate gland and seminal vesicles. The surgery is performed using a thin, pencil-sized instrument (laparoscope) with a light and camera on the end to help the surgeon see inside the abdomen. This surgery may be done to treat prostate cancer or an enlarged prostate gland (benign prostatic hyperplasia). Laparoscopic prostatectomy is less invasive than other types of surgeries for removing the prostate gland. During this procedure, 4 5 small incisions are made in the abdomen. The laparoscope and other surgical instruments are placed through the incisions and the prostate gland is removed. Tell a health care provider about: Any allergies you have. All medicines you are taking, including vitamins, herbs, eye drops, creams, and xepu-ymn-hzvwruj medicines. Any problems you or family members have had with anesthetic medicines. Any blood disorders you have. Any surgeries you have had. Any medical conditions you have. What are the risks? Generally, this is a safe procedure. However, problems may occur, including: Infection. Bleeding and the risk that you may require donated blood (transfusion). Allergic reactions to medicines. Damage to other structures or organs, such as the rectum, bladder, or small bowel. Blockage in the intestines or bowel. Scarring (stricture) that causes problems with the flow of urine. Inability to control when you urinate (incontinence). Inability to get or keep an erection (erectile dysfunction). What happens before the procedure? Staying hydrated Follow instructions from your health care provider about hydration, which may include: Up to 2 hours before the procedure you may continue to drink clear liquids, such as water, clear fruit juice, black coffee, and plain tea. Eating and drinking restrictions Follow instructions from your health care provider about eating and drinking, which may include: 8 hours before the procedure stop eating heavy meals or foods such as meat, fried foods, or fatty foods. 6 hours before the procedure stop eating light meals or foods, such as toast or cereal. 6 hours before the procedure stop drinking milk or drinks that contain milk. 2 hours before the procedure stop drinking clear liquids. General instructions Ask your health care provider about: ?Changing or stopping your regular medicines. This is especially important if you are taking diabetes medicines or blood thinners. ?Taking medicines such as aspirin and ibuprofen. These medicines can thin your blood. Do not take these medicines before your procedure if your health care provider instructs you not to. Follow your health care provider's instructions about cleansing your bowels. Do not use any products that contain nicotine or tobacco, such as cigarettes and e-cigarettes. If you need help quitting, ask your health care provider. Practice any breathing exercises as told by your health care provider. Plan to have someone take you home from the hospital or clinic. If you will be going home right after the procedure, plan to have someone with you for 24 hours. What happens during the procedure? To reduce your risk of infection: ?Your health care team will wash or sanitize their hands. ?Your skin will be washed with soap. ?Hair may be removed from the surgical area. An IV tube will be inserted into one of your veins. You will be given one or more of the following: ?A medicine to help you relax (sedative). ?A medicine to make you fall asleep (general anesthetic). A tube ([place] catheter) will be inserted into your urethra to drain urine from your bladder. An incision will be made in your abdomen at your belly button. A laparoscope will be inserted into your abdomen through the incision. Four or more small incisions will be made. Surgical instruments will be inserted into the incisions and used to remove your prostate and seminal vesicles. Your urethra will be disconnected from your bladder. Your urethra will be reconnected to the group of muscles that help push urine through the urethra (bladder neck). The laparoscope and other surgical instruments will be removed. Your incisions will be closed with stitches (sutures). The procedure may vary among health care providers and hospitals. What happens after the procedure? Your blood pressure, heart rate, breathing rate, and blood oxygen level will be monitored until the medicines you were given have worn off. You may continue to receive fluids and medicines through an IV tube. You may be given antibiotics, or medicine to help relieve pain or nausea. You will be encouraged to walk as soon as possible. You will also use a device or do breathing exercises to keep your lungs clear. You may continue to have a [place] catheter draining your urine. You will be instructed on how to care for this at home. Do not drive for 24 hours if you received a sedative. Summary Laparoscopic prostatectomy is a surgery to remove the entire prostate gland and seminal vesicles. The surgery is performed using a thin, pencil-sized instrument (laparoscope) with a light and camera on the end to help the surgeon see inside the abdomen. You may continue to receive fluids and medicines through an IV tube. You may be given antibiotics, or medicine to help relieve pain or nausea. You will continue to have a [place] catheter draining your urine. You will be instructed on how to care for this at home. Plan to have someone take you home from the hospital or clinic. This information is not intended to replace advice given to you by your health care provider. Make sure you discuss any questions you have with your health care provider. Document Released: 02/27/2006 Document Revised: 02/09/2018 Document Reviewed: 02/13/2017 [facility] Patient Education 2020 [employer]. Follow Up Care 05/31/2022 10:23:29 With:KATIUSKA DIETRICH, Rodrigue Iqbal, URL Address: [facility] [address] , [place] [address]- When: Unknown [facility] 05-27-2022 History of Present illness Narrative Radiation Oncology - Prostate Cancer Follow-up note PATIENT NAME: Ruperto Bhatti PATIENT DIAGNOSIS: 62 year old male with prostate adenocarcinoma, initial PSA 25.79, biopsy [place] score 3 + 3 = 6 (grade group 1), clinical stage T1c, Nx, Mx, s/p TRUS Random biopsy. HPI: Patient in for follow-up after further staging. CT abdomen and pelvis 04/27/2022 demonstrating: No evidence of metastasis. Bone scan 04/27/2022 demonstrating: Nonspecific uptake within the calvarium CT brain recommended multiple areas of degenerative disease no other areas suggestive of metastasis CT brain 05/16/2022 showing sclerotic area left supraorbital skull, differential bony island versus possible metastasis, no intracranial findings no other skeletal findings PSMA PET 05/18/2022 demonstrating: Head and neck: * No PSMA-expressing lesions suspicious for metastases. * 3.0 x 2.6 cm right thyroid lobe nodule. Recommend correlation with thyroid ultrasound, if not recently performed. Chest: * No PSMA-expressing lesions suspicious for metastases. Abdomen and Pelvis: * Multifocal prostate gland PSMA uptake, most prominently left mid gland, as described. * No evidence of abdominopelvic metastases. Bones and soft tissues: * No PSMA-expressing lesions suspicious for metastases. Patient underwent repeat PSA on 05/14/2022, value of 32.23 ng/mL Patient otherwise doing well. Patient denies any dysuria or change in urination habits over the last 6 to 8 weeks. Previous Treatment for Prostate Cancer: None Genomic Testing: None The patient reports the following pertinent history: Urinary frequency (D/N): 4-6/0-1 Dysuria: No Incontinence: 1- No pads Hematuria: No - Total AUA Score: 3 Bowel Movement Frequency: 1/day Bowel Movement Quality: Normal Blood per Rectum: No Last Colonoscopy: na Androgen Deprivation: none Prior Radiation Therapy, Collagen Vascular Disease, or Inflammatory Bowel Disease: No Currently on Anticoagulation: No History of Hip Replacement: No History of Prior TURP: No ALLERGIES Allergen Reactions Linda Inhibitors Cough, Hives Losartan-Hydrochlor* Swelling LORazepam (ATIVAN) 1 mg tablet Take by mouth q 24 HR. amLODIPine (NORVASC) 10 mg tablet Take by mouth q 24 HR. carvedilol (COREG) 12.5 mg tablet q 12 HR. hydroCHLOROthiazide 12.5 mg capsule q 24 HR. cloNIDine HCl (CATAPRES) 0.1 mg tablet Take by mouth. metoprolol succinate ER (TOPROL XL) 100 mg Take by mouth. PAST MEDICAL HISTORY Diagnosis Date HTN (hypertension) PAST SURGICAL HISTORY Procedure Laterality Date ADRENALECTOMY No family history on file. Social History Tobacco Use Smoking status: Every Day Packs/day: 1.00 Types: Cigarettes Start date: 2019 Smokeless tobacco: Never Substance Use Topics Alcohol use: Yes Alcohol/week: 6.0 standard drinks Types: 6 Cans of beer per week Drug use: Never REVIEW OF SYSTEMS: GENERAL: feeling well without fatigue, no recent change in weight NECK: denies swelling or pain in neck RESPIRATORY: no cough, no wheezing or shortness of breath CARDIOVASCULAR: no chest pain, no palpitations MUSCULOSKELETAL: denies any painful or swollen joints, no muscle aches NEURO: no numbness or paresthesias and no weakness of the extremities As noted in HPI PHYSICAL EXAM: VS: BP 170/95 Pulse 74 Temp 36.1 C (97 F) Resp 16 Wt 88.7 kg (195 lb 9.6 oz) SpO2 99% BMI 29.31 kg/m KARNOFSKY PERFORMANCE STATUS: 100 General Appearance: Alert and oriented. No acute distress. GENITOURINARY: Deferred exam RECTAL: Deferred exam RADIOLOGY/LABORATORY DATA: see HPI ASSESSMENT/PLAN: Prostate adenocarcinoma, initial PSA 25.79, biopsy [place] score 3 + 3 = 6 (grade group 1), clinical stage T1c, Nx, Mx, s/p TRUS Random biopsy Prostate cancer (C61), 2019 NCCN Risk Group: High Risk Group Fortunately staging without evidence of metastatic findings. PET CT scan does show uptake bilaterally within the prostate. In review of skull no evidence of uptake seen, no uptake in area of sclerotic change seen on bone scan and plain films this is likely benign finding. Patient does give history of trauma to this area in the past. Patient however has had his PSA continue to climb without obvious other etiology i.e. no inflammatory infectious prostate related symptoms and biopsy was without significant evidence of inflammation histologically. Given this I do have concern that he may have micrometastatic disease based on PSA over 30. Given this options of management again discussed at length with patient and his . Discussed both external beam with ADT or external beam brachytherapy and ADT along the lines of the ASCENDE-RT trial. Patient expressed an understanding information presented. Patient still interested in possible surgery as initial approach. We will plan to further discuss with Dr. Harp. At did express that there are is a fairly significant chance that he would need additional treatment after surgery depending on findings. At this point patient is still trying to formulate opinion on the direction of treatment management he wants to follow-up. We will discuss further with Dr. Harp and discuss further with patient. In addition patient has nodule seen on PET within thyroid recommend ultrasound for further evaluation. Signed by: Stephanie Castro MD cc: To use this Smartlink, specify the provider ID whose address you want to display, e.g., .[email or web address] (where 1 is the provider ID). Rodrigue Harp [id number] [facility] [id number] documented in this encounter [facility] 05-13-2022 Evaluation + Plan note Diagnostic Tests PendingPSA Total 05/13/22 [facility] 05-13-2022 Hospital Discharge instructions Patient Education 05/13/2022 10:34:47 Prostate Cancer Prostate Cancer The prostate is a walnut-sized gland that is involved in the production of semen. It is located below a man's bladder, in front of the rectum. Prostate cancer is the abnormal growth of cells in the prostate gland. What are the causes? The exact cause of this condition is not known. What increases the risk? This condition is more likely to develop in men who: Are older than age 65. Are -[place]. Are obese. Have a family history of prostate cancer. Have a family history of breast cancer. What are the signs or symptoms? Symptoms of this condition include: A need to urinate often. Weak or interrupted flow of urine. Trouble starting or stopping urination. Inability to urinate. Pain or burning during urination. Painful ejaculation. Blood in urine or semen. Persistent pain or discomfort in the lower back, lower abdomen, hips, or upper thighs. Trouble getting an erection. Trouble emptying the bladder all the way. How is this diagnosed? This condition can be diagnosed with: A digital rectal exam. For this exam, a health care provider inserts a gloved finger into the rectum to feel the prostate gland. A blood test called a prostate-specific antigen (PSA) test. An imaging test called transrectal ultrasonography. A procedure in which a sample of tissue is taken from the prostate and examined under a microscope (prostate biopsy). Once the condition is diagnosed, tests will be done to determine how far the cancer has spread. This is called staging the cancer. Staging may involve imaging tests, such as: A bone scan. A CT scan. A PET scan. An MRI. The stages of prostate cancer are as follows: Stage I. At this stage, the cancer is found in the prostate only. The cancer is not visible on imaging tests and it is usually found by accident, such as during a prostate surgery. Stage II. At this stage, the cancer is more advanced than it is in stage I, but the cancer has not spread outside the prostate. Stage III. At this stage, the cancer has spread beyond the outer layer of the prostate to nearby tissues. The cancer may be found in the seminal vesicles, which are near the bladder and the prostate. Stage IV. At this stage, the cancer has spread other parts of the body, such as the lymph nodes, bones, bladder, rectum, liver, or lungs. How is this treated? Treatment for this condition depends on several factors, including the stage of the cancer, your age, personal preferences, and your overall health. Talk with your health care provider about treatment options that are recommended for you. Common treatments include: Observation for early stage prostate cancer (active surveillance). This involves having exams, blood tests, and in some cases, more biopsies. For some men, this is the only treatment needed. Surgery. Types of surgeries include: ?Open surgery. In this surgery, a larger incision is made to remove the prostate. ?A laparoscopic prostatectomy. This is a surgery to remove the prostate and lymph nodes through several, small incisions. It is often referred to as a minimally invasive surgery. ?A robotic prostatectomy. This is a surgery to remove the prostate and lymph nodes with the help of a robotic arm that is controlled by a computer. ?Orchiectomy. This is a surgery to remove the testicles. ?Cryosurgery. This is a surgery to freeze and destroy cancer cells. Radiation treatment. Types of radiation treatment include: ?External beam radiation. This type aims beams of radiation from outside the body at the prostate to destroy cancerous cells. ?Brachytherapy. This type uses radioactive needles, seeds, wires, or tubes that are implanted into the prostate gland. Like external beam radiation, brachytherapy destroys cancerous cells. An advantage is that this type of radiation limits the damage to surrounding tissue and has fewer side effects. High-intensity, focused ultrasonography. This treatment destroys cancer cells by delivering high-energy ultrasound waves to the cancerous cells. Chemotherapy medicines. This treatment kills cancer cells or stops them from multiplying. Hormone treatment. This treatment involves taking medicines that act on one of the male hormones (testosterone): ?By stopping your body from producing testosterone. ?By blocking testosterone from reaching cancer cells. Follow these instructions at home: Take wvzz-lsj-wcmdhwg and prescription medicines only as told by your health care provider. Maintain a healthy diet. Get plenty of sleep. Consider joining a support group for men who have prostate cancer. Meeting with a support group may help you learn to cope with the stress of having cancer. Keep all follow-up visits as told by your health care provider. This is important. If you have to go to the hospital, notify your cancer specialist (oncologist). Treatment for prostate cancer may affect sexual function. Continue to have intimate moments with your partner. This may include touching, holding, hugging, and caressing. Contact a health care provider if: You have trouble urinating. You have blood in your urine. You have pain in your hips, back, or chest. Get help right away if: You have weakness or numbness in your legs. You cannot control urination or your bowel movements (incontinence). You have trouble breathing. You have sudden chest pain. You have chills or a fever. Summary The prostate is a walnut-sized gland that is involved in the production of semen. It is located below a man's bladder, in front of the rectum. Prostate cancer is the abnormal growth of cells in the prostate gland. Treatment for this condition depends on several factors, including the stage of the cancer, your age, personal preferences, and your overall health. Talk with your health care provider about treatment options that are recommended for you. Consider joining a support group for men who have prostate cancer. Meeting with a support group may help you learn to cope with the stress of having cancer. This information is not intended to replace advice given to you by your health care provider. Make sure you discuss any questions you have with your health care provider. Document Released: 02/27/2006 Document Revised: 02/09/2018 Document Reviewed: 11/07/2016 [facility] Patient Education 2020 [employer]. Follow Up Care 04/13/2022 15:15:31 With:KATIUSKA DIETRICH, Rodrigue Iqbal, URL Address: [address] [place], [place] [id number]- When: Unknown [facility] 05-12-2022 Miscellaneous Notes Appeal information faxed to [facility]. Evelina Padron Dr. Castro, Imaging was not uploaded into patient's chart at the time of our last conversation. Did you want to try to appeal the PSMA PET? Elyse ramon had both of these studies already done on 04/27. Alise Acosta, RN Patient PSMA PET has been denied due to no prior imaging. Please place orders for CT & Bone scan to be completed first. Thanks, Evelina Padron documented in this encounter [facility] 04-19-2022 Miscellaneous Notes Good Afternoon, Please do not send PET scan requests until the physicians have completed and signed their office notes. It is very unhelpful to get started and realize that you can't continue because this patients particular insurance requires clinicals sent to them in order to request authorization. Please resend this request when the notes from today are completed. Thanks, Leeann This form is used for MAIN CAMPUS APPOINTMENTS ONLY. Is this request for a [facility] [place] PET scan appointment? Yes: Explosive Ordnance Technician: Evelina Padron Requesting Person (Last Name, First Name): Audra Padron Area Code + Phone/Pager: [phone] Who do we call to schedule this appointment? Other Contact: PSMA PET in [place], [facility] Requesting Staff Giovana Castro Area Code + Phone/Pager: [phone] PET Orders (A delay in scheduling will result if the orders are not present at time of review): Internal ADDITIONAL ACTION MAY BE REQUIRED IF PATIENTS OON INSURANCE OR SELF PAY COVERAGE HAS NOT BEEN CLEARED FOR REQUESTED APPOINTMENT. Scheduling: JENNIFER: As soon as insurance will allow What account will this PET appointment be linked to? P/F Type of PET: Oncology: Are there additional diagnostic CT scans required to be done at time of PET scan? No Is the request for a PET MR ? No What account will diagnostic testing appointment be linked to? P/F Will the patient need anesthesia? NO Send requests to P COORD REVIEW documented in this encounter [facility] 04-19-2022 Nurse Note Pt BP checked at start of visit x 2. 225/124. It was then rechecked after visit: 212/122. Patient was instructed to call Dr Enrique's office for follow up. He will also start checking BP BID and document to be able to discuss with Dr Enrique. Pt and both verbalized understanding. Alise Acosta RN AUA 3 Alise Acosta RN documented in this encounter [facility] 04-19-2022 History of Present illness Narrative Radiation Oncology - Prostate Cancer New Patient/Consult Note PATIENT NAME: Ruperto Bhatti PATIENT REQUESTING PROVIDER: Dr. Harp DIAGNOSIS: 62 year old male with prostate adenocarcinoma, initial PSA 25.79, biopsy Dejah score 3 + 3 = 6 (grade group 1), clinical stage T1c, Nx, Mx, s/p TRUS Random biopsy. HPI: 62 year old male with prostate adenocarcinoma who presents for an opinion regarding the role of radiation therapy in the management of the patient's disease. Final recommendations will be communicated back to the requesting physician by way of the shared medical record, or letter to requesting physician via US mail. The patient was diagnosed with prostate cancer and comes in today to discuss treatment options. Patient presented otherwise good state of health, obtaining first PSA in January, value of 25.21. This is repeated 03/02/2022 at a value of 25.79. Clinical exam revealed no nodule. He underwent evaluation with prostate MRI 03/21/2022, MRI describing a 46 cc gland with BPH changes. No suspicious T2 or PI-RADS lesions reported. Prostate biopsy on March 30, 2022 revealed: Adenocarcinoma, Dejah 6 (3+3) from the left lateral base, left apical, right apical and right lateral mid cores. 3 areas of JENNIFER on the left as well described. No other findings Total # of positive biopsy cores: 4 Total # of biopsy cores sampled: 12 Greatest % cancer in any single core: 25-50% Staging Studies: Pending Previous Treatment for Prostate Cancer: None Genomic Testing: None The patient reports the following pertinent history: Urinary frequency (D/N): 4-6/0-1 Dysuria: No Incontinence: 1- No pads Hematuria: No - Total AUA Score: 3 Bowel Movement Frequency: 1/day Bowel Movement Quality: Normal Blood per Rectum: No Last Colonoscopy: na Androgen Deprivation: none Prior Radiation Therapy, Collagen Vascular Disease, or Inflammatory Bowel Disease: No Currently on Anticoagulation: No History of Hip Replacement: No History of Prior TURP: No ALLERGIES Allergen Reactions Linda Inhibitors Cough, Hives Losartan-Hydrochlor* Swelling cloNIDine HCl (CATAPRES) 0.1 mg tablet Take by mouth. metoprolol succinate ER (TOPROL XL) 100 mg Take by mouth. PAST MEDICAL HISTORY Diagnosis Date HTN (hypertension) PAST SURGICAL HISTORY Procedure Laterality Date ADRENALECTOMY History reviewed. No pertinent family history. Social History Tobacco Use Smoking status: Every Day Packs/day: 1.00 Types: Cigarettes Start date: 2019 Smokeless tobacco: Never Substance Use Topics Alcohol use: Yes Alcohol/week: 6.0 standard drinks Types: 6 Cans of beer per week Drug use: Never REVIEW OF SYSTEMS: GENERAL: feeling well without fatigue, no recent change in weight NECK: denies swelling or pain in neck RESPIRATORY: no cough, no wheezing or shortness of breath CARDIOVASCULAR: no chest pain, no palpitations MUSCULOSKELETAL: denies any painful or swollen joints, no muscle aches NEURO: no numbness or paresthesias and no weakness of the extremities As noted in HPI PHYSICAL EXAM: VS: Pulse 74 Temp (!) 35.9 C (96.7 F) Resp 18 Ht 174 cm (5' 8.5 ) Wt 92.1 kg (203 lb) SpO2 99% BMI 30.42 kg/m KARNOFSKY PERFORMANCE STATUS: 100 General Appearance: Alert and oriented. No acute distress. HEENT: NCAT. Sclera anicteric. PERRL. EOMI. Neck: Normal ROM. No palpable cervical or supraclavicular adenopathy. Chest: No respiratory distress. Lungs clear to auscultation bilaterally. Heart: Regular rate and rhythm. Abdomen: Soft. Nontender. Nondistended. Musculoskeletal: No edema. Normal ROM in extremities. No bone or spine tenderness. Neuro: Speech fluent. Gait normal. No focal deficits. Skin: No rashes noted Lymphatics: No palpable lymphadenopathy. GENITOURINARY: Deferred exam RECTAL: Deferred exam RADIOLOGY/LABORATORY DATA: see HPI ASSESSMENT/PLAN: Prostate adenocarcinoma, initial PSA 25.79, biopsy [place] score 3 + 3 = 6 (grade group 1), clinical stage T1c, Nx, Mx, s/p TRUS Random biopsy Prostate cancer (C61), 2019 NCCN Risk Group: High Risk Group Patient presents with a fairly high PSA though pathologically with lower grade disease ([place] 6) and fairly low-volume disease. Staging is still pending. The PSA elevation is somewhat discordant from the other features. However patient has no history of recent trauma infection or symptoms that might signal an underlying prostatitis. I do feel further work-up, is warranted would also recommend considering PSMA PET scan given the PSA greater than 20. It may also be reasonable to repeat the PSA again in the next couple weeks. Discussed potential treatment options with patient and . We will plan to have patient back after his imaging is complete and we will discuss further with Dr. Harp regarding future direction of therapy recommendations. Signed by: Stephanie Castro MD cc: To use this Smartlink, specify the provider ID whose address you want to display, e.g., .[email or web address][1 (where 1 is the provider ID). Rodrigue Harp [address] [place] [address] documented in this encounter [facility] 04-13-2022 Hospital Discharge instructions Patient Education 04/13/2022 14:48:58 Brachytherapy for Prostate Cancer Brachytherapy for Prostate Cancer Brachytherapy for prostate cancer is radiation treatment that is placed inside of the prostate (prostate gland). There are several types of brachytherapy: Low-dose rate (LDR) therapy. This may involve temporary implants or permanent radioactive seed or pellet implants. The radiation does not travel far from the prostate, which means that healthy, noncancerous tissues around the prostate receive only a small dose of radiation. This helps to protect those tissues from injury. This type of treatment may be followed by a course of external beam radiation. ?Temporary low-dose implants are left in the prostate for 1 7 days. The implants are needles, applicators, or thin, plastic tubes (catheters) that contain radioactive material. You will need to stay in the hospital while the implant is in place. ?Permanent low-dose implants (seeds or pellets) are injected into the prostate, and they work for up to one year after they are inserted. They are left in place and are not removed. High-dose rate (HDR) therapy. This is given through needles, applicators, or catheters that contain radioactive material. The tubes are removed after treatment, and no radiation is left in the prostate. This type of treatment may be followed by a course of external beam radiation. Tell a health care provider about: Any allergies you have. All medicines you are taking, including vitamins, herbs, eye drops, creams, and [id number] medicines. Any problems you or family members have had with anesthetic medicines. Any surgeries you have had. Any blood disorders you have. Any medical conditions you have. What are the risks? Generally, this is a safe procedure. However, problems may occur, including: Inflammation of the rectum. Problems getting or keeping an erection (erectile dysfunction). Trouble urinating. Diarrhea. Bleeding. Loss of bowel control. What happens before the procedure? Staying hydrated Follow instructions from your health care provider about hydration, which may include: Up to 2 hours before the procedure you may continue to drink clear liquids, such as water, clear fruit juice, black coffee, and plain tea. Eating and drinking Follow instructions from your health care provider about eating and drinking, which may include: 8 hours before the procedure stop eating heavy meals or foods such as meat, fried foods, or fatty foods. 6 hours before the procedure stop eating light meals or foods, such as toast or cereal. 6 hours before the procedure stop drinking milk or drinks that contain milk. 2 hours before the procedure stop drinking clear liquids. Medicines Ask your health care provider about: ?Changing or stopping your regular medicines. This is especially important if you are taking diabetes medicines or blood thinners. ?Taking medicines such as aspirin and ibuprofen. These medicines can thin your blood. Do not take these medicines before your procedure if your health care provider instructs you not to. You may be given antibiotic medicine to help prevent infection. General instructions Plan to have someone take you home from the hospital or clinic. If you will be going home right after the procedure, plan to have someone with you for 24 hours. You may have imaging tests done, including an ultrasound, CT scan, or MRI. You may have blood tests done. You may have a test to check the electrical signals in your heart (electrocardiogram). You may need to take medicine to clean out your bowel (bowel prep). What happens during the procedure? To lower your risk of infection: ?Your health care team will wash or sanitize their hands. ?Your skin will be washed with soap. ?Hair may be removed from the surgical area. An IV will be inserted into one of your veins. You will be given one or more of the following: ?A medicine to help you relax (sedative). ?A medicine to numb the area (local anesthetic). ?A medicine to make you fall asleep (general anesthetic). You may have a thin, plastic tube (catheter) inserted to drain your bladder. If you are receiving brachytherapy with implants: ?A needle, applicator, or catheter will be inserted into the prostate. It will be inserted through a body cavity, such as the rectum, or through the tissue between the testicles and the anus (perineum). ?An X-ray, ultrasound, MRI, or CT scan will be used to guide the catheter or applicator toward the prostate. ?Radioactive seeds, wires, or ribbons will be fed through the catheter or applicator. ?If the high-dose method is used: ?The radioactive wires or ribbons will be left in for a few minutes and then removed. ?Once the treatment is finished, the catheter or applicator will be removed. ?If the low-dose method is used, the implant will stay in place for 1 7 days. ?You will remain in the hospital while the implant is in place. ?Once the treatment is finished, the radioactive material and catheter will be removed. If you are receiving permanent, low-dose brachytherapy: ?Small, radioactive seeds or pellets will be injected into your prostate. This may be done through a catheter, needle, or applicator. ?The catheter or applicator will be removed, leaving the seeds in the prostate. The procedure may vary among health care providers and hospitals. What happens after the procedure? Your blood pressure, heart rate, breathing rate, and blood oxygen level will be monitored until the medicines you were given have worn off. Do not drive for 24 hours if you were given a sedative. Summary Brachytherapy for prostate cancer is radiation treatment placed inside of the prostate (prostate gland). There are several types of brachytherapy for prostate cancer, including low-dose temporary treatment, low-dose permanent treatment, and high-dose temporary treatment. Temporary low-dose implants are left in the prostate for 1 7 days. Permanent low-dose implants are injected into the prostate and left in place. They work for up to one year after they are inserted. Permanent high-dose therapy is given through tubes that contain radioactive material. The tubes are removed after treatment, and no radiation is left in the prostate. This information is not intended to replace advice given to you by your health care provider. Make sure you discuss any questions you have with your health care provider. Document Released: 08/07/2006 Document Revised: 02/09/2018 Document Reviewed: 03/08/2017 [facility] Your [facility] Patient Education 2020 [employer]. 04/13/2022 14:48:56 Prostate Cancer Prostate Cancer The prostate is a walnut-sized gland that is involved in the production of semen. It is located below a man's bladder, in front of the rectum. Prostate cancer is the abnormal growth of cells in the prostate gland. What are the causes? The exact cause of this condition is not known. What increases the risk? This condition is more likely to develop in men who: Are older than age 65. Are -[place]. Are obese. Have a family history of prostate cancer. Have a family history of breast cancer. What are the signs or symptoms? Symptoms of this condition include: A need to urinate often. Weak or interrupted flow of urine. Trouble starting or stopping urination. Inability to urinate. Pain or burning during urination. Painful ejaculation. Blood in urine or semen. Persistent pain or discomfort in the lower back, lower abdomen, hips, or upper thighs. Trouble getting an erection. Trouble emptying the bladder all the way. How is this diagnosed? This condition can be diagnosed with: A digital rectal exam. For this exam, a health care provider inserts a gloved finger into the rectum to feel the prostate gland. A blood test called a prostate-specific antigen (PSA) test. An imaging test called transrectal ultrasonography. A procedure in which a sample of tissue is taken from the prostate and examined under a microscope (prostate biopsy). Once the condition is diagnosed, tests will be done to determine how far the cancer has spread. This is called staging the cancer. Staging may involve imaging tests, such as: A bone scan. A CT scan. A PET scan. An MRI. The stages of prostate cancer are as follows: Stage I. At this stage, the cancer is found in the prostate only. The cancer is not visible on imaging tests and it is usually found by accident, such as during a prostate surgery. Stage II. At this stage, the cancer is more advanced than it is in stage I, but the cancer has not spread outside the prostate. Stage III. At this stage, the cancer has spread beyond the outer layer of the prostate to nearby tissues. The cancer may be found in the seminal vesicles, which are near the bladder and the prostate. Stage IV. At this stage, the cancer has spread other parts of the body, such as the lymph nodes, bones, bladder, rectum, liver, or lungs. How is this treated? Treatment for this condition depends on several factors, including the stage of the cancer, your age, personal preferences, and your overall health. Talk with your health care provider about treatment options that are recommended for you. Common treatments include: Observation for early stage prostate cancer (active surveillance). This involves having exams, blood tests, and in some cases, more biopsies. For some men, this is the only treatment needed. Surgery. Types of surgeries include: ?Open surgery. In this surgery, a larger incision is made to remove the prostate. ?A laparoscopic prostatectomy. This is a surgery to remove the prostate and lymph nodes through several, small incisions. It is often referred to as a minimally invasive surgery. ?A robotic prostatectomy. This is a surgery to remove the prostate and lymph nodes with the help of a robotic arm that is controlled by a computer. ?Orchiectomy. This is a surgery to remove the testicles. ?Cryosurgery. This is a surgery to freeze and destroy cancer cells. Radiation treatment. Types of radiation treatment include: ?External beam radiation. This type aims beams of radiation from outside the body at the prostate to destroy cancerous cells. ?Brachytherapy. This type uses radioactive needles, seeds, wires, or tubes that are implanted into the prostate gland. Like external beam radiation, brachytherapy destroys cancerous cells. An advantage is that this type of radiation limits the damage to surrounding tissue and has fewer side effects. High-intensity, focused ultrasonography. This treatment destroys cancer cells by delivering high-energy ultrasound waves to the cancerous cells. Chemotherapy medicines. This treatment kills cancer cells or stops them from multiplying. Hormone treatment. This treatment involves taking medicines that act on one of the male hormones (testosterone): ?By stopping your body from producing testosterone. ?By blocking testosterone from reaching cancer cells. Follow these instructions at home: Take [id number] and prescription medicines only as told by your health care provider. Maintain a healthy diet. Get plenty of sleep. Consider joining a support group for men who have prostate cancer. Meeting with a support group may help you learn to cope with the stress of having cancer. Keep all follow-up visits as told by your health care provider. This is important. If you have to go to the hospital, notify your cancer specialist (oncologist). Treatment for prostate cancer may affect sexual function. Continue to have intimate moments with your partner. This may include touching, holding, hugging, and caressing. Contact a health care provider if: You have trouble urinating. You have blood in your urine. You have pain in your hips, back, or chest. Get help right away if: You have weakness or numbness in your legs. You cannot control urination or your bowel movements (incontinence). You have trouble breathing. You have sudden chest pain. You have chills or a fever. Summary The prostate is a walnut-sized gland that is involved in the production of semen. It is located below a man's bladder, in front of the rectum. Prostate cancer is the abnormal growth of cells in the prostate gland. Treatment for this condition depends on several factors, including the stage of the cancer, your age, personal preferences, and your overall health. Talk with your health care provider about treatment options that are recommended for you. Consider joining a support group for men who have prostate cancer. Meeting with a support group may help you learn to cope with the stress of having cancer. This information is not intended to replace advice given to you by your health care provider. Make sure you discuss any questions you have with your health care provider. Document Released: 02/27/2006 Document Revised: 02/09/2018 Document Reviewed: 11/07/2016 [facility] Patient Education 2020 [employer]. Follow Up Care 03/23/2022 10:59:01 With:KATIUSKA DIETRICH, Rodrigue Iqbal, ENRIKE Address: [facility] [address] , [place] [address]- When:6 weeks Comments:Discuss NM bone scan & CT results [facility] [place] 03-02-2022 Evaluation + Plan note Diagnostic Tests PendingPSA Total 03/02/22 [facility] [place] 03-02-2022 Hospital Discharge instructions Patient Education 03/02/2022 11:33:58 Benign Prostatic Hyperplasia Benign Prostatic Hyperplasia Benign prostatic hyperplasia (BPH) is an enlarged prostate gland that is caused by the normal aging process and not by cancer. The prostate is a walnut-sized gland that is involved in the production of semen. It is located in front of the rectum and below the bladder. The bladder stores urine and the urethra is the tube that carries the urine out of the body. The prostate may get bigger as a man gets older. An enlarged prostate can press on the urethra. This can make it harder to pass urine. The build-up of urine in the bladder can cause infection. Back pressure and infection may progress to bladder damage and kidney (renal) failure. What are the causes? This condition is part of a normal aging process. However, not all men develop problems from this condition. If the prostate enlarges away from the urethra, urine flow will not be blocked. If it enlarges toward the urethra and compresses it, there will be problems passing urine. What increases the risk? This condition is more likely to develop in men over the age of 50 years. What are the signs or symptoms? Symptoms of this condition include: Getting up often during the night to urinate. Needing to urinate frequently during the day. Difficulty starting urine flow. Decrease in size and strength of your urine stream. Leaking (dribbling) after urinating. Inability to pass urine. This needs immediate treatment. Inability to completely empty your bladder. Pain when you pass urine. This is more common if there is also an infection. Urinary tract infection (UTI). How is this diagnosed? This condition is diagnosed based on your medical history, a physical exam, and your symptoms. Tests will also be done, such as: A post-void bladder scan. This measures any amount of urine that may remain in your bladder after you finish urinating. A digital rectal exam. In a rectal exam, your health care provider checks your prostate by putting a lubricated, gloved finger into your rectum to feel the back of your prostate gland. This exam detects the size of your gland and any abnormal lumps or growths. An exam of your urine (urinalysis). A prostate specific antigen (PSA) screening. This is a blood test used to screen for prostate cancer. An ultrasound. This test uses sound waves to electronically produce a picture of your prostate gland. Your health care provider may refer you to a specialist in kidney and prostate diseases (urologist). How is this treated? Once symptoms begin, your health care provider will monitor your condition (active surveillance or watchful waiting). Treatment for this condition will depend on the severity of your condition. Treatment may include: Observation and yearly exams. This may be the only treatment needed if your condition and symptoms are mild. Medicines to relieve your symptoms, including: ?Medicines to shrink the prostate. ?Medicines to relax the muscle of the prostate. Surgery in severe cases. Surgery may include: ?Prostatectomy. In this procedure, the prostate tissue is removed completely through an open incision or with a laparoscope or robotics. ?Transurethral resection of the prostate (TURP). In this procedure, a tool is inserted through the opening at the tip of the penis (urethra). It is used to cut away tissue of the inner core of the prostate. The pieces are removed through the same opening of the penis. This removes the blockage. ?Transurethral incision (TUIP). In this procedure, small cuts are made in the prostate. This lessens the prostate's pressure on the urethra. ?Transurethral microwave thermotherapy (TUMT). This procedure uses microwaves to create heat. The heat destroys and removes a small amount of prostate tissue. ?Transurethral needle ablation (TUNA). This procedure uses radio frequencies to destroy and remove a small amount of prostate tissue. ?Interstitial laser coagulation (ILC). This procedure uses a laser to destroy and remove a small amount of prostate tissue. ?Transurethral electrovaporization (TUVP). This procedure uses electrodes to destroy and remove a small amount of prostate tissue. ?Prostatic urethral lift. This procedure inserts an implant to push the lobes of the prostate away from the urethra. Follow these instructions at home: Take [id number] and prescription medicines only as told by your health care provider. Monitor your symptoms for any changes. Contact your health care provider with any changes. Avoid drinking large amounts of liquid before going to bed or out in public. Avoid or reduce how much caffeine or alcohol you drink. Give yourself time when you urinate. Keep all follow-up visits as told by your health care provider. This is important. Contact a health care provider if: You have unexplained back pain. Your symptoms do not get better with treatment. You develop side effects from the medicine you are taking. Your urine becomes very dark or has a bad smell. Your lower abdomen becomes distended and you have trouble passing your urine. Get help right away if: You have a fever or chills. You suddenly cannot urinate. You feel lightheaded, or very dizzy, or you faint. There are large amounts of blood or clots in the urine. Your urinary problems become hard to manage. You develop moderate to severe low back or flank pain. The flank is the side of your body between the ribs and the hip. These symptoms may represent a serious problem that is an emergency. Do not wait to see if the symptoms will go away. Get medical help right away. Call your local emergency services (911 in the [place] Do not drive yourself to the hospital. Summary Benign prostatic hyperplasia (BPH) is an enlarged prostate that is caused by the normal aging process and not by cancer. An enlarged prostate can press on the urethra. This can make it hard to pass urine. This condition is part of a normal aging process and is more likely to develop in men over the age of 50 years. Get help right away if you suddenly cannot urinate. This information is not intended to replace advice given to you by your health care provider. Make sure you discuss any questions you have with your health care provider. Document Released: 02/27/2006 Document Revised: 01/22/2019 Document Reviewed: 04/03/2017 [facility] Patient Education 2020 [facility] [employer] 03/02/2022 11:33:54 Prostate Cancer Screening Prostate Cancer Screening The prostate is a walnut-sized gland that is located below the bladder and in front of the rectum in males. The function of the prostate (prostate gland) is to add fluid to semen during ejaculation. Prostate cancer is the second most common type of cancer in men. A screening test for cancer is a test that is done before cancer symptoms start. Screening can help to identify cancer at an early stage, when the cancer can be treated more easily. The recommended prostate cancer screening test is a blood test called the prostate-specific antigen (PSA) test. PSA is a protein that is made in the prostate. As you age, your prostate naturally produces more PSA. Abnormally high PSA levels may be caused by: Prostate cancer. An enlarged prostate that is not caused by cancer (benign prostatic hyperplasia, BPH). This condition is very common in older men. A prostate gland infection (prostatitis). Medicines to assist with hair growth, such as finasteride. Depending on the PSA results, you may need more tests, such as: A physical exam to check the size of your prostate gland. Blood and imaging tests. A procedure to remove tissue samples from your prostate gland for testing (biopsy). Who should have screening? Screening recommendations vary based on age. If you are younger than age 40, screening is not recommended. If you are age 40 54 and you have no risk factors, screening is not recommended. If you are younger than age 55, ask your health care provider if you need screening if you have one of these risk factors: ?Being of -[place] descent. ?Having a family history of prostate cancer. If you are age 55 69, talk with your health care provider about your need for screening and how often screening should be done. If you are older than age 70, screening is not recommended. This is because the risks that screening can cause are greater than the benefits that it may provide (risks outweigh the benefits). If you are at high risk for prostate cancer, your health care provider may recommend that you have screenings more often or start screening at a younger age. You may be at high risk if you: Are older than age 55. Are -I[place]qi. Have a father, brother, or uncle who has been diagnosed with prostate cancer. The risk may be higher if your family member's cancer occurred at an early age. What are the benefits of screening? There is a small chance that screening may lower your risk of dying from prostate cancer. The chance is small because prostate cancer is typically a slow-growing cancer, and most men with prostate cancer from a different cause. What are the risks of screening? The main risk of prostate cancer screening is diagnosing and treating prostate cancer that would never have caused any symptoms or problems (overdiagnosis and overtreatment). PSA screening cannot tell you if your PSA is high due to cancer or a different cause. A prostate biopsy is the only procedure to diagnose prostate cancer. Even the results of a biopsy may not tell you if your cancer needs to be treated. Slow-growing prostate cancer may not need any treatment other than monitoring, so diagnosing and treating it may cause unnecessary stress or other side effects. A prostate biopsy may also cause: Infection or fever. A false negative. This is a result that shows that you do not have prostate cancer when you actually do have prostate cancer. Questions to ask your health care provider When should I start prostate cancer screening? What is my risk for prostate cancer? How often do I need screening? What type of screening tests do I need? How do I get my test results? What do my results mean? Do I need treatment? Contact a health care provider if: You have difficulty urinating. You have pain when you urinate or ejaculate. You have blood in your urine or semen. You have pain in your back or in the area of your prostate. You have trouble getting or maintaining an erection (erectile dysfunction, ED). Summary Prostate cancer is a common type of cancer in men. The prostate (prostate gland) is located below the bladder and in front of the rectum. This gland adds fluid to semen during ejaculation. Prostate cancer screening may identify cancer at an early stage, when the cancer can be treated more easily. The prostate-specific antigen (PSA) test is the recommended screening test for prostate cancer. Discuss the risks and benefits of prostate cancer screening with your health care provider. If you are age 70 or older, screening is likely to lead to more risks than benefits (risks outweigh the benefits). This information is not intended to replace advice given to you by your health care provider. Make sure you discuss any questions you have with your health care provider. Document Released: 12/08/2017 Document Revised: 02/09/2018 Document Reviewed: 12/08/2017 [facility] Patient Education 2020 [facility] [employer] 03/02/2022 10:41:27 Prostate Cancer Screening Prostate Cancer Screening The prostate is a walnut-sized gland that is located below the bladder and in front of the rectum in males. The function of the prostate (prostate gland) is to add fluid to semen during ejaculation. Prostate cancer is the second most common type of cancer in men. A screening test for cancer is a test that is done before cancer symptoms start. Screening can help to identify cancer at an early stage, when the cancer can be treated more easily. The recommended prostate cancer screening test is a blood test called the prostate-specific antigen (PSA) test. PSA is a protein that is made in the prostate. As you age, your prostate naturally produces more PSA. Abnormally high PSA levels may be caused by: Prostate cancer. An enlarged prostate that is not caused by cancer (benign prostatic hyperplasia, BPH). This condition is very common in older men. A prostate gland infection (prostatitis). Medicines to assist with hair growth, such as finasteride. Depending on the PSA results, you may need more tests, such as: A physical exam to check the size of your prostate gland. Blood and imaging tests. A procedure to remove tissue samples from your prostate gland for testing (biopsy). Who should have screening? Screening recommendations vary based on age. If you are younger than age 40, screening is not recommended. If you are age 40 54 and you have no risk factors, screening is not recommended. If you are younger than age 55, ask your health care provider if you need screening if you have one of these risk factors: ?Being of -[place] descent. ?Having a family history of prostate cancer. If you are age 55 69, talk with your health care provider about your need for screening and how often screening should be done. If you are older than age 70, screening is not recommended. This is because the risks that screening can cause are greater than the benefits that it may provide (risks outweigh the benefits). If you are at high risk for prostate cancer, your health care provider may recommend that you have screenings more often or start screening at a younger age. You may be at high risk if you: Are older than age 55. Are -I[place]qi. Have a father, brother, or uncle who has been diagnosed with prostate cancer. The risk may be higher if your family member's cancer occurred at an early age. What are the benefits of screening? There is a small chance that screening may lower your risk of dying from prostate cancer. The chance is small because prostate cancer is typically a slow-growing cancer, and most men with prostate cancer from a different cause. What are the risks of screening? The main risk of prostate cancer screening is diagnosing and treating prostate cancer that would never have caused any symptoms or problems (overdiagnosis and overtreatment). PSA screening cannot tell you if your PSA is high due to cancer or a different cause. A prostate biopsy is the only procedure to diagnose prostate cancer. Even the results of a biopsy may not tell you if your cancer needs to be treated. Slow-growing prostate cancer may not need any treatment other than monitoring, so diagnosing and treating it may cause unnecessary stress or other side effects. A prostate biopsy may also cause: Infection or fever. A false negative. This is a result that shows that you do not have prostate cancer when you actually do have prostate cancer. Questions to ask your health care provider When should I start prostate cancer screening? What is my risk for prostate cancer? How often do I need screening? What type of screening tests do I need? How do I get my test results? What do my results mean? Do I need treatment? Contact a health care provider if: You have difficulty urinating. You have pain when you urinate or ejaculate. You have blood in your urine or semen. You have pain in your back or in the area of your prostate. You have trouble getting or maintaining an erection (erectile dysfunction, ED). Summary Prostate cancer is a common type of cancer in men. The prostate (prostate gland) is located below the bladder and in front of the rectum. This gland adds fluid to semen during ejaculation. Prostate cancer screening may identify cancer at an early stage, when the cancer can be treated more easily. The prostate-specific antigen (PSA) test is the recommended screening test for prostate cancer. Discuss the risks and benefits of prostate cancer screening with your health care provider. If you are age 70 or older, screening is likely to lead to more risks than benefits (risks outweigh the benefits). This information is not intended to replace advice given to you by your health care provider. Make sure you discuss any questions you have with your health care provider. Document Released: 12/08/2017 Document Revised: 02/09/2018 Document Reviewed: 12/08/2017 [facility] Patient Education 2020 [facility] [employer] Follow Up Care 02/09/2022 15:30:33 With:KATIUSKA DIETRICH, Rodrigue Iqbal, URL Address: [facility] [address] , [place] [address]- When: Unknown [facility] Anjali Chief complaint Narrative - Reported RUPERTO BHATTI is being seen for a consultation for hypertension.62-year-old white male who is being referred to me by Dr. Harp for management of hypertension that is hard to control. The patient was diagnosed recently with prostate cancer which seems to be localized to the prostate. Long-term therapy has not yet been decided in terms of radiation, surgery or other measures. This issue has placed the patient under significant stress and as a result he became significantly hypertensive. His acknowledges history of severe hypertension in the past for which she was taking medication but apparently he did not continue taking the medicine. He is not symptomatic with hypertension but the reading is quite remarkable. He has no headaches or vision problems and no dizziness and no chest pain or dyspnea. He has had no previous cardiac history and no previous cardiac investigations. He has sleep apnea and has not been treated for that. He does have obesity and his job is not physically demanding. He has no alcohol abuse and no tobacco abuse and no family history of early CAD. EKG reveals sinus rhythm with left axis deviation and mild QRS widening. His cardiopulmonary examination and vascular examinations were unremarkable. All other review of system are unremarkableAssessment/recommenda tions:1 hypertension that is uncontrolled. The patient was educated about hypertension therapy and was directed to the DASH diet in the meantime since he is allergic to LINDA inhibitors and ARB's for angioedema or options of therapy were discussed with the patient. He will be switched from metoprolol to carvedilol for vasodilating effect and also increase amlodipine up to 10 mg daily. We will add hydrochlorothiazide 12.5 mg daily. We will still have other options to entertain such as hydralazine. He seem to have tolerated clonidine fairly well. An echocardiogram is ordered to assess his cardiac status. Follow-up BP check will be done in few weeks. He was advised to continue to monitor his blood pressure reading at home.2 prostate cancer being assessed and managed by Dr. Harp3 tobacco abuse, he was encouraged to quit smoking4 sleep apnea untreated. He was educated on the importance of management of sleep apnea and brought his attention that untreated sleep apnea can make hypertension difficult to treat.5 abnormal EKG with left axis deviation and QRS widening. Echocardiogram is scheduled [facility] [address] DO Work Phone: Chief complaint Narrative - Reported RUPERTO BHATTI is being seen for a consultation for hypertension.62-year-old white male who is being referred to me by Dr. Harp for management of hypertension that is hard to control. The patient was diagnosed recently with prostate cancer which seems to be localized to the prostate. Long-term therapy has not yet been decided in terms of radiation, surgery or other measures. This issue has placed the patient under significant stress and as a result he became significantly hypertensive. His acknowledges history of severe hypertension in the past for which she was taking medication but apparently he did not continue taking the medicine. He is not symptomatic with hypertension but the reading is quite remarkable. He has no headaches or vision problems and no dizziness and no chest pain or dyspnea. He has had no previous cardiac history and no previous cardiac investigations. He has sleep apnea and has not been treated for that. He does have obesity and his job is not physically demanding. He has no alcohol abuse and no tobacco abuse and no family history of early CAD. EKG reveals sinus rhythm with left axis deviation and mild QRS widening. His cardiopulmonary examination and vascular examinations were unremarkable. All other review of system are unremarkableAssessment/recommenda tions:1 hypertension that is uncontrolled. The patient was educated about hypertension therapy and was directed to the DASH diet in the meantime since he is allergic to LINDA inhibitors and ARB's for angioedema or options of therapy were discussed with the patient. He will be switched from metoprolol to carvedilol for vasodilating effect and also increase amlodipine up to 10 mg daily. We will add hydrochlorothiazide 12.5 mg daily. We will still have other options to entertain such as hydralazine. He seem to have tolerated clonidine fairly well. An echocardiogram is ordered to assess his cardiac status. Follow-up BP check will be done in few weeks. He was advised to continue to monitor his blood pressure reading at home.2 prostate cancer being assessed and managed by Dr. Harp3 tobacco abuse, he was encouraged to quit smoking4 sleep apnea untreated. He was educated on the importance of management of sleep apnea and brought his attention that untreated sleep apnea can make hypertension difficult to treat.5 abnormal EKG with left axis deviation and QRS widening. Echocardiogram is scheduled [facility] Work Phone: Chief complaint Narrative - Reported RUPERTO BHATTI is being seen for a consultation for hypertension.62-year-old white male who is being referred to me by Dr. Harp for management of hypertension that is hard to control. The patient was diagnosed recently with prostate cancer which seems to be localized to the prostate. Long-term therapy has not yet been decided in terms of radiation, surgery or other measures. This issue has placed the patient under significant stress and as a result he became significantly hypertensive. His acknowledges history of severe hypertension in the past for which she was taking medication but apparently he did not continue taking the medicine. He is not symptomatic with hypertension but the reading is quite remarkable. He has no headaches or vision problems and no dizziness and no chest pain or dyspnea. He has had no previous cardiac history and no previous cardiac investigations. He has sleep apnea and has not been treated for that. He does have obesity and his job is not physically demanding. He has no alcohol abuse and no tobacco abuse and no family history of early CAD. EKG reveals sinus rhythm with left axis deviation and mild QRS widening. His cardiopulmonary examination and vascular examinations were unremarkable. All other review of system are unremarkableAssessment/recommenda tions:1 hypertension that is uncontrolled. The patient was educated about hypertension therapy and was directed to the DASH diet in the meantime since he is allergic to LINDA inhibitors and ARB's for angioedema or options of therapy were discussed with the patient. He will be switched from metoprolol to carvedilol for vasodilating effect and also increase amlodipine up to 10 mg daily. We will add hydrochlorothiazide 12.5 mg daily. We will still have other options to entertain such as hydralazine. He seem to have tolerated clonidine fairly well. An echocardiogram is ordered to assess his cardiac status. Follow-up BP check will be done in few weeks. He was advised to continue to monitor his blood pressure reading at home.2 prostate cancer being assessed and managed by Dr. Harp3 tobacco abuse, he was encouraged to quit smoking4 sleep apnea untreated. He was educated on the importance of management of sleep apnea and brought his attention that untreated sleep apnea can make hypertension difficult to treat.5 abnormal EKG with left axis deviation and QRS widening. Echocardiogram is scheduled [facility] Work Phone: Evaluation + Plan note Future Appointments Appointment Date:05/06/2022 08:45:00 AM Scheduled Provider:Rodrigue HARP MD Location:[facility] Appointment Type:URO Office Visit [facility] Evaluation note No assessment inform ation available [facility] Work Phone: Evaluation note Diagnosis Malignant neoplasm of prostate (HCC)- Primary [facility] ne[facility] Pro[facility] ([facility])- Primary [facility] neoplasm of [facility] Malignant neoplasm of prostate (HCC)- Primary Malignant neoplasm of prostate Thyroid nodule Nontoxic uninodular goiter [facility] Malignant neoplasm of prostate (HCC)- Primary Malignant neoplasm of prostate Malignant neoplasm of prostate (HCC) Malignant neoplasm of [facility] Screening for genitourinary condition Screening for other and unspecified genitourinary condition Malignant neoplasm of prostate (HCC) [facility] Hypercholesteremia- Primary Pure hypercholesterolemia Hypertension, unspecified type Obstructive sleep apnea syndrome Obstructive sleep apnea (adult) (pediatric) Benign prostatic hyperplasia with urinary obstruction Malignant neoplasm of prostate (HCC) [facility] Screening for genitourinary condition- Primary Screening for other and unspecified genitourinary condition Malignant neoplasm of prostate (HCC) Malignant neoplasm of prostate documented in this encounter [facility] Pre-op exam- Primary Preoperative examination, unspecified Malignant neoplasm of prostate (HCC) Malignant neoplasm of prostate [facility] Screening for genitourinary condition Screening for other and unspecified genitourinary condition Malignant neoplasm of prostate (HCC) Malignant neoplasm of prostate [facility] Diagnosis Malignant neoplasm of prostate (HCC) Malignant neoplasm of prostate Malignant neoplasm of prostate (HCC) Malignant neoplasm of prostate [facility] Diagnosis Malignant neoplasm of prostate (HCC)- Primary Malignant neoplasm of prostate [facility] Diagnosis Encounter for follow-up surveillance of prostate cancer- Primary Unspecified follow-up examination History of prostate cancer Personal history of malignant neoplasm of prostate Rising PSA following treatment for malignant neoplasm of prostate YELENA (stress urinary incontinence), male Stress incontinence, male Erectile dysfunction following radical prostatectomy Impotence of organic origin [facility] Diagnosis Encounter for follow-up surveillance of prostate cancer- Primary Unspecified follow-up examination History of prostate cancer Personal history of malignant neoplasm of prostate YELENA (stress urinary incontinence), male Stress incontinence, male Erectile dysfunction following radical prostatectomy Impotence of organic origin [facility] Diagnosis Malignant neoplasm of prostate (HCC)- Primary Malignant neoplasm of prostate documented in this encounter [facility] note* Diagnosis Malignant neoplasm of prostate (HCC) Malignant neoplasm of prostate documented in this encounter [facility] note* Diagnosis Malignant neoplasm of prostate (HCC)- Primary Malignant neoplasm of prostate [facility] Diagnosis Malignant neoplasm of prostate (HCC)- Primary Malignant neoplasm of prostate [facility]* Diagnosis Malignant neoplasm of prostate (HCC)- Primary Malignant neoplasm of prostate [facility] Diagnosis History of prostate cancer- Primary Personal history of malignant neoplasm of prostate History of radiation therapy Personal history of irradiation, presenting hazards to health Rising PSA following treatment for malignant neoplasm of prostate Erectile dysfunction following radical prostatectomy Impotence of organic origin [facility] Diagnosis Malignant neoplasm of prostate (HCC)- Primary Malignant neoplasm of prostate [facility] Diagnosis Thyroid nodule- Primary Nontoxic uninodular goiter Malignant neoplasm of prostate (HCC) Malignant neoplasm of prostate [facility] Diagnosis Malignant neoplasm of prostate (HCC)- Primary Malignant neoplasm of prostate [facility] Narrative No data available for this section [facility] Progress note No data available for this section [facility] Reason for referral (narrative) Referred by: Rodrigue HARP MD [facility] Rebcio for referral (narrative)* Diagnostic Procedure Only (Routine) - Pending Review Specialty Diagnoses / Procedures Referred By Nicole dexter Referred To Contact MOLECULAR & FUNCTIONAL IMAGING Diagnoses Malignant neoplasm of prostate (HCC) Procedures NM PET/CT PROSTATE WHOLE BODY IMAGING PET IMAGING CT ATTENUATION SKULL BASE MID-THIGH Stephanie Castro MD [address] [place] [address] [place] [address] Molecular & Functional Imaging [address] [place] [address] Referral ID Status Reason Start Date Expiration Date Visits Requested Visits Authorized [id number] Pending Review Auto-Generat ed Referral 04/19/2022 05/19/2023 1 1 [facility] for referral (narrative)* Diagnostic Procedure Only (Routine) - Pending Review Specialty Diagnoses / Procedures Referred By Contac t Referred To Contact US IMAGING Diagnoses Thyroid nodule Procedures US THYROID/PARATHYROID US SOFT TISSUE HEAD & NECK REAL TIME IMGE Stephanie Sosa MD [address] [place] [address] [place] [address] Us Imaging Referral ID Status Reason Start Date Expiration Date Visits Requested Visits Authorized [id number] Pending Review Auto-Generat ed Referral 05/24/2022 06/23/2023 1 1 [facility] for referral (narrative)* Diagnostic Procedure Only (Routine) - Pending Review Specialty Diagnoses / Procedures Referred By Contac t Referred To Contact MOLECULAR & FUNCTIONAL IMAGING Diagnoses Malignant neoplasm of prostate (HCC) Procedures NM PET/CT PROSTATE WHOLE BODY IMAGING PET IMAGING CT ATTENUATION SKULL BASE MID-THIGH Stephanie Castro MD [address] [place] [address] [place] [address] Molecular & Functional Imaging [address] [place], [place] [id number] Referral ID Status Reason Start Date Expiration Date Visits Requested Visits Authorized [id number] Pending Review Auto-Generat ed Referral 03/22/2024 1 1 [facility] Chief Complaint and Reason for Visit Chief Complaint Elevated PSA Advance Directives No Advanced Directives Records Found Advance Directive Response Recorded Date/ Time Advance Directives No March 17, 2022 3:31pm Summary Purpose Family History No Family History Records FoundUnknown Family Member Name Dates Details Family history of cardiac di sorder: Mother, Father(V17.49, Z82.49) Status:Active Family history of myocardial infarction: Mother, Father(V17.3, Z82.49) Status:Active Family history of atrial fib rillation: Mother(V17.49, Z82.49) Status:Active Unknown Family Member Name Dates Details Family history of cardiac di sorder: Mother, Father(V17.49, Z82.49) Status:Active Family history of myocardial infarction: Mother, Father(V17.3, Z82.49) Status:Active Family history of atrial fib rillation: Mother(V17.49, Z82.49) Status:Active Unknown Family Member Name Dates Details Family history of cardiac di sorder: Mother, Father(V17.49, Z82.49) Status:Active Family history of myocardial infarction: Mother, Father(V17.3, Z82.49) Status:Active Family history of atrial fib rillation: Mother(V17.49, Z82.49) Status:Active Unknown Family Member Name Dates Details Family history of cardiac di sorder: Mother, Father(V17.49, Z82.49) Status:Active Family history of myocardial infarction: Mother, Father(V17.3, Z82.49) Status:Active Family history of atrial fib rillation: Mother(V17.49, Z82.49) Status:Active Unknown Family Member Name Dates Details Family history of cardiac di sorder: Mother, Father(V17.49, Z82.49) Status:Active Family history of myocardial infarction: Mother, Father(V17.3, Z82.49) Status:Active Family history of atrial fib rillation: Mother(V17.49, Z82.49) Status:Active Chief Complaint * RUPERTO BHATTI is being seen for hypertension. * The patient is in the office for follow-up for hypertension management after recent adjustment of medications. With all the changes I made his pressure is finally under control and patient is extremely pleased with the outcome. Fortunately did not have any side effect of medications. Emphasized theneed for tobacco cessation and further weight loss. In consideration for sleep study. Lab data fromrecent testing were reviewed and his kidney function and potassium are normal. This was shared withthe patient * RUPERTO BHATTI is being seen for a 3 month follow-up of. * Patient is in the office with his for follow-up for the problems noted below. He has had no events since he was last seen in the office. His pressure is in the upper normal range on his present medical therapy. He is compliant with diet and exercise and is trying to lose weight. He continues to smoke along with his . I did discuss the issue of tobacco cessation with both the patient and his . He has on his EKG incomplete right bundle branch block which is inconsequential and reassurances were provided to him and his . His lab data from this past spring were reviewed with him.He has elevated blood sugar but this was not a fasting blood test. We will check his fasting blood sugar next time he gets blood work in 6 months. * Assessment/recommendations: * 1 hypertension that is currently in the upper normal range. We will continue present medical therapy with no changes and continue to monitor. He follows low-salt diet and has been try to stay physically active. * 2 prostate cancer status postsurgical resection recently by Dr. Harp, in remission * 3 tobacco abuse, he was encouraged to quit smoking, his also smokes and she was also advised to quit smoking * 4 sleep apnea untreated. He was educated on the importance of management of sleep apnea and broughthis attention that untreated sleep apnea can make hypertension difficult to treat. Reason for Referral Specialty Diagnoses / Procedures Referred By Contac t Referred To Contact Claribel Haque APRN.CNP [address] [place] [address] Referral ID Status Reason Start Date Expiration Date V isits Requested Visits Authorized [id number] Pending Review 1 1 Specialty Diagnoses / Procedures Referred By Contac t Referred To Contact Diagnoses Malignant neoplasm of prostate (HCC) Procedures REFER TO PACC - PRE ANESTHESIA CONSULTATION CLINIC OFFICE/OUTPATIENT [facility] 60-74 MINUTES Rodolfo Walker MD [address] [facility] [address] [place] [address] Referral ID Status Reason Start Date Expiration Date Visits Requested Visits Authorized [id number] Authorized PCP Requested Referral 06/10/2022 06/10/2023 1 1 Specialty Diagnoses / Procedures Referred By Contac t Referred To Contact [facility] Diagnoses Malignant neoplasm of prostate (HCC) Procedures ECG COMPLETE ECG ROUTINE ECG W/LEAST 12 LDS W/I&R Rodolfo Walker MD [address] [place] [address] [facility] [address] [place] [address] Referral ID Status Reason Start Date Expiration Date Visits Requested Visits Authorized [id number] Pending Review Auto-Generat ed Referral 06/10/2022 06/10/2023 1 1 Additional Source Comments Patient Care team informatio n (unrecognized section and content) Team Status: Inactive Member Role Status Dates Rodrigue Harp MD Attending Provider Active Wu Enrique MD Primary Care Provider Active Team Status: Active Member Role Status Dates Wu Enrique MD Primary Care Provider Active Quality Compliance Coordinator Relationship Specialty Start Date End Date Wu Enrique MD [address] [place] [address] PCP - General Family Medicine 06/10/22 Quality Compliance Coordinator Relationship Specialty Start Date End Date Wu Enrique MD [address] [place] [id number] PCP - General Family Medicine 06/10/22 Quality Compliance Coordinator Relationship Specialty Start Date End Date Wu Enrique MD [address] [place] [address] PCP - General Family Medicine 06/10/22 Quality Compliance Coordinator Relationship Specialty Start Date End Date Wu Enrique MD [address] [place] [id number] PCP - General Family Medicine 06/10/22 Quality Compliance Coordinator Relationship Specialty Start Date End Date Wu Enrique MD [address] [place] [id number] PCP - General Family Medicine 06/10/22 Quality Compliance Coordinator Relationship Specialty Start Date End Date Wu Enrique MD [address] [place] PCP - General Family Medicine 06/10/22 Quality Compliance Coordinator Relationship Specialty Start Date End Date Wu Enrique MD [address] [place], [facility] PCP - General Family Medicine 06/10/22 Quality Compliance Coordinator Relationship Specialty Start Date End Date Wu Enrique MD [address] [place], [facility] PCP - General Family Medicine 06/10/22 Quality Compliance Coordinator Relationship Specialty Start Date End Date Wu Enrique MD [address] [place], [place] [address] PCP - General Family Medicine 06/10/22 Quality Compliance Coordinator Relationship Specialty Start Date End Date Wu Enrique MD [address] [place], [place] [address] PCP - General Family Medicine 06/10/22 Quality Compliance Coordinator Relationship Specialty Start Date End Date Wu Enrique MD [address] [place], [facility] PCP - General Family Medicine 06/10/22 Quality Compliance Coordinator Relationship Specialty Start Date End Date Wu Enrique MD [address] [place], [facility] PCP - General Family Medicine 06/10/22 Quality Compliance Coordinator Relationship Specialty Start Date End Date uW Enrique MD [address] [place] [address] PCP - General Family Medicine 06/10/22 Quality Compliance Coordinator Relationship Specialty Start Date End Date Wu Enrique MD [address] [place] [address] PCP - General Family Medicine 06/10/22 Quality Compliance Coordinator Relationship Specialty Start Date End Date Loc Castaneda MD [address] [place] [address] PCP - General Family Medicine 03/21/23 Quality Compliance Coordinator Relationship Specialty Start Date End Date Loc Castaneda MD [address] [place] [address] PCP - General Family Medicine 03/21/23 Quality Compliance Coordinator Relationship Specialty Start Date End Date Loc Castaneda MD [address] [place] [address] PCP - General Family Medicine 03/21/23 Quality Compliance Coordinator Relationship Specialty Start Date End Date Loc Castaneda MD [address] [place] [address] PCP - General Family Medicine 03/21/23 Quality Compliance Coordinator Relationship Specialty Start Date End Date Loc Castaneda MD [address] [place] [address] PCP - General Family Medicine 03/21/23 Quality Compliance Coordinator Relationship Specialty Start Date End Date Loc Castaneda MD [address] [place] [address] PCP - General Family Medicine 03/21/23 Quality Compliance Coordinator Relationship Specialty Start Date End Date Loc Castaneda MD [address] [facility] [place] [address] PCP - General [facility] 03/21/23 Quality Compliance Coordinator Relationship Specialty Start Date End Date Loc Castaneda MD [address] [place] [address] PCP - General [facility] 03/21/23 Quality Compliance Coordinator Relationship Specialty Start Date End Date Loc Castaneda MD [address] [facility] [place] [address] PCP - [facility] 03/21/23 Quality Compliance Coordinator Relationship Specialty Start Date End Date Loc Castaneda MD [address] [place] [id number] PCP - General [facility] 03/21/23 Goals (unrecognized section and content) Goals may be documented in a n alternate section (unrecognized sect ion and content) No Status Records FoundNo Status Records FoundNo Status Records FoundNo Status Records FoundNo Status Records FoundNo Status Records FoundNo Status Records Found INFORMATION SOURCE (unrecogn ized section and content) DATE CREATED AUTHOR 03/28/2022 [facility] DATE CREATED AUTHOR AUTHOR'S ORGANIZ ATION 06/04/2022 [facility] DATE CREATED AUTHOR AUTHOR'S ORGANIZ ATION 09/07/2022 [facility] DATE CREATED AUTHOR AUTHOR'S ORGANIZ ATION 09/07/2022 [facility] DATE CREATED AUTHOR AUTHOR'S ORGANIZ ATION 07/04/2023 [facility] DATE CREATED AUTHOR AUTHOR'S ORGANIZ ATION 09/27/2023 [facility] DATE CREATED AUTHOR AUTHOR'S ORGANIZ ATION 10/06/2023 [facility] Ambulatory Source Comments (unrecognize d section and content) In the event this informatio n is protected by the Federal Confidentiality of Alcohol and Drug Abuse Patient Records regulations: The Federal rules restrict any use of the information to criminally investigate or prosecute any alcohol or drug abuse patient.[facility] the event this information is protected by the Federal Confidentiality of Alcohol and Drug Abuse Patient Records regulations: The Federal rules restrict any use of the information to criminally investigate or prosecute any alcohol or drug abuse patient.[facility] the event this information is protected by the Federal Confidentiality of Alcohol and Drug Abuse Patient Records regulations: The Federal rules restrict any use of the information to criminally investigate or prosecute any alcohol or drug abuse patient.[facility] the event this information is protected by the Federal Confidentiality of Alcohol and Drug Abuse Patient Records regulations: The Federal rules restrict any use of the information to criminally investigate or prosecute any alcohol or drug abuse patient.[facility] the event this information is protected by the Federal Confidentiality of Alcohol and Drug Abuse Patient Records regulations: The Federal rules restrict any use of the information to criminally investigate or prosecute any alcohol or drug abuse patient.[facility] the event this information is protected by the Federal Confidentiality of Alcohol and Drug Abuse Patient Records regulations: The Federal rules restrict any use of the information to criminally investigate or prosecute any alcohol or drug abuse patient.[facility] the event this information is protected by the Federal Confidentiality of Alcohol and Drug Abuse Patient Records regulations: The Federal rules restrict any use of the information to criminally investigate or prosecute any alcohol or drug abuse patient.[facility] the event this information is protected by the Federal Confidentiality of Alcohol and Drug Abuse Patient Records regulations: The Federal rules restrict any use of the information to criminally investigate or prosecute any alcohol or drug abuse patient.[facility] the event this information is protected by the Federal Confidentiality of Alcohol and Drug Abuse Patient Records regulations: The Federal rules restrict any use of the information to criminally investigate or prosecute any alcohol or drug abuse patient.[facility] the event this information is protected by the Federal Confidentiality of Alcohol and Drug Abuse Patient Records regulations: The Federal rules restrict any use of the information to criminally investigate or prosecute any alcohol or drug abuse patient.[facility] the event this information is protected by the Federal Confidentiality of Alcohol and Drug Abuse Patient Records regulations: The Federal rules restrict any use of the information to criminally investigate or prosecute any alcohol or drug abuse patient.[facility] the event this information is protected by the Federal Confidentiality of Alcohol and Drug Abuse Patient Records regulations: The Federal rules restrict any use of the information to criminally investigate or prosecute any alcohol or drug abuse patient.[facility] the event this information is protected by the Federal Confidentiality of Alcohol and Drug Abuse Patient Records regulations: The Federal rules restrict any use of the information to criminally investigate or prosecute any alcohol or drug abuse patient.[facility] the event this information is protected by the Federal Confidentiality of Alcohol and Drug Abuse Patient Records regulations: The Federal rules restrict any use of the information to criminally investigate or prosecute any alcohol or drug abuse patient.[facility] the event this information is protected by the Federal Confidentiality of Alcohol and Drug Abuse Patient Records regulations: The Federal rules restrict any use of the information to criminally investigate or prosecute any alcohol or drug abuse patient.[facility] the event this information is protected by the Federal Confidentiality of Alcohol and Drug Abuse Patient Records regulations: The Federal rules restrict any use of the information to criminally investigate or prosecute any alcohol or drug abuse patient.[facility] the event this information is protected by the Federal Confidentiality of Alcohol and Drug Abuse Patient Records regulations: The Federal rules restrict any use of the information to criminally investigate or prosecute any alcohol or drug abuse patient.[facility] the event this information is protected by the Federal Confidentiality of Alcohol and Drug Abuse Patient Records regulations: The Federal rules restrict any use of the information to criminally investigate or prosecute any alcohol or drug abuse patient.[facility] the event this information is protected by the Federal Confidentiality of Alcohol and Drug Abuse Patient Records regulations: The Federal rules restrict any use of the information to criminally investigate or prosecute any alcohol or drug abuse patient.[facility] the event this information is protected by the Federal Confidentiality of Alcohol and Drug Abuse Patient Records regulations: The Federal rules restrict any use of the information to criminally investigate or prosecute any alcohol or drug abuse patient.[facility] the event this information is protected by the Federal Confidentiality of Alcohol and Drug Abuse Patient Records regulations: The Federal rules restrict any use of the information to criminally investigate or prosecute any alcohol or drug abuse patient.[facility] the event this information is protected by the Federal Confidentiality of Alcohol and Drug Abuse Patient Records regulations: The Federal rules restrict any use of the information to criminally investigate or prosecute any alcohol or drug abuse patient.[facility] the event this information is protected by the Federal Confidentiality of Alcohol and Drug Abuse Patient Records regulations: The Federal rules restrict any use of the information to criminally investigate or prosecute any alcohol or drug abuse patient.[facility] the event this information is protected by the Federal Confidentiality of Alcohol and Drug Abuse Patient Records regulations: The Federal rules restrict any use of the information to criminally investigate or prosecute any alcohol or drug abuse patient.[facility] the event this information is protected by the Federal Confidentiality of Alcohol and Drug Abuse Patient Records regulations: The Federal rules restrict any use of the information to criminally investigate or prosecute any alcohol or drug abuse patient.[facility] the event this information is protected by the Federal Confidentiality of Alcohol and Drug Abuse Patient Records regulations: The Federal rules restrict any use of the information to criminally investigate or prosecute any alcohol or drug abuse patient.[facility] the event this information is protected by the Federal Confidentiality of Alcohol and Drug Abuse Patient Records regulations: The Federal rules restrict any use of the information to criminally investigate or prosecute any alcohol or drug abuse patient.[facility] [facility] the event this information is protected by the Federal Confidentiality of Alcohol and Drug Abuse Patient Records regulations: The Federal rules restrict any use of the information to criminally investigate or prosecute any alcohol or drug abuse patient.[facility] the event this information is protected by the Federal Confidentiality of Alcohol and Drug Abuse Patient Records regulations: The Federal rules restrict any use of the information to criminally investigate or prosecute any alcohol or drug abuse patient.[facility] the event this information is protected by the Federal Confidentiality of Alcohol and Drug Abuse Patient Records regulations: The Federal rules restrict any use of the information to criminally investigate or prosecute any alcohol or drug abuse patient.[facility] the event this information is protected by the Federal Confidentiality of Alcohol and Drug Abuse Patient Records regulations: The Federal rules restrict any use of the information to criminally investigate or prosecute any alcohol or drug abuse patient.[facility]In the event this information is protected by the Federal Confidentiality of Alcohol and Drug Abuse Patient Records regulations: The Federal rules restrict any use of the information to criminally investigate or prosecute any alcohol or drug abuse patient.[facility] HospitalIn the event this information is protected by the Federal Confidentiality of Alcohol and Drug Abuse Patient Records regulations: The Federal rules restrict any use of the information to criminally investigate or prosecute any alcohol or drug abuse patient.[facility] HospitalIn the event this information is protected by the Federal Confidentiality of Alcohol and Drug Abuse Patient Records regulations: The Federal rules restrict any use of the information to criminally investigate or prosecute any alcohol or drug abuse patient.[facility] Reason for Visit (unrecogniz ed section and content) Reason Comments Nm Pet Request Reason Comments Prostate Cancer Reason Comments Orders Reason Comments RECEIVED PATHOLOGY SLIDES Reason Comments Pre-Op Exam Reason Comments Consult Reason Comments Post-Op Visit Reason Comments Returning Patient's Call Reason Comments Follow Up Reason Comments Phlebotomy Reason Comments Radiotherapy On-treatment Visit Reason Onset Date Comments Refill Request 06/18/2023 Reason Comments Prostate Cancer FOR RECORDS PERTAINING TO PATIENTS WHO ARE OR HAVE BEEN ENROLLED IN A CHEMICAL DEPENDENCY/SUBSTANCEABUSE PROGRAM, SOME INFORMATION MAY BE OMITTED. This clinical summary was aggregated from multiple sources. Caution should be exercised in using it in the provision of clinical care. This summary normalizes information from multiple sources, and as a consequence, information in this document may materially change the coding, format and clinical context of patient data. In addition, data may be omitted in some cases. CLINICAL DECISIONS SHOULD BE BASED ON THE PRIMARY CLINICAL RECORDS. [facility], [facility]. provides no warranty or guarantee of the accuracy or completeness of information in this document.
[2023-11-18 10:50] LABS: Anion Gap 11.1; BUN Creatinine Ratio 13.5; Calcium 9.2 mg/dL (8.5-10.1); Carbon Dioxide 29.5 mmol/L (21.0-32.0); Chloride 96 mmol/L (98-107); Estimated GFR (African America >60 (>=60); Estimated GFR (Non-African Ame >60 (>=60); Glucose 99 mg/dL (74-106); Potassium 3.6 mmol/L (3.5-5.1); Sodium 133 mmol/L (136-145)
== END 2023-11-18 09:38 | disposition home or self-care (01) ==
PROVIDERS: PCP Family Medicine; Visit Provider Internal Medicine Cardiovascular Disease
DX: I10 Essential (primary) hypertension (principal)
CPT/HCPCS: 36415; 80048